=== PATIENT | male | born 1930 | race Caucasian/White ===

== ENCOUNTER 2017-05-13 11:34 | Observation (INO) | payer MEDICARE, OTHER ==
[2017-05-13] VITALS (9 sets, daily range): BP systolic 94–137; BP diastolic 52–83; PULSE 73–113; RESP 17–19; TEMP 97.8–98.3; O2SAT 96–97
[~2017-05-13] VITALS: Ht 182.9 cm; Wt 75.0 kg
[~2017-05-13 11:34] MED LIST: FERR65TA PO; HYDR-3583 PO; HYDR12.56 PO; METO25TA3 PO; NEXI40CA PO; ONETAB4 PO; REST30CA PO; VITA500T PO; XARE15TA PO
[2017-05-13] MEDS ORDERED: FERR200T PO (12:01)
[2017-05-13] MEDS ORDERED: OCUVTAB4 PO (12:01)
[2017-05-13] MEDS ORDERED: CELE1CAP8 PO (12:01)
[2017-05-13] MEDS ORDERED: VITA250C3 CHEW (12:01)
[2017-05-13] MEDS ORDERED: MULT-207 PO (12:01)
[2017-05-13 12:18] LABS: AUTOMATED NEUTROPHIL # 7.3 TH/MM3 (1.8-7.7); BASOPHIL % 0.5 % (0.0-2.0); EOSINOPHIL % 0.3 % (0.0-4.0); HEMATOCRIT 29.8 % (39.0-51.0); HEMO FLAGS DIFF FINAL; LYMPH % 16.2 % (9.0-44.0); LYMPHOCYTE # 1.5 TH/MM3 (1.0-4.8); MEAN CELL VOLUME 98.9 FL (80.0-100.0); MEAN CORPUSCULAR HEMOGLOBIN 32.1 PG (27.0-34.0); MEAN CORPUSCULAR HGB CONC 32.5 % (32.0-36.0); MONO % 4.8 % (0.0-8.0); NEUT % 78.2 % (16.0-70.0); PLATELET COUNT 309 TH/MM3 (150-450); RED BLOOD COUNT 3.01 MIL/MM3 (4.50-5.90); RED CELL DISTRIBUTION WIDTH 16.3 % (11.6-17.2); WHITE BLOOD COUNT 9.3 TH/MM3 (4.0-11.0)
[2017-05-13 12:39] LABS: ALT (GPT) 15 U/L (12-78); ANION GAP 8 MEQ/L (5-15); AST (GOT) 14 U/L (15-37); BICARBONATE 25.4 MEQ/L (21.0-32.0); BLOOD UREA NITROGEN 34 MG/DL (7-18); CHLORIDE 104 MEQ/L (98-107); GLOMERULAR FILTRATION RATE 42 ML/MIN (>89); POTASSIUM 4.4 MEQ/L (3.5-5.1); SODIUM (NA) 137 MEQ/L (136-145)
[2017-05-13 12:41] LABS: ALKALINE PHOSPHATASE 137 U/L (45-117); TOTAL BILIRUBIN ADULT 0.5 MG/DL (0.2-1.0)
--- NOTE | 2017-05-13 13:32 | PD ---
HPI Chief Complaint: Bleeding Time Seen by Provider: 12:04 Travel History International Travel<30 days: No Contact w/Intl Traveler<30days: No Traveled to known affect area: No History of Present Illness HPI The patient is 86 years old. He was being evaluated by Dr. Godinez for peripheral vascular disease however he stepped on aluminum at home on the left foot causing bleeding last night. EMS wrapped the foot, The bleeding was extensive in office, possibly several hundred cc of blood. In the ER he complains of pain in the feet bilaterally. Shortness of breath is reported. Pt take xarelto for afib. PFSH Past Medical History Hx Anticoagulant Therapy: Yes Atrial Fibrillation: Yes Blood Disorders: No Heart Rhythm Problems: Yes (afib) Cancer: No Cardiac Catheterization: Yes Cardiovascular Problems: Yes High Cholesterol: No Chest Pain: Yes Congestive Heart Failure: No Coronary Artery Disease: Yes Diabetes: No Diminished Hearing: Yes Endocrine: Yes Gastrointestinal Disorders: Yes GERD: Yes Genitourinary: Yes (RENAL STENTS) Hiatal Hernia: Yes Hypertension: Yes Immune Disorder: No Musculoskeletal: Yes (SPINE ARTHRITIS) Neurologic: No Psychiatric: No Reproductive: No Respiratory: No Myocardial Infarction: Yes Tetanus Vaccination: Unknown Past Surgical History Coronary Artery Bypass Graft: No Coronary Stent: Yes (X 3-4) Joint Replacement: Yes (LEFT KNEE, LEFT HIP) Other Surgery: Yes (RENAL STENT) Family History Family Myocardial Infarction: Yes Social History Alcohol Use: Yes (OCC BEER) Tobacco Use: No Substance Use: No Allergies-Medications (Allergen,Severity, Reaction): Coded Allergies: diatrizoate meglumine (Unverified Allergy, Severe, 05/13/17) gadobenic acid (Unverified Allergy, Severe, 05/13/17) gadodiamide (Unverified Allergy, Severe, 05/13/17) gadoteridol (Unverified Allergy, Severe, 05/13/17) iodixanol (Unverified Allergy, Severe, 05/13/17) iohexol (Unverified Allergy, Severe, 05/13/17) Reported Meds & Prescriptions Reported Meds & Active Scripts Active Reported Feosol (Ferrous Sulfate) 325 Mg (65 Mg Iron) Tab 200 Mg PO DAILY Vitamin C (Ascorbic Acid) 250 Mg Chew 250 Mg CHEW DAILY Celecoxib 200 Mg Cap 200 Mg PO BID Preservision Areds (Multiple Vitamins W/ Minerals) 1 Tab 1 Tab PO DAILY One Daily (Multiple Vitamin) 1 Tab 1 Tab PO DAILY Hydrochlorothiazide 12.5 Mg Tab 12.5 Mg PO DAILY Restoril (Temazepam) 30 Mg Cap 30 Mg PO HS PRN Hydrocodone-Acetaminophen 10-325 mg Tab 1 Tab PO Q4H PRN Metoprolol Tartrate 25 Mg Tab 25 Mg PO DAILY Xarelto (Rivaroxaban) 15 Mg Tab 15 Mg PO DAILY Nexium (Esomeprazole DR) 40 Mg Capdr 40 Mg PO DAILY Review of Systems Except as stated in HPI: all other systems reviewed are Neg Physical Exam Narrative GENERAL: 86 yo M, wnwd, speaking in sentences SKIN: Warm and dry. HEAD: Atraumatic. Normocephalic. EYES: Pupils equal and round. No scleral icterus. No injection or drainage. ENT: No nasal bleeding or discharge. Mucous membranes pink and moist. NECK: Trachea midline. No JVD. CARDIOVASCULAR: Regular rate and rhythm. RESPIRATORY: No accessory muscle use. Clear to auscultation. Breath sounds equal bilaterally. GASTROINTESTINAL: Abdomen soft, non-tender, nondistended. Hepatic and splenic margins not palpable. MUSCULOSKELETAL: 2+ pitting edema bilateral lower extremities. L great toe dressed w bleeding controlled. NEUROLOGICAL: Awake and alert. No obvious cranial nerve deficits. Motor grossly within normal limits. Five out of 5 muscle strength in the arms and legs. Normal speech. PSYCHIATRIC: Appropriate mood and affect; insight and judgment normal. Data Data Last Documented VS Vital Signs Date Time Temp Pulse Resp B/P (MAP) Pulse Ox O2 Delivery O2 Flow Rate FiO2 05/13/17 11:45 101 19 97 Room Air 05/13/17 11:45 97.8 137/77 (97) VS reviewed Orders Orders Complete Blood Count With Diff (05/13/17 11:44) Comprehensive Metabolic Panel (05/13/17 11:44) B-Type Natriuretic Peptide (05/13/17 11:44) Type And Screen (05/13/17 11:44) Furosemide Inj (Lasix Inj) (05/13/17 13:45) Chest, Single Ap (05/13/17 13:57) Tetanus/Diphtheria Tox Adult (Tetanus/Di (05/13/17 14:00) Admit Order (Ed Use Only) (05/13/17 13:59) Labs Laboratory Tests Test 05/13/17 11:50 White Blood Count 9.3 TH/MM3 Red Blood Count 3.01 MIL/MM3 Hemoglobin 9.7 GM/DL Hematocrit 29.8 % Mean Corpuscular Volume 98.9 FL Mean Corpuscular Hemoglobin 32.1 PG Mean Corpuscular Hemoglobin Concent 32.5 % Red Cell Distribution Width 16.3 % Platelet Count 309 TH/MM3 Mean Platelet Volume 6.6 FL Neutrophils (%) (Auto) 78.2 % Lymphocytes (%) (Auto) 16.2 % Monocytes (%) (Auto) 4.8 % Eosinophils (%) (Auto) 0.3 % Basophils (%) (Auto) 0.5 % Neutrophils # (Auto) 7.3 TH/MM3 Lymphocytes # (Auto) 1.5 TH/MM3 Monocytes # (Auto) 0.4 TH/MM3 Eosinophils # (Auto) 0.0 TH/MM3 Basophils # (Auto) 0.0 TH/MM3 CBC Comment DIFF FINAL Differential Comment Blood Urea Nitrogen 34 MG/DL Creatinine 1.57 MG/DL Random Glucose 154 MG/DL Total Protein 6.6 GM/DL Albumin 2.6 GM/DL Calcium Level 8.5 MG/DL Alkaline Phosphatase 137 U/L Aspartate Amino Transf (AST/SGOT) 14 U/L Alanine Aminotransferase (ALT/SGPT) 15 U/L Total Bilirubin 0.5 MG/DL Sodium Level 137 MEQ/L Potassium Level 4.4 MEQ/L Chloride Level 104 MEQ/L Carbon Dioxide Level 25.4 MEQ/L Anion Gap 8 MEQ/L Estimat Glomerular Filtration Rate 42 ML/MIN Total Creatine Kinase 39 U/L Troponin I LESS THAN 0.02 NG/ML B-Type Natriuretic Peptide 832 PG/ML MDM Medical Decision Making Medical Screen Exam Complete: Yes Emergency Medical Condition: Yes Differential Diagnosis anemia, laceration, chf, electrolyte imbalance Narrative Course CBC & BMP Diagram 05/13/17 11:50 Total Protein 6.6, Albumin 2.6 L, Calcium Level 8.5, Alkaline Phosphatase 137 H , Aspartate Amino Transf (AST/SGOT) 14 L, Alanine Aminotransferase (ALT/SGPT) 15 , Total Bilirubin 0.5 BNP 832 Admission for CHF presumably new in onset d/w Dr Mejia Diagnosis Primary Impression: CHF (congestive heart failure) Qualified Codes: I50.9 - Heart failure, unspecified Admitting Information Admitting Physician Requests: Admit Alvaro Brown MD May 13, 2017 13:32
[2017-05-13] MEDS ORDERED: FUROSEMIDE 40 MG/4 ML VIAL IV PUSH ONE (13:45)
[2017-05-13] MEDS ORDERED: ACETAMINOPHEN/HYDROcodone 325 MG/5 MG TAB PO PRN (14:00)
[2017-05-13] MEDS ORDERED: SODIUM CHLORIDE 0.9% FLUSH 10 ML FLUSH IV FLUSH PRN (14:00)
[2017-05-13] MEDS ORDERED: ACETAMINOPHEN 325 MG TAB PO PRN (14:00)
[2017-05-13] MEDS ORDERED: ONDANSETRON HCL 4 MG/2 ML VIAL IVP PRN (14:00)
[2017-05-13] MEDS ORDERED: TETANUS/DIPHTHERIA TOXOID ADULT 0.5 ML VIAL IM ONE (14:00)
[2017-05-13] MEDS ORDERED: NALOXONE HCL 0.4 MG/ML AMP IV PUSH PRN (14:00)
[2017-05-13] MEDS ORDERED: ACETAMINOPHEN/HYDROcodone 325 MG/10 MG TAB PO ONE (14:15)
[2017-05-13 14:35] LABS: CREATINE KINASE 39 U/L (39-308)
--- NOTE | 2017-05-13 14:37 | RADRPT ---
EXAM DATE/TIME: 05/13/2017 14:20 [facility] COMPARISON: CHEST SINGLE AP, August 04, 2016, 8:28. INDICATIONS : Short of breath. MEDICAL HISTORY : Myocardial infarction. SURGICAL HISTORY : Coronary artery stent. ENCOUNTER: Initial ACUITY: 1 day PAIN SCORE: 0/10 LOCATION: Bilateral chest FINDINGS: The examination demonstrates a basilar infiltrate on the left. This is new compared to previous exam and would be concerning for a pneumonia. There are old, calcified nodes in the mediastinum. The right lung is clear. The osseous structures are intact. CONCLUSION: Parenchymal infiltrate at the left lung base. Alvaro Davis MD on May 13, 2017 at 14:29 Board Certified Radiologist. This report was verified electronically.
--- NOTE | 2017-05-13 15:36 | HHI.HP ---
[facility] Antonio Evangelista MD Admission Diagnosis Bleeding; CHF New Onset Diagnoses: (1) CKD (chronic kidney disease), stage III (2) Edema of both legs (3) Elevated brain natriuretic peptide (BNP) level (4) Bleeding from wound (5) Anemia due to acute blood loss Chief Complaint: Bleeding from wound site Travel History International Travel<30 Days: No Contact w/Intl Traveler <30 Da: No Traveled to Known Affected Are: No History of Present Illness 86-year-old male with history of atrial fibrillation on chronic oral anticoagulation, diabetes type 2, hypertension was brought to the ED for evaluation of extensive bleeding from the wound site. Apparently patient was being evaluated by Dr. Godinez vascular surgeon when he started bleeding from a cute on his left foot. However patient told me a different story. States last night he bumped himself against a divider and as he was removing his socks around 12 AM he could not stop bleeding from a cut. Patient also noted significant bilateral lower extremity edema over the past weeks with significant shortness of breath. Denies any prior history of CHF. Abnormal labs include BNP of 800+ , H&H 9.7/29.8. Patient denies any GI bleed, hemoptysis or hematuria. Review of Systems Except as stated in HPI: all other systems reviewed are Neg Past Family Social History Past Medical History Atrial fibrillation Coronary artery disease Diabetes GERD Hypertension Chronic back pain Asbestosis Past Surgical History Cholecystectomy Cardiac stents Reported Medications Feosol (Ferrous Sulfate) 325 Mg (65 Mg Iron) Tab 200 Mg PO DAILY Vitamin C (Ascorbic Acid) 250 Mg Chew 250 Mg CHEW DAILY Celecoxib 200 Mg Cap 200 Mg PO BID Preservision Areds (Multiple Vitamins W/ Minerals) 1 Tab 1 Tab PO DAILY One Daily (Multiple Vitamin) 1 Tab 1 Tab PO DAILY Hydrochlorothiazide 12.5 Mg Tab 12.5 Mg PO DAILY Restoril (Temazepam) 30 Mg Cap 30 Mg PO HS PRN Hydrocodone-Acetaminophen 10-325 mg Tab 1 Tab PO Q4H PRN Metoprolol Tartrate 25 Mg Tab 25 Mg PO DAILY Xarelto (Rivaroxaban) 15 Mg Tab 15 Mg PO DAILY Nexium (Esomeprazole DR) 40 Mg Capdr 40 Mg PO DAILY Allergies: Coded Allergies: diatrizoate meglumine (Unverified Allergy, Severe, 05/13/17) gadobenic acid (Unverified Allergy, Severe, 05/13/17) gadodiamide (Unverified Allergy, Severe, 05/13/17) gadoteridol (Unverified Allergy, Severe, 05/13/17) iodixanol (Unverified Allergy, Severe, 05/13/17) iohexol (Unverified Allergy, Severe, 05/13/17) Family History Denies any family history of VTE Social History Alcohol Use: Yes (OCC BEER) Tobacco Use: No Substance Use: No Physical Exam Vital Signs Vital Signs Date Time Temp Pulse Resp B/P (MAP) Pulse Ox O2 Delivery O2 Flow Rate FiO2 05/13/17 15:19 72 18 128/81 (97) 95 05/13/17 14:47 73 19 132/83 (99) 96 Room Air 05/13/17 14:46 80 19 132/83 (99) 96 Room Air 05/13/17 11:45 101 19 97 Room Air 05/13/17 11:45 97.8 101 19 137/77 (97) 97 Room Air 05/13/17 11:38 97.8 101 19 137/77 (97) 97 05/13/17 11:36 97.8 93 17 114/62 (79) 97 Physical Exam GENERAL: This is a well-nourished, well-developed patient, in no apparent distress. SKIN: No rashes, ecchymoses or lesions. Cool and dry. Dressing over left foot HEAD: Atraumatic. Normocephalic. No temporal or scalp tenderness. EYES: Pupils equal round and reactive. Extraocular motions intact. No scleral icterus. No injection or drainage. ENT: Nose without bleeding, purulent drainage or septal hematoma. Throat without erythema, tonsillar hypertrophy or exudate. Uvula midline. Airway patent. NECK: Trachea midline. No JVD or lymphadenopathy. Supple, nontender, no meningeal signs. CARDIOVASCULAR: Regular rate and rhythm without murmurs, gallops, or rubs. RESPIRATORY: Clear to auscultation. Breath sounds equal bilaterally. No wheezes , rales, or rhonchi. GASTROINTESTINAL: Abdomen soft, non-tender, nondistended. No hepato-splenomegaly , or palpable masses. No guarding. MUSCULOSKELETAL: Extremities without clubbing, cyanosis. +2 edema BLE. No joint tenderness, effusion, or edema noted. No calf tenderness. Negative Homans sign bilaterally. NEUROLOGICAL: Awake and alert. Cranial nerves II through XII intact. Motor and sensory grossly within normal limits. Five out of 5 muscle strength in all muscle groups. Normal speech. Laboratory Laboratory Tests Test 05/13/17 11:50 White Blood Count 9.3 Red Blood Count 3.01 Hemoglobin 9.7 Hematocrit 29.8 Mean Corpuscular Volume 98.9 Mean Corpuscular Hemoglobin 32.1 Mean Corpuscular Hemoglobin Concent 32.5 Red Cell Distribution Width 16.3 Platelet Count 309 Mean Platelet Volume 6.6 Neutrophils (%) (Auto) 78.2 Lymphocytes (%) (Auto) 16.2 Monocytes (%) (Auto) 4.8 Eosinophils (%) (Auto) 0.3 Basophils (%) (Auto) 0.5 Neutrophils # (Auto) 7.3 Lymphocytes # (Auto) 1.5 Monocytes # (Auto) 0.4 Eosinophils # (Auto) 0.0 Basophils # (Auto) 0.0 CBC Comment DIFF FINAL Differential Comment Blood Urea Nitrogen 34 Creatinine 1.57 Random Glucose 154 Total Protein 6.6 Albumin 2.6 Calcium Level 8.5 Alkaline Phosphatase 137 Aspartate Amino Transf (AST/SGOT) 14 Alanine Aminotransferase (ALT/SGPT) 15 Total Bilirubin 0.5 Sodium Level 137 Potassium Level 4.4 Chloride Level 104 Carbon Dioxide Level 25.4 Anion Gap 8 Estimat Glomerular Filtration Rate 42 Total Creatine Kinase 39 Troponin I LESS THAN 0.02 B-Type Natriuretic Peptide 832 Result Diagram: 05/13/17 1150 05/13/17 1150 Imaging Last Impressions Chest X-Ray 05/13/17 1357 Signed Impressions: Service Date/Time: Saturday, May 13, 2017 14:20 - CONCLUSION: Parenchymal infiltrate at the left lung base. MD Deysi Deei VTE Risk Assessment Deysii VTE Risk Assessment: Mod/High Risk (score >= 2) Caprini Risk Assessment Model Point Value = 1 Point Value = 2 Point Value = 3 Point Value = 5 Age 41-60 Minor surgery BMI > 25 kg/m2 Swollen legs Varicose veins or History of unexplained or recurrent spontaneous Oral contraceptives or hormone replacement Sepsis (< 1 month) Serious lung disease, including pneumonia (< 1 month) Abnormal pulmonary function Acute myocardial infarction Congestive heart failure (< 1 month) History of inflammatory bowel disease Medical patient at bed rest Age 61-74 Arthroscopic surgery Major open surgery (> 45 min) Laparoscopic surgery (> 45 min) Malignancy Confined to bed (> 72 hours) Immobilizing plaster cast Central venous access Age >= 75 History of VTE Family history of VTE Factor V Leiden Prothrombin [id number] Lupus anticoagulant Anticardiolipin antibodies Elevated serum homocysteine Heparin-induced thrombocytopenia Other congenital or acquired thrombophilia Stroke (< 1 month) Elective arthroplasty Hip, pelvis, or leg fracture Acute spinal cord injury (< 1 month) Prophylaxis Regimen Total Risk Factor Score Risk Level Prophylaxis Regimen 0-1 Low Early ambulation 2 Moderate Order ONE of the following: *Sequential Compression Device (SCD) *Heparin 5000 units SQ BID 3-4 Higher Order ONE of the following medications: *Heparin 5000 units SQ TID *Enoxaparin/Lovenox 40 mg SQ daily (WT < 150 kg, CrCl > 30 mL/min) *Enoxaparin/Lovenox 30 mg SQ daily (WT < 150 kg, CrCl > 10-29 mL/min) *Enoxaparin/Lovenox 30 mg SQ BID (WT < 150 kg, CrCl > 30 mL/min) AND/OR *Sequential Compression Device (SCD) 5 or more Highest Order ONE of the following medications: *Heparin 5000 units SQ TID (Preferred with Epidurals) *Enoxaparin/Lovenox 40 mg SQ daily (WT < 150 kg, CrCl > 30 mL/min) *Enoxaparin/Lovenox 30 mg SQ daily (WT < 150 kg, CrCl > 10-29 mL/min) *Enoxaparin/Lovenox 30 mg SQ BID (WT < 150 kg, CrCl > 30 mL/min) AND *Sequential Compression Device (SCD) Assessment and Plan Problem List: (1) Bleeding from wound ICD Code: T14.8 - Other injury of unspecified body region (2) Elevated brain natriuretic peptide (BNP) level ICD Code: R79.89 - Other specified abnormal findings of blood chemistry (3) Edema of both legs ICD Code: R60.0 - Localized edema (4) CKD (chronic kidney disease), stage III ICD Code: N18.3 - Chronic kidney disease, stage 3 (moderate) (5) Anemia due to acute blood loss ICD Code: D62 - Acute posthemorrhagic anemia (6) Atrial fibrillation ICD Code: I48.91 - Atrial fibrillation Status: Acute (7) Hypertension ICD Code: I10 - Hypertension Status: Acute (8) Diabetes mellitus ICD Code: E11.9 - Diabetes mellitus Status: Acute Assessment and Plan -year-old man with Anemia of acute blood loss Status post cut leading to excessive bleeding H&H currently stable and not requiring any blood transfusion Continue to monitor Elevated BNP Questionable history of CHF Chest x-ray noted and review by me without any evidence of pulmonary congestion Check 2-D echo and rule out ACS per protocol Will start patient on Lasix 20 mg IV daily secondary to bilateral lower extremity edema +2 despite no evidence of pulmonary congestions on CHEST X-RAY Bilateral lower extremity edema Will start patient on low-dose Lasix 20 mg IV daily History of atrial fibrillation Resume Lopressor however hold Xarelto Hypertension Resume hydrochlorothiazide and Lopressor History of diabetes type 2 Not currently on any medication despite elevated blood glucose Check hemoglobin A1c Start insulin sliding scale Chronic stage III kidney disease Currently at his baseline and stable Monitor BUN and creatinine Code Status Full code Discussed Condition With Patient, ED physician Manas Mejia MD May 13, 2017 15:35
[2017-05-13] MEDS ORDERED: GLUCAGON 1 MG/ML VIAL OTHER PRN (16:30)
[2017-05-13] MEDS ORDERED: DEXTROSE 50% IN WATER 50 ML VIAL(D50) IV PUSH PRN (16:30)
[2017-05-13] MEDS: INSULIN ASPART SUPPLEMENTAL SCALE SQ SCH ×2 (17:00→20:41)
[2017-05-13] MEDS: FUROSEMIDE 20 MG/2 ML VIAL IV PUSH SCH (19:01)
[2017-05-13] MEDS: ACETAMINOPHEN 325 MG TAB PO PRN (21:24)
[2017-05-13] MEDS: TEMAZEPAM 15 MG CAP PO PRN (21:25)
[2017-05-13] MEDS: SODIUM CHLORIDE 0.9% FLUSH 10 ML FLUSH IV FLUSH SCH (21:25)
[2017-05-13 21:33] LABS: CREATINE KINASE 33 U/L (39-308)
[2017-05-14] VITALS (10 sets, daily range): BP systolic 103–144; BP diastolic 56–93; PULSE 58–102; RESP 17–19; TEMP 96.3–98.3; O2SAT 95–99
--- NOTE | 2017-05-14 02:42 | RADRPT ---
EXAM DATE/TIME: 05/14/2017 02:21 [facility] COMPARISON: No previous studies available for comparison. INDICATIONS : Fall, on xarelto RADIATION DOSE: 56.35 CTDIvol (mGy) MEDICAL HISTORY : Cardiovascular disease. Hypertension. Afib SURGICAL HISTORY : Coronary artery stent. ENCOUNTER: Initial ACUITY: 1 day PAIN SCALE: 3/10 LOCATION: cranial TECHNIQUE: Multiple contiguous axial images were obtained of the head. Using automated exposure control and adj ustment of the mA and/or kV according to patient size, radiation dose was kept as low as reasonably a chievable to obtain optimal diagnostic quality images. DICOM format image data is available electro nically for review and comparison. FINDINGS: There is marked central and cortical atrophy with dilatation of ventricular and sulcal spaces. There is no parenchymal hemorrhage, acute infarction or mass lesion identified. There are no extra-axial fluid collections appreciated. The posterior fossa is unremarkable with midline fourth ventricle. T he portion of the orbits and paranasal sinuses visualized are unremarkable. CONCLUSION: 1. No acute findings. Atrophic changes in the brain. Hector Zhou MD on May 14, 2017 at 2:39 Board Certified Radiologist. This report was verified electronically.
[2017-05-14] MEDS: INSULIN ASPART SUPPLEMENTAL SCALE SQ SCH ×4 (08:00→21:00)
[2017-05-14 08:34] LABS: AUTOMATED NEUTROPHIL # 5.2 TH/MM3 (1.8-7.7); BASOPHIL % 0.4 % (0.0-2.0); EOSINOPHIL # 0.1 TH/MM3 (0-0.4); EOSINOPHIL % 0.8 % (0.0-4.0); HEMATOCRIT 27.3 % (39.0-51.0); HEMO FLAGS DIFF FINAL; LYMPH % 26.9 % (9.0-44.0); LYMPHOCYTE # 2.1 TH/MM3 (1.0-4.8); MEAN CELL VOLUME 99.2 FL (80.0-100.0); MEAN CORPUSCULAR HEMOGLOBIN 33.2 PG (27.0-34.0); MEAN CORPUSCULAR HGB CONC 33.5 % (32.0-36.0); MONO % 6.2 % (0.0-8.0); NEUT % 65.7 % (16.0-70.0); PLATELET COUNT 230 TH/MM3 (150-450); RED BLOOD COUNT 2.75 MIL/MM3 (4.50-5.90); WHITE BLOOD COUNT 7.9 TH/MM3 (4.0-11.0)
[2017-05-14 08:56] LABS: ALKALINE PHOSPHATASE 118 U/L (45-117); ALT (GPT) 11 U/L (12-78); ANION GAP 8 MEQ/L (5-15); AST (GOT) 14 U/L (15-37); BICARBONATE 26.1 MEQ/L (21.0-32.0); BLOOD UREA NITROGEN 33 MG/DL (7-18); CHLORIDE 104 MEQ/L (98-107); GLOMERULAR FILTRATION RATE 46 ML/MIN (>89); HDL CHOLESTEROL 45.8 MG/DL (40.0-60.0); LDL CHOLESTEROL 22 MG/DL (0-99); POTASSIUM 3.6 MEQ/L (3.5-5.1); SODIUM (NA) 138 MEQ/L (136-145); TOTAL BILIRUBIN ADULT 0.6 MG/DL (0.2-1.0)
[2017-05-14] MEDS: METOPROLOL TARTRATE 25 MG TAB PO SCH (09:00)
--- NOTE | 2017-05-14 09:28 | RADRPT ---
EXAM DATE/TIME: 05/14/2017 07:54 [facility] COMPARISON: No previous studies available for comparison. INDICATIONS : Possible syncope. MEDICAL HISTORY : Myocardial infarction. Gastroesophageal reflux disease. Hypertension. CAD. Afib. Hernia. SURGICAL HISTORY : Cardiac catheterization. Cardiac stents. Renal stents. Right shoulder surgery. Left knee srgery. Left hip surgery. ENCOUNTER: Initial ACUITY: 1 day PAIN SCORE: 0/10 LOCATION: Bilateral neck PEAK SYSTOLIC VELOCITIES (cm/sec): ICA/CCA RATIO: Right: 1.5 Left: 1.9 ICA: Right: 73 Left: 108 CCA: Right: 48 Left: 57 ECA: Right: 65 Left: 44 VERTEBRAL: Right: 46 antegrade Left: 53 antegrade Elevated flow velocities and ICA/CCA ratios have been found to correlate with increased degrees of vessel stenosis, calculated as percentage of diameter relative to a normal segment of distal ICA/CCA FINDINGS: Ultrasound of the carotid arteries was performed bilaterally using real-time Doppler and color Dopple r imaging. Examination of the right carotid artery demonstrates mild fibrous plaque within the bifurcation. No w aveform abnormalities are identified and no spectral broadening is seen. Examination of the left nichols tid artery demonstrates mild fibrous plaque within the bulb. No waveform abnormalities are identified and no spectral broadening is seen. There is antegrade flow in both vertebral arteries. CONCLUSION: No evidence of hemodynamically significant lesion.. Vikas Pina MD on May 14, 2017 at 8:52 Board Certified Radiologist. This report was verified electronically.
[2017-05-14] MEDS: FUROSEMIDE 20 MG/2 ML VIAL IV PUSH SCH (10:05)
[2017-05-14] MEDS: SODIUM CHLORIDE 0.9% FLUSH 10 ML FLUSH IV FLUSH SCH ×2 (10:05→22:03)
[2017-05-14] MEDS: HYDROCHLOROTHIAZIDE 12.5 MG CAP PO SCH (10:06)
[2017-05-14] MEDS: FERROUS SULFATE 325 MG (65 MG ELEMENTAL IRON) TAB PO SCH (10:06)
[2017-05-14] MEDS: PANTOPRAZOLE SOD 40 MG DELAYED RELEASE TAB PO SCH (10:06)
[2017-05-14] MEDS: ACETAMINOPHEN 325 MG TAB PO PRN ×3 (10:07→22:04)
[2017-05-14 10:26] LABS: HEMOGLOBIN A1a 1.2 %; HEMOGLOBIN A1b 0.9 %
[2017-05-14 10:28] LABS: HEMOGLOBIN Ao 86.2 %; HEMOGLOBIN P3 3.4 %
--- NOTE | 2017-05-14 12:25 | ECHRPT ---
Indication: SOB CONCLUSIONS Normal left ventricular size. Mild concentric left ventricular hypertrophy. The left ventricular systolic function is low normal with an estimated ejection fraction in the rang e of 50- 55%. The right ventricle is mildly dilated. The left atrial size is moderately dilated. The right atrial size is moderately dilated. Mild thickening of the mitral valve leaflets. Moderate mitral valve regurgitation. Aortic valve sclerosis is present. [id number] aortic valve regurgitation. There is mild tricuspid valve regurgitation. The estimated pulmonary arterial pressure is 38 mmHg. The pulmonary valve is not well visualized. BP: / HR: Rhythm: Other MEASUREMENTS (Male / Female) Normal Values Technical Quality:Good 2D ECHO LV Diastolic Diameter PLAX 4.3 cm 4.2 - 5.9 / 3.9 - 5.3 cm LV Systolic Diameter PLAX 3.5 cm IVS Diastolic Thickness 1.3 cm 0.6 - 1.0 / 0.6 - 0.9 cm LVPW Diastolic Thickness 0.8 cm 0.6 - 1.0 / 0.6 - 0.9 cm LV Relative Wall Thickness 0.5 RV Internal Dim ED PLAX 3.7 cm LA Systolic Diameter LX 5.0 cm 3.0 - 4.0 / 2.7 - 3.8 cm DOPPLER AI Peak Velocity 413.0 cm/s AI Peak Gradient 68.2 mmHg AI Pressure Half Time 683.0 ms TR Peak Velocity 307.0 cm/s TR Peak Gradient 37.7 mmHg FINDINGS LEFT VENTRICLE Normal left ventricular size. Mild concentric left ventricular hypertrophy. The left ventricular systolic function is low normal with an estimated ejection fraction in the rang e of 50- 55%. RIGHT VENTRICLE The right ventricle is mildly dilated. LEFT ATRIUM The left atrial size is moderately dilated. RIGHT ATRIUM The right atrial size is moderately dilated. ATRIAL SEPTUM Normal atrial septal thickness without atrial level shunting by limited color doppler interrogation. AORTA The aortic root and proximal ascending aorta are normal in size on limited imaging. MITRAL VALVE Mild thickening of the mitral valve leaflets. Moderate mitral valve regurgitation. AORTIC VALVE Aortic valve sclerosis is present. [id number] aortic valve regurgitation. TRICUSPID VALVE There is mild tricuspid valve regurgitation. The estimated pulmonary arterial pressure is 38 mmHg. PULMONARY VALVE The pulmonary valve is not well visualized. VESSELS The inferior vena cava is normal in size. PERICARDIUM No pericardial effusion. Ahmet Rose MD, FACC (Electronically Signed) Final Date:14 May 2017 12:24
--- NOTE | 2017-05-14 12:30 | HHI.PR ---
Subjective Remarks Excessive bleed from left foot/bilateral lower extremity edema rule out CHF 05/14/17-patient seen and examined, H&H stable and no more bleeding episode. Bilateral lower extremity edema improving. Episode of confusion overnight Objective Vitals Vital Signs Date Time Temp Pulse Resp B/P (MAP) Pulse Ox O2 Delivery O2 Flow Rate FiO2 05/14/17 11:26 97.7 83 17 112/71 (85) 05/14/17 07:34 98.2 89 18 112/56 (74) 99 05/14/17 04:32 98.3 90 18 103/69 (80) 95 05/14/17 02:59 96.3 76 18 129/67 (87) 98 05/14/17 01:00 101 116/68 (84) 97 05/13/17 23:10 113 114/68 (83) 97 05/13/17 22:25 16 05/13/17 20:43 115/57 (76) 05/13/17 19:51 98.3 82 18 94/52 (66) 96 05/13/17 15:19 72 18 128/81 (97) 95 05/13/17 14:47 73 19 132/83 (99) 96 Room Air 05/13/17 14:46 80 19 132/83 (99) 96 Room Air I/O 05/13/17 05/13/17 05/13/17 05/14/17 05/14/17 05/14/17 07:00 15:00 23:00 07:00 15:00 23:00 Intake Total 240 ml 240 ml Output Total 250 ml 300 ml Balance -10 ml -60 ml Intake Oral 240 ml 240 ml Output Urine Total 250 ml 300 ml # Voids 3 Result Diagram: 05/14/17 0644 05/14/17 0644 Imaging Last Impressions Carotid Artery Ultrasound 05/14/17 0000 Signed Impressions: Service Date/Time: Sunday, May 14, 2017 07:54 - CONCLUSION: No evidence of hemodynamically significant lesion.. Vikas Pina MD Chest X-Ray 05/13/17 1357 Signed Impressions: Service Date/Time: Saturday, May 13, 2017 14:20 - CONCLUSION: Parenchymal infiltrate at the left lung base. Alvaro Davis MD Head CT 05/13/17 0000 Signed Impressions: Service Date/Time: Sunday, May 14, 2017 02:21 - CONCLUSION: 1. No acute findings. Atrophic changes in the brain. Hector Zhou MD Objective Remarks GENERAL: NAD SKIN: Warm and dry. HEAD: Normocephalic. EYES: No scleral icterus. No injection or drainage. NECK: Supple, trachea midline. No JVD or lymphadenopathy. CARDIOVASCULAR: Regular rate and rhythm without murmurs, gallops, or rubs. RESPIRATORY: Breath sounds equal bilaterally. No accessory muscle use. GASTROINTESTINAL: Abdomen soft, non-tender, nondistended. MUSCULOSKELETAL: No cyanosis; +1 edema BLE. Dressing of the left foot BACK: Nontender without obvious deformity. No CVA tenderness. A/P Problem List: (1) Bleeding from wound ICD Code: T14.8 - Other injury of unspecified body region (2) Elevated brain natriuretic peptide (BNP) level ICD Code: R79.89 - Other specified abnormal findings of blood chemistry (3) Edema of both legs ICD Code: R60.0 - Localized edema (4) CKD (chronic kidney disease), stage III ICD Code: N18.3 - Chronic kidney disease, stage 3 (moderate) (5) Anemia due to acute blood loss ICD Code: D62 - Acute posthemorrhagic anemia (6) Atrial fibrillation ICD Code: I48.91 - Atrial fibrillation Status: Acute (7) Hypertension ICD Code: I10 - Hypertension Status: Acute (8) Diabetes mellitus ICD Code: E11.9 - Diabetes mellitus Status: Acute Assessment and Plan 86year-old man with Anemia of acute blood loss Status post cut leading to excessive bleeding H&H currently stable and not requiring any blood transfusion Continue to monitor Elevated BNP Questionable history of CHF Chest x-ray noted and review by me without any evidence of pulmonary congestion 2-D echo pending and ACS ruled out per protocol Continue patient on Lasix 20 mg IV daily secondary to bilateral lower extremity edema +2 despite no evidence of pulmonary congestions on CHEST X-RAY Bilateral lower extremity edema Continue patient on low-dose Lasix 20 mg IV daily 2-D echo pending History of atrial fibrillation Continue Lopressor however hold Xarelto Hypertension Continue hydrochlorothiazide and Lopressor History of diabetes type 2 Not currently on any medication despite elevated blood glucose hemoglobin A1c pending Continue insulin sliding scale Chronic stage III kidney disease Currently at his baseline and stable Monitor BUN and creatinine Fall -Head CT negative and carotid ultrasound unremarkable -Continue with fall precautions Manas Mejia MD May 14, 2017 12:30
--- NOTE | 2017-05-14 15:04 | EKG ---
Date Performed: 05/13/2017 Time Performed: 20:02:33 PTAGE: 86 years EKG: ATRIAL FIBRILLATION RIGHT BUNDLE BRANCH BLOCK POSSIBLE ANTERIOR MYOCARDIAL INFARCTION INFER IOR MYOCARDIAL INFARCTION ABNORMAL ECG PREVIOUS TRACING : 05/13/2017 15.02 Compared to prior tracing no significant change DOCTOR: Janis Tobias Interpretating Date/Time 05/14/2017 15:03:57
--- NOTE | 2017-05-14 15:19 | EKG ---
Date Performed: 05/13/2017 Time Performed: 15:02:46 PTAGE: 86 years EKG: ATRIAL FIBRILLATION WITH ABERRANT CONDUCTION OR VENTRICULAR PREMATURE COMPLEXES MARKED LEFT AXIS DEVIATION RIGHT BUNDLE BRANCH BLOCK POSSIBLE ANTERIOR MYOCARDIAL INFARCTION ABNORMAL ECG PREVIOUS TRACING : 08/04/2016 17.10 Compared to prior tracing no significant change DOCTOR: Janis Tobias Interpretating Date/Time 05/14/2017 15:17:27
[2017-05-14] MEDS: TEMAZEPAM 15 MG CAP PO PRN (22:03)
[2017-05-15 00:15] VITALS: BP 117/59; PULSE 93; RESP 19; TEMP 97.4; O2SAT 93
[2017-05-15 00:27] VITALS: PULSE 96
[2017-05-15 03:17] VITALS: BP 114/74; PULSE 87; RESP 18; TEMP 97.4; O2SAT 98
[2017-05-15 03:59] VITALS: PULSE 90
[2017-05-15] MEDS: INSULIN ASPART SUPPLEMENTAL SCALE SQ SCH (08:00)
[2017-05-15 08:34] VITALS: BP 110/57; PULSE 88; RESP 18; TEMP 98.1; O2SAT 96
[2017-05-15 09:00] VITALS: PULSE 93
[2017-05-15] MEDS ORDERED: POTASSIUM CHLORIDE 20 MEQ CONTROLLED RELEASE TAB PO SCH (09:00)
[2017-05-15] MEDS: METOPROLOL TARTRATE 25 MG TAB PO SCH ×2 (09:00→09:05)
[2017-05-15] MEDS: SODIUM CHLORIDE 0.9% FLUSH 10 ML FLUSH IV FLUSH SCH (09:04)
[2017-05-15] MEDS: FERROUS SULFATE 325 MG (65 MG ELEMENTAL IRON) TAB PO SCH (09:05)
[2017-05-15] MEDS: FUROSEMIDE 20 MG/2 ML VIAL IV PUSH SCH (09:05)
[2017-05-15] MEDS: PANTOPRAZOLE SOD 40 MG DELAYED RELEASE TAB PO SCH (09:05)
[2017-05-15] MEDS: HYDROCHLOROTHIAZIDE 12.5 MG CAP PO SCH (09:05)
[2017-05-15] MEDS: ACETAMINOPHEN 325 MG TAB PO PRN (09:21)
--- NOTE | 2017-05-15 11:35 | HHI.PR ---
Subjective Remarks Excessive bleed from left foot/bilateral lower extremity edema rule out CHF 05/14/17-patient seen and examined, H&H stable and no more bleeding episode. Bilateral lower extremity edema improving. Episode of confusion overnight 05/15/17-patient seen and examined, he had had no bleeding from left foot 48 hours. Stable Objective Vitals Vital Signs Date Time Temp Pulse Resp B/P (MAP) Pulse Ox O2 Delivery O2 Flow Rate FiO2 05/15/17 09:00 93 05/15/17 08:34 98.1 88 18 110/57 (74) 96 05/15/17 03:59 90 05/15/17 03:40 18 05/15/17 03:17 97.4 87 18 114/74 (87) 98 05/15/17 00:27 96 05/15/17 00:15 97.4 93 19 117/59 (78) 93 05/14/17 23:07 16 05/14/17 19:59 89 05/14/17 19:46 97.9 102 18 144/93 (110) 95 05/14/17 19:23 58 05/14/17 15:59 97.7 80 19 117/60 (79) 95 I/O 05/14/17 05/14/17 05/14/17 05/15/17 05/15/17 05/15/17 07:00 15:00 23:00 07:00 15:00 23:00 Intake Total 240 ml 775 ml Output Total 300 ml Balance -60 ml 775 ml Intake Oral 240 ml 775 ml Output Urine Total 300 ml # Voids 3 6 # Bowel Movements 1 Result Diagram: 05/14/17 0644 05/14/17 0644 Imaging Last Impressions Carotid Artery Ultrasound 05/14/17 0000 Signed Impressions: Service Date/Time: Sunday, May 14, 2017 07:54 - CONCLUSION: No evidence of hemodynamically significant lesion.. Vikas Pina MD Chest X-Ray 05/13/17 5617 Signed Impressions: Service Date/Time: Saturday, May 13, 2017 14:20 - CONCLUSION: Parenchymal infiltrate at the left lung base. Alvaro Davis MD Head CT 05/13/17 0000 Signed Impressions: Service Date/Time: Sunday, May 14, 2017 02:21 - CONCLUSION: 1. No acute findings. Atrophic changes in the brain. Hector Zhou MD Objective Remarks GENERAL: NAD SKIN: Warm and dry. HEAD: Normocephalic. EYES: No scleral icterus. No injection or drainage. NECK: Supple, trachea midline. No JVD or lymphadenopathy. CARDIOVASCULAR: Regular rate and rhythm without murmurs, gallops, or rubs. RESPIRATORY: Breath sounds equal bilaterally. No accessory muscle use. GASTROINTESTINAL: Abdomen soft, non-tender, nondistended. MUSCULOSKELETAL: No cyanosis; +trace edema BLE. Dressing of the left foot BACK: Nontender without obvious deformity. No CVA tenderness. Procedures none A/P Problem List: (1) Bleeding from wound ICD Code: T14.8 - Other injury of unspecified body region Status: Resolved (2) Elevated brain natriuretic peptide (BNP) level ICD Code: R79.89 - Other specified abnormal findings of blood chemistry (3) Edema of both legs ICD Code: R60.0 - Localized edema (4) CKD (chronic kidney disease), stage III ICD Code: N18.3 - Chronic kidney disease, stage 3 (moderate) (5) Anemia due to acute blood loss ICD Code: D62 - Acute posthemorrhagic anemia (6) Atrial fibrillation ICD Code: I48.91 - Atrial fibrillation Status: Acute (7) Hypertension ICD Code: I10 - Hypertension Status: Acute (8) Diabetes mellitus ICD Code: E11.9 - Diabetes mellitus Status: Acute Assessment and Plan 86year-old man with Anemia of acute blood loss Status post cut leading to excessive bleeding-has resolved over the past 48 hours. Patient will follow outpatient with Dr. Herbert Hahn currently stable and not requiring any blood transfusion Continue to monitor Elevated BNP Questionable history of CHF Chest x-ray noted and review by me without any evidence of pulmonary congestion 2-D echo 50-55% and ACS ruled out per protocol Switch to by mouth Lasix on discharge Bilateral lower extremity edema Improving Will switch to by mouth Lasix every other day 2-D echo 50-55% History of atrial fibrillation Continue Lopressor however hold Xarelto until patient seen by vascular surgery outpatient regarding wound left lower extremity Hypertension Continue hydrochlorothiazide and Lopressor History of diabetes type 2 Not currently on any medication despite elevated blood glucose hemoglobin A1c pending Continue insulin sliding scale Chronic stage III kidney disease Currently at his baseline and stable Monitor BUN and creatinine Fall -Head CT negative and carotid ultrasound unremarkable -Continue with fall precautions Discharge Planning Discharge patient to home Condition on discharge: Improved Regular Diet as tolerated Ad Karmen activity Rx written: Lasix 20 mg by mouth every other day Follow-up with primary care physician in one week Manas Mejia MD May 15, 2017 11:35
[2017-05-15] MEDS ORDERED: FURO1TAB62 PO (11:39)
[2017-05-15 12:48] LABS: BICARBONATE 29.3 MEQ/L (21.0-32.0)
[2017-05-15 12:54] LABS: POTASSIUM 2.8 MEQ/L (3.5-5.1)
[2017-05-15] MEDS ORDERED: POTA20TA5 PO (13:43)
== END 2017-05-15 13:41 | disposition home or self-care (01) ==
LOC: NEPC 11:34 → NEDA 14:00 → NEPGCP 15:53
PROVIDERS: ADMIT Hospitalist; ATTEND Hospitalist
DX: S91.302A Unspecified open wound, left foot, initial encounter (principal); R79.89 Other specified abnormal findings of blood chemistry; R60.9 Edema, unspecified; N18.3 Chronic kidney disease, stage 3 (moderate); R06.02 Shortness of breath; D62 Acute posthemorrhagic anemia; I48.91 Unspecified atrial fibrillation; I13.0 Hypertensive heart and chronic kidney disease with heart failure and stage 1 through stage 4 chronic kidney disease, or unspecified chronic kidney disease; I25.10 Atherosclerotic heart disease of native coronary artery without angina pectoris; E11.22 Type 2 diabetes mellitus with diabetic chronic kidney disease; K21.9 Gastro-esophageal reflux disease without esophagitis; Z79.01 Long term (current) use of anticoagulants; I73.9 Peripheral vascular disease, unspecified; W22.09XA Striking against other stationary object, initial encounter; Y93.89 Activity, other specified; Y92.019 Unspecified place in single-family (private) house as the place of occurrence of the external cause; I25.2 Old myocardial infarction; R94.31 Abnormal electrocardiogram [ECG] [EKG]; M54.9 Dorsalgia, unspecified; G89.29 Other chronic pain; M79.671 Pain in right foot; Z79.4 Long term (current) use of insulin; R07.9 Chest pain, unspecified; M79.672 Pain in left foot; K44.9 Diaphragmatic hernia without obstruction or gangrene; Z23 Encounter for immunization; Z95.5 Presence of coronary angioplasty implant and graft
CPT/HCPCS: 70450; 71010; 80048; 80053; 80061; 82550; 82948; 83036; 83880; 84484; 85025; 86850; 86900; 86901; 90471; 90714; 93005; 93306; 93880; 96374; 96376; 97162; 99285; G0378; G8987; G8988; J1940; 96372

== ENCOUNTER 2017-05-22 11:20 | Inpatient (IN) | payer MEDICARE, OTHER ==
[~2017-05-22] VITALS: Ht 182.9 cm; Wt 73.5 kg
[~2017-05-22 11:20] MED LIST changes: +CELE1CAP8 PO; +FERR200T PO; -FERR65TA PO; +FURO1TAB62 PO; +MULT-207 PO; +OCUVTAB4 PO; -ONETAB4 PO; +POTA20TA5 PO; +VITA250C3 CHEW; -VITA500T PO
[2017-05-22 11:23] VITALS: BP 114/65; PULSE 126; RESP 16; TEMP 97.5; O2SAT 97
[2017-05-22 11:37] VITALS: BP 111/67; PULSE 83; RESP 15; O2SAT 97
--- NOTE | 2017-05-22 12:09 | PD ---
HPI Chief Complaint: Skin Problem Time Seen by Provider: 11:31 Travel History International Travel<30 days: No Contact w/Intl Traveler<30days: No Traveled to known affect area: No History of Present Illness HPI Mr. Mills is a 86yoWM resenting with a left foot infection. His states that this morning they visited the accounts receivable manager, James Sanchez DPM, who found that he had an infection on his left foot between the fourth and fifth digit. She told him to go straight to the emergency room for to be admitted for IV antibiotics and to get an MRI. She also requested to be consulted on the case. Of note, a week ago the patient was admitted for bleeding of his left great toe. He was sleeping and thought he had pulled off a Band-Aid but it was a scab on his left great toe. His toe started bleeding profusely because he is on blood thinners. This led him to come to the hospital for 3 day stay. PFSH Past Medical History Hx Anticoagulant Therapy: Yes Asthma: No Atrial Fibrillation: Yes Blood Disorders: No Anxiety: No Depression: No Heart Rhythm Problems: Yes (afib) Cancer: No Cardiac Catheterization: Yes Cardiovascular Problems: Yes High Cholesterol: No Chemotherapy: No Chest Pain: Yes Congestive Heart Failure: No COPD: No Coronary Artery Disease: Yes Diabetes: No Diminished Hearing: Yes Endocrine: Yes Gastrointestinal Disorders: Yes GERD: Yes Genitourinary: Yes (RENAL STENTS) Hiatal Hernia: Yes Hypertension: Yes Immune Disorder: No Musculoskeletal: Yes (SPINE ARTHRITIS) Neurologic: No Psychiatric: No Reproductive: No Respiratory: No Myocardial Infarction: Yes Radiation Therapy: No Sleep Apnea: No Past Surgical History Coronary Artery Bypass Graft: No Coronary Stent: Yes (X 3-4) Joint Replacement: Yes (LEFT KNEE, LEFT HIP) Other Surgery: Yes (RENAL STENT) Family History Family Myocardial Infarction: Yes Social History Alcohol Use: Yes (OCC BEER) Tobacco Use: No Substance Use: No Allergies-Medications (Allergen,Severity, Reaction): Coded Allergies: diatrizoate meglumine (Unverified Allergy, Severe, 05/22/17) gadobenic acid (Unverified Allergy, Severe, 05/22/17) gadodiamide (Unverified Allergy, Severe, 05/22/17) gadoteridol (Unverified Allergy, Severe, 05/22/17) iodixanol (Unverified Allergy, Severe, 05/22/17) iohexol (Unverified Allergy, Severe, 05/22/17) Reported Meds & Prescriptions Reported Meds & Active Scripts Active Potassium Chloride Microencaps 20 Meq Tab 20 Meq PO DAILY Lasix (Furosemide) 20 Mg Tab 20 Mg PO DAILY Reported Feosol (Ferrous Sulfate) 325 Mg (65 Mg Iron) Tab 200 Mg PO DAILY Vitamin C (Ascorbic Acid) 250 Mg Chew 250 Mg CHEW DAILY Celecoxib 200 Mg Cap 200 Mg PO BID Preservision Areds (Multiple Vitamins W/ Minerals) 1 Tab 1 Tab PO DAILY One Daily (Multiple Vitamin) 1 Tab 1 Tab PO DAILY Hydrochlorothiazide 12.5 Mg Tab 12.5 Mg PO DAILY Restoril (Temazepam) 30 Mg Cap 30 Mg PO HS PRN Hydrocodone-Acetaminophen 10-325 mg Tab 1 Tab PO Q4H PRN Metoprolol Tartrate 25 Mg Tab 25 Mg PO DAILY Xarelto (Rivaroxaban) 15 Mg Tab 15 Mg PO DAILY Nexium (Esomeprazole DR) 40 Mg Capdr 40 Mg PO DAILY Review of Systems General / Constitutional: No: Fever, Chills Cardiovascular: Positive: Edema Physical Exam Narrative GENERAL: Well-nourished, well-developed patient sitting up in bed, in no acute distress. SKIN: Warm and dry. HEAD: Normocephalic. EYES: No scleral icterus. No injection or drainage. CARDIOVASCULAR: Regular rate and rhythm without murmurs, gallops, or rubs. RESPIRATORY: Breath sounds equal bilaterally. No accessory muscle use. GASTROINTESTINAL: Abdomen soft, non-tender, nondistended. EXTREMITIES: No cyanosis. Left leg and foot:. 2+ pitting edema up to inferior knee. Hairless. Erythema of heel with 5x5mm ulceration. 5x5mm ulcer on medial distal aspect of foot. Large eschar on great toe. Maceration between 4th and 5th digits with erythema and malodorous fluid. NEUROLOGICAL: Awake, alert. Non-focal. Data Data Last Documented VS Vital Signs Date Time Temp Pulse Resp B/P (MAP) Pulse Ox O2 Delivery O2 Flow Rate FiO2 05/22/17 11:37 83 15 111/67 (82) 97 Room Air 05/22/17 11:23 97.5 Orders Orders Complete Blood Count With Diff (05/22/17 11:52) Comprehensive Metabolic Panel (05/22/17 11:52) Blood Culture (05/22/17 11:52) Foot, Complete ([id number]) (05/22/17 ) MDM Medical Decision Making Medical Screen Exam Complete: Yes Emergency Medical Condition: Yes Differential Diagnosis cellulitis vs wet gangrene vs PVD Narrative Course 86yoWM presenting with infection between 4th and 5th digits of left foot. Physical exam shows several ulcers and maceration in the webbing between the 4th and 5th digits. -Wound cx -Bld cx -CBC -left foot XR -Admit Signed out to Dr. Reese Diagnosis Primary Impression: Cellulitis of left foot Admitting Information Admitting Physician Requests: Emelia Muhammad MD R1 May 22, 2017 12:09
[2017-05-22 12:14] LABS: AUTOMATED NEUTROPHIL # 5.6 TH/MM3 (1.8-7.7); BASOPHIL # 0.1 TH/MM3 (0-0.2); EOSINOPHIL # 0.1 TH/MM3 (0-0.4); EOSINOPHIL % 1.1 % (0.0-4.0); HEMATOCRIT 29.8 % (39.0-51.0); HEMO FLAGS DIFF FINAL; LYMPH % 25.3 % (9.0-44.0); LYMPHOCYTE # 2.1 TH/MM3 (1.0-4.8); MEAN CELL VOLUME 98.2 FL (80.0-100.0); MEAN CORPUSCULAR HEMOGLOBIN 32.1 PG (27.0-34.0); MEAN CORPUSCULAR HGB CONC 32.7 % (32.0-36.0); MONO % 6.4 % (0.0-8.0); NEUT % 66.2 % (16.0-70.0); PLATELET COUNT 376 TH/MM3 (150-450); RED BLOOD COUNT 3.04 MIL/MM3 (4.50-5.90); WHITE BLOOD COUNT 8.4 TH/MM3 (4.0-11.0)
--- NOTE | 2017-05-22 12:26 | PD ---
Physical Exam Date Seen by Provider: May 22, 2017 Time Seen by Provider: 11:30 Narrative I'm seeing this patient with Dr. Emelia Knight, family practice resident. The patient presents with a note from Dr. Robert, thoracic medicine physician for admission to the medicine service. The patient presents today with complaints of infection to his left foot. Patient has what appears to be peripheral artery disease affecting his left foot. He has an infection between his left fourth and fifth toes. Diagnoses reportedly worsening. He was recently admitted for bleeding to his right foot. The patient denies any fevers, chills. There is obvious cellulitis and concern for possible underlying osteomyelitis. Data Data Last Documented VS Vital Signs Date Time Temp Pulse Resp B/P (MAP) Pulse Ox O2 Delivery O2 Flow Rate FiO2 05/22/17 11:37 83 15 111/67 (82) 97 Room Air 05/22/17 11:23 97.5 Orders Orders Complete Blood Count With Diff (05/22/17 11:52) Comprehensive Metabolic Panel (05/22/17 11:52) Blood Culture (05/22/17 11:52) Foot, Complete ([id number]) (05/22/17 ) Ondansetron Inj (Zofran Inj) (05/22/17 12:45) Hydromorphone Pf Inj (Dilaudid Pf Inj) (05/22/17 12:45) Vancomycin Inj (Vancomycin Inj) (05/22/17 13:15) Sodium Chlor 0.9% 1000 Ml Inj (Ns 1000 M (05/22/17 13:15) Labs Laboratory Tests Test 05/22/17 11:50 White Blood Count 8.4 TH/MM3 Red Blood Count 3.04 MIL/MM3 Hemoglobin 9.8 GM/DL Hematocrit 29.8 % Mean Corpuscular Volume 98.2 FL Mean Corpuscular Hemoglobin 32.1 PG Mean Corpuscular Hemoglobin Concent 32.7 % Red Cell Distribution Width 16.0 % Platelet Count 376 TH/MM3 Mean Platelet Volume 6.6 FL Neutrophils (%) (Auto) 66.2 % Lymphocytes (%) (Auto) 25.3 % Monocytes (%) (Auto) 6.4 % Eosinophils (%) (Auto) 1.1 % Basophils (%) (Auto) 1.0 % Neutrophils # (Auto) 5.6 TH/MM3 Lymphocytes # (Auto) 2.1 TH/MM3 Monocytes # (Auto) 0.5 TH/MM3 Eosinophils # (Auto) 0.1 TH/MM3 Basophils # (Auto) 0.1 TH/MM3 CBC Comment DIFF FINAL Differential Comment Blood Urea Nitrogen 37 MG/DL Creatinine 1.79 MG/DL Random Glucose 108 MG/DL Total Protein 7.0 GM/DL Albumin 2.6 GM/DL Calcium Level 8.6 MG/DL Alkaline Phosphatase 146 U/L Aspartate Amino Transf (AST/SGOT) 10 U/L Alanine Aminotransferase (ALT/SGPT) 19 U/L Total Bilirubin 0.5 MG/DL Sodium Level 134 MEQ/L Potassium Level 4.5 MEQ/L Chloride Level 100 MEQ/L Carbon Dioxide Level 25.8 MEQ/L Anion Gap 8 MEQ/L Estimat Glomerular Filtration Rate 36 ML/MIN MDM Medical Record Reviewed: Yes Supervised Visit with SABINO: No Narrative Course This is a 86-year-old male with a history of peripheral artery disease, presents with worsening infection to his left foot. The patient was seen by his thoracic medicine physician and sent here for admission and IVD antibiotics. The patient was also sent here to have a consult with the vascular surgeon for second opinion of possible revascularization. There is no reported fevers, chills. The patient has obvious infection and there is multiple lesions to his left foot. There is concern that this could be cellulitis with underlying osteomyelitis. [facility] The patient is a patient of Dr. Antonio Evangelista. Diagnosis Primary Impression: Cellulitis of left foot Additional Impressions: PVD (peripheral vascular disease) CKD (chronic kidney disease), stage III Admitting Information Admitting Physician Requests: Admit Ozzy Reese MD May 22, 2017 12:26
[2017-05-22 12:35] LABS: ALT (GPT) 19 U/L (12-78); ANION GAP 8 MEQ/L (5-15); AST (GOT) 10 U/L (15-37); BICARBONATE 25.8 MEQ/L (21.0-32.0); BLOOD UREA NITROGEN 37 MG/DL (7-18); CHLORIDE 100 MEQ/L (98-107); GLOMERULAR FILTRATION RATE 36 ML/MIN (>89); POTASSIUM 4.5 MEQ/L (3.5-5.1); SODIUM (NA) 134 MEQ/L (136-145)
[2017-05-22 12:37] LABS: ALKALINE PHOSPHATASE 146 U/L (45-117); TOTAL BILIRUBIN ADULT 0.5 MG/DL (0.2-1.0)
[2017-05-22] MEDS ORDERED: HYDROmorphone HCL PF 1 MG/ML VIAL IV PUSH ONE (12:45)
[2017-05-22] MEDS ORDERED: ONDANSETRON HCL 4 MG/2 ML VIAL IV PUSH ONE (12:45)
--- NOTE | 2017-05-22 13:00 | RADRPT ---
EXAM DATE/TIME: 05/22/2017 12:25 [facility] COMPARISON: No previous studies available for comparison. INDICATIONS : Left foot pain, swelling, inflammation, and open sores on heel, first digit, and between fourth and f ifth digit. MEDICAL HISTORY : Myocardial infarction. Gastroesophageal reflux disease. Hypertension. CAD. Afib. Hernia. SURGICAL HISTORY : Cardiac catheterization. Cardiac stents. Renal stents. Right shoulder surgery.Left knee srgery. Left hip surgery. ENCOUNTER: Initial ACUITY: 3 days PAIN SCORE: 10/10 LOCATION: Left foot FINDINGS: The osseous structures are osteopenic. No focal areas of cortical destruction, periosteal reaction, o r bony expansion. No evidence of fracture or dislocation. No radiopaque foreign bodies. There is dors al soft tissue swelling about the midfoot. CONCLUSION: No focal osseous abnormalities seen. Diffuse osteopenia. Karel Bentley MD on May 22, 2017 at 12:58 Board Certified Radiologist. This report was verified electronically.
[2017-05-22] MEDS ORDERED: VANCOMYCIN INJ 1,000 MG in SODIUM CHLOR 0.9% 250 ML INJ 250 ML IV ONE (13:15)
[2017-05-22] MEDS ORDERED: Vancomycin Consult Pharmacy 1 EA OTHER SCH (13:45)
[2017-05-22] MEDS ORDERED: ONDANSETRON HCL 4 MG/2 ML VIAL IV PUSH PRN (13:45)
[2017-05-22] MEDS ORDERED: ACETAMINOPHEN/HYDROcodone 325 MG/5 MG TAB PO PRN (13:45)
[2017-05-22] MEDS ORDERED: ACETAMINOPHEN 325 MG TAB PO PRN (13:45)
--- NOTE | 2017-05-22 13:55 | HHI.HP ---
[facility] Service [facility] ([place], [place])ists Primary Care Physician Antonio Evangelista MD Admission Diagnosis left foot cellulitis, peripheral vascular disease, acute on chronic Diagnoses: (1) Cellulitis of left foot Diagnosis: Principal Chief Complaint: left foot infection Travel History International Travel<30 Days: No Contact w/Intl Traveler <30 Da: No Traveled to Known Affected Are: No History of Present Illness patient is a pleasant 86 y/o male with history of CAD, hypertension, atrial fibrillation, CKD, was advised to come to the hospital by his child psychologist because of his left foot infection. he says that about three weeks ago he did hit his left foot to a divider in his kitchen and since then he's had ' this problem with left foot infection'. he denies any fever but had some chills at home. he's complaining of moderate to severe pain to the left foot. He was seen by and was advised to come to ER for further evaluation and treatment. Review of Systems Constitutional: DENIES: Fever, Weight loss, Chills, Night Sweats Eyes: DENIES: Blurred vision, Diplopia, Vision loss, Double Vision Ears, nose, mouth, throat: DENIES: Tinnitus, Vertigo, Throat pain, Epistaxis Respiratory: DENIES: Apneas, Cough, Snoring, Wheezing, Hemoptysis, Sputum production, Shortness of breath Cardiovascular: DENIES: Chest pain, Palpitations, Syncope, Dyspnea on Exertion , PND, Lower Extremity Edema, Orthopnea, Claudication Gastrointestinal: DENIES: Abdominal pain, Black stools, Bloody stools, Constipation, Diarrhea, Nausea, Vomiting, Difficulty Swallowing, Anorexia Genitourinary: DENIES: Urinary frequency, Urgency, Hematuria, Dysuria Musculoskeletal: COMPLAINS OF: Joint pain (left foot), DENIES: Muscle aches, Stiffness, Joint Swelling Integumentary: DENIES: Rash Neurologic: DENIES: Abnormal gait, Headache, Localized weakness, Paresthesias, Seizures, Speech Problems, Tremor, Poor Balance Psychiatric: DENIES: Anxiety, Confusion, Mood changes, Depression, Hallucinations, Agitation, Suicidal Ideation, Homicidal Ideation, Delusions Past Family Social History Past Medical History CAD a-fib CKD Past Surgical History cardiac stent placement knee and hip placement Reported Medications Potassium Chloride Microencaps 20 Meq Tab 20 Meq PO DAILY Lasix (Furosemide) 20 Mg Tab 20 Mg PO DAILY Feosol (Ferrous Sulfate) 325 Mg (65 Mg Iron) Tab 200 Mg PO DAILY Vitamin C (Ascorbic Acid) 250 Mg Chew 250 Mg CHEW DAILY Celecoxib 200 Mg Cap 200 Mg PO BID Preservision Areds (Multiple Vitamins W/ Minerals) 1 Tab 1 Tab PO DAILY One Daily (Multiple Vitamin) 1 Tab 1 Tab PO DAILY Hydrochlorothiazide 12.5 Mg Tab 12.5 Mg PO DAILY Restoril (Temazepam) 30 Mg Cap 30 Mg PO HS PRN Hydrocodone-Acetaminophen 10-325 mg Tab 1 Tab PO Q4H PRN Metoprolol Tartrate 25 Mg Tab 25 Mg PO DAILY Xarelto (Rivaroxaban) 15 Mg Tab 15 Mg PO DAILY Nexium (Esomeprazole DR) 40 Mg Capdr 40 Mg PO DAILY Allergies: Coded Allergies: diatrizoate meglumine (Unverified Allergy, Severe, 05/22/17) gadobenic acid (Unverified Allergy, Severe, 05/22/17) gadodiamide (Unverified Allergy, Severe, 05/22/17) gadoteridol (Unverified Allergy, Severe, 05/22/17) iodixanol (Unverified Allergy, Severe, 05/22/17) iohexol (Unverified Allergy, Severe, 05/22/17) Active Ordered Medications Current Medications Ondansetron HCl (Zofran Inj) 4 mg ONCE ONCE IV PUSH ; Start 05/22/17 at 12:45; Stop 05/22/17 at 12:46; Status DC Hydromorphone HCl (Dilaudid Pf Inj) 1 mg ONCE ONCE IV PUSH ; Start 05/22/17 at 12:45; Stop 05/22/17 at 12:46; Status DC Vancomycin HCl 1000 mg/Sodium Chloride 250 ml @ 250 mls/hr ONCE ONCE IV ; Start 05/22/17 at 13:15; Stop 05/22/17 at 14:14 Sodium Chloride 1,000 ml @ 125 mls/hr Q8H IV ; Start 05/22/17 at 13:15 Family History not relevant to this admission. Social History quit smoking years ago. Physical Exam Vital Signs Vital Signs Date Time Temp Pulse Resp B/P (MAP) Pulse Ox O2 Delivery O2 Flow Rate FiO2 05/22/17 11:37 83 15 111/67 (82) 97 Room Air 05/22/17 11:33 17 05/22/17 11:23 97.5 126 16 114/65 (81) 97 Physical Exam GENERAL: This is a well-nourished, well-developed patient, in no apparent distress. SKIN: No rashes, ecchymoses or lesions. Cool and dry. HEAD: Atraumatic. Normocephalic. No temporal or scalp tenderness. EYES: Pupils equal round and reactive. Extraocular motions intact. No scleral icterus. No injection or drainage. ENT: Nose without bleeding, purulent drainage or septal hematoma. Throat without erythema, tonsillar hypertrophy or exudate. Uvula midline. Airway patent. NECK: Trachea midline. No JVD or lymphadenopathy. Supple, nontender, no meningeal signs. CARDIOVASCULAR: Regular rate and rhythm without murmurs, gallops, or rubs. RESPIRATORY: Clear to auscultation. Breath sounds equal bilaterally. No wheezes , rales, or rhonchi. GASTROINTESTINAL: Abdomen soft, non-tender, nondistended. No hepato-splenomegaly , or palpable masses. No guarding. MUSCULOSKELETAL:erythema and swelling of the left foot- with some discharge noted between the fourth and fifth toe and some black discoloration of the left great toe. NEUROLOGICAL: Awake and alert. Cranial nerves II through XII intact. Motor and sensory grossly within normal limits. Five out of 5 muscle strength in all muscle groups. Normal speech. Laboratory Laboratory Tests Test 05/22/17 11:50 White Blood Count 8.4 Red Blood Count 3.04 Hemoglobin 9.8 Hematocrit 29.8 Mean Corpuscular Volume 98.2 Mean Corpuscular Hemoglobin 32.1 Mean Corpuscular Hemoglobin Concent 32.7 Red Cell Distribution Width 16.0 Platelet Count 376 Mean Platelet Volume 6.6 Neutrophils (%) (Auto) 66.2 Lymphocytes (%) (Auto) 25.3 Monocytes (%) (Auto) 6.4 Eosinophils (%) (Auto) 1.1 Basophils (%) (Auto) 1.0 Neutrophils # (Auto) 5.6 Lymphocytes # (Auto) 2.1 Monocytes # (Auto) 0.5 Eosinophils # (Auto) 0.1 Basophils # (Auto) 0.1 CBC Comment DIFF FINAL Differential Comment Blood Urea Nitrogen 37 Creatinine 1.79 Random Glucose 108 Total Protein 7.0 Albumin 2.6 Calcium Level 8.6 Alkaline Phosphatase 146 Aspartate Amino Transf (AST/SGOT) 10 Alanine Aminotransferase (ALT/SGPT) 19 Total Bilirubin 0.5 Sodium Level 134 Potassium Level 4.5 Chloride Level 100 Carbon Dioxide Level 25.8 Anion Gap 8 Estimat Glomerular Filtration Rate 36 Date/Time Source Procedure Growth Status 05/22/17 11:55 Blood Peripheral Aerobic Blood Culture Pending Received 05/22/17 11:55 Blood Peripheral Anaerobic Blood Culture Pending Received Result Diagram: 05/22/17 1150 05/22/17 1150 Imaging Last Impressions Foot X-Ray 05/22/17 0000 Signed Impressions: Service Date/Time: May 12:25 - CONCLUSION: No focal osseous abnormalities seen. Diffuse osteopenia. MD Maame Hsieh VTE Risk Assessment Caprini VTE Risk Assessment: Mod/High Risk (score >= 2) VTE Pharm Contraindication: Documented (possible surgical intervention.) Caprini Risk Assessment Model Point Value = 1 Point Value = 2 Point Value = 3 Point Value = 5 Age 41-60 Minor surgery BMI > 25 kg/m2 Swollen legs Varicose veins or History of unexplained or recurrent spontaneous Oral contraceptives or hormone replacement Sepsis (< 1 month) Serious lung disease, including pneumonia (< 1 month) Abnormal pulmonary function Acute myocardial infarction Congestive heart failure (< 1 month) History of inflammatory bowel disease Medical patient at bed rest Age 61-74 Arthroscopic surgery Major open surgery (> 45 min) Laparoscopic surgery (> 45 min) Malignancy Confined to bed (> 72 hours) Immobilizing plaster cast Central venous access Age >= 75 History of VTE Family history of VTE Factor V Leiden Prothrombin [id number] Lupus anticoagulant Anticardiolipin antibodies Elevated serum homocysteine Heparin-induced thrombocytopenia Other congenital or acquired thrombophilia Stroke (< 1 month) Elective arthroplasty Hip, pelvis, or leg fracture Acute spinal cord injury (< 1 month) Prophylaxis Regimen Total Risk Factor Score Risk Level Prophylaxis Regimen 0-1 Low Early ambulation 2 Moderate Order ONE of the following: *Sequential Compression Device (SCD) *Heparin 5000 units SQ BID 3-4 Higher Order ONE of the following medications: *Heparin 5000 units SQ TID *Enoxaparin/Lovenox 40 mg SQ daily (WT < 150 kg, CrCl > 30 mL/min) *Enoxaparin/Lovenox 30 mg SQ daily (WT < 150 kg, CrCl > 10-29 mL/min) *Enoxaparin/Lovenox 30 mg SQ BID (WT < 150 kg, CrCl > 30 mL/min) AND/OR *Sequential Compression Device (SCD) 5 or more Highest Order ONE of the following medications: *Heparin 5000 units SQ TID (Preferred with Epidurals) *Enoxaparin/Lovenox 40 mg SQ daily (WT < 150 kg, CrCl > 30 mL/min) *Enoxaparin/Lovenox 30 mg SQ daily (WT < 150 kg, CrCl > 10-29 mL/min) *Enoxaparin/Lovenox 30 mg SQ BID (WT < 150 kg, CrCl > 30 mL/min) AND *Sequential Compression Device (SCD) Assessment and Plan Assessment and Plan A/P - left foot infection start on broad-spectrum IV antibiotics- check MRI of the left foot- will consult podiatry and vascular surgery- consider ID evaluation. continue with pain control. -CAD- s/p stent placement/atrial fibrillation; resume BB- hold Xarelto for possible surgical intervention -chronic renal insufficiency- at his baseline- will monitor -anemia- due to chronic disease- will monitor -DVT prophylaxis; pending podiatry evaluation. Discussed Condition With ER physician and the patient. RN. Physician Certification 2 Midnight Certification Type: Admission for Inpatient Services Order for Inpatient Services The services are ordered in accordance with Medicare regulations or non- Medicare payer requirements, as applicable. In the case of services not specified as inpatient-only, they are appropriately provided as inpatient services in accordance with the 2-midnight benchmark. Estimated LOS (days): 3 days is the estimated time the patient will need to remain in the hospital, assuming treatment plan goals are met and no additional complications. Post-Hospital Plan: Not yet determined Physician Certification 2 Midnight Certification Type: Admission for Inpatient Services Order for Inpatient Services The services are ordered in accordance with Medicare regulations or non- Medicare payer requirements, as applicable. In the case of services not specified as inpatient-only, they are appropriately provided as inpatient services in accordance with the 2-midnight benchmark. Estimated LOS (days): 3 days is the estimated time the patient will need to remain in the hospital, assuming treatment plan goals are met and no additional complications. Post-Hospital Plan: Not yet determined Glenroy Low MD May 22, 2017 13:55
[2017-05-22] MEDS ORDERED: SODIUM CHLORID 0.9% 500 ML INJ 500 ML IV ONE (14:00)
[2017-05-22] MEDS: SODIUM CHLOR 0.9% 1000 ML INJ 1,000 ML IV SCH (14:10)
[2017-05-22] MEDS: PIPERACIL-TAZO 3.375 GM PREMIX 50 ML IV SCH ×2 (15:00→22:30)
[2017-05-22 15:25] VITALS: BP 106/55; PULSE 66; RESP 18; O2SAT 100
--- NOTE | 2017-05-22 16:13 | PD.VS.CON ---
History of Present Illness Chief Complaint: L LE wounds Consult Requested by: ER History of Present Illness 86 yo male with 4 week history of L LE wounds which have just become worse according to the patient. He has chills but no fevers. He was sent to ED by podiatry. Past/Family/Social History Past Medical History PAD HTN A fib CAD w/ h/o coronary stent CRI Past Surgical History L knee surgery L shoulder surgery [facility] with coronary stent Social History was in x 21 years lives in [facility] Medications Active Scripts Potassium Chloride Microencaps (Potassium Chloride Microencaps) 20 Meq Tab, 20 MEQ PO DAILY for Electrolyte Replacement, #20 TAB Prov:Manas Mejia MD 05/15/17 Furosemide (Lasix) 20 Mg Tab, 20 MG PO DAILY for Prevent Heart Failure, #10 TAB 0 Refills Prov:Manas Mejia MD 05/15/17 Reported Medications Ferrous Sulfate (Feosol) 325 Mg (65 Mg Iron) Tab, 200 MG PO DAILY for Nutritional Supplement, #30 TAB 0 Refills 05/13/17 Ascorbic Acid (Vitamin C) 250 Mg Chew, 250 MG CHEW DAILY for Nutritional Supplement, #30 TAB 0 Refills 05/13/17 Celecoxib (Celecoxib) 200 Mg Cap, 200 MG PO BID for Pain Management, CAP 0 Refills 05/13/17 Multiple Vitamins W/ Minerals (Preservision Areds) 1 Tab, 1 TAB PO DAILY for Nutritional Supplement, TAB 0 Refills 05/13/17 Multiple Vitamin (One Daily) 1 Tab, 1 TAB PO DAILY for Nutritional Supplement, TAB 0 Refills 05/13/17 Hydrochlorothiazide (Hydrochlorothiazide) 12.5 Mg Tab, 12.5 MG PO DAILY, #30 TAB 0 Refills 08/04/16 Temazepam (Restoril) 30 Mg Cap, 30 MG PO HS Y for INSOMNIA, #30 CAP 0 Refills 08/04/16 Hydrocodone-Acetaminophen (Hydrocodone-Acetaminophen) 10-325 mg Tab, 1 TAB PO Q4H Y for PAIN, TAB 0 Refills 08/04/16 Metoprolol Tartrate (Metoprolol Tartrate) 25 Mg Tab, 25 MG PO DAILY, #30 TAB 0 Refills 08/04/16 Rivaroxaban (Xarelto) 15 Mg Tab, 15 MG PO DAILY for Blood Clot Prevention, TAB 0 Refills 08/04/[address] (Nexium) 40 Mg Capdr, 40 MG PO DAILY, CAP 0 Refills 08/04/16 Coded Allergies: diatrizoate meglumine (Unverified Allergy, Severe, 05/22/17) gadobenic acid (Unverified Allergy, Severe, 05/22/17) gadodiamide (Unverified Allergy, Severe, 05/22/17) gadoteridol (Unverified Allergy, Severe, 05/22/17) iodixanol (Unverified Allergy, Severe, 05/22/17) iohexol (Unverified Allergy, Severe, 05/22/17) Review of Systems Constitutional: COMPLAINS OF: Fatigue, Chills Cardiovascular: COMPLAINS OF: Lower Extremity Edema, DENIES: Chest pain, Orthopnea, Claudication Physical Exam Vitals/I&O Date Time Temp Pulse Resp B/P (MAP) Pulse Ox O2 Delivery O2 Flow Rate FiO2 05/22/17 15:25 66 18 106/55 (72) 100 Room Air 05/22/17 11:37 83 15 111/67 (82) 97 Room Air 05/22/17 11:33 17 05/22/17 11:23 97.5 126 16 114/65 (81) 97 05/22/17 05/22/17 05/22/17 07:00 15:00 23:00 Intake Total 300 ml Balance 300 ml Neuro: alert, pleasant HEENT: NC/AT Neck: trachea midline Heart: irreg rate Lungs: nonlabored breathing Abdomen: soft, NT Vascular: palpable femoral pulses Extremities: L mild tissue loss between toes and punctate at heels; hallux tissue loss medially minimal erythema 4+ edema Laboratory Tests Test 05/22/17 11:50 White Blood Count 8.4 Red Blood Count 3.04 Hemoglobin 9.8 Hematocrit 29.8 Mean Corpuscular Volume 98.2 Mean Corpuscular Hemoglobin 32.1 Mean Corpuscular Hemoglobin Concent 32.7 Red Cell Distribution Width 16.0 Platelet Count 376 Mean Platelet Volume 6.6 Neutrophils (%) (Auto) 66.2 Lymphocytes (%) (Auto) 25.3 Monocytes (%) (Auto) 6.4 Eosinophils (%) (Auto) 1.1 Basophils (%) (Auto) 1.0 Neutrophils # (Auto) 5.6 Lymphocytes # (Auto) 2.1 Monocytes # (Auto) 0.5 Eosinophils # (Auto) 0.1 Basophils # (Auto) 0.1 CBC Comment DIFF FINAL Differential Comment Blood Urea Nitrogen 37 Creatinine 1.79 Random Glucose 108 Total Protein 7.0 Albumin 2.6 Calcium Level 8.6 Alkaline Phosphatase 146 Aspartate Amino Transf (AST/SGOT) 10 Alanine Aminotransferase (ALT/SGPT) 19 Total Bilirubin 0.5 Sodium Level 134 Potassium Level 4.5 Chloride Level 100 Carbon Dioxide Level 25.8 Anion Gap 8 Estimat Glomerular Filtration Rate 36 Date/Time Source Procedure Growth Status 05/22/17 11:55 Blood Peripheral Aerobic Blood Culture Pending Received 05/22/17 11:55 Blood Peripheral Anaerobic Blood Culture Pending Received Last 48 hours Impressions Foot X-Ray 05/22/17 0000 Signed Impressions: Service Date/Time: May 12:25 - CONCLUSION: No focal osseous abnormalities seen. Diffuse osteopenia. Karel Bentley MD Assessment and Plan Plan Infrainguinal disease and tissue loss 1. Will plan angiogram LLE on Friday; will need medical optimization over week- end 2. IV antibiotics 3. ABIs - ordered 4. Will need pre-medication with HCO3/mucomyst for renal protection and steroids /benadryl for contrast allergy 5. will follow closely Lj Daley MD [employer] conductor yard [facility] - Heart and Vascular Surgery at [facility] [phone] Lj Daley MD May 22, 2017 16:13
--- NOTE | 2017-05-22 16:25 | RADRPT ---
EXAM DATE/TIME: 05/22/2017 15:56 [facility] COMPARISON: No previous studies available for comparison. INDICATIONS : MRI clearance MEDICAL HISTORY : Myocardial infarction. Gastroesophageal reflux disease. Hypertension CAD. Afib. Hernia. SURGICAL HISTORY : Cardiac catheterization. Cardiac stents. Renal stents. Right shoulder surgery.Left knee srgery. Left hip surgery ENCOUNTER: Initial ACUITY: 3 days PAIN SCORE: 0/10 LOCATION: Right Femur FINDINGS: Two view examination of the right femur demonstrates no evidence of fracture or dislocation. Bony mi neralization is normal. The soft tissue structures are intact. CONCLUSION: No acute fracture. No metallic densities. Manas De Jesus MD on May 22, 2017 at 16:23 Board Certified Radiologist. This report was verified electronically.
--- NOTE | 2017-05-22 16:26 | RADRPT ---
EXAM DATE/TIME: 05/22/2017 16:00 [facility] COMPARISON: No previous studies available for comparison. INDICATIONS : MRI clearance MEDICAL HISTORY : Myocardial infarction. Gastroesophageal reflux disease. HypertensionCAD. Afib. Hernia SURGICAL HISTORY : Cardiac catheterization. Cardiac stents. Renal stents. Right shoulder surgery.Left knee srgery. Left hip surgery. ENCOUNTER: Initial ACUITY: 3 days PAIN SCORE: 0/10 LOCATION: Right Tibia FINDINGS: Two view examination of the right tibia demonstrates no evidence of fracture or dislocation. Bony mi neralization is normal. The soft tissue structures are intact. Vascular calcifications. CONCLUSION: No metallic density. No fracture. Manas De Jesus MD on May 22, 2017 at 16:24 Board Certified Radiologist. This report was verified electronically.
--- NOTE | 2017-05-22 16:28 | RADRPT ---
EXAM DATE/TIME: 05/22/2017 16:05 [facility] COMPARISON: No previous studies available for comparison. INDICATIONS : MRI clearance MEDICAL HISTORY : Myocardial infarction. Gastroesophageal reflux disease. Hypertension, CAD. Afib. Hernia SURGICAL HISTORY : Cardiac catheterization. Cardiac stents. Renal stents. Right shoulder surgery.Left knee srgery. Left hip surgery ENCOUNTER: Initial ACUITY: 3 days PAIN SCORE: 0/10 LOCATION: Left Femur FINDINGS: Two view examination of the left femur demonstrates no evidence of fracture or dislocation. Left hip arthroplasty and left knee arthroplasty. Portions of the hardware along the tibia has been removed. CONCLUSION: Left hip and knee arthroplasty. Manas De Jesus MD on May 22, 2017 at 16:26 Board Certified Radiologist. This report was verified electronically.
--- NOTE | 2017-05-22 16:28 | RADRPT ---
EXAM DATE/TIME: 05/22/2017 16:02 [facility] COMPARISON: No previous studies available for comparison. INDICATIONS : MRI clearance MEDICAL HISTORY : Myocardial infarction. Gastroesophageal reflux disease. Hypertension. CAD. Afib. Hernia. SURGICAL HISTORY : Cardiac catheterization. Cardiac stents. Renal stents. Right shoulder surgery.Left knee srgery. Left hip surgery. ENCOUNTER: Initial ACUITY: 3 days PAIN SCORE: 0/10 LOCATION: Left tibia FINDINGS: Two view examination of the left tibia demonstrates no evidence of fracture or dislocation. Bony min eralization is normal. The soft tissue structures are intact. Partial left knee arthroplasty. Portio ns of the hardware along the tibia has been removed. CONCLUSION: No fracture. Partial left knee arthroplasty. Manas De Jesus MD on May 22, 2017 at 16:25 Board Certified Radiologist. This report was verified electronically.
--- NOTE | 2017-05-22 17:08 | PD.CONS ---
History of Present Illness Service Podiatry Consult Requested By ED Reason for Consult L hallux ulcer, infection between L toes, L heel ulcer Primary Care Physician Antonio Evangelista MD Diagnoses: History of Present Illness Patient presented originally to my clinic at [place] yesterday with continued redness, swelling, and pain to L foot and leg. He has a chronic wound to L medial hallux, but wasnt aware of the new drainage between L 4th/5th toes at that time. He did complain of heel pain and was found to have a small lesion there. He has been evaluated in the past for peripheral vascular issues and is requesting a second opinion. I explained that his infection and healing is dependent on this and can get second opinion when in hospital for L foot infection. Past Family Social History Allergies: Coded Allergies: diatrizoate meglumine (Unverified Allergy, Severe, 05/22/17) gadobenic acid (Unverified Allergy, Severe, 05/22/17) gadodiamide (Unverified Allergy, Severe, 05/22/17) gadoteridol (Unverified Allergy, Severe, 05/22/17) iodixanol (Unverified Allergy, Severe, 05/22/17) iohexol (Unverified Allergy, Severe, 05/22/17) Past Medical History CAD a-fib CKD Past Surgical History cardiac stent placement knee and hip placement Active Ordered Medications Current Medications Medications (Trade) Dose Ordered Sig/Cheikh Route Start Time Stop Time Status Last Admin Sodium Chloride 1,000 ml @ 125 mls/hr Q8H IV 05/22/17 13:15 05/22/17 14:10 (Ferrous Sulfate Liq) 200 mg DAILY PO 05/23/17 09:00 (Lasix) 20 mg DAILY PO 05/23/17 09:00 (Lopressor) 25 mg DAILY PO 05/23/17 09:00 (Theragran) 1 tab DAILY PO 05/23/17 09:00 (KCl) 20 meq DAILY PO 05/23/17 09:00 (Vitamin C) 250 mg DAILY PO 05/23/17 09:00 (Protonix) 40 mg DAILY PO 05/23/17 09:00 (Restoril) 30 mg HS PRN PO 05/22/17 14:15 Pharmacy Profile Note 0 ml @ 0 mls/hr UNSCH OTHER 05/22/17 13:45 Piperacillin Sod/ Tazobactam Sod 50 ml @ 100 mls/hr Q8H IV 05/22/17 15:00 05/22/17 15:00 Sodium Chloride 500 ml @ 50 mls/hr Q10H ONCE IV 05/22/17 14:00 05/22/17 23:59 ([place] 5-325 Mg) 1 tab Q4H PRN PO 05/22/17 13:45 ([place] 5-325 Mg) 2 tab Q4H PRN PO 05/22/17 13:45 (Dilaudid Pf Inj) 0.2 mg Q4H PRN IV PUSH 05/22/17 13:45 (Tylenol) 650 mg Q4H PRN PO 05/22/17 13:45 (Zofran Inj) 4 mg Q8HR PRN IV PUSH 05/22/17 13:45 Vancomycin HCl 1000 mg/Sodium Chloride 250 ml @ 250 mls/hr Q38H IV 05/24/17 02:00 Social History quit smoking years ago. Physical Exam Vital Signs Vital Signs Date Time Temp Pulse Resp B/P (MAP) Pulse Ox O2 Delivery O2 Flow Rate FiO2 05/22/17 15:25 66 18 106/55 (72) 100 Room Air 05/22/17 11:37 83 15 111/67 (82) 97 Room Air 05/22/17 11:33 17 05/22/17 11:23 97.5 126 16 114/65 (81) 97 Physical Exam L foot with dry gangrenous stable ulceration to medial hallux. There is mild drainage with foul odor between L 4th/5th toes with necrotic tissue in webspace. Painful to this area. Mild localized erythema. Edema to L foot/ankle/ lower leg. There is small lesion noted to plantar L heel with mild serous drainage. Laboratory Laboratory Tests Test 05/22/17 11:50 White Blood Count 8.4 Red Blood Count 3.04 Hemoglobin 9.8 Hematocrit 29.8 Mean Corpuscular Volume 98.2 Mean Corpuscular Hemoglobin 32.1 Mean Corpuscular Hemoglobin Concent 32.7 Red Cell Distribution Width 16.0 Platelet Count 376 Mean Platelet Volume 6.6 Neutrophils (%) (Auto) 66.2 Lymphocytes (%) (Auto) 25.3 Monocytes (%) (Auto) 6.4 Eosinophils (%) (Auto) 1.1 Basophils (%) (Auto) 1.0 Neutrophils # (Auto) 5.6 Lymphocytes # (Auto) 2.1 Monocytes # (Auto) 0.5 Eosinophils # (Auto) 0.1 Basophils # (Auto) 0.1 CBC Comment DIFF FINAL Differential Comment Blood Urea Nitrogen 37 Creatinine 1.79 Random Glucose 108 Total Protein 7.0 Albumin 2.6 Calcium Level 8.6 Alkaline Phosphatase 146 Aspartate Amino Transf (AST/SGOT) 10 Alanine Aminotransferase (ALT/SGPT) 19 Total Bilirubin 0.5 Sodium Level 134 Potassium Level 4.5 Chloride Level 100 Carbon Dioxide Level 25.8 Anion Gap 8 Estimat Glomerular Filtration Rate 36 Date/Time Source Procedure Growth Status 05/22/17 11:55 Blood Peripheral Aerobic Blood Culture Pending Received 05/22/17 11:55 Blood Peripheral Anaerobic Blood Culture Pending Received Result Diagram: 05/22/17 1150 05/22/17 1150 Imaging Last 72 hours Impressions Tibia/Fibula X-Ray 05/22/17 0000 Signed Impressions: Service Date/Time: May 16:00 - CONCLUSION: No metallic density. No fracture. Manas De Jesus MD Tibia/Fibula X-Ray 05/22/17 0000 Signed Impressions: Service Date/Time: May 16:02 - CONCLUSION: No fracture. Partial left knee arthroplasty. Manas De eJsus MD Foot X-Ray 05/22/17 0000 Signed Impressions: Service Date/Time: May 12:25 - CONCLUSION: No focal osseous abnormalities seen. Diffuse osteopenia. Karel Bentley MD Femur X-Ray 05/22/17 0000 Signed Impressions: Service Date/Time: May 15:56 - CONCLUSION: No acute fracture. No metallic densities. Manas De Jesus MD Femur X-Ray 05/22/17 0000 Signed Impressions: Service Date/Time: May 16:05 - CONCLUSION: Left hip and knee arthroplasty. Manas De Jesus MD Assessment and Plan Assessment and Plan L foot ulcers/infection Ordering MRI L foot to further evaluate infection Await Dr Daley's opinion regarding treatment options, if possible Continue IV antibiotics James Sanchez DPM May 22, 2017 17:07
[2017-05-22 18:00] VITALS: BP 135/57; PULSE 72; RESP 16; TEMP 97.9; O2SAT 97
--- NOTE | 2017-05-22 19:34 | RADRPT ---
EXAM DATE/TIME: 05/22/2017 18:33 [facility] COMPARISON: FOOT LEFT COMPLETE ([id number]), May 22, 2017, 12:25. INDICATIONS : Abscess. Wound on left medial fifth digit and medial side of first digit and on lateral side of th e fourth digit. MEDICAL HISTORY : Gastroesophageal reflux disease. Hypertension. Myocardial infarction. Renal stents, coronary artery d isease and atrial fibrillation. SURGICAL HISTORY : Total knee replacement, left. Left hip replacement. ENCOUNTER: Initial ACUITY: 1 week PAIN SCORE: 4/10 LOCATION: Left foot. TECHNIQUE: Multiplanar, multisequence MRI examination was performed without contrast. FINDINGS: BONE/CARTILAGE: Bone marrow signal is homogeneous. Articular cartilage signal is within normal limits. TENDONS: All of the visualized tendons are intact. MISCELLANEOUS: There is superficial edema seen throughout the ankle and foot. No focal fluid collection is seen. Lorenzo ntar aponeurosis is intact. Sinus tarsi is within normal limits. CONCLUSION: No abscess is seen. No areas of suspected osteomyelitis are seen. Santy Zamudio MD on May 22, 2017 at 19:29 Board Certified Radiologist. This report was verified electronically.
[2017-05-22 20:00] VITALS: BP 130/64; PULSE 70; RESP 18; TEMP 98.1; O2SAT 98
[2017-05-22] MEDS: ACETAMINOPHEN/HYDROcodone 325 MG/5 MG TAB PO PRN (22:29)
[2017-05-23] VITALS: BP 130/88; PULSE 82; RESP 21; TEMP 97.6; O2SAT 96
[2017-05-23] MEDS: ACETAMINOPHEN/HYDROcodone 325 MG/5 MG TAB PO PRN ×2 (02:36→06:35)
[2017-05-23 04:00] VITALS: BP 116/59; PULSE 92; RESP 18; TEMP 97.9; O2SAT 94
[2017-05-23] MEDS: HYDROmorphone HCL PF 1 MG/ML VIAL IV PUSH PRN ×4 (04:35→20:14)
[2017-05-23 06:03] LABS: BICARBONATE 25.1 MEQ/L (21.0-32.0); POTASSIUM 4.4 MEQ/L (3.5-5.1)
[2017-05-23] MEDS: PIPERACIL-TAZO 3.375 GM PREMIX 50 ML IV SCH ×3 (06:32→22:19)
[2017-05-23] MEDS: SODIUM CHLOR 0.9% 1000 ML INJ 1,000 ML IV SCH (06:32)
[2017-05-23 08:00] VITALS: BP 106/59; PULSE 81; RESP 16; TEMP 98.5; O2SAT 97
[2017-05-23] MEDS: ASCORBIC ACID 500 MG TAB PO SCH (08:11)
[2017-05-23] MEDS: MULTIVITAMIN TAB PO SCH (08:11)
[2017-05-23] MEDS: METOPROLOL TARTRATE 25 MG TAB PO SCH (08:11)
[2017-05-23] MEDS: FERROUS SULFATE 300 MG /5ML UDC PO SCH (08:12)
[2017-05-23] MEDS: POTASSIUM CHLORIDE 20 MEQ CONTROLLED RELEASE TAB PO SCH (08:12)
[2017-05-23] MEDS: PANTOPRAZOLE SOD 40 MG DELAYED RELEASE TAB PO SCH (08:12)
[2017-05-23] MEDS: FUROSEMIDE 20 MG TAB PO SCH (08:12)
[2017-05-23] MEDS: COLLAGENASE OINT 30 GM TUBE TOPICAL SCH (08:13)
--- NOTE | 2017-05-23 08:40 | HHI.PR ---
Subjective Remarks in no acute distress. no fever. but still complaining of severe pain to the left foot. d/w the RN at the bedside. Objective Vitals Vital Signs Date Time Temp Pulse Resp B/P (MAP) Pulse Ox O2 Delivery O2 Flow Rate FiO2 05/23/17 04:00 97.9 92 18 116/59 (78) 94 05/23/17 00:00 97.6 82 21 130/88 (102) 96 05/22/17 20:00 98.1 70 18 130/64 (86) 98 05/22/17 18:00 97.9 72 16 135/57 (83) 97 05/22/17 17:11 05/22/17 15:25 66 18 106/55 (72) 100 Room Air 05/22/17 11:37 83 15 111/67 (82) 97 Room Air 05/22/17 11:33 17 05/22/17 11:23 97.5 126 16 114/65 (81) 97 I/O 05/22/17 05/22/17 05/22/17 05/23/17 05/23/17 05/23/17 07:00 15:00 23:00 07:00 15:00 23:00 Intake Total 350 ml 480 ml Balance 350 ml 480 ml Intake Oral 480 ml IV Total 350 ml # Voids 4 # Bowel Movements 0 Result Diagram: 05/22/17 1150 05/23/17 0509 Imaging Last Impressions Tibia/Fibula X-Ray 05/22/17 0000 Signed Impressions: Service Date/Time: May 16:00 - CONCLUSION: No metallic density. No fracture. Manas De Jesus MD Foot X-Ray 05/22/17 0000 Signed Impressions: Service Date/Time: May 12:25 - CONCLUSION: No focal osseous abnormalities seen. Diffuse osteopenia. Karel Bentley MD Foot MRI 05/22/17 0000 Signed Impressions: Service Date/Time: May 18:33 - CONCLUSION: No abscess is seen. No areas of suspected osteomyelitis are seen. Santy Zamudio MD Femur X-Ray 05/22/17 0000 Signed Impressions: Service Date/Time: May 15:56 - CONCLUSION: No acute fracture. No metallic densities. Manas De Jesus MD Objective Remarks GENERAL: This is a well-nourished, well-developed patient, in no apparent distress. CARDIOVASCULAR: Regular rate and regular rhythm without murmurs, gallops, or rubs. RESPIRATORY: Clear to auscultation. Breath sounds equal bilaterally. No wheezes , rales, or rhonchi. GASTROINTESTINAL: Abdomen soft, non-tender, nondistended. Normal, active bowel sounds MUSCULOSKELETAL: erythema and mild swelling of the left foot. NEURO: Alert & Oriented x4 to person, place, time, situation. Moves all ext x4 Medications and IVs Current Medications Ondansetron HCl (Zofran Inj) 4 mg ONCE ONCE IV PUSH Last administered on 14:10; Start 05/22/17 at 12:45; Stop 05/22/17 at 12:46; Status DC Hydromorphone HCl (Dilaudid Pf Inj) 1 mg ONCE ONCE IV PUSH Last administered on 05/22/17 14:09; Start 05/22/17 at 12:45; Stop 05/22/17 at 12:46; Status DC Vancomycin HCl 1000 mg/Sodium Chloride 250 ml @ 250 mls/hr ONCE ONCE IV Last administered on 05/22/17 14:10; Start 05/22/17 at 13:15; Stop 05/22/17 at 14:15 ; Status DC Sodium Chloride 1,000 ml @ 125 mls/hr Q8H IV Last administered on 05/23/17 06 :32; Start 05/22/17 at 13:15 Ferrous Sulfate (Ferrous Sulfate Liq) 200 mg DAILY PO Last administered on 05/23 08:12; Start 05/23/17 at 09:00 Furosemide (Lasix) 20 mg DAILY PO Last administered on 05/23/17 08:12; Start 05/23/17 at 09:00 Metoprolol Tartrate (Lopressor) 25 mg DAILY PO Last administered on 05/23/17 08:11; Start 05/23/17 at 09:00 Multivitamins (Theragran) 1 tab DAILY PO Last administered on 05/23/17 08:11; Start 05/23/17 at 09:00 Potassium Chloride (KCl) 20 meq DAILY PO Last administered on 05/23/17 08:12; Start 05/23/17 at 09:00 Ascorbic Acid (Vitamin C) 250 mg DAILY PO Last administered on 05/23/17 08:11 ; Start 05/23/17 at 09:00 Pantoprazole Sodium (Protonix) 40 mg DAILY PO Last administered on 05/23/17 08 :12; Start 05/23/17 at 09:00 Temazepam (Restoril) 30 mg HS PRN PO INSOMNIA; Start 05/22/17 at 14:15 Pharmacy Profile Note 0 ml @ 0 mls/hr UNSCH OTHER ; Start 05/22/17 at 13:45 Piperacillin Sod/ Tazobactam Sod 50 ml @ 100 mls/hr Q8H IV Last administered on 05/23/17 06:32; Start 05/22/17 at 15:00 Sodium Chloride 500 ml @ 50 mls/hr Q10H ONCE IV ; Start 05/22/17 at 14:00; Stop 05/22/17 at 23:59; Status DC Acetaminophen/ Hydrocodone Bitart ([place] 5-325 Mg) 1 tab Q4H PRN PO PAIN <5; Start 05/22/17 at 13:45 Acetaminophen/ Hydrocodone Bitart ([place] 5-325 Mg) 2 tab Q4H PRN PO PAIN 6-10 Last administered on 05/23/17 06:35; Start 05/22/17 at 13:45 Hydromorphone HCl (Dilaudid Pf Inj) 0.2 mg Q4H PRN IV PUSH BREAKTHROUGH PAIN Last administered on 05/23/17 08:14; Start 05/22/17 at 13:45 Acetaminophen (Tylenol) 650 mg Q4H PRN PO FEVER/HEADACHE; Start 05/22/17 at 13: 45 Ondansetron HCl (Zofran Inj) 4 mg Q8HR PRN IV PUSH NAUSEA; Start 05/22/17 at 13 :45 Vancomycin HCl 1000 mg/Sodium Chloride 250 ml @ 250 mls/hr Q38H IV ; Start 05/24/17 at 02:00 Collagenase (Santyl Oint) 1 applic DAILY TOPICAL Last administered on 08:13; Start 05/23/17 at 09:00 A/P Assessment and Plan A/P - left foot infection MRI left foot with no osteomyelitis. continue broad-spectrum IV antibiotics- podiatry and vascular surgery consults appreciated; for angiogram on Friday. continue with pain control. -CAD- s/p stent placement/atrial fibrillation; resumed BB- hold Xarelto for now- -chronic renal insufficiency- at his baseline- will monitor -anemia- due to chronic disease- will monitor -DVT prophylaxis; start on Lovenox Glenroy Low MD May 23, 2017 08:40
[2017-05-23] MEDS ORDERED: ACETAMINOPHEN/HYDROcodone 325 MG/7.5 MG TAB PO PRN (10:00)
[2017-05-23] MEDS: ACETAMINOPHEN/HYDROcodone 325 MG/7.5 MG TAB PO PRN ×2 (10:37→17:46)
[2017-05-23 12:00] VITALS: BP 139/64; PULSE 59; RESP 20; TEMP 97.8; O2SAT 99
[2017-05-23] MEDS: ENOXAPARIN SODIUM 40 MG/0.4 ML SYRINGE SQ SCH (12:06)
[2017-05-23] MEDS ORDERED: VANCOMYCIN 1,000 MG/NS 250 ML IV ONE ×2 (14:00)
--- NOTE | 2017-05-23 14:45 | RADRPT ---
EXAM DATE/TIME: 05/22/2017 00:00 [facility] COMPARISON: No previous studies available for comparison. INDICATIONS : Left Foot Cellulitis, Peripheral Vascular Disease TECHNIQUE: Four-cuff ankle and brachial pressures were obtained. Pulse cuff waveform tracings of the ankles were recorded, and ankle-brachial indices were calculated. PRESSURES (mmHg): Brachial (arm): Right 102 Left 105 Ankle: Right 111 Left 44 BRII: Right 1.06 Left 0.42 TBI: Right 0.79 Left 0.00 PULSED CUFF WAVEFORMS: Demonstrate significantly decreased amplitudes on the left. CONCLUSION: 1. Findings consistent with severe left lower extremity ischemia. 2. Mild right lower extremity ischemia with likely falsely elevated BRII due to calcified vessels. Raymond Prince MD on May 23, 2017 at 14:42 Board Certified Radiologist. This report was verified electronically.
[2017-05-23 16:00] VITALS: BP 107/67; PULSE 89; RESP 20; TEMP 97.2; O2SAT 98
[2017-05-23 20:00] VITALS: BP 118/56; PULSE 69; RESP 18; TEMP 98.6; O2SAT 98
[2017-05-23] MEDS: TEMAZEPAM 15 MG CAP PO PRN (20:22)
[2017-05-24] VITALS (7 sets, daily range): BP systolic 92–120; BP diastolic 54–84; PULSE 76–99; RESP 18–20; TEMP 97.2–98.1; O2SAT 91–98
[2017-05-24] MEDS ORDERED: VANCOMYCIN 1,000 MG/NS 250 ML IV SCH ×2 (02:00)
[2017-05-24] MEDS: ACETAMINOPHEN/HYDROcodone 325 MG/7.5 MG TAB PO PRN ×4 (03:09→20:47)
[2017-05-24] MEDS: SODIUM CHLOR 0.9% 1000 ML INJ 1,000 ML IV SCH ×2 (06:13→15:55)
[2017-05-24] MEDS: PIPERACIL-TAZO 3.375 GM PREMIX 50 ML IV SCH ×3 (06:14→23:57)
[2017-05-24] MEDS: HYDROmorphone HCL PF 1 MG/ML VIAL IV PUSH PRN ×2 (06:25→11:52)
[2017-05-24] MEDS: POTASSIUM CHLORIDE 20 MEQ CONTROLLED RELEASE TAB PO SCH (08:27)
[2017-05-24] MEDS: FERROUS SULFATE 300 MG /5ML UDC PO SCH (08:27)
[2017-05-24] MEDS: ENOXAPARIN SODIUM 40 MG/0.4 ML SYRINGE SQ SCH (08:28)
[2017-05-24] MEDS: ASCORBIC ACID 500 MG TAB PO SCH (08:28)
[2017-05-24] MEDS: PANTOPRAZOLE SOD 40 MG DELAYED RELEASE TAB PO SCH (08:28)
[2017-05-24] MEDS: FUROSEMIDE 20 MG TAB PO SCH (08:28)
[2017-05-24] MEDS: METOPROLOL TARTRATE 25 MG TAB PO SCH (08:28)
[2017-05-24] MEDS: MULTIVITAMIN TAB PO SCH (08:28)
[2017-05-24] MEDS: COLLAGENASE OINT 30 GM TUBE TOPICAL SCH (08:29)
--- NOTE | 2017-05-24 10:05 | PD.VS.PN ---
Subjective Subjective/Hospital Course Pt with L foot pain after dressing change this morning. no fevers + chills but has that at baseline Objective Vitals/I&O Date Time Temp Pulse Resp B/P (MAP) Pulse Ox O2 Delivery O2 Flow Rate FiO2 05/24/17 04:00 97.7 77 19 120/62 (81) 98 05/24/17 00:00 97.8 81 20 107/55 (72) 95 05/23/17 20:00 98.6 69 18 118/56 (76) 98 05/23/17 16:00 97.2 89 20 107/67 (80) 98 05/23/17 12:00 97.8 59 20 139/64 (89) 99 05/24/17 05/24/17 05/24/17 07:00 15:00 23:00 Intake Total 1182 ml Balance 1182 ml Physical Exam palpable femoral pulses nothing distally Laboratory Laboratory Tests Test 05/24/17 05:11 Random Vancomycin Level 14.9 Date/Time Source Procedure Growth Status 05/22/17 11:55 Blood Peripheral Aerobic Blood Culture - Preliminary NO GROWTH IN 1 DAY Resulted 05/22/17 11:55 Blood Peripheral Anaerobic Blood Culture - Preliminary NO GROWTH IN 1 DAY Resulted Assessment and Plan Plan Infrainguinal disease and tissue loss 1. Will plan angiogram LLE on Friday; creatinine improving with gentle hydration 2. IV antibiotics 3. ABIs reviewed - severe disease L LE 4. Will need pre-medication with HCO3/mucomyst for renal protection and steroids /benadryl for contrast allergy 5. NPO after MN tomorrow (Friday) Lj Daley MD FASC RPVI rn labor and delivery [facility] - [facility] at [facility] [phone] Lj Daley MD May 24, 2017 10:05
--- NOTE | 2017-05-24 10:33 | HHI.PR ---
Subjective Remarks in no acute distress. at times has some pain to the left leg. no fever. no other complaints. Objective Vitals Vital Signs Date Time Temp Pulse Resp B/P (MAP) Pulse Ox O2 Delivery O2 Flow Rate FiO2 05/24/17 08:00 97.6 99 18 120/84 (96) 91 05/24/17 04:00 97.7 77 19 120/62 (81) 98 05/24/17 00:00 97.8 81 20 107/55 (72) 95 05/23/17 20:00 98.6 69 18 118/56 (76) 98 05/23/17 16:00 97.2 89 20 107/67 (80) 98 05/23/17 12:00 97.8 59 20 139/64 (89) 99 I/O 05/23/17 05/23/17 05/23/17 05/24/17 05/24/17 05/24/17 07:00 15:00 23:00 07:00 15:00 23:00 Intake Total 480 ml 562.5 ml 780 ml 1182 ml Balance 480 ml 562.5 ml 780 ml 1182 ml Intake Oral 480 ml 480 ml 480 ml IV Total 562.5 ml 300 ml 702 ml # Voids 4 3 6 # Bowel Movements 0 0 Result Diagram: 05/22/17 1150 05/23/17 0509 Imaging Last Impressions Tibia/Fibula X-Ray 05/22/17 0000 Signed Impressions: Service Date/Time: May 16:00 - CONCLUSION: No metallic density. No fracture. Manas De Jesus MD Foot X-Ray 05/22/17 Signed Impressions: Service Date/Time: May 12:25 - CONCLUSION: No focal osseous abnormalities seen. Diffuse osteopenia. Karel Bentley MD Foot MRI 05/22/17 Signed Impressions: Service Date/Time: May 18:33 - CONCLUSION: No abscess is seen. No areas of suspected osteomyelitis are seen. Santy Zamudio MD Femur X-Ray 05/22/17 0000 Signed Impressions: Service Date/Time: May 15:56 - CONCLUSION: No acute fracture. No metallic densities. Manas De Jesus MD Objective Remarks GENERAL: This is a well-nourished, well-developed patient, in no apparent distress. CARDIOVASCULAR: Regular rate and regular rhythm without murmurs, gallops, or rubs. RESPIRATORY: Clear to auscultation. Breath sounds equal bilaterally. No wheezes , rales, or rhonchi. GASTROINTESTINAL: Abdomen soft, non-tender, nondistended. Normal, active bowel sounds MUSCULOSKELETAL: erythema and mild swelling of the left foot. NEURO: Alert & Oriented x4 to person, place, time, situation. Moves all ext x4 Medications and IVs Current Medications Ondansetron HCl (Zofran Inj) 4 mg ONCE ONCE IV PUSH Last administered on 14:10; Start 05/22/17 at 12:45; Stop 05/22/17 at 12:46; Status DC Hydromorphone HCl (Dilaudid Pf Inj) 1 mg ONCE ONCE IV PUSH Last administered on 05/22/17 14:09; Start 05/22/17 at 12:45; Stop 05/22/17 at 12:46; Status DC Vancomycin HCl 1000 mg/Sodium Chloride 250 ml @ 250 mls/hr ONCE ONCE IV Last administered on 05/22/17 14:10; Start 05/22/17 at 13:15; Stop 05/22/17 at 14:15 ; Status DC Sodium Chloride 1,000 ml @ 50 mls/hr Q20H IV Last administered on 05/24/17 06 :13; Start 05/22/17 at 13:15 Ferrous Sulfate (Ferrous Sulfate Liq) 200 mg DAILY PO Last administered on 05/24 08:27; Start 05/23/17 at 09:00 Furosemide (Lasix) 20 mg DAILY PO Last administered on 05/24/17 08:28; Start 05/23/17 at 09:00 Metoprolol Tartrate (Lopressor) 25 mg DAILY PO Last administered on 05/24/17 08:28; Start 05/23/17 at 09:00 Multivitamins (Theragran) 1 tab DAILY PO Last administered on 05/24/17 08:28; Start 05/23/17 at 09:00 Potassium Chloride (KCl) 20 meq DAILY PO Last administered on 05/24/17 08:27; Start 05/23/17 at 09:00 Ascorbic Acid (Vitamin C) 250 mg DAILY PO Last administered on 05/24/17 08:28 ; Start 05/23/17 at 09:00 Pantoprazole Sodium (Protonix) 40 mg DAILY PO Last administered on 05/24/17 08 :28; Start 05/23/17 at 09:00 Temazepam (Restoril) 30 mg HS PRN PO INSOMNIA Last administered on 05/23/17 20 :22; Start 05/22/17 at 14:15 Pharmacy Profile Note 0 ml @ 0 mls/hr UNSCH OTHER ; Start 05/22/17 at 13:45 Piperacillin Sod/ Tazobactam Sod 50 ml @ 100 mls/hr Q8H IV Last administered on 05/24/17 06:14; Start 05/22/17 at 15:00 Sodium Chloride 500 ml @ 50 mls/hr Q10H ONCE IV ; Start 05/22/17 at 14:00; Stop 05/22/17 at 23:59; Status DC Acetaminophen/ Hydrocodone Bitart ([place] 5-325 Mg) 1 tab Q4H PRN PO PAIN <5; Start 05/22/17 at 13:45; Stop 05/23/17 at 08:46; Status DC Acetaminophen/ Hydrocodone Bitart ([place] 5-325 Mg) 2 tab Q4H PRN PO PAIN 6-10 Last administered on 05/23/17 06:35; Start 05/22/17 at 13:45; Stop 05/23/17 at 08:46; Status DC Hydromorphone HCl (Dilaudid Pf Inj) 0.2 mg Q4H PRN IV PUSH BREAKTHROUGH PAIN Last administered on 05/23/17 08:14; Start 05/22/17 at 13:45; Stop 05/23/17 at 08:46; Status DC Acetaminophen (Tylenol) 650 mg Q4H PRN PO FEVER/HEADACHE; Start 05/22/17 at 13: 45 Ondansetron HCl (Zofran Inj) 4 mg Q8HR PRN IV PUSH NAUSEA; Start 05/22/17 at 13 :45 Vancomycin HCl 1000 mg/Sodium Chloride 250 ml @ 250 mls/hr Q38H IV ; Start 05/24/17 at 02:00; Stop 05/24/17 at 02:00; Status DC Collagenase (Santyl Oint) 1 applic DAILY TOPICAL Last administered on 08:29; Start 05/23/17 at 09:00 Acetaminophen/ Hydrocodone Bitart ([place] 7.5-325 Mg) 1 tab Q4H PRN PO PAIN < 5 ; Start 05/23/17 at 10:00 Acetaminophen/ Hydrocodone Bitart ([place] 7.5-325 Mg) 2 tab Q4H PRN PO PAIN 6- 10 Last administered on 05/24/17 08:29; Start 05/23/17 at 10:00 Hydromorphone HCl (Dilaudid Pf Inj) 0.5 mg Q4H PRN IV PUSH BREAKTHROUGH PAIN Last administered on 05/24/17 06:25; Start 05/23/17 at 10:00 Enoxaparin Sodium (Lovenox Inj) 40 mg Q24H SQ Last administered on 05/24/17 08 :28; Start 05/23/17 at 09:00 Vancomycin HCl 1000 mg/Sodium Chloride 250 ml @ 250 mls/hr ONCE ONCE IV Last administered on 05/23/17 16:20; Start 05/23/17 at 14:00; Stop 05/23/17 at 14:59 ; Status DC Vancomycin HCl 1000 mg/Sodium Chloride 250 ml @ 250 mls/hr Q24H IV ; Start 05/24/17 at 16:00 Miscellaneous Information SPECIFIC LAB TO BE DRAWN:VANCO TROUGH DATE TO... ONCE ONCE .XX ; Start 05/26/17 at 15:45; Stop 05/26/17 at 15:46 A/P Problem List: (1) Cellulitis of left foot ICD Code: L03.116 - Cellulitis of left lower limb Status: Acute Assessment and Plan A/P -PVD with left foot infection MRI left foot with no osteomyelitis. arterial doppler with severe PVD of the left lower extremity. continue broad-spectrum IV antibiotics- podiatry and vascular surgery consults appreciated; for angiogram on Friday. continue with pain control. -CAD- s/p stent placement/atrial fibrillation; resumed BB- hold Xarelto for now- -chronic renal insufficiency- at his baseline-improved on IV fluid- will monitor -anemia- due to chronic disease- will monitor -DVT prophylaxis; started on Lovenox Glenroy Low MD May 24, 2017 10:33
[2017-05-24] MEDS: VANCOMYCIN 1,000 MG/NS 250 ML IV SCH ×2 (16:30)
[2017-05-24] MEDS: TEMAZEPAM 15 MG CAP PO PRN (21:23)
[2017-05-25] VITALS: BP 105/52; PULSE 79; RESP 18; TEMP 97.8; O2SAT 94
[2017-05-25] MEDS: ACETAMINOPHEN/HYDROcodone 325 MG/7.5 MG TAB PO PRN (03:00)
[2017-05-25 04:00] VITALS: BP 92/58; PULSE 97; RESP 18; TEMP 97.6; O2SAT 97
[2017-05-25] MEDS: HYDROmorphone HCL PF 1 MG/ML VIAL IV PUSH PRN ×3 (05:14→19:58)
[2017-05-25] MEDS: PIPERACIL-TAZO 3.375 GM PREMIX 50 ML IV SCH ×3 (06:10→22:57)
[2017-05-25] MEDS: FERROUS SULFATE 300 MG /5ML UDC PO SCH (07:56)
[2017-05-25] MEDS: ASCORBIC ACID 500 MG TAB PO SCH (07:58)
[2017-05-25] MEDS: FUROSEMIDE 20 MG TAB PO SCH (07:59)
[2017-05-25] MEDS: MULTIVITAMIN TAB PO SCH (07:59)
[2017-05-25] MEDS: POTASSIUM CHLORIDE 20 MEQ CONTROLLED RELEASE TAB PO SCH (07:59)
[2017-05-25 08:00] VITALS: BP 115/59; PULSE 82; RESP 18; TEMP 97.5; O2SAT 92
[2017-05-25] MEDS: PANTOPRAZOLE SOD 40 MG DELAYED RELEASE TAB PO SCH (08:00)
[2017-05-25] MEDS: METOPROLOL TARTRATE 25 MG TAB PO SCH (08:00)
[2017-05-25] MEDS: ENOXAPARIN SODIUM 40 MG/0.4 ML SYRINGE SQ SCH (08:01)
[2017-05-25] MEDS: COLLAGENASE OINT 30 GM TUBE TOPICAL SCH (08:02)
--- NOTE | 2017-05-25 08:17 | HHI.PR ---
Subjective Remarks in no acute distress. but still complaining of moderate to severe pain to the left foot. afebrile. no other complaints. d/w the RN. Objective Vitals Vital Signs Date Time Temp Pulse Resp B/P (MAP) Pulse Ox O2 Delivery O2 Flow Rate FiO2 05/25/17 04:00 97.6 97 18 92/58 (69) 97 05/25/17 00:00 97.8 79 18 105/52 (69) 94 05/24/17 20:53 Room Air 05/24/17 20:00 97.6 78 18 110/54 (72) 98 05/24/17 17:07 113/68 (83) 05/24/17 16:00 98.1 79 18 92/60 (71) 98 05/24/17 12:00 97.2 76 18 98/60 (73) I/O 05/24/17 05/24/17 05/24/17 05/25/17 05/25/17 05/25/17 07:00 15:00 23:00 07:00 15:00 23:00 Intake Total 1182 ml 770 ml 1304 ml Balance 1182 ml 770 ml 1304 ml Intake Oral 480 ml 720 ml 340 ml IV Total 702 ml 50 ml 964 ml # Voids 6 3 5 # Bowel Movements 0 0 Result Diagram: 05/22/17 1150 05/23/17 0509 Imaging Last Impressions Tibia/Fibula X-Ray 05/22/17 0000 Signed Impressions: Service Date/Time: May 16:00 - CONCLUSION: No metallic density. No fracture. Manas De Jesus MD Foot X-Ray 05/22/17 0000 Signed Impressions: Service Date/Time: May 12:25 - CONCLUSION: No focal osseous abnormalities seen. Diffuse osteopenia. Karel Bentley MD Foot MRI 05/22/17 0000 Signed Impressions: Service Date/Time: May 18:33 - CONCLUSION: No abscess is seen. No areas of suspected osteomyelitis are seen. Santy Zamudio MD Femur X-Ray 05/22/17 0000 Signed Impressions: Service Date/Time: May 15:56 - CONCLUSION: No acute fracture. No metallic densities. Manas De Jesus MD Objective Remarks GENERAL: elderly male, in no apparent distress. CARDIOVASCULAR: Regular rate and regular rhythm without murmurs, gallops, or rubs. RESPIRATORY: Clear to auscultation. Breath sounds equal bilaterally. No wheezes , rales, or rhonchi. GASTROINTESTINAL: Abdomen soft, non-tender, nondistended. Normal, active bowel sounds MUSCULOSKELETAL: erythema and mild swelling of the left foot. NEURO: Alert & Oriented x4 to person, place, time, situation. Moves all ext x4 Medications and IVs Current Medications Ondansetron HCl (Zofran Inj) 4 mg ONCE ONCE IV PUSH Last administered on 14:10; Start 05/22/17 at 12:45; Stop 05/22/17 at 12:46; Status DC Hydromorphone HCl (Dilaudid Pf Inj) 1 mg ONCE ONCE IV PUSH Last administered on 05/22/17 14:09; Start 05/22/17 at 12:45; Stop 05/22/17 at 12:46; Status DC Vancomycin HCl 1000 mg/Sodium Chloride 250 ml @ 250 mls/hr ONCE ONCE IV Last administered on 05/22/17 14:10; Start 05/22/17 at 13:15; Stop 05/22/17 at 14:15 ; Status DC Sodium Chloride 1,000 ml @ 50 mls/hr Q20H IV Last administered on 05/24/17 06 :13; Start 05/22/17 at 13:15 Ferrous Sulfate (Ferrous Sulfate Liq) 200 mg DAILY PO Last administered on 05/24 08:27; Start 05/23/17 at 09:00 Furosemide (Lasix) 20 mg DAILY PO Last administered on 05/24/17 08:28; Start 05/23/17 at 09:00 Metoprolol Tartrate (Lopressor) 25 mg DAILY PO Last administered on 05/24/17 08:28; Start 05/23/17 at 09:00 Multivitamins (Theragran) 1 tab DAILY PO Last administered on 05/24/17 08:28; Start 05/23/17 at 09:00 Potassium Chloride (KCl) 20 meq DAILY PO Last administered on 05/24/17 08:27; Start 05/23/17 at 09:00 Ascorbic Acid (Vitamin C) 250 mg DAILY PO Last administered on 05/24/17 08:28 ; Start 05/23/17 at 09:00 Pantoprazole Sodium (Protonix) 40 mg DAILY PO Last administered on 05/24/17 08 :28; Start 05/23/17 at 09:00 Temazepam (Restoril) 30 mg HS PRN PO INSOMNIA Last administered on 05/24/17 21 :23; Start 05/22/17 at 14:15 Pharmacy Profile Note 0 ml @ 0 mls/hr UNSCH OTHER ; Start 05/22/17 at 13:45 Piperacillin Sod/ Tazobactam Sod 50 ml @ 100 mls/hr Q8H IV Last administered on 05/25/17 06:10; Start 05/22/17 at 15:00 Sodium Chloride 500 ml @ 50 mls/hr Q10H ONCE IV ; Start 05/22/17 at 14:00; Stop 05/22/17 at 23:59; Status DC Acetaminophen/ Hydrocodone Bitart ([place] 5-325 Mg) 1 tab Q4H PRN PO PAIN <5; Start 05/22/17 at 13:45; Stop 05/23/17 at 08:46; Status DC Acetaminophen/ Hydrocodone Bitart ([place] 5-325 Mg) 2 tab Q4H PRN PO PAIN 6-10 Last administered on 05/23/17 06:35; Start 05/22/17 at 13:45; Stop 05/23/17 at 08:46; Status DC Hydromorphone HCl (Dilaudid Pf Inj) 0.2 mg Q4H PRN IV PUSH BREAKTHROUGH PAIN Last administered on 05/23/17 08:14; Start 05/22/17 at 13:45; Stop 05/23/17 at 08:46; Status DC Acetaminophen (Tylenol) 650 mg Q4H PRN PO FEVER/HEADACHE; Start 05/22/17 at 13: 45 Ondansetron HCl (Zofran Inj) 4 mg Q8HR PRN IV PUSH NAUSEA; Start 05/22/17 at 13 :45 Vancomycin HCl 1000 mg/Sodium Chloride 250 ml @ 250 mls/hr Q38H IV ; Start 05/24/17 at 02:00; Stop 05/24/17 at 02:00; Status DC Collagenase (Santyl Oint) 1 applic DAILY TOPICAL Last administered on 08:29; Start 05/23/17 at 09:00 Acetaminophen/ Hydrocodone Bitart ([place] 7.5-325 Mg) 1 tab Q4H PRN PO PAIN < 5 ; Start 05/23/17 at 10:00 Acetaminophen/ Hydrocodone Bitart ([place] 7.5-325 Mg) 2 tab Q4H PRN PO PAIN 6- 10 Last administered on 05/25/17 03:00; Start 05/23/17 at 10:00 Hydromorphone HCl (Dilaudid Pf Inj) 0.5 mg Q4H PRN IV PUSH BREAKTHROUGH PAIN Last administered on 05/25/17 05:14; Start 05/23/17 at 10:00 Enoxaparin Sodium (Lovenox Inj) 40 mg Q24H SQ Last administered on 05/24/17 08 :28; Start 05/23/17 at 09:00 Vancomycin HCl 1000 mg/Sodium Chloride 250 ml @ 250 mls/hr ONCE ONCE IV Last administered on 05/23/17 16:20; Start 05/23/17 at 14:00; Stop 05/23/17 at 14:59 ; Status DC Vancomycin HCl 1000 mg/Sodium Chloride 250 ml @ 250 mls/hr Q24H IV Last administered on 05/24/17 16:30; Start 05/24/17 at 16:00 Miscellaneous Information SPECIFIC LAB TO BE DRAWN:VANCO TROUGH DATE TO... ONCE ONCE .XX ; Start 05/26/17 at 15:45; Stop 05/26/17 at 15:46 Prednisone (Deltasone) 50 mg ONCE ONCE PO ; Start 05/25/17 at 23:00; Stop 05/25 at 23:01 Prednisone (Deltasone) 50 mg ONCE ONCE PO ; Start 05/26/17 at 06:00; Stop 05/26 at 06:01 Prednisone (Deltasone) 50 mg ONCE ONCE PO ; Start 05/26/17 at 12:30; Stop 05/26 at 12:31 Diphenhydramine HCl (Benadryl) 50 mg ONCE ONCE PO ; Start 05/26/17 at 12:30; Stop 05/26/17 at 12:31 A/P Assessment and Plan A/P -PVD with left foot infection MRI left foot with no osteomyelitis. arterial doppler with severe PVD of the left lower extremity. continue broad-spectrum IV antibiotics- podiatry and vascular surgery consults appreciated; for angiogram on Friday. continue with pain control; will increase noroc and continue to monitor. -CAD- s/p stent placement/atrial fibrillation; resumed BB- hold Xarelto for now- -chronic renal insufficiency- at his baseline-improved on IV fluid- will monitor -anemia- due to chronic disease- will monitor -DVT prophylaxis; started on Lovenox ( hold for procedure) Glneroy Low MD May 25, 2017 08:12
[2017-05-25 08:43] LABS: BICARBONATE 25.4 MEQ/L (21.0-32.0); POTASSIUM 3.1 MEQ/L (3.5-5.1)
[2017-05-25] MEDS: ACETAMINOPHEN/HYDROcodone 325 MG/10 MG TAB PO PRN ×4 (08:47→21:43)
[2017-05-25] MEDS: SODIUM CHLOR 0.9% 1000 ML INJ 1,000 ML IV SCH (08:48)
[2017-05-25] MEDS ORDERED: POTASSIUM CHLORIDE 10 MEQ CONTROLLED RELEASE TAB PO ONE (11:00)
[2017-05-25 12:00] VITALS: BP 96/53; PULSE 74; RESP 18; TEMP 97.5; O2SAT 100
[2017-05-25 16:00] VITALS: BP 111/65; PULSE 94; RESP 18; TEMP 97.6; O2SAT 100
--- NOTE | 2017-05-25 16:22 | PD.POD ---
Subjective Podiatric Problems L foot nonhealing ulcers, vascular pain Past Med/Surg/Social History Social History Smoking Status: Never Smoker Objective Vital Signs Vital Signs Date Time Temp Pulse Resp B/P (MAP) Pulse Ox O2 Delivery O2 Flow Rate FiO2 05/25/17 12:00 97.5 74 18 96/53 (67) 100 05/25/17 08:00 97.5 82 18 115/59 (77) 92 05/25/17 04:00 97.6 97 18 92/58 (69) 97 05/25/17 00:00 97.8 79 18 105/52 (69) 94 05/24/17 20:53 Room Air 05/24/17 20:00 97.6 78 18 110/54 (72) 98 05/24/17 17:07 113/68 (83) Coded Allergies: diatrizoate meglumine (Unverified Allergy, Severe, 05/22/17) gadobenic acid (Unverified Allergy, Severe, 05/22/17) gadodiamide (Unverified Allergy, Severe, 05/22/17) gadoteridol (Unverified Allergy, Severe, 05/22/17) iodixanol (Unverified Allergy, Severe, 05/22/17) iohexol (Unverified Allergy, Severe, 05/22/17) Exam-Podiatry Remarks unchanged Assessment & Plan A/P L foot ulcers, stable Continue local wound care with daily betadine wet to dry to keep stable. Continue IV antibiotics. Discussed with patient that I cannot help wound heal fast and pain decrease and am dependent on vascular to make anything any better, but may wind up having to amputate at some point if infection sets in or pain becomes too unbearable. Follow up in clinic upon d/c. Podiatry signing off. James Sanchez DPM May 25, 2017 16:22
[2017-05-25] MEDS: VANCOMYCIN 1,000 MG/NS 250 ML IV SCH ×2 (17:41)
[2017-05-25 20:00] VITALS: BP 126/68; PULSE 72; RESP 20; TEMP 97.6; O2SAT 100
[2017-05-25] MEDS: TEMAZEPAM 15 MG CAP PO PRN (22:57)
[2017-05-25] MEDS ORDERED: predniSONE 50 MG TAB PO ONE (23:00)
[2017-05-26] VITALS (7 sets, daily range): BP systolic 101–124; BP diastolic 56–66; PULSE 58–96; RESP 16–20; TEMP 97.1–97.8; O2SAT 95–99
[2017-05-26] MEDS: ACETAMINOPHEN/HYDROcodone 325 MG/10 MG TAB PO PRN ×3 (04:48→10:22)
[2017-05-26] MEDS ORDERED: predniSONE 50 MG TAB PO ONE ×2 (06:00→12:30)
[2017-05-26] MEDS: PIPERACIL-TAZO 3.375 GM PREMIX 50 ML IV SCH ×3 (07:14→22:00)
[2017-05-26] MEDS: SODIUM CHLOR 0.9% 1000 ML INJ 1,000 ML IV SCH (07:55)
--- NOTE | 2017-05-26 08:33 | HHI.PR ---
Subjective Remarks in no distress. afebrile. looks fairly comfortable although still with some pain to the left leg. Objective Vitals Vital Signs Date Time Temp Pulse Resp B/P (MAP) Pulse Ox O2 Delivery O2 Flow Rate FiO2 05/26/17 04:00 97.4 96 20 116/59 (78) 99 05/26/17 00:00 97.2 86 20 122/57 (78) 99 05/25/17 20:03 Room Air 05/25/17 20:00 97.6 72 20 126/68 (87) 100 05/25/17 16:00 97.6 94 18 111/65 (80) 100 05/25/17 12:00 97.5 74 18 96/53 (67) 100 I/O 05/25/17 05/25/17 05/25/17 05/26/17 05/26/17 05/26/17 07:00 15:00 23:00 07:00 15:00 23:00 Intake Total 1304 ml 50 ml 1042 ml 470 ml Balance 1304 ml 50 ml 1042 ml 470 ml Intake Oral 340 ml 480 ml 120 ml IV Total 964 ml 50 ml 562 ml 350 ml # Voids 5 3 3 # Bowel Movements 0 Result Diagram: 05/22/17 1150 05/25/17 0729 Imaging Last Impressions Tibia/Fibula X-Ray 05/22/17 Signed Impressions: Service Date/Time: May 16:00 - CONCLUSION: No metallic density. No fracture. Manas De Jesus MD Foot X-Ray 05/22/17 Signed Impressions: Service Date/Time: May 12:25 - CONCLUSION: No focal osseous abnormalities seen. Diffuse osteopenia. Karel Bentley MD Foot MRI 05/22/17 Signed Impressions: Service Date/Time: May 18:33 - CONCLUSION: No abscess is seen. No areas of suspected osteomyelitis are seen. Santy Zamudio MD Femur X-Ray 05/22/17 Signed Impressions: Service Date/Time: May 15:56 - CONCLUSION: No acute fracture. No metallic densities. Manas De Jesus MD Objective Remarks GENERAL: elderly male, in no apparent distress. CARDIOVASCULAR: Regular rate and regular rhythm without murmurs, gallops, or rubs. RESPIRATORY: Clear to auscultation. Breath sounds equal bilaterally. No wheezes , rales, or rhonchi. GASTROINTESTINAL: Abdomen soft, non-tender, nondistended. Normal, active bowel sounds MUSCULOSKELETAL: erythema and mild swelling of the left foot. NEURO: Alert & Oriented x4 to person, place, time, situation. Moves all ext x4 Medications and IVs Current Medications Ondansetron HCl (Zofran Inj) 4 mg ONCE ONCE IV PUSH Last administered on 14:10; Start 05/22/17 at 12:45; Stop 05/22/17 at 12:46; Status DC Hydromorphone HCl (Dilaudid Pf Inj) 1 mg ONCE ONCE IV PUSH Last administered on 05/22/17 14:09; Start 05/22/17 at 12:45; Stop 05/22/17 at 12:46; Status DC Vancomycin HCl 1000 mg/Sodium Chloride 250 ml @ 250 mls/hr ONCE ONCE IV Last administered on 05/22/17 14:10; Start 05/22/17 at 13:15; Stop 05/22/17 at 14:15 ; Status DC Sodium Chloride 1,000 ml @ 50 mls/hr Q20H IV Last administered on 05/25/17 08 :48; Start 05/22/17 at 13:15 Ferrous Sulfate (Ferrous Sulfate Liq) 200 mg DAILY PO Last administered on 05/25 07:56; Start 05/23/17 at 09:00 Furosemide (Lasix) 20 mg DAILY PO Last administered on 05/25/17 07:59; Start 05/23/17 at 09:00 Metoprolol Tartrate (Lopressor) 25 mg DAILY PO Last administered on 05/25/17 08:00; Start 05/23/17 at 09:00 Multivitamins (Theragran) 1 tab DAILY PO Last administered on 05/25/17 07:59; Start 05/23/17 at 09:00 Potassium Chloride (KCl) 20 meq DAILY PO Last administered on 05/25/17 07:59; Start 05/23/17 at 09:00 Ascorbic Acid (Vitamin C) 250 mg DAILY PO Last administered on 05/25/17 07:58 ; Start 05/23/17 at 09:00 Pantoprazole Sodium (Protonix) 40 mg DAILY PO Last administered on 05/25/17 08 :00; Start 05/23/17 at 09:00 Temazepam (Restoril) 30 mg HS PRN PO INSOMNIA Last administered on 05/25/17 22 :57; Start 05/22/17 at 14:15 Pharmacy Profile Note 0 ml @ 0 mls/hr UNSCH OTHER ; Start 05/22/17 at 13:45 Piperacillin Sod/ Tazobactam Sod 50 ml @ 100 mls/hr Q8H IV Last administered on 05/26/17 07:14; Start 05/22/17 at 15:00 Sodium Chloride 500 ml @ 50 mls/hr Q10H ONCE IV ; Start 05/22/17 at 14:00; Stop 05/22/17 at 23:59; Status DC Acetaminophen/ Hydrocodone Bitart ([place] 5-325 Mg) 1 tab Q4H PRN PO PAIN <5; Start 05/22/17 at 13:45; Stop 05/23/17 at 08:46; Status DC Acetaminophen/ Hydrocodone Bitart ([place] 5-325 Mg) 2 tab Q4H PRN PO PAIN 6-10 Last administered on 05/23/17 06:35; Start 05/22/17 at 13:45; Stop 05/23/17 at 08:46; Status DC Hydromorphone HCl (Dilaudid Pf Inj) 0.2 mg Q4H PRN IV PUSH BREAKTHROUGH PAIN Last administered on 05/23/17 08:14; Start 05/22/17 at 13:45; Stop 05/23/17 at 08:46; Status DC Acetaminophen (Tylenol) 650 mg Q4H PRN PO FEVER/HEADACHE; Start 05/22/17 at 13: 45 Ondansetron HCl (Zofran Inj) 4 mg Q8HR PRN IV PUSH NAUSEA; Start 05/22/17 at 13 :45 Vancomycin HCl 1000 mg/Sodium Chloride 250 ml @ 250 mls/hr Q38H IV ; Start 05/24/17 at 02:00; Stop 05/24/17 at 02:00; Status DC Collagenase (Santyl Oint) 1 applic DAILY TOPICAL Last administered on 08:02; Start 05/23/17 at 09:00 Acetaminophen/ Hydrocodone Bitart ([place] 7.5-325 Mg) 1 tab Q4H PRN PO PAIN < 5 ; Start 05/23/17 at 10:00; Stop 05/25/17 at 08:09; Status DC Acetaminophen/ Hydrocodone Bitart ([place] 7.5-325 Mg) 2 tab Q4H PRN PO PAIN 6- 10 Last administered on 05/25/17 03:00; Start 05/23/17 at 10:00; Stop 05/25/17 at 08:09; Status DC Hydromorphone HCl (Dilaudid Pf Inj) 0.5 mg Q4H PRN IV PUSH BREAKTHROUGH PAIN Last administered on 05/25/17 05:14; Start 05/23/17 at 10:00; Stop 05/25/17 at 08:09; Status DC Enoxaparin Sodium (Lovenox Inj) 40 mg Q24H SQ Last administered on 05/25/17 08 :01; Start 05/23/17 at 09:00; Status Future Hold Vancomycin HCl 1000 mg/Sodium Chloride 250 ml @ 250 mls/hr ONCE ONCE IV Last administered on 05/23/17 16:20; Start 05/23/17 at 14:00; Stop 05/23/17 at 14:59 ; Status DC Vancomycin HCl 1000 mg/Sodium Chloride 250 ml @ 250 mls/hr Q24H IV Last administered on 05/25/17 17:41; Start 05/24/17 at 16:00 Miscellaneous Information SPECIFIC LAB TO BE DRAWN:VANCO TROUGH DATE TO... ONCE ONCE .XX ; Start 05/26/17 at 15:45; Stop 05/26/17 at 15:46 Prednisone (Deltasone) 50 mg ONCE ONCE PO Last administered on 05/25/17 22:58 ; Start 05/25/17 at 23:00; Stop 05/25/17 at 23:01; Status DC Prednisone (Deltasone) 50 mg ONCE ONCE PO Last administered on 05/26/17 07:13 ; Start 05/26/17 at 06:00; Stop 05/26/17 at 06:01; Status DC Prednisone (Deltasone) 50 mg ONCE ONCE PO ; Start 05/26/17 at 12:30; Stop 05/26 at 12:31 Diphenhydramine HCl (Benadryl) 50 mg ONCE ONCE PO ; Start 05/26/17 at 12:30; Stop 05/26/17 at 12:31 Acetaminophen/ Hydrocodone Bitart ([place] 10-325 Mg) 1 tab Q4H PRN PO PAIN 1-5; Start 05/25/17 at 08:15 Acetaminophen/ Hydrocodone Bitart ([place] 10-325 Mg) 2 tab Q4H PRN PO PAIN 6-10 Last administered on 05/26/17 04:48; Start 05/25/17 at 08:15 Hydromorphone HCl (Dilaudid Pf Inj) 0.5 mg Q3H PRN IV PUSH BREAKTHROUGH PAIN Last administered on 05/25/17 19:58; Start 05/25/17 at 08:15 Potassium Chloride (KCl) 30 meq ONCE ONCE PO Last administered on 05/25/17 11 :59; Start 05/25/17 at 11:00; Stop 05/25/17 at 11:01; Status DC A/P Problem List: (1) Cellulitis of left foot ICD Code: L03.116 - Cellulitis of left lower limb Status: Acute Assessment and Plan A/P -PVD with left foot infection MRI left foot with no osteomyelitis. arterial doppler with severe PVD of the left lower extremity. continue broad-spectrum IV antibiotics- podiatry and vascular surgery consults appreciated; for angiogram today. continue with pain control. -CAD- s/p stent placement/atrial fibrillation; resumed BB- hold Xarelto for now- -chronic renal insufficiency- at his baseline-improved on IV fluid- will monitor -anemia- due to chronic disease- will monitor -DVT prophylaxis; started on Lovenox ( hold for procedure) Discharge Planning d/w today; will plan on discharge when work-up completed and cleared by vascular surgery. no need for antibiotics upon discharge at this point. Glenroy Low MD May 26, 2017 08:33
[2017-05-26] MEDS: MULTIVITAMIN TAB PO SCH (08:42)
[2017-05-26] MEDS: FERROUS SULFATE 300 MG /5ML UDC PO SCH (08:42)
[2017-05-26] MEDS: FUROSEMIDE 20 MG TAB PO SCH (08:42)
[2017-05-26] MEDS: POTASSIUM CHLORIDE 20 MEQ CONTROLLED RELEASE TAB PO SCH (08:43)
[2017-05-26] MEDS: METOPROLOL TARTRATE 25 MG TAB PO SCH (08:43)
[2017-05-26] MEDS: PANTOPRAZOLE SOD 40 MG DELAYED RELEASE TAB PO SCH (08:53)
[2017-05-26] MEDS: ASCORBIC ACID 500 MG TAB PO SCH (08:53)
[2017-05-26] MEDS: COLLAGENASE OINT 30 GM TUBE TOPICAL SCH (08:54)
[2017-05-26 09:27] LABS: BICARBONATE 23.6 MEQ/L (21.0-32.0)
[2017-05-26] MEDS ORDERED: IOHEXOL 300 MG/ML 50 ML BTL (for RAD DIAG) IVCONTRAST ONE (12:00)
[2017-05-26] MEDS ORDERED: IOHEXOL 300 MG/ML 100 ML BTL (for Rad CT) IVCONTRAST ONE (12:00)
[2017-05-26] MEDS ORDERED: PROPOFOL 200 MG/20 ML AMP IV ONE (12:00)
[2017-05-26] MEDS ORDERED: MIDAZOLAM HCL 2 MG/2 ML VIAL IV ONE (12:00)
[2017-05-26] MEDS ORDERED: diphenhydrAMINE HCL 50 MG CAP PO ONE (12:30)
--- NOTE | 2017-05-26 12:38 | EKG ---
Date Performed: 05/26/2017 Time Performed: 06:40:18 PTAGE: 86 years EKG: Atrial fibrillation with PVC(s) or aberrant ventricular conduction. 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
[2017-05-26] MEDS ORDERED: VANCOMYCIN HCL 1000 MG VIAL ONE (14:12)
[2017-05-26] MEDS ORDERED: methylPREDNISolone SOD SUCC 125 MG/2 ML VIAL ONE (14:18)
[2017-05-26] MEDS ORDERED: diphenhydrAMINE HCL 50 MG/ML VIAL ONE (14:18)
[2017-05-26] MEDS ORDERED: FAMOTIDINE 20 MG/2 ML VIAL ONE (14:22)
[2017-05-26] MEDS ORDERED: KETAMINE HCL 500 MG/5 ML VIAL ONE (14:26)
[2017-05-26] MEDS ORDERED: BUPIVACAINE HCL PF 0.5% 30 ML VIAL ONE (14:49)
[2017-05-26] MEDS ORDERED: IOHEXOL 300 INJ 50 ML IV ONE (15:05)
[2017-05-26] MEDS ORDERED: PROTAMINE SULFATE 50 MG/5 ML VIAL ONE (15:11)
[2017-05-26] MEDS ORDERED: HEPARIN SODIUM - IV 10,000 UNITS/10 ML VIAL ONE (15:12)
[2017-05-26] MEDS ORDERED: HEPARIN-NS/PF INJ 500 ML ONE (15:12)
[2017-05-26] MEDS ORDERED: PHARMACY ORDERED LAB ONE (15:45)
--- NOTE | 2017-05-26 16:10 | HHI.PR ---
Immediate Post Op Note Procedure Date: May 26, 2017 Pre Op Diagnosis: L LE tissue loss, PAD Post Op Diagnosis: L LE tissue loss, PAD Surgeon: Lj Daley Operations Support Specialist(s): none Procedure: L LE angiogram SFA ADJUNCT PROFESSOR OF ENGLISH/stent (6x150) IVUS guided re-entry R PRESSURE TEST OPERATOR angioseal Findings: SFA occlusion, successful recanalization AT/PT occlusion peroneal occlusion but DP reconstitution Additional Information: If pain not relived, will re-attempt tibial recanalization later in the week, assuming no ATN from 70mL contrast Complications: none Specimen(s) removed: none Estimated blood loss: 10mL Anesthesia: MAC Drains: None Fluids: 900mL IVF Patient to: PACU Patient Condition: Good Implant/Devices: SEE IMPLANT LOG (if applicable) Date/Time of Procedure: SEE SURGICAL CARE RECORD Lj Daley MD May 26, 2017 16:10
[2017-05-26] MEDS ORDERED: CLOPIDOGREL 75 MG TAB PO ONE (16:15)
[2017-05-26] MEDS ORDERED: *MEPERIDINE 25 MG INJ VIAL PERIprocedural Use ONLY ONE (16:26)
[2017-05-26] MEDS: VANCOMYCIN 1,000 MG/NS 250 ML IV SCH ×2 (16:57)
[2017-05-26] MEDS ORDERED: DO NOT ADM ANY ANTICOAGULANT DRUGS PRN (17:00)
[2017-05-26] MEDS ORDERED: IOHEXOL 300 INJ 100 ML IV ONE (17:00)
[2017-05-27] VITALS (7 sets, daily range): BP systolic 105–124; BP diastolic 53–72; PULSE 72–104; RESP 16–18; TEMP 97.4–98.2; O2SAT 96–100
[2017-05-27] MEDS: SODIUM CHLOR 0.9% 1000 ML INJ 1,000 ML IV SCH (03:41)
[2017-05-27] MEDS: PIPERACIL-TAZO 3.375 GM PREMIX 50 ML IV SCH ×3 (06:08→23:31)
--- NOTE | 2017-05-27 07:07 | MP ---
cc: GETACHEW DALEY MD DATE OF SURGERY 05/26/2017 PREOPERATIVE DIAGNOSIS Left foot tissue loss, peripheral arterial occlusive disease. POSTOPERATIVE DIAGNOSIS Left foot tissue loss, peripheral arterial occlusive disease. PROCEDURE 1. Left lower extremity angiogram. 2. Intravascular ultrasound guided reentry 3. SFA angioplasty. 4. SFA stent with a 6 x 150 5. Right common femoral Angio-Seal. ATTENDING SURGEON Getachew Daley MD ANESTHESIA Local with sedation INDICATIONS Mr. Mills is an 86-year-old gentleman with left lower extremity tissue loss and no palpable pulses. He is taken to the operating room for angiographic evaluation and treatment. There is no prior catheter-based imaging of my review. He had a palpable femoral pulse and so no aortogram was obtained. PROCEDURE PERFORMED Informed consent was obtained from the patient. He was taken to the operating room, placed supine on the operating room table and an appropriate time-out was taken to assure the patient's identity, operative site and planned procedure. The administration of antibiotics was not necessary as the patient was on systemic and therapeutic antibiotics for treatment of his osteomyelitis. Everyone in the room agreed with the time out and we proceeded. His bilateral groins were prepped and draped and the right groin was anesthetized with 1% Lidocaine. A 21 gauge micropuncture needle was used to access the right common femoral artery. This was exchanged using Seldinger technique for a micropuncture sheath through which a 0.035 Glidewire was used introduced and the micropuncture sheath was exchanged for a 5-Sudanese sheath and a VCF catheter was placed over the wire into the sheath and the Glidewire and VCF catheter were used to navigate down to the left common femoral artery. The patient was systemically heparinized with 5000 units of IV heparin and approximately 30 minutes later, 3000 additional units were administered. A left lower extremity arteriogram was obtained. A glide was reintroduced and the glide and VCF catheter advanced down to the mid SFA and the glide was exchanged for a Stork wire. The VCF catheter and 5-Sudanese sheath were removed and a 6-Sudanese 55 cm Beka was introduced. A CXI catheter was placed over the wire and through the sheath and the wire was exchanged for a INTERNATIONAL FREIGHT FORWARDER wire. Using a INTERNATIONAL FREIGHT FORWARDER and CXI, we attempted to recanalized his SFA, but this was unsuccessful. As such, the INTERNATIONAL FREIGHT FORWARDER wire was exchanged for a Glidewire and a subintimal plane was then created. The CXI catheter was advanced over this and then the Glidewire was exchanged for a INTERNATIONAL FREIGHT FORWARDER wire. We got the INTERNATIONAL FREIGHT FORWARDER wire in a subintimal plane to the area of reconstitution of the distal SFA and the CXI catheter was removed. A Startex intravascular ultrasound guided reentry catheter was then introduced and images were obtained of the SFA. This was taken to the true lumen and the curvilinear needle was then deployed without difficulty and a second 0.014 wire, which was a Thruway was introduced and passed down to the distal SFA inside the lumen. The INTERNATIONAL FREIGHT FORWARDER wire and Startex catheter were removed and a CXI catheter was advanced over this 0.014 Thruway wire. This indeed was in the true lumen and was confirmed angiographically and the Thruway was exchanged for a Raymundo wire. The entire distal SFA was balloon angioplastied with a 5-mm balloon. The completion angiogram showed a residual dissection and this was treated with a 6 x 150 stent which was postdilated to 5 mm. The completion angiogram was obtained. The wires, catheter and sheath were removed and the groin was closed with Angio-Seal. INTERPRETATION IMAGES The patient has a patient proximal left common femoral artery, profunda, and SFA. The distal SFA occludes at the adductor canal and there is a popliteal island. The SFA was recanalized using IVUS guided reentry catheters and successfully angioplastied and subsequently stented. The below-knee popliteal artery occludes and there is a very diseased peroneal artery which then reconstitutes the dorsalis pedis. MD ATUL Negron/YINA /5:06 PM /6:46 AM
[2017-05-27] MEDS: MULTIVITAMIN TAB PO SCH (08:32)
[2017-05-27] MEDS: FERROUS SULFATE 300 MG /5ML UDC PO SCH (08:32)
[2017-05-27] MEDS: POTASSIUM CHLORIDE 20 MEQ CONTROLLED RELEASE TAB PO SCH (08:32)
[2017-05-27] MEDS: PANTOPRAZOLE SOD 40 MG DELAYED RELEASE TAB PO SCH (08:33)
[2017-05-27] MEDS: ASCORBIC ACID 500 MG TAB PO SCH (08:33)
[2017-05-27] MEDS: FUROSEMIDE 20 MG TAB PO SCH (08:33)
[2017-05-27] MEDS: METOPROLOL TARTRATE 25 MG TAB PO SCH (08:33)
[2017-05-27] MEDS: CLOPIDOGREL 75 MG TAB PO SCH (08:33)
[2017-05-27] MEDS: COLLAGENASE OINT 30 GM TUBE TOPICAL SCH (08:33)
--- NOTE | 2017-05-27 09:44 | HHI.PR ---
Subjective Remarks in no distress. pains seems to be fairly controlled. no fever. Objective Vitals Vital Signs Date Time Temp Pulse Resp B/P (MAP) Pulse Ox O2 Delivery O2 Flow Rate FiO2 05/27/17 08:08 97.4 104 18 119/72 (88) 96 05/27/17 04:00 97.8 78 18 123/62 (82) 100 05/27/17 00:00 97.6 72 18 124/59 (80) 100 05/26/17 20:00 Room Air 05/26/17 20:00 97.8 82 16 124/66 (85) 96 05/26/17 20:00 84 05/26/17 18:22 97.7 80 20 119/61 (80) 95 05/26/17 17:00 97.5 61 16 123/58 (79) 97 Room Air 05/26/17 16:45 69 14 112/55 (74) 98 Room Air 05/26/17 16:30 68 19 116/63 (80) 97 Room Air 05/26/17 16:12 96.6 71 14 128/58 (81) 95 Room Air 05/26/17 16:00 97.3 58 20 101/56 (71) 97 05/26/17 12:00 97.3 58 20 101/56 (71) 97 I/O 05/26/17 05/26/17 05/26/17 05/27/17 05/27/17 05/27/17 07:00 15:00 23:00 07:00 15:00 23:00 Intake Total 470 ml 765 ml Output Total 20 ml 150 ml Balance 470 ml 745 ml -150 ml Intake Oral 120 ml 15 ml IV Total 350 ml Other 750 ml Output Urine Total 150 ml Estimated Blood Loss 20 ml # Voids 3 4 # Bowel Movements 3 Result Diagram: 05/26/17 0729 Imaging Last Impressions Tibia/Fibula X-Ray 05/22/17 0000 Signed Impressions: Service Date/Time: May 16:00 - CONCLUSION: No metallic density. No fracture. Manas De Jesus MD Foot X-Ray 05/22/17 0000 Signed Impressions: Service Date/Time: May 12:25 - CONCLUSION: No focal osseous abnormalities seen. Diffuse osteopenia. Karel Bentley MD Foot MRI 05/22/17 0000 Signed Impressions: Service Date/Time: May 18:33 - CONCLUSION: No abscess is seen. No areas of suspected osteomyelitis are seen. Santy Zamudio MD Femur X-Ray 05/22/17 0000 Signed Impressions: Service Date/Time: May 15:56 - CONCLUSION: No acute fracture. No metallic densities. Manas De Jesus MD Objective Remarks GENERAL: elderly male, in no apparent distress. CARDIOVASCULAR: Regular rate and regular rhythm without murmurs, gallops, or rubs. RESPIRATORY: Clear to auscultation. Breath sounds equal bilaterally. No wheezes , rales, or rhonchi. GASTROINTESTINAL: Abdomen soft, non-tender, nondistended. Normal, active bowel sounds MUSCULOSKELETAL: erythema and mild swelling of the left foot. NEURO: Alert & Oriented x4 to person, place, time, situation. Moves all ext x4 Procedures L LE angiogram SFA VIBRATORY PILE DRIVER/stent (6x150) IVUS guided re-entry R WORKSITE WELLNESS PRACTITIONER angioseal Medications and IVs Current Medications Ondansetron HCl (Zofran Inj) 4 mg ONCE ONCE IV PUSH Last administered on 14:10; Start 05/22/17 at 12:45; Stop 05/22/17 at 12:46; Status DC Hydromorphone HCl (Dilaudid Pf Inj) 1 mg ONCE ONCE IV PUSH Last administered on 05/22/17 14:09; Start 05/22/17 at 12:45; Stop 05/22/17 at 12:46; Status DC Vancomycin HCl 1000 mg/Sodium Chloride 250 ml @ 250 mls/hr ONCE ONCE IV Last administered on 05/22/17 14:10; Start 05/22/17 at 13:15; Stop 05/22/17 at 14:15 ; Status DC Sodium Chloride 1,000 ml @ 50 mls/hr Q20H IV Last administered on 05/27/17 03:41; Start 05/22/17 at 13:15 Ferrous Sulfate (Ferrous Sulfate Liq) 200 mg DAILY PO Last administered on 08:32; Start 05/23/17 at 09:00 Furosemide (Lasix) 20 mg DAILY PO Last administered on 05/27/17 08:33; Start 05/23/17 at 09:00 Metoprolol Tartrate (Lopressor) 25 mg DAILY PO Last administered on 05/27/17 08:33; Start 05/23/17 at 09:00 Multivitamins (Theragran) 1 tab DAILY PO Last administered on 05/27/17 08:32 ; Start 05/23/17 at 09:00 Potassium Chloride (KCl) 20 meq DAILY PO Last administered on 05/27/17 08:32 ; Start 05/23/17 at 09:00 Ascorbic Acid (Vitamin C) 250 mg DAILY PO Last administered on 05/27/17 08:33 ; Start 05/23/17 at 09:00 Pantoprazole Sodium (Protonix) 40 mg DAILY PO Last administered on 05/27/17 08:33; Start 05/23/17 at 09:00 Temazepam (Restoril) 30 mg HS PRN PO INSOMNIA Last administered on 05/25/17 22 :57; Start 05/22/17 at 14:15 Pharmacy Profile Note 0 ml @ 0 mls/hr UNSCH OTHER ; Start 05/22/17 at 13:45 Piperacillin Sod/ Tazobactam Sod 50 ml @ 100 mls/hr Q8H IV Last administered on 05/27/17 06:08; Start 05/22/17 at 15:00 Sodium Chloride 500 ml @ 50 mls/hr Q10H ONCE IV ; Start 05/22/17 at 14:00; Stop 05/22/17 at 23:59; Status DC Acetaminophen/ Hydrocodone Bitart ([place] 5-325 Mg) 1 tab Q4H PRN PO PAIN <5; Start 05/22/17 at 13:45; Stop 05/23/17 at 08:46; Status DC Acetaminophen/ Hydrocodone Bitart ([place] 5-325 Mg) 2 tab Q4H PRN PO PAIN 6-10 Last administered on 05/23/17 06:35; Start 05/22/17 at 13:45; Stop 05/23/17 at 08:46; Status DC Hydromorphone HCl (Dilaudid Pf Inj) 0.2 mg Q4H PRN IV PUSH BREAKTHROUGH PAIN Last administered on 05/23/17 08:14; Start 05/22/17 at 13:45; Stop 05/23/17 at 08:46; Status DC Acetaminophen (Tylenol) 650 mg Q4H PRN PO FEVER/HEADACHE; Start 05/22/17 at 13: 45 Ondansetron HCl (Zofran Inj) 4 mg Q8HR PRN IV PUSH NAUSEA; Start 05/22/17 at 13 :45 Vancomycin HCl 1000 mg/Sodium Chloride 250 ml @ 250 mls/hr Q38H IV ; Start 05/24/17 at 02:00; Stop 05/24/17 at 02:00; Status DC Collagenase (Santyl Oint) 1 applic DAILY TOPICAL Last administered on 08:33; Start 05/23/17 at 09:00 Acetaminophen/ Hydrocodone Bitart ([place] 7.5-325 Mg) 1 tab Q4H PRN PO PAIN < 5 ; Start 05/23/17 at 10:00; Stop 05/25/17 at 08:09; Status DC Acetaminophen/ Hydrocodone Bitart ([place] 7.5-325 Mg) 2 tab Q4H PRN PO PAIN 6- 10 Last administered on 05/25/17 03:00; Start 05/23/17 at 10:00; Stop 05/25/17 at 08:09; Status DC Hydromorphone HCl (Dilaudid Pf Inj) 0.5 mg Q4H PRN IV PUSH BREAKTHROUGH PAIN Last administered on 05/25/17 05:14; Start 05/23/17 at 10:00; Stop 05/25/17 at 08:09; Status DC Enoxaparin Sodium (Lovenox Inj) 40 mg Q24H SQ Last administered on 05/25/17 08 :01; Start 05/23/17 at 09:00; Status Future Hold Vancomycin HCl 1000 mg/Sodium Chloride 250 ml @ 250 mls/hr ONCE ONCE IV Last administered on 05/23/17 16:20; Start 05/23/17 at 14:00; Stop 05/23/17 at 14:59 ; Status DC Vancomycin HCl 1000 mg/Sodium Chloride 250 ml @ 250 mls/hr Q24H IV Last administered on 05/26/17 16:57; Start 05/24/17 at 16:00 Miscellaneous Information SPECIFIC LAB TO BE DRAWN:VANCO TROUGH DATE TO... ONCE ONCE .XX ; Start 05/26/17 at 15:45; Stop 05/26/17 at 15:46; Status DC Prednisone (Deltasone) 50 mg ONCE ONCE PO Last administered on 05/25/17 22:58 ; Start 05/25/17 at 23:00; Stop 05/25/17 at 23:01; Status DC Prednisone (Deltasone) 50 mg ONCE ONCE PO Last administered on 05/26/17 07:13 ; Start 05/26/17 at 06:00; Stop 05/26/17 at 06:01; Status DC Prednisone (Deltasone) 50 mg ONCE ONCE PO ; Start 05/26/17 at 12:30; Stop 05/26 at 12:31; Status DC Diphenhydramine HCl (Benadryl) 50 mg ONCE ONCE PO ; Start 05/26/17 at 12:30; Stop 05/26/17 at 12:31; Status DC Acetaminophen/ Hydrocodone Bitart ([place] 10-325 Mg) 1 tab Q4H PRN PO PAIN 1-5 Last administered on 05/26/17 10:22; Start 05/25/17 at 08:15 Acetaminophen/ Hydrocodone Bitart ([place] 10-325 Mg) 2 tab Q4H PRN PO PAIN 6-10 Last administered on 05/26/17 04:48; Start 05/25/17 at 08:15 Hydromorphone HCl (Dilaudid Pf Inj) 0.5 mg Q3H PRN IV PUSH BREAKTHROUGH PAIN Last administered on 05/25/17 19:58; Start 05/25/17 at 08:15 Potassium Chloride (KCl) 30 meq ONCE ONCE PO Last administered on 05/25/17 11 :59; Start 05/25/17 at 11:00; Stop 05/25/17 at 11:01; Status DC Vancomycin HCl (Vancomycin Inj) 1,000 mg STK-MED ONCE .ROUTE ; Start 05/26/17 at 14:12; Stop 05/26/17 at 14:13; Status DC Methylprednisolone Sodium Succinate (SoluMEDROL INJ) 125 mg STK-MED ONCE .ROUTE ; Start 05/26/17 at 14:18; Stop 05/26/17 at 14:19; Status DC Diphenhydramine HCl (Benadryl Inj) 50 mg STK-MED ONCE .ROUTE ; Start 05/26/17 at 14:18; Stop 05/26/17 at 14:19; Status DC Famotidine (Pepcid Inj) 20 mg STK-MED ONCE .ROUTE ; Start 05/26/17 at 14:22; Stop 05/26/17 at 14:23; Status DC Ketamine HCl (Ketalar Inj) 500 mg STK-MED ONCE .ROUTE ; Start 05/26/17 at 14:26 ; Stop 05/26/17 at 14:27; Status DC Bupivacaine HCl (Marcaine Pf 0.5% Inj) 30 ml STK-MED ONCE .ROUTE Last administered on 05/26/17 14:49; Start 05/26/17 at 14:49; Stop 05/26/17 at 14:50 ; Status DC Iohexol 50 ml @ 0 mls/hr ONCE ONCE IV ; Start 05/26/17 at 15:05; Stop 05/26/17 at 16:23; Status DC Protamine Sulfate (Protamine Sulfate Inj) 50 mg STK-MED ONCE .ROUTE ; Start 05/26/17 at 15:11; Stop 05/26/17 at 15:12; Status DC Heparin Sodium (Porcine) (Heparin Inj) 10,000 units STK-MED ONCE .ROUTE ; Start 05/26/17 at 15:12; Stop 05/26/17 at 15:13; Status DC Heparin Sodium/ Sodium Chloride 500 ml @ As Directed STK-MED ONCE .ROUTE Last administered on 05/26/17 15:12; Start 05/26/17 at 15:12; Stop 05/26/17 at 15:13 ; Status DC Iohexol 100 ml @ 0 mls/hr ONCE ONCE IV ; Start 05/26/17 at 17:00; Stop at 17:01; Status DC Clopidogrel Bisulfate (Plavix) 150 mg ONCE ONCE PO Last administered on 16:57; Start 05/26/17 at 16:15; Stop 05/26/17 at 16:21; Status DC Clopidogrel Bisulfate (Plavix) 75 mg DAILY PO Last administered on 05/27/17 08:33; Start 05/27/17 at 09:00 Meperidine HCl (*DEMEROL INJ PERIprocedural ONLY) 25 mg STK-MED ONCE .ROUTE Last administered on 05/26/17 16:26; Start 05/26/17 at 16:26; Stop 05/26/17 at 16:27; Status DC Miscellaneous Information ALL NURSING DEPARTME... UNSCH PRN .XX SEE LABEL COMMENTS; Start 05/26/17 at 17:00; Stop 05/27/17 at 16:59 Miscellaneous Information SPECIFIC LAB TO BE DULCE MARIA... ONCE ONCE .XX ; Start 06/03 at 15:45; Stop 05/27/17 at 15:46 A/P Problem List: (1) Cellulitis of left foot ICD Code: L03.116 - Cellulitis of left lower limb Status: Acute Assessment and Plan A/P -PVD with left foot infection MRI left foot with no osteomyelitis. arterial doppler with severe PVD of the left lower extremity. 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 podiatry consulted; previously d/w ; cleared the patient for discharge with outpatient f/u and no antibiotics upon discharge. continue with pain control. -CAD- s/p stent placement/atrial fibrillation; resumed BB- resume Xarelto when ok with vascular surgery. -chronic renal insufficiency- at his baseline-improved on IV fluid- will monitor -anemia- due to chronic disease- will monitor -DVT prophylaxis; resume Xarelto when ok with vascular surgery Discharge Planning discharge home when ok cleared by vascular surgery. cleared by podiatry for discharge. rehab offered but the patient wants to go home; consult case management for [facility]. Glenroy Low MD May 27, 2017 09:44
--- NOTE | 2017-05-27 09:45 | HHI.FF ---
Face to Face Verification Diagnosis: (1) Cellulitis of left foot Physical Therapy Order: Evaluate and Treat Home Health Nursing Order: Medical education Signs/symptoms of disease process Medication education-adverse effect Wound care and dressing changes Nursing assessment with vital signs I have seen patient Raulito Mills on 05/27/17. My clinical findings support the need for the requested home health care services because: Ltd mobility - disease progression I certify that my clinical findings support that this patient is homebound because: Unsteady gait/balance Glenroy Low MD May 27, 2017 09:45
[2017-05-27] MEDS: ACETAMINOPHEN/HYDROcodone 325 MG/10 MG TAB PO PRN ×2 (11:21→21:21)
--- NOTE | 2017-05-27 12:11 | PD.VS.PN ---
Subjective Subjective/Hospital Course Denies rest pain over night hasn't ambulated much Objective Vitals/I&O Date Time Temp Pulse Resp B/P (MAP) Pulse Ox O2 Delivery O2 Flow Rate FiO2 05/27/17 08:08 97.4 104 18 119/72 (88) 96 05/27/17 04:00 97.8 78 18 123/62 (82) 100 05/27/17 00:00 97.6 72 18 124/59 (80) 100 05/26/17 20:00 Room Air 05/26/17 20:00 97.8 82 16 124/66 (85) 96 05/26/17 20:00 84 05/26/17 18:22 97.7 80 20 119/61 (80) 95 05/26/17 17:00 97.5 61 16 123/58 (79) 97 Room Air 05/26/17 16:45 69 14 112/55 (74) 98 Room Air 05/26/17 16:30 68 19 116/63 (80) 97 Room Air 05/26/17 16:12 96.6 71 14 128/58 (81) 95 Room Air 05/26/17 16:00 97.3 58 20 101/56 (71) 97 05/27/17 05/27/17 05/27/17 06:59 14:59 22:59 Output Total 150 ml Balance -150 ml Physical Exam palpable L popliteal pulse foot warm edematous Laboratory Date/Time Source Procedure Growth Status 05/22/17 11:55 Blood Peripheral Aerobic Blood Culture - Final NO GROWTH IN 5 DAYS Complete 05/22/17 11:55 Blood Peripheral Anaerobic Blood Culture - Final NO GROWTH IN 5 DAYS Complete Assessment and Plan Plan POD#1 s/p L SFA recanalization and STUNT PERSON/stent palpable popliteal pulse If rest pain is truly gone, then only needs wound care If unable to walk or has more pain or wounds don't heal, will offer repeat angiogram and infrageniculate intervention I think he needs aggressive PT to test foot function Lj Daley MD [employer] professional athletes coach [facility] - [facility] V[facility] Surgery at [facility] [phone] Lj Daley MD May 27, 2017 12:11
[2017-05-27 14:08] LABS: BICARBONATE 26.2 MEQ/L (21.0-32.0); POTASSIUM 3.2 MEQ/L (3.5-5.1)
[2017-05-27] MEDS: VANCOMYCIN 1,000 MG/NS 250 ML IV SCH ×2 (15:23)
[2017-05-27] MEDS ORDERED: PHARMACY ORDERED LAB ONE (15:45)
[2017-05-27] MEDS: TEMAZEPAM 15 MG CAP PO PRN (21:20)
[2017-05-28] VITALS (8 sets, daily range): BP systolic 98–124; BP diastolic 55–61; PULSE 70–103; RESP 16–18; TEMP 97.2–98; O2SAT 94–100
[2017-05-28] MEDS: SODIUM CHLOR 0.9% 1000 ML INJ 1,000 ML IV SCH ×2 (01:33→18:39)
[2017-05-28] MEDS: ACETAMINOPHEN/HYDROcodone 325 MG/10 MG TAB PO PRN ×5 (04:21→21:45)
[2017-05-28] MEDS: PIPERACIL-TAZO 3.375 GM PREMIX 50 ML IV SCH ×2 (06:10→15:01)
[2017-05-28] MEDS: FUROSEMIDE 20 MG TAB PO SCH (08:48)
[2017-05-28] MEDS: ASCORBIC ACID 500 MG TAB PO SCH (08:49)
[2017-05-28] MEDS: METOPROLOL TARTRATE 25 MG TAB PO SCH (08:49)
[2017-05-28] MEDS: POTASSIUM CHLORIDE 20 MEQ CONTROLLED RELEASE TAB PO SCH (08:49)
[2017-05-28] MEDS: FERROUS SULFATE 300 MG /5ML UDC PO SCH (08:49)
[2017-05-28] MEDS: CLOPIDOGREL 75 MG TAB PO SCH (08:49)
[2017-05-28] MEDS: MULTIVITAMIN TAB PO SCH (08:49)
[2017-05-28] MEDS: COLLAGENASE OINT 30 GM TUBE TOPICAL SCH (08:49)
[2017-05-28] MEDS: PANTOPRAZOLE SOD 40 MG DELAYED RELEASE TAB PO SCH (08:49)
--- NOTE | 2017-05-28 09:05 | HHI.PR ---
Subjective Remarks in no acute distress. complaining of pain to the left foot. no fever. d/w the RN and no acute issues over night. Objective Vitals Vital Signs Date Time Temp Pulse Resp B/P (MAP) Pulse Ox O2 Delivery O2 Flow Rate FiO2 05/28/17 08:00 97.9 103 18 113/61 (78) 96 05/28/17 04:00 97.3 70 16 98/55 (69) 95 05/28/17 00:00 97.2 82 18 101/56 (71) 95 05/27/17 20:10 90 05/27/17 20:00 98.2 81 16 107/53 (71) 100 05/27/17 19:30 Room Air 05/27/17 16:08 97.6 90 18 106/66 (79) 97 05/27/17 12:08 97.7 93 18 105/65 (78) 97 05/27/17 09:45 Room Air I/O 05/27/17 05/27/17 05/27/17 05/28/17 05/28/17 05/28/17 06:59 14:59 22:59 06:59 14:59 22:59 Intake Total 0 ml 1250 ml Output Total 150 ml 750 ml 500 ml Balance -150 ml -750 ml 750 ml Intake Oral 0 ml IV Total 1250 ml Output Urine Total 150 ml 750 ml 500 ml # Bowel Movements 3 1 Result Diagram: 05/27/17 1323 Imaging Last Impressions Tibia/Fibula X-Ray 05/22/17 0000 Signed Impressions: Service Date/Time: May 16:00 - CONCLUSION: No metallic density. No fracture. Manas De Jesus MD Foot X-Ray 05/22/17 0000 Signed Impressions: Service Date/Time: May 12:25 - CONCLUSION: No focal osseous abnormalities seen. Diffuse osteopenia. Karel Bentley MD Foot MRI 05/22/17 0000 Signed Impressions: Service Date/Time: May 18:33 - CONCLUSION: No abscess is seen. No areas of suspected osteomyelitis are seen. Santy Zamudio MD Femur X-Ray 05/22/17 0000 Signed Impressions: Service Date/Time: May 15:56 - CONCLUSION: No acute fracture. No metallic densities. Manas De Jesus MD Objective Remarks GENERAL: elderly male, in no apparent distress. CARDIOVASCULAR: Regular rate and regular rhythm without murmurs, gallops, or rubs. RESPIRATORY: Clear to auscultation. Breath sounds equal bilaterally. No wheezes , rales, or rhonchi. GASTROINTESTINAL: Abdomen soft, non-tender, nondistended. Normal, active bowel sounds MUSCULOSKELETAL: erythema and mild swelling of the left foot. NEURO: Alert & Oriented x4 to person, place, time, situation. Moves all ext x4 Procedures L LE angiogram SFA DIABETES MANAGER/stent (6x150) IVUS guided re-entry R CORE LAYER MACHINE OPERATOR angioseal Medications and IVs Current Medications Ondansetron HCl (Zofran Inj) 4 mg ONCE ONCE IV PUSH Last administered on 14:10; Start 05/22/17 at 12:45; Stop 05/22/17 at 12:46; Status DC Hydromorphone HCl (Dilaudid Pf Inj) 1 mg ONCE ONCE IV PUSH Last administered on 05/22/17 14:09; Start 05/22/17 at 12:45; Stop 05/22/17 at 12:46; Status DC Vancomycin HCl 1000 mg/Sodium Chloride 250 ml @ 250 mls/hr ONCE ONCE IV Last administered on 05/22/17 14:10; Start 05/22/17 at 13:15; Stop 05/22/17 at 14:15 ; Status DC Sodium Chloride 1,000 ml @ 50 mls/hr Q20H IV Last administered on 05/28/17 01:33; Start 05/22/17 at 13:15 Ferrous Sulfate (Ferrous Sulfate Liq) 200 mg DAILY PO Last administered on 08:49; Start 05/23/17 at 09:00 Furosemide (Lasix) 20 mg DAILY PO Last administered on 05/28/17 08:48; Start 05/23/17 at 09:00 Metoprolol Tartrate (Lopressor) 25 mg DAILY PO Last administered on 05/28/17 08:49; Start 05/23/17 at 09:00 Multivitamins (Theragran) 1 tab DAILY PO Last administered on 05/28/17 08:49 ; Start 05/23/17 at 09:00 Potassium Chloride (KCl) 20 meq DAILY PO Last administered on 05/28/17 08:49 ; Start 05/23/17 at 09:00 Ascorbic Acid (Vitamin C) 250 mg DAILY PO Last administered on 05/28/17 08:49 ; Start 05/23/17 at 09:00 Pantoprazole Sodium (Protonix) 40 mg DAILY PO Last administered on 05/28/17 08:49; Start 05/23/17 at 09:00 Temazepam (Restoril) 30 mg HS PRN PO INSOMNIA Last administered on 05/27/17 21:20; Start 05/22/17 at 14:15 Pharmacy Profile Note 0 ml @ 0 mls/hr UNSCH OTHER ; Start 05/22/17 at 13:45 Piperacillin Sod/ Tazobactam Sod 50 ml @ 100 mls/hr Q8H IV Last administered on 05/28/17 06:10; Start 05/22/17 at 15:00 Sodium Chloride 500 ml @ 50 mls/hr Q10H ONCE IV ; Start 05/22/17 at 14:00; Stop 05/22/17 at 23:59; Status DC Acetaminophen/ Hydrocodone Bitart ([place] 5-325 Mg) 1 tab Q4H PRN PO PAIN <5; Start 05/22/17 at 13:45; Stop 05/23/17 at 08:46; Status DC Acetaminophen/ Hydrocodone Bitart ([place] 5-325 Mg) 2 tab Q4H PRN PO PAIN 6-10 Last administered on 05/23/17 06:35; Start 05/22/17 at 13:45; Stop 05/23/17 at 08:46; Status DC Hydromorphone HCl (Dilaudid Pf Inj) 0.2 mg Q4H PRN IV PUSH BREAKTHROUGH PAIN Last administered on 05/23/17 08:14; Start 05/22/17 at 13:45; Stop 05/23/17 at 08:46; Status DC Acetaminophen (Tylenol) 650 mg Q4H PRN PO FEVER/HEADACHE; Start 05/22/17 at 13: 45 Ondansetron HCl (Zofran Inj) 4 mg Q8HR PRN IV PUSH NAUSEA; Start 05/22/17 at 13 :45 Vancomycin HCl 1000 mg/Sodium Chloride 250 ml @ 250 mls/hr Q38H IV ; Start 05/24/17 at 02:00; Stop 05/24/17 at 02:00; Status DC Collagenase (Santyl Oint) 1 applic DAILY TOPICAL Last administered on 08:49; Start 05/23/17 at 09:00 Acetaminophen/ Hydrocodone Bitart ([place] 7.5-325 Mg) 1 tab Q4H PRN PO PAIN < 5 ; Start 05/23/17 at 10:00; Stop 05/25/17 at 08:09; Status DC Acetaminophen/ Hydrocodone Bitart ([place] 7.5-325 Mg) 2 tab Q4H PRN PO PAIN 6- 10 Last administered on 05/25/17 03:00; Start 05/23/17 at 10:00; Stop 05/25/17 at 08:09; Status DC Hydromorphone HCl (Dilaudid Pf Inj) 0.5 mg Q4H PRN IV PUSH BREAKTHROUGH PAIN Last administered on 05/25/17 05:14; Start 05/23/17 at 10:00; Stop 05/25/17 at 08:09; Status DC Enoxaparin Sodium (Lovenox Inj) 40 mg Q24H SQ Last administered on 05/25/17 08 :01; Start 05/23/17 at 09:00; Status Future Hold Vancomycin HCl 1000 mg/Sodium Chloride 250 ml @ 250 mls/hr ONCE ONCE IV Last administered on 05/23/17 16:20; Start 05/23/17 at 14:00; Stop 05/23/17 at 14:59 ; Status DC Vancomycin HCl 1000 mg/Sodium Chloride 250 ml @ 250 mls/hr Q24H IV Last administered on 05/27/17 15:23; Start 05/24/17 at 16:00; Stop 05/27/17 at 18: 35; Status DC Miscellaneous Information SPECIFIC LAB TO BE DRAWN:VANCO TROUGH DATE TO... ONCE ONCE .XX ; Start 05/26/17 at 15:45; Stop 05/26/17 at 15:46; Status DC Prednisone (Deltasone) 50 mg ONCE ONCE PO Last administered on 05/25/17 22:58 ; Start 05/25/17 at 23:00; Stop 05/25/17 at 23:01; Status DC Prednisone (Deltasone) 50 mg ONCE ONCE PO Last administered on 05/26/17 07:13 ; Start 05/26/17 at 06:00; Stop 05/26/17 at 06:01; Status DC Prednisone (Deltasone) 50 mg ONCE ONCE PO ; Start 05/26/17 at 12:30; Stop 05/26 at 12:31; Status DC Diphenhydramine HCl (Benadryl) 50 mg ONCE ONCE PO ; Start 05/26/17 at 12:30; Stop 05/26/17 at 12:31; Status DC Acetaminophen/ Hydrocodone Bitart ([place] 10-325 Mg) 1 tab Q4H PRN PO PAIN 1-5 Last administered on 05/27/17 11:21; Start 05/25/17 at 08:15 Acetaminophen/ Hydrocodone Bitart ([place] 10-325 Mg) 2 tab Q4H PRN PO PAIN 6-10 Last administered on 05/28/17 08:50; Start 05/25/17 at 08:15 Hydromorphone HCl (Dilaudid Pf Inj) 0.5 mg Q3H PRN IV PUSH BREAKTHROUGH PAIN Last administered on 05/25/17 19:58; Start 05/25/17 at 08:15 Potassium Chloride (KCl) 30 meq ONCE ONCE PO Last administered on 05/25/17 11 :59; Start 05/25/17 at 11:00; Stop 05/25/17 at 11:01; Status DC Vancomycin HCl (Vancomycin Inj) 1,000 mg STK-MED ONCE .ROUTE ; Start 05/26/17 at 14:12; Stop 05/26/17 at 14:13; Status DC Methylprednisolone Sodium Succinate (SoluMEDROL INJ) 125 mg STK-MED ONCE .ROUTE ; Start 05/26/17 at 14:18; Stop 05/26/17 at 14:19; Status DC Diphenhydramine HCl (Benadryl Inj) 50 mg STK-MED ONCE .ROUTE ; Start 05/26/17 at 14:18; Stop 05/26/17 at 14:19; Status DC Famotidine (Pepcid Inj) 20 mg STK-MED ONCE .ROUTE ; Start 05/26/17 at 14:22; Stop 05/26/17 at 14:23; Status DC Ketamine HCl (Ketalar Inj) 500 mg STK-MED ONCE .ROUTE ; Start 05/26/17 at 14:26 ; Stop 05/26/17 at 14:27; Status DC Bupivacaine HCl (Marcaine Pf 0.5% Inj) 30 ml STK-MED ONCE .ROUTE Last administered on 05/26/17 14:49; Start 05/26/17 at 14:49; Stop 05/26/17 at 14:50 ; Status DC Iohexol 50 ml @ 0 mls/hr ONCE ONCE IV ; Start 05/26/17 at 15:05; Stop 05/26/17 at 16:23; Status DC Protamine Sulfate (Protamine Sulfate Inj) 50 mg STK-MED ONCE .ROUTE ; Start 05/26/17 at 15:11; Stop 05/26/17 at 15:12; Status DC Heparin Sodium (Porcine) (Heparin Inj) 10,000 units STK-MED ONCE .ROUTE ; Start 05/26/17 at 15:12; Stop 05/26/17 at 15:13; Status DC Heparin Sodium/ Sodium Chloride 500 ml @ As Directed STK-MED ONCE .ROUTE Last administered on 05/26/17 15:12; Start 05/26/17 at 15:12; Stop 05/26/17 at 15:13 ; Status DC Iohexol 100 ml @ 0 mls/hr ONCE ONCE IV ; Start 05/26/17 at 17:00; Stop at 17:01; Status DC Clopidogrel Bisulfate (Plavix) 150 mg ONCE ONCE PO Last administered on 16:57; Start 05/26/17 at 16:15; Stop 05/26/17 at 16:21; Status DC Clopidogrel Bisulfate (Plavix) 75 mg DAILY PO Last administered on 05/28/17 08:49; Start 05/27/17 at 09:00 Meperidine HCl (*DEMEROL INJ PERIprocedural ONLY) 25 mg STK-MED ONCE .ROUTE Last administered on 05/26/17 16:26; Start 05/26/17 at 16:26; Stop 05/26/17 at 16:27; Status DC Miscellaneous Information ALL NURSING DEPARTME... UNSCH PRN .XX SEE LABEL COMMENTS; Start 05/26/17 at 17:00; Stop 05/27/17 at 16:59; Status DC Miscellaneous Information SPECIFIC LAB TO BE DULCE MARIA... ONCE ONCE .XX Last administered on 05/27/17t 15:23; Start 05/27/17 at 15:45; Stop 05/27/17 at 15 :46; Status DC Vancomycin HCl 900 mg/Sodium Chloride 259 ml @ 250 mls/hr Q24H IV ; Start 07/04 at 16:00 Miscellaneous Information SPECIFIC LAB TO BE DRAWN:[facility]... ONCE ONCE .XX ; Start 05/29/17 at 15:45; Stop 05/29/17 at 15:46 A/P Assessment and Plan A/P -PVD with left foot infection MRI left foot with no osteomyelitis. arterial doppler with severe PVD of the left lower extremity. s/p L LE angiogram,SFA DIABETES MANAGER/stent; management per vascular surgery. podiatry consulted; previously d/w ; cleared the patient for discharge with outpatient f/u and no antibiotics upon discharge. continue with pain control. -CAD- s/p stent placement/atrial fibrillation; resumed BB- resume Xarelto when ok with vascular surgery. -chronic renal insufficiency- at his baseline-improved on IV fluid- will monitor -anemia- due to chronic disease- will monitor -DVT prophylaxis; resume when ok with vascular surgery PT consulted. Discharge Planning discharge home when cleared by vascular surgery. cleared by podiatry for discharge. rehab offered but the patient wants to go home; consulted case management for [facility]. Glenroy Low MD May 28, 2017 09:05
--- NOTE | 2017-05-28 11:12 | PD.VS.PN ---
Subjective POD #: 2 Procedure(s): L SFA recanalization and MANAGER RISK MANAGEMENT/stent Subjective/Hospital Course Pain controlled Denies rest pain over night Pt ambulated the hallway this am with PT (70 feet) Objective Vitals/I&O Date Time Temp Pulse Resp B/P (MAP) Pulse Ox O2 Delivery O2 Flow Rate FiO2 05/28/17 08:38 Room Air 05/28/17 08:00 97.9 103 18 113/61 (78) 96 05/28/17 04:00 97.3 70 16 98/55 (69) 95 05/28/17 00:00 97.2 82 18 101/56 (71) 95 05/27/17 20:10 90 05/27/17 20:00 98.2 81 16 107/53 (71) 100 05/27/17 19:30 Room Air 05/27/17 16:08 97.6 90 18 106/66 (79) 97 05/27/17 12:08 97.7 93 18 105/65 (78) 97 05/28/17 05/28/17 05/28/17 07:00 15:00 23:00 Intake Total 1250 ml Output Total 500 ml Balance 750 ml Exam: GENERAL: A&OX3,NAD,GCS 15 SKIN: BLE warm w/ motor intact Dry ulcerations present to L great toe/Left medial aspect of great toe/left heel with darkening discoloration to 4th,5th toes Left foot with mild swelling LE warm w/motor intact Palpable L popliteal pulse Monophasic L DP Laboratory Laboratory Tests Test 05/27/17 13:23 05/27/17 15:20 Blood Urea Nitrogen 22 Creatinine 1.31 Random Glucose 110 Calcium Level 8.0 Sodium Level 143 Potassium Level 3.2 Chloride Level 108 Carbon Dioxide Level 26.2 Anion Gap 9 Estimat Glomerular Filtration Rate 52 Vancomycin Level Trough 22.1 Date/Time Source Procedure Growth Status 05/22/17 11:55 Blood Peripheral Aerobic Blood Culture - Final NO GROWTH IN 5 DAYS Complete 05/22/17 11:55 Blood Peripheral Anaerobic Blood Culture - Final NO GROWTH IN 5 DAYS Complete Assessment and Plan Assessment: (1) PVD (peripheral vascular disease) Status: Chronic (2) Cellulitis of left foot Status: Acute (3) Diabetes mellitus Status: Chronic (4) Hypertension Status: Chronic Plan POD# 2 -S/P L SFA recanalization and MANAGER RISK MANAGEMENT/stent Pt w/ a palpable popliteal pulse Pain controlled Pt denies claudication or rest pain Pt ambulated with PT this am (70 feet) Pt requesting to go home Plan Discussed w/ pt - If unable to walk or has more pain or wounds don't heal, would offer repeat angiogram and infrageniculate intervention Pt agrees w/ plan as stated he does not want any more surgical interventions at this time Arranged post op Follow Up in 2W with a repeat BRII Pt OK for d/c from a vascular standpoint with continued wound care per Podiatry and out Patient PT Discussed case w/ Dr. Devante ESQUIVEL [facility] [phone] Discharge Planning Pt cleared for D/C from a vascular standpoint as he does not want any more surgical intervention at this time Arranged out patient f/u in 2W [place] May 28, 2017 11:12
[2017-05-28] MEDS ORDERED: VANCOMYCIN INJ 900 MG in SODIUM CHLOR 0.9% 250 ML INJ 250 ML IV SCH (16:00)
[2017-05-28 16:46] LABS: BICARBONATE 26.2 MEQ/L (21.0-32.0); MAGNESIUM 1.8 MG/DL (1.5-2.5)
--- NOTE | 2017-05-28 16:50 | HHI.PR ---
Addendum To [facility] Progress Not Reason for addendum: Additonal documentation (was notified by the RN earlier that patient had a run of V-tach. patient was asymptomatic- BMP / Mg level were ordered- continue to monitor on telemetry.) Glenroy Low MD May 28, 2017 16:50
[2017-05-28] MEDS ORDERED: POTASSIUM CHLORIDE 10 MEQ CONTROLLED RELEASE TAB PO ONE ×2 (17:00→19:00)
[2017-05-29] MEDS ORDERED: VANCOMYCIN 1,000 MG/NS 250 ML IV SCH ×2
[2017-05-29] MEDS: ACETAMINOPHEN/HYDROcodone 325 MG/10 MG TAB PO PRN ×3 (02:06→13:09)
[2017-05-29] MEDS: TEMAZEPAM 15 MG CAP PO PRN (02:50)
[2017-05-29 04:20] VITALS: BP 96/57; PULSE 72; RESP 18; TEMP 98.1; O2SAT 98
[2017-05-29 08:00] VITALS: BP 124/64; PULSE 94; RESP 16; TEMP 98; O2SAT 98
[2017-05-29 08:05] LABS: BICARBONATE 24.5 MEQ/L (21.0-32.0); POTASSIUM 3.8 MEQ/L (3.5-5.1)
[2017-05-29 08:17] LABS: CALCIUM-PROTEIN CORRECTED 8.7 MG/DL (8.5-10.1)
[2017-05-29] MEDS: ASCORBIC ACID 500 MG TAB PO SCH (08:52)
[2017-05-29] MEDS: POTASSIUM CHLORIDE 20 MEQ CONTROLLED RELEASE TAB PO SCH (08:52)
[2017-05-29] MEDS: MULTIVITAMIN TAB PO SCH (08:52)
[2017-05-29] MEDS: METOPROLOL TARTRATE 25 MG TAB PO SCH (08:52)
[2017-05-29] MEDS: FERROUS SULFATE 300 MG /5ML UDC PO SCH (08:52)
[2017-05-29] MEDS: CLOPIDOGREL 75 MG TAB PO SCH (08:53)
[2017-05-29] MEDS: FUROSEMIDE 20 MG TAB PO SCH (08:53)
[2017-05-29] MEDS: PANTOPRAZOLE SOD 40 MG DELAYED RELEASE TAB PO SCH (08:53)
[2017-05-29] MEDS: COLLAGENASE OINT 30 GM TUBE TOPICAL SCH (08:54)
[2017-05-29 09:08] VITALS: O2SAT 98
[2017-05-29 12:00] VITALS: BP 112/63; PULSE 93; RESP 18; TEMP 97.5; O2SAT 97
--- NOTE | 2017-05-29 13:02 | HHI.PR ---
Objective Vitals Vital Signs Date Time Temp Pulse Resp B/P (MAP) Pulse Ox O2 Delivery O2 Flow Rate FiO2 05/29/17 09:08 98 21 05/29/17 08:56 Room Air 05/29/17 08:00 98.0 94 16 124/64 (84) 98 05/29/17 04:20 98.1 72 18 96/57 (70) 98 05/28/17 23:27 98.0 86 18 113/57 (75) 98 05/28/17 20:20 97.9 91 18 99/58 (72) 97 05/28/17 20:15 Room Air 05/28/17 20:00 82 05/28/17 16:00 97.5 87 18 119/57 (77) 94 I/O 05/28/17 05/28/17 05/28/17 05/29/17 05/29/17 05/29/17 07:00 15:00 23:00 07:00 15:00 23:00 Intake Total 1250 ml 480 ml 480 ml Output Total 500 ml 300 ml Balance 750 ml 480 ml 180 ml Intake Oral 480 ml 480 ml IV Total 1250 ml Output Urine Total 500 ml 300 ml # Voids 3 2 # Bowel Movements 0 1 Result Diagram: 05/29/17 0650 Procedures L LE angiogram SFA AURICULAR THERAPIST/stent (6x150) IVUS guided re-entry R REPRODUCTION TECHNICIAN angioseal A/P Problem List: (1) Cellulitis of left foot ICD Code: L03.116 - Cellulitis of left lower limb Status: Vasile Saleh DO May 29, 2017 13:02
[2017-05-29] MEDS: SODIUM CHLOR 0.9% 1000 ML INJ 1,000 ML IV SCH (13:09)
[2017-05-29] MEDS ORDERED: HYDR-3583 PO (13:10)
[2017-05-29] MEDS ORDERED: PLAV75TA29 PO (13:10)
--- NOTE | 2017-05-29 13:12 | HHI.DCPOC ---
Discharge Care Plan Diagnosis: (1) PVD (peripheral vascular disease) (2) Cellulitis of left foot (3) Atrial fibrillation Goals to Promote Your Health * To prevent worsening of your condition and complications * To maintain your health at the optimal level Directions to Meet Your Goals Take your medications as prescribed Follow your dietary instruction Follow activity as directed Keep your appointments as scheduled Take your immunizations and boosters as scheduled If your symptoms worsen call your PCP, if no PCP go to Urgent Care Center or Emergency Room Smoking is Dangerous to Your Health. Avoid second hand smoke Call the 24-hour hour crisis hotline for domestic abuse at Vasile Eubanks DO May 29, 2017 13:12
[2017-05-29] MEDS ORDERED: POTASSIUM CHLORIDE 25 MEQ EFFERVESCENT TAB PO ONE (13:15)
--- NOTE | 2017-05-29 13:17 | HHI.DS ---
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 he says that about three weeks ago he did hit his left foot to a divider in his kitchen and since then he's had ' this problem with left foot infection'. he denies any fever but had some chills at home. he's complaining of moderate to severe pain to the left foot. He was seen by and was advised to come to ER for further evaluation and treatment. CBC/BMP: 05/29/17 0650 Significant Findings Laboratory Tests Test 05/27/17 13:23 05/27/17 15:20 05/28/17 14:06 05/29/17 06:50 Blood Urea Nitrogen 22 MG/DL (7-18) 19 MG/DL (7-18) Creatinine 1.31 MG/DL (0.60-1.30) Random Glucose 110 MG/DL (74-106) 71 MG/DL (74-106) Calcium Level 8.0 MG/DL (8.5-10.1) 7.8 MG/DL (8.5-10.1) 7.4 MG/DL (8.5-10.1) Potassium Level 3.2 MEQ/L (3.5-5.1) 3.0 MEQ/L (3.5-5.1) Chloride Level 108 MEQ/L (98-107) 108 MEQ/L (98-107) 112 MEQ/L (98-107) Estimat Glomerular Filtration Rate 52 ML/MIN (>89) 56 ML/MIN (>89) 63 ML/MIN (>89) Vancomycin Level Trough 22.1 MCG/ML (5.0-10.0) Total Protein 4.8 GM/DL (6.4-8.2) Imaging Last Impressions Tibia/Fibula X-Ray 05/22/17 Signed Impressions: Service Date/Time: May 16:00 - CONCLUSION: No metallic density. No fracture. Manas De Jesus MD Foot X-Ray 05/22/17 Signed Impressions: Service Date/Time: May 12:25 - CONCLUSION: No focal osseous abnormalities seen. Diffuse osteopenia. Karel Bentley MD Foot MRI 05/22/17 Signed Impressions: Service Date/Time: May 18:33 - CONCLUSION: No abscess is seen. No areas of suspected osteomyelitis are seen. Santy Zamudio MD Femur X-Ray 05/22/17 Signed Impressions: Service Date/Time: May 15:56 - CONCLUSION: No acute fracture. No metallic densities. Manas De Jesus MD PE at Discharge GENERAL: elderly male, in no apparent distress. CARDIOVASCULAR: Regular rate and regular rhythm without murmurs, gallops, or rubs. RESPIRATORY: Clear to auscultation. Breath sounds equal bilaterally. No wheezes , rales, or rhonchi. GASTROINTESTINAL: Abdomen soft, non-tender, nondistended. Normal, active bowel sounds MUSCULOSKELETAL: erythema and mild swelling of the left foot. NEURO: Alert & Oriented x4 to person, place, time, situation. Moves all ext x4 Pt update on day of discharge The pt wanted to go home very badly. He said he felt like a prisoner here. No other acute complaints. Family at the bedside. Hospital Course PVD with left foot infection MRI left foot with no osteomyelitis. Arterial doppler with severe PVD of the left lower extremity. Podiatry was consulted. Vascular surgery was then consulted. S/p L LE angiogram, SFA NEIGHBORHOOD PLANNER/stent. management per vascular surgery. He received pain control as needed. He worked with physical therapy. Home health care arrangements were made. The pt will follow up with vascular surgery and podiatry upon discharge. Plavix was started. CAD/ A fib S/p stent placement. Xarelto was held for surgery as above. Will resume on discharge. He will also be d/c on Plavix. He was continued on Lopressor. Hypokalemia On diuretics. He received repletion. He will continue supplements upon discharge. Pt Condition on Discharge: Stable Discharge Disposition: Disch w/ Home Health Serv Discharge Time: > 30 minutes Discharge Instructions DIET: Follow Instructions for: Heart Healthy Diet Activities you can perform: See Additionl Instruction Follow up Referrals: PCP Follow-up - 1 Week Podiatry - 1 Week with James Sanchez DPM Vascular Surgery @ Vascular Surgery with Lj Daley MD New Medications: Clopidogrel (Plavix) 75 Mg Tab 75 MG PO DAILY for PVD, #30 TAB Continued Medications: Ascorbic Acid (Vitamin C) 250 Mg Chew 250 MG CHEW DAILY for Nutritional Supplement, #30 TAB 0 Refills Celecoxib (Celecoxib) 200 Mg Cap 200 MG PO BID for Pain Management, CAP [address] (Nexium) 40 Mg Capdr 40 MG PO DAILY, CAP 0 Refills Ferrous Sulfate (Feosol) 325 Mg (65 Mg Iron) Tab 200 MG PO DAILY for Nutritional Supplement, #30 TAB 0 Refills Furosemide (Lasix) 20 Mg Tab 20 MG PO DAILY for Prevent Heart Failure, #10 TAB 0 Refills Hydrochlorothiazide (Hydrochlorothiazide) 12.5 Mg Tab 12.5 MG PO DAILY, #30 TAB 0 Refills Hydrocodone-Acetaminophen (Hydrocodone-Acetaminophen) 10-325 mg Tab 1 TAB PO Q4H PRN for PAIN, #20 TAB 0 Refills (This prescription has been renewed ) Metoprolol Tartrate (Metoprolol Tartrate) 25 Mg Tab 25 MG PO DAILY, #30 TAB 0 Refills Multiple Vitamin (One Daily) 1 Tab 1 TAB PO DAILY for Nutritional Supplement, TAB 0 Refills Multiple Vitamins W/ Minerals (Preservision Areds) 1 Tab 1 TAB PO DAILY for Nutritional Supplement, TAB 0 Refills Potassium Chloride Microencaps (Potassium Chloride Microencaps) 20 Meq Tab 20 MEQ PO DAILY for Electrolyte Replacement, #20 TAB Rivaroxaban (Xarelto) 15 Mg Tab 15 MG PO DAILY for Blood Clot Prevention, TAB 0 Refills Temazepam (Restoril) 30 Mg Cap 30 MG PO HS PRN for INSOMNIA, #30 CAP 0 Refills Vasile Eubanks DO May 29, 2017 13:17
[2017-05-29] MEDS ORDERED: PHARMACY ORDERED LAB ONE (15:45)
[2017-05-31] MEDS ORDERED: PHARMACY ORDERED LAB ONE (23:45)
== END 2017-05-29 15:28 | disposition home health service (06) | DRG 253 ==
LOC: NEPE 11:20 → NEDA 13:17 → N04B 17:19
PROVIDERS: ADMIT Hospitalist; ATTEND Hospitalist
PROC: B41G1ZZ Fluoroscopy of Left Lower Extremity Arteries using Low Osmolar Contrast (ICD-10-PCS; 2017-05-26)
PROC: 047L3DZ Dilation of Left Femoral Artery with Intraluminal Device, Percutaneous Approach (ICD-10-PCS; principal; 2017-05-26 14:30)
DX: E11.52 Type 2 diabetes mellitus with diabetic peripheral angiopathy with gangrene (principal); I47.2 Ventricular tachycardia; E11.22 Type 2 diabetes mellitus with diabetic chronic kidney disease; E11.621 Type 2 diabetes mellitus with foot ulcer; L03.116 Cellulitis of left lower limb; L97.429 Non-pressure chronic ulcer of left heel and midfoot with unspecified severity; N18.3 Chronic kidney disease, stage 3 (moderate); I25.10 Atherosclerotic heart disease of native coronary artery without angina pectoris; I12.9 Hypertensive chronic kidney disease with stage 1 through stage 4 chronic kidney disease, or unspecified chronic kidney disease; I48.91 Unspecified atrial fibrillation; D63.8 Anemia in other chronic diseases classified elsewhere; L97.529 Non-pressure chronic ulcer of other part of left foot with unspecified severity; Z96.652 Presence of left artificial knee joint; Z96.642 Presence of left artificial hip joint; E87.6 Hypokalemia; M47.9 Spondylosis, unspecified; H91.90 Unspecified hearing loss, unspecified ear; K21.9 Gastro-esophageal reflux disease without esophagitis; Z79.01 Long term (current) use of anticoagulants; I25.2 Old myocardial infarction; Z87.891 Personal history of nicotine dependence; Z95.5 Presence of coronary angioplasty implant and graft
CPT/HCPCS: 73552; 73590; 73630; 73718; 75710; 80048; 80053; 80202; 83735; 84155; 85025; 87040; 93005; 93922; C1725; C1769; C1876; J1170; J1200; J1644; J1650; J2175; J2250; J2405; J2543; J2720; J2930; J3010; J3370; J7030; J7050; J7512; Q9967

== ENCOUNTER 2017-06-13 16:55 | Inpatient (IN) | payer MEDICARE, OTHER ==
[2017-06-13] VITALS (8 sets, daily range): BP systolic 107–128; BP diastolic 60–76; PULSE 64–90; RESP 16–18; TEMP 97.4–97.9; O2SAT 98–100
[~2017-06-13] VITALS: Ht 182.9 cm; Wt 70.5 kg
[~2017-06-13 16:55] MED LIST changes: +PLAV75TA29 PO
[2017-06-13] MEDS ORDERED: ACETAMINOPHEN 325 MG TAB PO PRN ×2 (18:15)
[2017-06-13] MEDS ORDERED: BISACODYL 10 MG SUPP RECTAL PRN (18:15)
[2017-06-13] MEDS ORDERED: SENNOSIDES 8.6 MG TAB PO PRN (18:15)
[2017-06-13] MEDS ORDERED: MORPHINE SULFATE 4 MG/ML INJ IV PUSH PRN (18:15)
[2017-06-13] MEDS ORDERED: NALOXONE HCL 0.4 MG/ML AMP IV PUSH PRN (18:15)
[2017-06-13] MEDS ORDERED: MAGNESIUM HYDROXIDE SUSP 30 ML CUP PO PRN (18:15)
[2017-06-13] MEDS ORDERED: ONDANSETRON HCL 4 MG/2 ML VIAL IVP PRN (18:15)
[2017-06-13] MEDS ORDERED: LACTULOSE SYRUP 20 GM/30 ML CUP PO PRN (18:15)
[2017-06-13] MEDS ORDERED: GLUCAGON 1 MG/ML VIAL OTHER PRN (18:15)
[2017-06-13] MEDS ORDERED: PROCHLORPERAZINE 25 MG SUPP RECTAL PRN (18:15)
[2017-06-13] MEDS ORDERED: SODIUM CHLORIDE 0.9% FLUSH 10 ML FLUSH IV FLUSH PRN (18:15)
[2017-06-13] MEDS ORDERED: DEXTROSE 50% IN WATER 50 ML SYRINGE IV PUSH PRN (18:15)
[2017-06-13] MEDS ORDERED: oxyCODONE/ACETAMINOPHEN 5 MG/325 MG TAB PO PRN (18:15)
[2017-06-13] MEDS ORDERED: TEMAZEPAM 30 MG PO PRN (18:30)
[2017-06-13] MEDS: oxyCODONE/ACETAMINOPHEN 10 MG/325 MG TAB PO PRN (18:52)
--- NOTE | 2017-06-13 18:56 | HHI.HP ---
[facility] Antonio Evangelista MD Admission Diagnosis Diagnoses: (1) PVD (peripheral vascular disease) Diagnosis: Principal (2) Hypertension Diagnosis: Secondary (3) Diabetes mellitus Diagnosis: Secondary (4) Atrial fibrillation Diagnosis: Principal Chief Complaint: Left foot pain. Travel History International Travel<30 Days: No Contact w/Intl Traveler <30 Da: No Traveled to Known Affected Are: No History of Present Illness Mr. Mills is 86 yo, with history inclusive of atrial fibrillation , CAD, CKD (stage III), DM, GERD, hypertension, Chronic back pain, and asbestosis. He was admitted to [facility] from 05/22/17-05/29/17 for poor perfusion to the left foot. He was seen by Drs. Daley (vascular surgery) and Dr. Sanchez ( podiatry). Mr. Mills was at Dr. Daley's office today for a scheduled appointment. Mr. Mills reported having cold feet (left worse than right), pain, and difficulty walking. he was a direct admit to [facility] for consideration of revascularization of his left foot. At time of interview, Mr. Mills reported pain and discomfort in the left foot and leg, decreased appetite, weight loss (having gone from 190 to 155 pounds since July of last year), constipation (not having had a bowel movement for one week and( "I took Miralax this morning and nothing happened), blood "coming from the tip of my penis when I wipe. He denied fever, cough, shortness of breath, nausea and vomiting, abdominal pain, chest pain. Ambulation is done with a rolling walker. Review of Systems Constitutional: COMPLAINS OF: Weight loss, Chills Endocrine: COMPLAINS OF: Heat/cold intolerance Eyes: DENIES: Blurred vision, Eye pain Respiratory: DENIES: Cough Cardiovascular: DENIES: Chest pain, Palpitations, Syncope Gastrointestinal: COMPLAINS OF: Anorexia Genitourinary: COMPLAINS OF: Hematuria Musculoskeletal: COMPLAINS OF: Joint pain, Muscle aches Neurologic: COMPLAINS OF: Abnormal gait Except as stated in HPI: all other systems reviewed are Neg Past Family Social History Past Medical History atrial fibrillation, CAD, CKD (stage III), DM, GERD, hypertension, Chronic back pain asbestosis Past Surgical History cholecystectomy Cardiac stents Knee/hip replacement Reported Medications Reported Meds & Active Scripts Active Plavix (Clopidogrel Bisulfate) 75 Mg Tab 75 Mg PO DAILY Hydrocodone-Acetaminophen 10-325 mg Tab 1 Tab PO Q4H PRN Potassium Chloride Microencaps 20 Meq Tab 20 Meq PO DAILY Lasix (Furosemide) 20 Mg Tab 20 Mg PO DAILY Reported Feosol (Ferrous Sulfate) 325 Mg (65 Mg Iron) Tab 200 Mg PO DAILY Vitamin C (Ascorbic Acid) 250 Mg Chew 250 Mg CHEW DAILY Celecoxib 200 Mg Cap 200 Mg PO BID Preservision Areds (Multiple Vitamins W/ Minerals) 1 Tab 1 Tab PO DAILY One Daily (Multiple Vitamin) 1 Tab 1 Tab PO DAILY Hydrochlorothiazide 12.5 Mg Tab 12.5 Mg PO DAILY Restoril (Temazepam) 30 Mg Cap 30 Mg PO HS PRN Metoprolol Tartrate 25 Mg Tab 25 Mg PO DAILY Xarelto (Rivaroxaban) 15 Mg Tab 15 Mg PO DAILY Nexium (Esomeprazole DR) 40 Mg Capdr 40 Mg PO DAILY Allergies: Coded Allergies: diatrizoate meglumine (Unverified Allergy, Severe, 05/22/17) gadobenic acid (Unverified Allergy, Severe, 05/22/17) gadodiamide (Unverified Allergy, Severe, 05/22/17) gadoteridol (Unverified Allergy, Severe, 05/22/17) iodixanol (Unverified Allergy, Severe, 05/22/17) iohexol (Unverified Allergy, Severe, 05/22/17) Active Ordered Medications Current Medications Dextrose (D50w (Syr) Inj) 50 ml UNSCH PRN IV PUSH HYPOGLYCEMIA-SEE COMMENTS; Start 06/13/17 at 18:15 Glucagon (Glucagon Inj) 1 mg UNSCH PRN OTHER HYPOGLYCEMIA-SEE COMMENTS; Start 06/13/17 at 18:15 Insulin Aspart (NovoLOG SUPPLEMENTAL SCALE) 1 ACHS SLIDING SCALE SQ ; Start at 21:00 Dronabinol (Marinol) 5 mg BID@11,16 PO ; Start 06/14/17 at 11:00 Sodium Chloride (NS Flush) 2 ml UNSCH PRN IV FLUSH FLUSH AFTER USING IV ACCESS ; Start 06/13/17 at 18:15 Sodium Chloride (NS Flush) 2 ml BID IV FLUSH ; Start 06/13/17 at 21:00 Acetaminophen (Tylenol) 650 mg Q4H PRN PO TEMP > 100.4; Start 06/13/17 at 18: 15 Ondansetron HCl (Zofran Inj) 4 mg Q6H PRN IVP NAUSEA OR VOMITING; Start at 18:15 Prochlorperazine (Compazine Supp) 25 mg Q12H PRN RECTAL NAUSEA OR VOMITING; Start 06/13/17 at 18:15 Acetaminophen (Tylenol) 650 mg Q6H PRN PO PAIN SCALE 1 TO 2; Start 06/13/17 at 18:15 Oxycodone/ Acetaminophen (Percocet 5-325 Mg) 1 tab Q6H PRN PO PAIN SCALE 3 TO 5; Start 06/13/17 at 18:15 Oxycodone/ Acetaminophen (Percocet 10-325 Mg) 1 tab Q6H PRN PO PAIN SCALE 6 TO 10 Last administered on 06/13/17t 18:52; Start 06/13/17 at 18:15 Morphine Sulfate (Morphine Inj) 2 mg Q3H PRN IV PUSH Pain 3-5; if unable to take PO; Start 06/13/17 at 18:15 Morphine Sulfate (Morphine Inj) 4 mg Q3H PRN IV PUSH Pain 6-10;if unable to take PO; Start 06/13/17 at 18:15 Naloxone HCl (Narcan Inj) 0.4 mg UNSCH PRN IV PUSH SEE LABEL COMMENTS; Start 06/13/17 at 18:15 Senna/Docusate Sodium (Tiffany-Colace) 1 tab BID PO ; Start 06/13/17 at 21:00; Status UNV Magnesium Hydroxide (Milk Of Magnesia Liq) 30 ml Q12H PRN PO Mild constipation ; Start 06/13/17 at 18:15; Status UNV Sennosides (Senokot) 17.2 mg Q12H PRN PO Moderate constipation; Start at 18:15; Status UNV Bisacodyl (Dulcolax Supp) 10 mg DAILY PRN RECTAL SEVERE CONSITIPATION; Start 06/13/17 at 18:15; Status UNV Lactulose (Lactulose Liq) 30 ml DAILY PRN PO SEVERE CONSITIPATION; Start 06/13 at 18:15; Status UNV Celecoxib (CeleBREX) 200 mg BID PO ; Start 06/13/17 at 21:00; Status UNV Clopidogrel Bisulfate (Plavix) 75 mg DAILY PO ; Start 06/14/17 at 09:00; Status UNV Ferrous Sulfate (Ferrous Sulfate) 200 mg DAILY PO ; Start 06/14/17 at 09:00; Status UNV Furosemide (Lasix) 20 mg DAILY PO ; Start 06/14/17 at 09:00; Status UNV Hydrochlorothiazide (Microzide) 12.5 mg DAILY PO ; Start 06/14/17 at 09:00; Status UNV Metoprolol Tartrate (Lopressor) 25 mg DAILY PO ; Start 06/14/17 at 09:00; Status UNV Multivitamins (Theragran) 1 tab DAILY PO ; Start 06/14/17 at 09:00; Status UNV Potassium Chloride (KCl) 20 meq DAILY PO ; Start 06/14/17 at 09:00; Status UNV Rivaroxaban (Xarelto) 15 mg DAILY PO ; Start 06/14/17 at 09:00; Status UNV Non-Formulary Medication 250 mg DAILY CHEW ; Start 06/14/17 at 09:00; Status UNV Non-Formulary Medication 40 mg DAILY PO ; Start 06/14/17 at 09:00; Status UNV Non-Formulary Medication 1 tab DAILY PO ; Start 06/14/17 at 09:00; Status UNV Non-Formulary Medication 30 mg HS PRN PO INSOMNIA; Start 06/13/17 at 18:30; Status UNV Polyethylene Glycol (Miralax) 17 gm BID PO ; Start 06/13/17 at 21:00; Status UNV Family History Pt denied family history of cancer, diabetes, VTE, and lung disease. Social History Pt denied alcohol use. Pt endorsed having smoked 2 ppd for 50 years; record reported he stopped in 1984. He denied alcohol use. Physical Exam Physical Exam GENERAL: This is a well-nourished, well-developed patient, in no apparent distress. Female significant other at bedside. SKIN: No rashes or lesions. Ecchymoses noted on both forearms. Cool and dry. LEFT FOOT DRESSED HEAD: Atraumatic. Normocephalic. EYES: Pupils equal round and reactive. Extraocular motions intact. No scleral icterus. No injection or drainage. ENT: Nose without bleeding or purulent drainage. Airway patent.TONGUE MIDLINE NECK: Trachea midline. No lymphadenopathy. Supple and nontender. CARDIOVASCULAR: IRRegular rate and rhythm without murmurs, gallops, or rubs. S1 , S2 NO S3 OR S4 RESPIRATORY: Clear to auscultation. Breath sounds equal bilaterally. No wheezes , rales, or rhonchi. GASTROINTESTINAL: Abdomen soft, non-tender, nondistended. No hepato- splenomegaly or guarding. MUSCULOSKELETAL: Extremities without clubbing, cyanosis. Edema noted in BL lower extremity, cool to the touch. LEFT LEG DRESSED NEUROLOGICAL: Awake and alert. Cranial nerves II through XII intact. Motor and sensory grossly within normal limits. Five out of 5 muscle strength in upper extremities, three out of five for lower extremities. Speech clear and fluent. INSIGHT AND JUDGEMENT ARE LIMITED MOOD AND BEHAVIOR ARE SOMEWHAT APPROPRIATE Laboratory all pending Imaging Chest x-ray ordered. results pending. Caprini VTE Risk Assessment Caprini VTE Risk Assessment: Mod/High Risk (score >= 2) Caprini Risk Assessment Model Point Value = 1 Point Value = 2 Point Value = 3 Point Value = 5 Age 41-60 Minor surgery BMI > 25 kg/m2 Swollen legs Varicose veins or History of unexplained or recurrent spontaneous Oral contraceptives or hormone replacement Sepsis (< 1 month) Serious lung disease, including pneumonia (< 1 month) Abnormal pulmonary function Acute myocardial infarction Congestive heart failure (< 1 month) History of inflammatory bowel disease Medical patient at bed rest Age 61-74 Arthroscopic surgery Major open surgery (> 45 min) Laparoscopic surgery (> 45 min) Malignancy Confined to bed (> 72 hours) Immobilizing plaster cast Central venous access Age >= 75 History of VTE Family history of VTE Factor V Leiden Prothrombin [id number] Lupus anticoagulant Anticardiolipin antibodies Elevated serum homocysteine Heparin-induced thrombocytopenia Other congenital or acquired thrombophilia Stroke (< 1 month) Elective arthroplasty Hip, pelvis, or leg fracture Acute spinal cord injury (< 1 month) Prophylaxis Regimen Total Risk Factor Score Risk Level Prophylaxis Regimen 0-1 Low Early ambulation 2 Moderate Order ONE of the following: *Sequential Compression Device (SCD) *Heparin 5000 units SQ BID 3-4 Higher Order ONE of the following medications: *Heparin 5000 units SQ TID *Enoxaparin/Lovenox 40 mg SQ daily (WT < 150 kg, CrCl > 30 mL/min) *Enoxaparin/Lovenox 30 mg SQ daily (WT < 150 kg, CrCl > 10-29 mL/min) *Enoxaparin/Lovenox 30 mg SQ BID (WT < 150 kg, CrCl > 30 mL/min) AND/OR *Sequential Compression Device (SCD) 5 or more Highest Order ONE of the following medications: *Heparin 5000 units SQ TID (Preferred with Epidurals) *Enoxaparin/Lovenox 40 mg SQ daily (WT < 150 kg, CrCl > 30 mL/min) *Enoxaparin/Lovenox 30 mg SQ daily (WT < 150 kg, CrCl > 10-29 mL/min) *Enoxaparin/Lovenox 30 mg SQ BID (WT < 150 kg, CrCl > 30 mL/min) AND *Sequential Compression Device (SCD) Assessment and Plan Problem List: (1) PVD (peripheral vascular disease) ICD Code: I73.9 - Peripheral vascular disease, unspecified Status: Chronic (2) Atrial fibrillation ICD Code: I48.91 - Atrial fibrillation Status: Acute (3) Hypertension ICD Code: I10 - Hypertension Status: Chronic (4) Diabetes mellitus ICD Code: E11.9 - Diabetes mellitus Status: Chronic (5) GERD (gastroesophageal reflux disease) ICD Code: K21.9 - Gastroesophageal reflux disease Status: Acute (6) Chronic back pain ICD Code: G89.29 - Other chronic pain; M54.9 - Chronic back pain Status: Acute Assessment and Plan Mr. Mills is 86 yo, with history inclusive of atrial fibrillation , CAD, CKD (stage III), DM, GERD, hypertension, Chronic back pain, and asbestosis. He was admitted to [facility] from 05/22/17-05/29/17 for poor perfusion to the left foot. He was seen by Drs. Daley (vascular surgery) and Dr. Sanchez ( podiatry). Mr. Grayson was at Dr. Daley's office today for a scheduled appointment. Mr. Mills reported having cold feet (left worse than right), pain, and difficulty walking. he was a direct admit to [facility] for consideration of revascularization of his left foot. Left leg ischemia; -Consulted vascular surgery (Dr. Daley) and podiatry (Dr. Sanchez) -CPK ordered -labs ordered on date of admission and for am -pain management Decreased appetite -Dronabinol ACCU-CHECKS Constipation -Miralax -Lactulose -Senna PRN MEDS Diabetes -Diet controlled -Fingersticks q ac and hs DM DIET Hypertension -HCTZ HOME MEDS Atrial fibrillation -Xarelto -metoprolol -Plavix DVT -Xarelto PT AND OT TO EVAL AND TREAT' HOPEFULLY TO HAVE SURGERY ON FRIDAY SURGERY TO DECIDE ON WHEN TO STOP ANTICOAGULATION - The exam, history, and the medical decision-making described in the above note were completed with the assistance of the mid-level provider. I reviewed and agree with the findings presented. I attest that I had a [id number] encounter with the patient on the same day, and personally performed and documented my assessment and findings in the medical record. Code Status Full code Discussed Condition With Pt, his significant other, Dr. Moreno. Physician Certification 2 Midnight Certification Type: Admission for Inpatient Services Order for Inpatient Services The services are ordered in accordance with Medicare regulations or non- Medicare payer requirements, as applicable. In the case of services not specified as inpatient-only, they are appropriately provided as inpatient services in accordance with the 2-midnight benchmark. Estimated LOS (days): 5 Five days is the estimated time the patient will need to remain in the hospital , assuming treatment plan goals are met and no additional complications. Post-Hospital Plan: Not yet determined Problem Qualifiers (1) Hypertension: Qualified Codes: I10 - Essential (primary) hypertension (2) Diabetes mellitus: Qualified Codes: E11.59 - Type 2 diabetes mellitus with other circulatory complications (3) Atrial fibrillation: Qualified Codes: I48.2 - Chronic atrial fibrillation (4) GERD (gastroesophageal reflux disease): Qualified Codes: K21.9 - Gastro-esophageal reflux disease without esophagitis (5) Chronic back pain: Qualified Codes: M54.9 - Dorsalgia, unspecified; G89.29 - Other chronic pain Dragan Mares Jr. Jun 13, 2017 18:56 Sp Moreno DO Jun 13, 2017 19:02
--- NOTE | 2017-06-13 19:15 | RADRPT ---
EXAM DATE/TIME: 06/13/2017 18:25 [place] COMPARISON: CHEST SINGLE AP, May 13, 2017, 14:20. INDICATIONS : Cough. MEDICAL HISTORY : Gastroesophageal reflux disease. Hypertension Myocardial infarction. A-fib SURGICAL HISTORY : Total knee replacement, left. ENCOUNTER: Initial ACUITY: 1 day PAIN SCORE: 0/10 LOCATION: Bilateral chest FINDINGS: There is subsegmental basilar air space disease bilaterally similar to May 13. No effusion. No pneumothorax the heart size enlarged. Tortuous aorta. Calcified granuloma left lung base. CONCLUSION: 1. Subsegmental basilar airspace disease similar to May 13. Hector Zhou MD on June 13, 2017 at 19:12 Board Certified Radiologist. This report was verified electronically.
[2017-06-13 20:16] LABS: BASOPHIL # 0.1 TH/MM3 (0-0.2); BASOPHIL % 1.1 % (0.0-2.0); EOSINOPHIL # 0.1 TH/MM3 (0-0.4); EOSINOPHIL % 1.4 % (0.0-4.0); HEMATOCRIT 24.3 % (39.0-51.0); HEMOGLOBIN 8.2 GM/DL (13.0-17.0); LYMPH % 22.9 % (9.0-44.0); LYMPHOCYTE # 1.3 TH/MM3 (1.0-4.8); MEAN CELL VOLUME 97.7 FL (80.0-100.0); MEAN CORPUSCULAR HEMOGLOBIN 32.9 PG (27.0-34.0); MEAN CORPUSCULAR HGB CONC 33.6 % (32.0-36.0); MEAN PLATELET VOLUME 6.8 FL (7.0-11.0); MONO % 6.3 % (0.0-8.0); MONOCYTE # 0.4 TH/MM3 (0-0.9); NEUT % 68.3 % (16.0-70.0); PLATELET COUNT 234 TH/MM3 (150-450); RED BLOOD COUNT 2.49 MIL/MM3 (4.50-5.90); RED CELL DISTRIBUTION WIDTH 17.5 % (11.6-17.2); WHITE BLOOD COUNT 5.8 TH/MM3 (4.0-11.0)
[2017-06-13 20:23] LABS: ALBUMIN 1.9 GM/DL (3.4-5.0); AST (GOT) 11 U/L (15-37); BLOOD UREA NITROGEN 28 MG/DL (7-18); CALCIUM 8.4 MG/DL (8.5-10.1); CHLORIDE 105 MEQ/L (98-107); CREATININE 1.35 MG/DL (0.60-1.30); GLOMERULAR FILTRATION RATE 50 ML/MIN (>89); GLUCOSE,RANDOM 117 MG/DL (74-106); MAGNESIUM 1.9 MG/DL (1.5-2.5); SODIUM (NA) 139 MEQ/L (136-145)
[2017-06-13 20:24] LABS: ALT (GPT) 14 U/L (12-78); PHOSPHORUS 2.4 MG/DL (2.5-4.9)
[2017-06-13 20:28] LABS: ALKALINE PHOSPHATASE 150 U/L (45-117); TOTAL BILIRUBIN ADULT 0.4 MG/DL (0.2-1.0); TOTAL PROTEIN 5.5 GM/DL (6.4-8.2); TROPONIN I 0.02 NG/ML (0.02-0.05)
[2017-06-13] MEDS: INSULIN ASPART SUPPLEMENTAL SCALE SQ SCH (21:00)
[2017-06-13] MEDS: POLYETHYLENE GLYCOL 17 GM PKG PO SCH (21:00)
[2017-06-13] MEDS ORDERED: PILL SPLITTER OTHER PRN (21:00)
[2017-06-13] MEDS: DOCUSATE SODIUM 50 MG/SENNA 8.6 MG TAB PO SCH (21:00)
[2017-06-13] MEDS: CELECOXIB 200 MG CAP PO SCH (21:48)
[2017-06-13] MEDS: SODIUM CHLORIDE 0.9% FLUSH 10 ML FLUSH IV FLUSH SCH (21:48)
[2017-06-13] MEDS: TEMAZEPAM 15 MG CAP PO PRN (21:51)
[2017-06-14] VITALS (29 sets, daily range): BP systolic 100–121; BP diastolic 58–69; PULSE 60–116; RESP 16; TEMP 97.6–98.6; O2SAT 95–99
[2017-06-14 01:58] LABS: ALBUMIN 1.7 GM/DL (3.4-5.0); ALT (GPT) 11 U/L (12-78); AST (GOT) 11 U/L (15-37); BICARBONATE 25.7 MEQ/L (21.0-32.0); BLOOD UREA NITROGEN 27 MG/DL (7-18); CHLORIDE 108 MEQ/L (98-107); CREATININE 1.26 MG/DL (0.60-1.30); GLOMERULAR FILTRATION RATE 54 ML/MIN (>89); GLUCOSE,RANDOM 80 MG/DL (74-106); MAGNESIUM 1.8 MG/DL (1.5-2.5); PHOSPHORUS 2.6 MG/DL (2.5-4.9); SODIUM (NA) 140 MEQ/L (136-145)
[2017-06-14 02:07] LABS: ALKALINE PHOSPHATASE 144 U/L (45-117); FREE T4 0.98 NG/DL (0.76-1.46); TOTAL BILIRUBIN ADULT 0.4 MG/DL (0.2-1.0); TROPONIN I LESS THAN 0.02 NG/ML (0.02-0.05)
[2017-06-14] MEDS: oxyCODONE/ACETAMINOPHEN 10 MG/325 MG TAB PO PRN ×5 (02:18→20:41)
[2017-06-14 03:08] LABS: BACTERIA, URINE MANY /hpf; BILIRUBIN, URINE NEG (NEG); BLOOD, URINE MOD (NEG); GLUCOSE,URINE NEG (NEG); HYALINE CAST, URINE 2 /lpf (RARE); KETONE, URINE NEG (NEG); MUCUS URINE FEW /lpf (OCC); NITRITE,URINE POS (NEG); PH, URINE 5.5 (5.0-8.5); SQUAMOUS EPITHELIAL CELL URINE 1 /hpf (0-5); URINE COLOR YELLOW (YELLW/STRAW); URINE LEUKOCYTE ESTERASE LARGE (NEG); WHITE BLOOD CELL CLUMPS FEW
[2017-06-14 04:56] LABS: AUTOMATED NEUTROPHIL # 3.2 TH/MM3 (1.8-7.7); BASOPHIL % 0.7 % (0.0-2.0); EOSINOPHIL # 0.1 TH/MM3 (0-0.4); HEMATOCRIT 21.7 % (39.0-51.0); HEMOGLOBIN 7.1 GM/DL (13.0-17.0); LYMPH % 33.6 % (9.0-44.0); LYMPHOCYTE # 1.9 TH/MM3 (1.0-4.8); MEAN CELL VOLUME 96.5 FL (80.0-100.0); MEAN CORPUSCULAR HEMOGLOBIN 31.6 PG (27.0-34.0); MEAN CORPUSCULAR HGB CONC 32.7 % (32.0-36.0); MEAN PLATELET VOLUME 6.2 FL (7.0-11.0); MONO % 7.2 % (0.0-8.0); MONOCYTE # 0.4 TH/MM3 (0-0.9); NEUT % 56.5 % (16.0-70.0); PLATELET COUNT 204 TH/MM3 (150-450); RED BLOOD COUNT 2.24 MIL/MM3 (4.50-5.90); RED CELL DISTRIBUTION WIDTH 17.6 % (11.6-17.2); WHITE BLOOD COUNT 5.6 TH/MM3 (4.0-11.0)
[2017-06-14] MEDS: INSULIN ASPART SUPPLEMENTAL SCALE SQ SCH ×4 (08:00→20:42)
[2017-06-14] MEDS: RIVAROXABAN 15 MG TAB PO SCH (08:07)
[2017-06-14] MEDS: FERROUS SULFATE 300 MG /5ML UDC PO SCH (08:07)
[2017-06-14] MEDS: MULTIVITAMIN-OPHTHALMIC 1 TAB PO SCH (08:07)
[2017-06-14] MEDS: HYDROCHLOROTHIAZIDE 12.5 MG CAP PO SCH (08:07)
[2017-06-14] MEDS: CLOPIDOGREL 75 MG TAB PO SCH (08:07)
[2017-06-14] MEDS: ASCORBIC ACID 500 MG TAB PO SCH (08:08)
[2017-06-14] MEDS: PANTOPRAZOLE SOD 40 MG DELAYED RELEASE TAB PO SCH (08:08)
[2017-06-14] MEDS: FUROSEMIDE 20 MG TAB PO SCH (08:08)
[2017-06-14] MEDS: METOPROLOL TARTRATE 25 MG TAB PO SCH (08:08)
[2017-06-14] MEDS: DOCUSATE SODIUM 50 MG/SENNA 8.6 MG TAB PO SCH ×2 (08:08→20:41)
[2017-06-14] MEDS: POTASSIUM CHLORIDE 20 MEQ CONTROLLED RELEASE TAB PO SCH (08:08)
[2017-06-14] MEDS: CELECOXIB 200 MG CAP PO SCH ×2 (08:08→20:41)
[2017-06-14] MEDS: MULTIVITAMIN TAB PO SCH (08:09)
[2017-06-14] MEDS: SODIUM CHLORIDE 0.9% FLUSH 10 ML FLUSH IV FLUSH SCH ×2 (08:09→23:18)
[2017-06-14] MEDS: POLYETHYLENE GLYCOL 17 GM PKG PO SCH ×2 (08:09→20:41)
--- NOTE | 2017-06-14 08:43 | HHI.PR ---
Subjective Remarks Follow up foot pain, peripheral arterial disease, diabetes. Patient states that he is having significant pain in the left foot, about the same as it's been for the last month. Denies chest pain currently. No dyspnea. Objective Vitals Vital Signs Date Time Temp Pulse Resp B/P (MAP) Pulse Ox O2 Delivery O2 Flow Rate FiO2 06/14/17 07:51 95 06/14/17 06:11 100 06/14/17 05:47 99 06/14/17 05:05 96 06/14/17 04:13 94 06/14/17 03:12 88 06/14/17 03:12 98.0 86 16 121/58 (79) 99 06/14/17 02:35 101 06/14/17 01:01 97 06/14/17 00:12 93 06/13/17 23:48 89 06/13/17 23:08 97.9 75 16 107/60 (76) 99 06/13/17 22:00 82 06/13/17 21:00 64 06/13/17 20:00 74 06/13/17 19:58 18 06/13/17 19:51 97.6 84 16 128/76 (93) 100 06/13/17 19:00 90 06/13/17 18:00 97.4 64 18 113/64 (80) 98 I/O 06/13/17 06/13/17 06/13/17 06/14/17 06/14/17 06/14/17 07:00 15:00 23:00 07:00 15:00 23:00 Intake Total 240 ml Output Total 375 ml Balance -135 ml Intake Oral 240 ml Output Urine Total 375 ml Result Diagram: 06/14/17 0446 06/14/17 0102 Imaging Last Impressions Chest X-Ray 06/13/17 0000 Signed Impressions: Service Date/Time: Tuesday, June 13, 2017 18:25 - CONCLUSION: 1. Subsegmental basilar airspace disease similar to May 13. Hector Zhou MD Objective Remarks General: Elderly male in no acute distress. Heart: Irregular rhythm. No murmur. Lungs: Clear to auscultation bilaterally. No wheezes, rales, or rhonchi. Breathing is nonlabored. Abdomen: Soft, nontender, nondistended. Extremities: 2+ bilateral lower extremity edema. Foot wounds bandaged. Psych: Alert and oriented. Answers questions appropriately. Procedures None Urinary Catheter: No Vascular Central Line Catheter: No A/P Problem List: (1) PVD (peripheral vascular disease) ICD Code: I73.9 - Peripheral vascular disease, unspecified Status: Chronic (2) Hypertension ICD Code: I10 - Hypertension Status: Chronic (3) Diabetes mellitus ICD Code: E11.9 - Diabetes mellitus Status: Chronic (4) Atrial fibrillation ICD Code: I48.91 - Atrial fibrillation Status: Acute Assessment and Plan 1. Peripheral arterial disease, left lower extremity: Vascular surgery and podiatry consultations are pending. Patient was sent to the ER from the vascular surgery office. Continue pain control. 2. Poor appetite, weight loss: Continue dronabinol. Add Glucerna shakes. 3. Constipation: Continue bowel regimen. 4. Diabetes mellitus: Diet-controlled. Monitor Accu-Cheks and cover with sliding scale insulin. 5. Hypertension: Continue home medications. 6. Atrial fibrillation: Continue Xarelto, metoprolol. 7. DVT prophylaxis: Xarelto. 8. Generalized weakness, deconditioning: PT/OT. 9. Anemia: H&H decreasing. Monitor closely. Check stool Hemoccult. Problem Qualifiers (1) Hypertension: Qualified Codes: I10 - Essential (primary) hypertension (2) Diabetes mellitus: Qualified Codes: E11.59 - Type 2 diabetes mellitus with other circulatory complications (3) Atrial fibrillation: Qualified Codes: I48.2 - Chronic atrial fibrillation Wilfredo Garcia MD Jun 14, 2017 08:43
[2017-06-14] MEDS ORDERED: NON-FORMULARY DRUG (Esomeprazole DR (Nexium) 40 MG) PO SCH (09:00)
[2017-06-14] MEDS ORDERED: ASCORBIC ACID 250 MG CHEW SCH (09:00)
[2017-06-14] MEDS ORDERED: NON-FORMULARY DRUG (Multiple Vitamins W/ Minerals (Preservision Areds) 1 TAB) PO SCH (09:00)
[2017-06-14] MEDS ORDERED: INFLUENZA VIRUS VACCINE (QUADRIVALENT) 0.5 ML SYR IM ONE (10:00)
[2017-06-14] MEDS: DRONABINOL 5 MG CAP PO SCH ×2 (10:05→16:00)
[2017-06-14] MEDS: cefTRIAXone INJ 1,000 MG in SODIUM CHLORIDE 0.9% INJ 100 ML IV SCH (10:06)
--- NOTE | 2017-06-14 12:14 | PD.VS.PN ---
Subjective Subjective/Hospital Course Pt well known to me and was admitted from my clinic. Has progressive ischemia of L LE and needs urgent attempts at revascularization and amputation of toes for attempt at limb salvage. Also has rest pain and oral pain meds at home not working. Overnight did get rest but still has "shooting" pains. Objective Vitals/I&O Date Time Temp Pulse Resp B/P (MAP) Pulse Ox O2 Delivery O2 Flow Rate FiO2 06/14/17 07:51 95 06/14/17 07:30 98.6 112 16 112/68 (83) 99 06/14/17 06:11 100 06/14/17 05:47 99 06/14/17 05:05 96 06/14/17 04:13 94 06/14/17 03:12 88 06/14/17 03:12 98.0 86 16 121/58 (79) 99 06/14/17 02:35 101 06/14/17 01:01 97 06/14/17 00:12 93 06/13/17 23:48 89 06/13/17 23:08 97.9 75 16 107/60 (76) 99 06/13/17 22:00 82 06/13/17 21:00 64 06/13/17 20:00 74 06/13/17 19:58 18 06/13/17 19:51 97.6 84 16 128/76 (93) 100 06/13/17 19:00 90 06/13/17 18:00 97.4 64 18 113/64 (80) 98 06/14/17 06/14/17 06/14/17 07:00 15:00 23:00 Intake Total 240 ml Output Total 375 ml Balance -135 ml Physical Exam L>R LE profound edema gangrene L 4th/5th toes Laboratory Laboratory Tests Test 06/13/17 19:36 06/14/17 01:02 06/14/17 02:20 06/14/17 04:46 White Blood Count 5.8 5.6 Red Blood Count 2.49 2.24 Hemoglobin 8.2 7.1 Hematocrit 24.3 21.7 Mean Corpuscular Volume 97.7 96.5 Mean Corpuscular Hemoglobin 32.9 31.6 Mean Corpuscular Hemoglobin Concent 33.6 32.7 Red Cell Distribution Width 17.5 17.6 Platelet Count 234 204 Mean Platelet Volume 6.8 6.2 Neutrophils (%) (Auto) 68.3 56.5 Lymphocytes (%) (Auto) 22.9 33.6 Monocytes (%) (Auto) 6.3 7.2 Eosinophils (%) (Auto) 1.4 2.0 Basophils (%) (Auto) 1.1 0.7 Neutrophils # (Auto) 4.0 3.2 Lymphocytes # (Auto) 1.3 1.9 Monocytes # (Auto) 0.4 0.4 Eosinophils # (Auto) 0.1 0.1 Basophils # (Auto) 0.1 0.0 CBC Comment DIFF FINAL DIFF FINAL Differential Comment Blood Urea Nitrogen 28 27 Creatinine 1.35 1.26 Random Glucose 117 80 Total Protein 5.5 5.0 Albumin 1.9 1.7 Calcium Level 8.4 8.0 Phosphorus Level 2.4 2.6 Magnesium Level 1.9 1.8 Alkaline Phosphatase 150 144 Aspartate Amino Transf (AST/SGOT) 11 11 Alanine Aminotransferase (ALT/SGPT) 14 11 Total Bilirubin 0.4 0.4 Sodium Level 139 140 Potassium Level 3.9 4.1 Chloride Level 105 108 Carbon Dioxide Level 25.0 25.7 Anion Gap 9 6 Estimat Glomerular Filtration Rate 50 54 Total Creatine Kinase 26 25 Troponin I 0.02 LESS THAN 0.02 Free Thyroxine 0.98 Thyroid Stimulating Hormone 3rd Gen 2.490 Urine Color YELLOW Urine Turbidity HAZY Urine pH 5.5 Urine Specific [place] 1.027 Urine Protein TRACE Urine Glucose (UA) NEG Urine Ketones NEG Urine Occult Blood MOD Urine Nitrite POS Urine Bilirubin NEG Urine Urobilinogen LESS THAN 2.0 Urine Leukocyte Esterase LARGE Urine RBC 5 Urine WBC 111 Urine WBC Clumps FEW Urine Squamous Epithelial Cells 1 Urine Bacteria MANY Urine Hyaline Casts 2 Urine Mucus FEW Microscopic Urinalysis Comment CULTURE INDICATED Date/Time Source Procedure Growth Status 06/14/17 02:20 Urine Clean Catch Urine Culture Pending Received Imaging Last 48 hours Impressions Chest X-Ray 06/13/17 0000 Signed Impressions: Service Date/Time: Tuesday, June 13, 2017 18:25 - CONCLUSION: 1. Subsegmental basilar airspace disease similar to May 13. Hector Zhou MD Assessment and Plan Plan 1. OR Friday at 0800 for L LE angiogram and aggressive attempts at revascularization. Have held Xarelto Will get steroid prep for contrast allergy Gentle IV hydration tomorrow night for renal protection (cr 1.3 with GFR about 50) 2. Defer to Dr. Sanchez re: toes - happy to perform amputation if revascularization successful 3. Needs nutritional supplements and I talked with him about that today Lj Daley MD FACS RPVI steam brush operator [facility] - Heart and Vascular Surgery at [facility] [phone] Lj Daley MD Jun 14, 2017 12:14
[2017-06-14 13:43] LABS: HEMATOCRIT 24.2 % (39.0-51.0); HEMOGLOBIN 7.9 GM/DL (13.0-17.0)
[2017-06-14] MEDS: TEMAZEPAM 15 MG CAP PO PRN (20:39)
[2017-06-15] VITALS (27 sets, daily range): BP systolic 91–113; BP diastolic 55–69; PULSE 70–137; RESP 16–18; TEMP 97.6–98.2; O2SAT 94–98
[2017-06-15] MEDS: oxyCODONE/ACETAMINOPHEN 10 MG/325 MG TAB PO PRN ×6 (00:51→20:23)
[2017-06-15 04:19] LABS: AUTOMATED NEUTROPHIL # 3.4 TH/MM3 (1.8-7.7); BASOPHIL % 0.6 % (0.0-2.0); EOSINOPHIL # 0.2 TH/MM3 (0-0.4); EOSINOPHIL % 2.2 % (0.0-4.0); HEMATOCRIT 24.8 % (39.0-51.0); LYMPH % 44.4 % (9.0-44.0); LYMPHOCYTE # 3.2 TH/MM3 (1.0-4.8); MEAN CELL VOLUME 98.5 FL (80.0-100.0); MEAN CORPUSCULAR HEMOGLOBIN 31.9 PG (27.0-34.0); MEAN CORPUSCULAR HGB CONC 32.4 % (32.0-36.0); MEAN PLATELET VOLUME 6.7 FL (7.0-11.0); MONO % 5.4 % (0.0-8.0); MONOCYTE # 0.4 TH/MM3 (0-0.9); NEUT % 47.4 % (16.0-70.0); PLATELET COUNT 288 TH/MM3 (150-450); RED BLOOD COUNT 2.52 MIL/MM3 (4.50-5.90); RED CELL DISTRIBUTION WIDTH 17.4 % (11.6-17.2); WHITE BLOOD COUNT 7.2 TH/MM3 (4.0-11.0)
[2017-06-15 04:39] LABS: BICARBONATE 25.9 MEQ/L (21.0-32.0); CREATININE 1.35 MG/DL (0.60-1.30)
[2017-06-15] MEDS: INSULIN ASPART SUPPLEMENTAL SCALE SQ SCH ×4 (08:00→20:31)
[2017-06-15] MEDS: ASCORBIC ACID 500 MG TAB PO SCH (08:46)
[2017-06-15] MEDS: POLYETHYLENE GLYCOL 17 GM PKG PO SCH ×2 (08:46→20:23)
[2017-06-15] MEDS: cefTRIAXone INJ 1,000 MG in SODIUM CHLORIDE 0.9% INJ 100 ML IV SCH (08:46)
[2017-06-15] MEDS: MULTIVITAMIN-OPHTHALMIC 1 TAB PO SCH (08:47)
[2017-06-15] MEDS: DOCUSATE SODIUM 50 MG/SENNA 8.6 MG TAB PO SCH ×2 (08:47→20:22)
[2017-06-15] MEDS: PANTOPRAZOLE SOD 40 MG DELAYED RELEASE TAB PO SCH (08:47)
[2017-06-15] MEDS: POTASSIUM CHLORIDE 20 MEQ CONTROLLED RELEASE TAB PO SCH (08:47)
[2017-06-15] MEDS: HYDROCHLOROTHIAZIDE 12.5 MG CAP PO SCH (08:47)
[2017-06-15] MEDS: FERROUS SULFATE 300 MG /5ML UDC PO SCH (08:47)
[2017-06-15] MEDS: METOPROLOL TARTRATE 25 MG TAB PO SCH (08:47)
[2017-06-15] MEDS: CELECOXIB 200 MG CAP PO SCH ×2 (08:47→20:23)
[2017-06-15] MEDS: CLOPIDOGREL 75 MG TAB PO SCH (08:48)
[2017-06-15] MEDS: FUROSEMIDE 20 MG TAB PO SCH (08:48)
[2017-06-15] MEDS: SODIUM CHLORIDE 0.9% FLUSH 10 ML FLUSH IV FLUSH SCH ×2 (09:00→20:24)
[2017-06-15] MEDS: MULTIVITAMIN TAB PO SCH (09:00)
[2017-06-15 09:27] LABS: HEMOGLOBIN A1C 5.3 % (4.3-6.0)
--- NOTE | 2017-06-15 09:28 | HHI.PR ---
Subjective Remarks Follow up foot pain, peripheral arterial disease, diabetes. The patient reports ongoing pain in the left foot. Denies chest pain, dyspnea, nausea, vomiting. Objective Vitals Vital Signs Date Time Temp Pulse Resp B/P (MAP) Pulse Ox O2 Delivery O2 Flow Rate FiO2 06/15/17 07:00 85 06/15/17 06:00 96 06/15/17 05:00 92 06/15/17 04:25 98.1 137 16 91/58 (69) 95 06/15/17 04:00 136 06/15/17 03:00 71 06/15/17 02:00 74 06/15/17 01:00 87 06/15/17 00:18 97.6 83 16 97/58 (71) 95 06/15/17 00:00 84 06/14/17 23:00 71 06/14/17 22:00 80 06/14/17 21:00 60 06/14/17 20:00 97.6 86 16 113/69 (84) 98 06/14/17 20:00 78 06/14/17 19:00 80 06/14/17 18:33 17 06/14/17 18:00 81 06/14/17 17:14 98 21 06/14/17 17:00 80 06/14/17 16:00 70 06/14/17 15:00 98.1 70 16 112/63 (79) 98 06/14/17 15:00 79 06/14/17 14:00 79 06/14/17 13:01 74 06/14/17 12:00 76 06/14/17 11:30 98.4 79 16 100/58 (72) 97 06/14/17 11:00 87 06/14/17 10:00 92 I/O 06/14/17 06/14/17 06/14/17 06/15/17 06/15/17 06/15/17 07:00 15:00 23:00 07:00 15:00 23:00 Intake Total 240 ml 580 ml 460 ml Output Total 375 ml 275 ml 450 ml Balance -135 ml 305 ml 10 ml Intake Oral 240 ml 580 ml 360 ml IV Total 100 ml Output Urine Total 375 ml 275 ml 450 ml Bladder Scan Volume Amount 160 ml # Bowel Movements 0 Result Diagram: 06/15/17 0346 06/15/17 0346 Imaging Last Impressions Chest X-Ray 06/13/17 0000 Signed Impressions: Service Date/Time: Tuesday, June 13, 2017 18:25 - CONCLUSION: 1. Subsegmental basilar airspace disease similar to May 13. Hector Zhou MD Objective Remarks General: Elderly male in no acute distress. Heart: Irregular rhythm. No murmur. Lungs: Clear to auscultation bilaterally. No wheezes, rales, or rhonchi. Breathing is nonlabored. Abdomen: Soft, nontender, nondistended. Extremities: 2+ bilateral lower extremity edema. Foot wounds bandaged. Psych: Sleeping, but awakens easily and answers questions appropriately. Procedures None Urinary Catheter: No Vascular Central Line Catheter: No A/P Problem List: (1) PVD (peripheral vascular disease) ICD Code: I73.9 - Peripheral vascular disease, unspecified Status: Chronic (2) Hypertension ICD Code: I10 - Hypertension Status: Chronic (3) Diabetes mellitus ICD Code: E11.9 - Diabetes mellitus Status: Chronic (4) Atrial fibrillation ICD Code: I48.91 - Atrial fibrillation Status: Acute Assessment and Plan 1. Peripheral arterial disease, left lower extremity: Appreciate vascular surgery recommendations. Plan for surgery tomorrow. Podiatry consult is pending. Continue pain control. 2. Poor appetite, weight loss: Continue dronabinol, Glucerna shakes. 3. Constipation: Continue bowel regimen. 4. Diabetes mellitus: Diet-controlled. Monitor Accu-Cheks and cover with sliding scale insulin. 5. Hypertension: Continue home medications. 6. Atrial fibrillation: Continue metoprolol. Xarelto on hold. 7. DVT prophylaxis: Xarelto on hold. 8. Generalized weakness, deconditioning: PT/OT. 9. Anemia: H&H low, but stable. Monitor closely. Check stool Hemoccult. Problem Qualifiers (1) Hypertension: Qualified Codes: I10 - Essential (primary) hypertension (2) Diabetes mellitus: Qualified Codes: E11.59 - Type 2 diabetes mellitus with other circulatory complications (3) Atrial fibrillation: Qualified Codes: I48.2 - Chronic atrial fibrillation Wilfredo Garcia MD Jun 15, 2017 09:28
[2017-06-15] MEDS: DRONABINOL 5 MG CAP PO SCH ×2 (11:00→16:00)
[2017-06-15] MEDS ORDERED: predniSONE 50 MG TAB PO ONE (19:00)
--- NOTE | 2017-06-15 21:00 | EKG ---
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
--- NOTE | 2017-06-15 22:08 | PD.CONS ---
History of Present Illness Service Podiatry Consult Requested By Reason for Consult L foot gangrene Primary Care Physician Antonio Evangelista MD Diagnoses: History of Present Illness Patient has had progressive gangrenous changes to L foot with ischemic pain. He is scheduled for angio tomorrow with Dr Daley. Podiatry consulted for L foot opinion Past Family Social History Allergies: Coded Allergies: diatrizoate meglumine (Unverified Allergy, Severe, 05/22/17) gadobenic acid (Unverified Allergy, Severe, 05/22/17) gadodiamide (Unverified Allergy, Severe, 05/22/17) gadoteridol (Unverified Allergy, Severe, 05/22/17) iodixanol (Unverified Allergy, Severe, 05/22/17) iohexol (Unverified Allergy, Severe, 05/22/17) Past Medical History atrial fibrillation, CAD, CKD (stage III), DM, GERD, hypertension, Chronic back pain asbestosis Past Surgical History cholecystectomy Cardiac stents Knee/hip replacement Reported Medications Feosol (Ferrous Sulfate) 325 Mg (65 Mg Iron) Tab 200 Mg PO DAILY Vitamin C (Ascorbic Acid) 250 Mg Chew 250 Mg CHEW DAILY Celecoxib 200 Mg Cap 200 Mg PO BID Preservision Areds (Multiple Vitamins W/ Minerals) 1 Tab 1 Tab PO DAILY One Daily (Multiple Vitamin) 1 Tab 1 Tab PO DAILY Hydrochlorothiazide 12.5 Mg Tab 12.5 Mg PO DAILY Restoril (Temazepam) 30 Mg Cap 30 Mg PO HS PRN Metoprolol Tartrate 25 Mg Tab 25 Mg PO DAILY Xarelto (Rivaroxaban) 15 Mg Tab 15 Mg PO DAILY Nexium (Esomeprazole DR) 40 Mg Capdr 40 Mg PO DAILY Active Ordered Medications Current Medications Medications (Trade) Dose Ordered Sig/Cheikh Route Start Time Stop Time Status Last Admin (D50w (Syr) Inj) 50 ml UNSCH PRN IV PUSH 06/13/17 18:15 (Glucagon Inj) 1 mg UNSCH PRN OTHER 06/13/17 18:15 (NovoLOG SUPPLEMENTAL SCALE) 1 ACHS SLIDING SCALE SQ 06/13/17 21:00 (Marinol) 5 mg BID@11,16 PO 06/14/17 11:00 06/15/17 11:00 (NS Flush) 2 ml UNSCH PRN IV FLUSH 06/13/17 18:15 (NS Flush) 2 ml BID IV FLUSH 06/13/17 21:00 06/15/17 20:24 (Tylenol) 650 mg Q4H PRN PO 06/13/17 18:15 (Zofran Inj) 4 mg Q6H PRN IVP 06/13/17 18:15 (Compazine Supp) 25 mg Q12H PRN RECTAL 06/13/17 18:15 (Tylenol) 650 mg Q6H PRN PO 06/13/17 18:15 06/14/17 04:59 (Morphine Inj) 2 mg Q3H PRN IV PUSH 06/13/17 18:15 (Narcan Inj) 0.4 mg UNSCH PRN IV PUSH 06/13/17 18:15 (Tiffany-Colace) 1 tab BID PO 06/13/17 21:00 06/15/17 20:22 (Milk Of Magnesia Liq) 30 ml Q12H PRN PO 06/13/17 18:15 06/14/17 17:27 (Senokot) 17.2 mg Q12H PRN PO 06/13/17 18:15 (Dulcolax Supp) 10 mg DAILY PRN RECTAL 06/13/17 18:15 (Lactulose Liq) 30 ml DAILY PRN PO 06/13/17 18:15 (CeleBREX) 200 mg BID PO 06/13/17 21:00 06/15/17 20:23 (Plavix) 75 mg DAILY PO 06/14/17 09:00 06/15/17 08:48 (Ferrous Sulfate Liq) 200 mg DAILY PO 06/14/17 09:00 06/15/17 08:47 (Lasix) 20 mg DAILY PO 06/14/17 09:00 06/15/17 08:48 (Microzide) 12.5 mg DAILY PO 06/14/17 09:00 06/15/17 08:47 (Lopressor) 25 mg DAILY PO 06/14/17 09:00 06/15/17 08:47 (Theragran) 1 tab DAILY PO 06/14/17 09:00 06/15/17 09:00 (KCl) 20 meq DAILY PO 06/14/17 09:00 06/15/17 08:47 (Xarelto) 15 mg DAILY PO 06/14/17 09:00 Future Hold 06/14/17 08:07 (Miralax) 17 gm BID PO 06/13/17 21:00 06/15/17 20:23 (Vitamin C) 250 mg DAILY PO 06/14/17 09:00 06/15/17 08:46 (Pill Splitter) 1 ea UNSCH PRN OTHER 06/13/17 21:00 (Protonix) 40 mg DAILY PO 06/14/17 09:00 06/15/17 08:47 (Ocuvite) 1 tab DAILY PO 06/14/17 09:00 06/15/17 08:47 (Restoril) 30 mg HS PRN PO 06/13/17 19:30 06/14/17 20:39 (Percocet 5-325 Mg) 1 tab Q4HR PRN PO 06/14/17 08:45 (Percocet 10-325 Mg) 1 tab Q4H PRN PO 06/14/17 08:45 06/15/17 20:23 Ceftriaxone Sodium 1000 mg/ Sodium Chloride 100 ml @ 200 mls/hr Q24H IV 06/14/17 10:00 06/15/17 08:46 (Deltasone) 50 mg ONCE ONCE PO 06/16/17 01:00 06/16/17 01:01 (Deltasone) 50 mg ONCE ONCE PO 06/16/17 07:00 06/16/17 07:01 (Benadryl) 50 mg ONCE ONCE PO 06/16/17 07:00 06/16/17 07:01 Sodium Bicarbonate 100 meq/Dextrose 1,100 ml @ 42 mls/hr Q24H IV 06/16/17 01:00 Family History Pt denied family history of cancer, diabetes, VTE, and lung disease. Social History Pt denied alcohol use. Pt endorsed having smoked 2 ppd for 50 years; record reported he stopped in 1984. He denied alcohol use. Physical Exam Vital Signs Vital Signs Date Time Temp Pulse Resp B/P (MAP) Pulse Ox O2 Delivery O2 Flow Rate FiO2 06/15/17 21:41 18 06/15/17 21:00 85 06/15/17 20:00 88 06/15/17 19:00 97.7 80 16 113/59 (77) 94 06/15/17 19:00 104 06/15/17 18:00 88 06/15/17 17:00 82 06/15/17 16:00 97.9 84 18 92/55 (67) 96 06/15/17 16:00 84 06/15/17 15:00 78 06/15/17 14:00 88 06/15/17 13:00 84 06/15/17 12:00 86 06/15/17 11:11 98.0 86 16 104/68 (80) 98 06/15/17 11:00 70 06/15/17 09:00 86 06/15/17 08:00 98.2 92 18 106/66 (79) 94 06/15/17 08:00 88 06/15/17 07:00 85 06/15/17 06:00 96 06/15/17 05:00 92 06/15/17 04:25 98.1 137 16 91/58 (69) 95 06/15/17 04:00 136 06/15/17 03:00 71 06/15/17 02:00 74 06/15/17 01:00 87 06/15/17 00:18 97.6 83 16 97/58 (71) 95 06/15/17 00:00 84 06/14/17 23:00 71 Physical Exam L foot with hard necrotic tissue to entire L 4th and 5th, and lateral aspect of 3rd digits. There is also hard necrotic tissue to medial R hallux and 1st MTP joint areas. No erythema/edema/purulence to surrounding tissue. Generalized pain to L foot. 2cm diameter eschar also noted to plantar/posterior L heel area. All necrotic areas stable at this time Laboratory Laboratory Tests Test 06/15/17 03:46 White Blood Count 7.2 Red Blood Count 2.52 Hemoglobin 8.0 Hematocrit 24.8 Mean Corpuscular Volume 98.5 Mean Corpuscular Hemoglobin 31.9 Mean Corpuscular Hemoglobin Concent 32.4 Red Cell Distribution Width 17.4 Platelet Count 288 Mean Platelet Volume 6.7 Neutrophils (%) (Auto) 47.4 Lymphocytes (%) (Auto) 44.4 Monocytes (%) (Auto) 5.4 Eosinophils (%) (Auto) 2.2 Basophils (%) (Auto) 0.6 Neutrophils # (Auto) 3.4 Lymphocytes # (Auto) 3.2 Monocytes # (Auto) 0.4 Eosinophils # (Auto) 0.2 Basophils # (Auto) 0.0 CBC Comment DIFF FINAL Differential Comment Blood Urea Nitrogen 25 Creatinine 1.35 Random Glucose 82 Calcium Level 8.0 Sodium Level 139 Potassium Level 4.5 Chloride Level 105 Carbon Dioxide Level 25.9 Anion Gap 8 Estimat Glomerular Filtration Rate 50 Date/Time Source Procedure Growth Status 06/14/17 02:20 Urine Clean Catch Urine Culture - Preliminary Gram Negative Cm Resulted Result Diagram: 06/15/17 0346 06/15/17 0346 Imaging Last 72 hours Impressions Chest X-Ray 06/13/17 0000 Signed Impressions: Service Date/Time: Tuesday, June 13, 2017 18:25 - CONCLUSION: 1. Subsegmental basilar airspace disease similar to May 13. Hector Zhou MD Assessment and Plan Assessment and Plan Gangrene L foot Recommend benign neglect to L foot at this time due to questionable ability to heal at level of transmetatarsal amputation, unless foot becomes actively infected. Will continue to monitor in clinic at scheduled follow up visits for any deterioration and patient/ know to call me anytime. Patient to follow up in clinic ([facility]) as already scheduled. Recommend to continue upon d/c and am ordering betadine swab to periphery of necrotic tissue and dry sterile dressing in the meantime while in-house. James Sanchez DPM Jun 15, 2017 22:08
[2017-06-16] VITALS (27 sets, daily range): BP systolic 90–116; BP diastolic 51–74; PULSE 55–104; RESP 16–18; TEMP 97.1–98.6; O2SAT 95–100
[2017-06-16] MEDS ORDERED: predniSONE 20 MG TAB PO ONE (01:00)
[2017-06-16] MEDS ORDERED: predniSONE 50 MG TAB PO ONE ×2 (01:00→07:00)
[2017-06-16] MEDS: SODIUM BICARBONATE 8.4% INJ 100 MEQ in DEXTROSE 5% IN WATE 1000ML INJ 1,000 ML IV SCH ×4 (01:10→20:04)
[2017-06-16] MEDS: oxyCODONE/ACETAMINOPHEN 10 MG/325 MG TAB PO PRN ×2 (01:10→12:59)
[2017-06-16 06:06] LABS: AUTOMATED NEUTROPHIL # 9.9 TH/MM3 (1.8-7.7); BASOPHIL % 0.1 % (0.0-2.0); HEMOGLOBIN 7.7 GM/DL (13.0-17.0); LYMPH % 5.9 % (9.0-44.0); LYMPHOCYTE # 0.6 TH/MM3 (1.0-4.8); MEAN CELL VOLUME 97.1 FL (80.0-100.0); MEAN CORPUSCULAR HEMOGLOBIN 32.6 PG (27.0-34.0); MEAN CORPUSCULAR HGB CONC 33.5 % (32.0-36.0); MEAN PLATELET VOLUME 7.1 FL (7.0-11.0); MONO % 1.5 % (0.0-8.0); MONOCYTE # 0.2 TH/MM3 (0-0.9); NEUT % 92.5 % (16.0-70.0); PLATELET COUNT 200 TH/MM3 (150-450); RED BLOOD COUNT 2.37 MIL/MM3 (4.50-5.90); RED CELL DISTRIBUTION WIDTH 17.2 % (11.6-17.2); WHITE BLOOD COUNT 10.6 TH/MM3 (4.0-11.0)
[2017-06-16 06:31] LABS: BICARBONATE 26.5 MEQ/L (21.0-32.0); CALCIUM 7.8 MG/DL (8.5-10.1); CREATININE 1.23 MG/DL (0.60-1.30)
[2017-06-16] MEDS ORDERED: diphenhydrAMINE HCL 50 MG CAP PO ONE (07:00)
--- NOTE | 2017-06-16 07:00 | PD.VS.PN ---
Pre-operative Note Pre-operative diagnosis: PAD, L LE ischemia with tissue loss Planned procedure: Aortogram w/ L LE angiogram, possible endovascular intervention Interval History: Pt admitted Friday from clinic - has had improved pain control with IV medications. Podiatry (Dr. 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 However, wouldn't do this without successful revascularization. Pt is ready for angio and attempts at endovascular therapy today. Labs: Laboratory Results Test 06/16/17 05:09 Anion Gap 7 MEQ/L (5-15) Blood Urea Nitrogen 24 MG/DL (7-18) Creatinine 1.23 MG/DL (0.60-1.30) Random Glucose 129 MG/DL (74-106) Calcium Level 7.8 MG/DL (8.5-10.1) Sodium Level 136 MEQ/L (136-145) Potassium Level 4.9 MEQ/L (3.5-5.1) Chloride Level 103 MEQ/L (98-107) Carbon Dioxide Level 26.5 MEQ/L (21.0-32.0) Hematocrit 23.0 % (39.0-51.0) Hemoglobin 7.7 GM/DL (13.0-17.0) Mean Corpuscular Hemoglobin 32.6 PG (27.0-34.0) Mean Corpuscular Hemoglobin Concent 33.5 % (32.0-36.0) Mean Corpuscular Volume 97.1 FL (80.0-100.0) Mean Platelet Volume 7.1 FL (7.0-11.0) Platelet Count 200 TH/MM3 (150-450) Red Blood Count 2.37 MIL/MM3 (4.50-5.90) Red Cell Distribution Width 17.2 % (11.6-17.2) White Blood Count 10.6 TH/MM3 (4.0-11.0) Blood: none needed Imaging: Last Impressions Chest X-Ray 06/13/17 0000 Signed Impressions: Service Date/Time: Tuesday, June 13, 2017 18:25 - CONCLUSION: 1. Subsegmental basilar airspace disease similar to May 13. Hector Zhou MD Orders: NPO Cefriaxone due at 0900 today - will give pre-op MIVF since MN with HCO3 (renal protection) Prednisone/Benadryl prep for contrast allergy Post-operative destination: PACU then CPCU Operative site marked: No (Angiogram so not indicated) Consent: Informed consent has been obtained from [place]. I have explained the procedure in detail and discussed the risks, benefits, and potential complications. All questions have been answered. Patient contact information: Edi,Lj Godinez MD Jun 16, 2017 07:00
[2017-06-16] MEDS ORDERED: PROTAMINE SULFATE 50 MG/5 ML VIAL ONE ×2 (07:10→09:23)
[2017-06-16] MEDS ORDERED: HEPARIN SODIUM - IV 10,000 UNITS/10 ML VIAL ONE (07:10)
[2017-06-16] MEDS ORDERED: HEPARIN-NS/PF INJ 1,000 ML ONE (07:17)
[2017-06-16] MEDS ORDERED: diphenhydrAMINE HCL 50 MG/ML VIAL ONE (07:33)
[2017-06-16] MEDS: cefTRIAXone INJ 1,000 MG in SODIUM CHLORIDE 0.9% INJ 100 ML IV SCH (08:30)
[2017-06-16] MEDS ORDERED: IOHEXOL 300 MG/ML 100 ML BTL (for Rad CT) IVCONTRAST ONE (09:31)
--- NOTE | 2017-06-16 09:34 | HHI.PR ---
cc: James Sanchez DPM Immediate Post Op Note Procedure Date: Jun 16, 2017 Pre Op Diagnosis: L LE PAD, ischemic tissue loss Post Op Diagnosis: L LE PAD, ischemic tissue loss Surgeon: Lj Daley Correctional Sergeant(s): none Procedure: 1. L LE angiogram 2. L popliteal artery DOT NET DEVELOPER (4mm) 3. L peroneal artery DOT NET DEVELOPER (2mm) 4. R RESIN MIXER Angioseal Findings: 1. Patent SFA DOT NET DEVELOPER/stent 2. Stenosis of BK pop, successful DOT NET DEVELOPER 3. Occlusion of AT/PT 4. Occlusion of peroneal - recanalized and DOT NET DEVELOPER 5. Minimal foot perfusion Complications: none Specimen(s) removed: none Estimated blood loss: 10 mL Anesthesia: LMA Drains: None Fluids: 250mL IVF Patient to: PACU Patient Condition: Good Date/Time of Procedure: SEE SURGICAL CARE RECORD Lj Daley MD Jun 16, 2017 09:34
--- NOTE | 2017-06-16 09:34 | HHI.PR ---
cc: James Sanchez DPM Immediate Post Op Note Procedure Date: Jun 16, 2017 Pre Op Diagnosis: L LE PAD, ischemic tissue loss Post Op Diagnosis: L LE PAD, ischemic tissue loss Surgeon: Lj Daley Wood Heel Flap Trimmer(s): none Procedure: 1. L LE angiogram 2. L popliteal artery PIPE ORGAN MECHANIC (4mm) 3. L peroneal artery PIPE ORGAN MECHANIC (2mm) 4. R HANDSTITCHING MACHINE ARMHOLE FELLER Angioseal Findings: 1. Patent SFA PIPE ORGAN MECHANIC/stent 2. Stenosis of BK pop, successful PIPE ORGAN MECHANIC 3. Occlusion of AT/PT 4. Occlusion of peroneal - recanalized and PIPE ORGAN MECHANIC 5. Minimal foot perfusion Complications: none Specimen(s) removed: none Estimated blood loss: 10 mL Anesthesia: LMA Drains: None Fluids: 250mL IVF Patient to: PACU Patient Condition: Good Date/Time of Procedure: SEE SURGICAL CARE RECORD Lj Daley MD Jun 16, 2017 09:34
--- NOTE | 2017-06-16 09:34 | HHI.PR ---
cc: James Sanchez DPM Immediate Post Op Note Procedure Date: Jun 16, 2017 Pre Op Diagnosis: L LE PAD, ischemic tissue loss Post Op Diagnosis: L LE PAD, ischemic tissue loss Surgeon: Lj Daley Plumbing Mechanic(s): none Procedure: 1. L LE angiogram 2. L popliteal artery TRAFFIC SIGNAL MECHANIC (4mm) 3. L peroneal artery TRAFFIC SIGNAL MECHANIC (2mm) 4. R DATA INTEGRITY CONSULTANT Angioseal Findings: 1. Patent SFA TRAFFIC SIGNAL MECHANIC/stent 2. Stenosis of BK pop, successful TRAFFIC SIGNAL MECHANIC 3. Occlusion of AT/PT 4. Occlusion of peroneal - recanalized and TRAFFIC SIGNAL MECHANIC 5. Minimal foot perfusion Complications: none Specimen(s) removed: none Estimated blood loss: 10 mL Anesthesia: LMA Drains: None Fluids: 250mL IVF Patient to: PACU Patient Condition: Good Date/Time of Procedure: SEE SURGICAL CARE RECORD Lj Daley MD Jun 16, 2017 09:34
[2017-06-16] MEDS ORDERED: DO NOT ADM ANY ANTICOAGULANT DRUGS PRN (09:42)
--- NOTE | 2017-06-16 09:55 | PD.WCN.NOT ---
Wound Consult Additional Information: Patient not seen, Doctor Daniel podiatry was consulted, saw patient and wrote wound care orders.Inpatient wound care is signing off. Angélica Melendez [facility] Jun 16, 2017 09:55
--- NOTE | 2017-06-16 09:55 | PD.WCN.NOT ---
Wound Consult Additional Information: Patient not seen, Doctor Daniel podiatry was consulted, saw patient and wrote wound care orders.Inpatient wound care is signing off. Angélica Melendez [facility] Jun 16, 2017 09:55
--- NOTE | 2017-06-16 09:55 | PD.WCN.NOT ---
Wound Consult Additional Information: Patient not seen, Doctor Daniel podiatry was consulted, saw patient and wrote wound care orders.Inpatient wound care is signing off. Angélica Melendez [facility] Jun 16, 2017 09:55
[2017-06-16] MEDS: INSULIN ASPART SUPPLEMENTAL SCALE SQ SCH ×4 (10:05→20:16)
[2017-06-16] MEDS: FERROUS SULFATE 300 MG /5ML UDC PO SCH (10:55)
[2017-06-16] MEDS: POLYETHYLENE GLYCOL 17 GM PKG PO SCH ×2 (10:55→20:03)
[2017-06-16] MEDS: MULTIVITAMIN-OPHTHALMIC 1 TAB PO SCH (10:56)
[2017-06-16] MEDS: PANTOPRAZOLE SOD 40 MG DELAYED RELEASE TAB PO SCH (10:57)
[2017-06-16] MEDS: CLOPIDOGREL 75 MG TAB PO SCH (10:57)
[2017-06-16] MEDS: SODIUM CHLORIDE 0.9% FLUSH 10 ML FLUSH IV FLUSH SCH ×2 (11:00→20:04)
[2017-06-16] MEDS: CELECOXIB 200 MG CAP PO SCH ×2 (11:01→20:03)
[2017-06-16] MEDS: FUROSEMIDE 20 MG TAB PO SCH (11:02)
[2017-06-16] MEDS: ASCORBIC ACID 500 MG TAB PO SCH (11:02)
[2017-06-16] MEDS: MULTIVITAMIN TAB PO SCH (11:08)
[2017-06-16] MEDS: DOCUSATE SODIUM 50 MG/SENNA 8.6 MG TAB PO SCH ×2 (11:09→20:03)
[2017-06-16] MEDS: METOPROLOL TARTRATE 25 MG TAB PO SCH (11:10)
[2017-06-16] MEDS: POTASSIUM CHLORIDE 20 MEQ CONTROLLED RELEASE TAB PO SCH (11:10)
[2017-06-16] MEDS: DRONABINOL 5 MG CAP PO SCH ×2 (11:12→15:36)
[2017-06-16] MEDS: HYDROCHLOROTHIAZIDE 12.5 MG CAP PO SCH (11:13)
--- NOTE | 2017-06-16 12:31 | MP ---
cc: GETACHEW DALEY MD DATE OF SURGERY: 06/16/2017 PREOPERATIVE DIAGNOSIS Left lower extremity ischemia, peripheral arterial occlusive disease. POSTOPERATIVE DIAGNOSIS Left lower extremity ischemia, peripheral arterial occlusive disease. PROCEDURE 1. Left lower extremity angiogram. 2. Left popliteal angioplasty with 4 mm balloon. 3. Left peroneal artery angioplasty with a 2-mm balloon. ATTENDING SURGEON Getachew Daley MD RESIDENT SURGEON None. ANESTHESIA LMA. INDICATIONS Mr. Mills is a 86-year-old gentleman with profound left lower extremity ischemia. He has undergone left SFA angioplasty and stent several weeks ago and has had progression of his tissue loss. He is taken to the operating room for endovascular treatment. There is no prior cath based imaging available since the progression of his tissue loss. DESCRIPTION OF PROCEDURE Informed consent was obtained. The patient is taken to the operating room and placed supine on the operating table. Appropriate time-out was taken to ensure the patient identity, the operative site and planned procedure. The administration of ceftriaxone was initiated prior to skin incision and will be continued postop with ongoing therapy. This was already instituted preoperatively and so we are just continuing and re-bolusing at appropriate time interval. Everyone in the room agreed with time-out and we proceeded. Bilateral groins were prepped and draped and the right groin was accessed with a 21 gauge micropuncture needle, was exchanged using Seldinger technique with micropuncture sheath through which a 0.35 Glidewire was introduced. The micropuncture sheath was exchanged for a 5-Martiniquais sheath and VCF catheter was placed over the wire and through the sheath. The VCF catheter and Glidewire were then navigated down to the left common femoral artery. The patient was systemically heparinized with 5000 units of IV heparin. A Raymundo wire was introduced down to the popliteal artery and the catheter and sheath were removed and a 6-Martiniquais 90 cm sheath was introduced. A CXI catheter was placed over the wire into the sheath and the COSTUME MAKER wire was placed and exchanged for the Raymundo wire. The COSTUME MAKER wire was used to easily navigate down to the distal peroneal artery and the entire peroneal artery angioplastied with a 2-mm angioplasty balloon. Completion angiogram showed excellent result without any recoil or extravasation. We then reintroduced the CXI catheter and multiple attempts were made to recanalize the anterior tibial artery, these were unsuccessful. The wire was then pulled back into the tibioperoneal trunk and the popliteal artery was angioplastied with a 4 mm balloon. The completion angiogram showed excellent result without any recoil or extravasation. The wire, catheter and sheath were removed and the groin was closed with AngioSeal. There were no complications. I was present and scrubbed for the entire procedure. INTERPRETATION OF IMAGES The patient has a patent left SFA and profunda. The distal SFA stent is widely patent. The distal below-knee popliteal artery has a focal stenosis. The posterior tibial artery is occluded. The anterior tibial artery occludes just after the genu and the peroneal artery has an occlusion of about 8 cm proximally. The peroneal artery was able to the recanalized and angioplastied with excellent result without any recoil, extravasation or embolic complications. Anterior tibial artery could not be recanalized and the popliteal artery was angioplastied without difficulty. I MD ATUL Negron/SHARONDA /11:50 AM /12:02 PM RYLIE
--- NOTE | 2017-06-16 12:31 | MP ---
cc: GETACHEW DALEY MD DATE OF SURGERY: 06/16/2017 PREOPERATIVE DIAGNOSIS Left lower extremity ischemia, peripheral arterial occlusive disease. POSTOPERATIVE DIAGNOSIS Left lower extremity ischemia, peripheral arterial occlusive disease. PROCEDURE 1. Left lower extremity angiogram. 2. Left popliteal angioplasty with 4 mm balloon. 3. Left peroneal artery angioplasty with a 2-mm balloon. ATTENDING SURGEON Getachew Daley MD RESIDENT SURGEON None. ANESTHESIA LMA. INDICATIONS Mr. Mills is a 86-year-old gentleman with profound left lower extremity ischemia. He has undergone left SFA angioplasty and stent several weeks ago and has had progression of his tissue loss. He is taken to the operating room for endovascular treatment. There is no prior cath based imaging available since the progression of his tissue loss. DESCRIPTION OF PROCEDURE Informed consent was obtained. The patient is taken to the operating room and placed supine on the operating table. Appropriate time-out was taken to ensure the patient identity, the operative site and planned procedure. The administration of ceftriaxone was initiated prior to skin incision and will be continued postop with ongoing therapy. This was already instituted preoperatively and so we are just continuing and re-bolusing at appropriate time interval. Everyone in the room agreed with time-out and we proceeded. Bilateral groins were prepped and draped and the right groin was accessed with a 21 gauge micropuncture needle, was exchanged using Seldinger technique with micropuncture sheath through which a 0.35 Glidewire was introduced. The micropuncture sheath was exchanged for a 5-[place] Islander sheath and VCF catheter was placed over the wire and through the sheath. The VCF catheter and Glidewire were then navigated down to the left common femoral artery. The patient was systemically heparinized with 5000 units of IV heparin. A Raymundo wire was introduced down to the popliteal artery and the catheter and sheath were removed and a 6-[place] Islander 90 cm sheath was introduced. A CXI catheter was placed over the wire into the sheath and the PHARMACY TECHNICIAN INFUSION wire was placed and exchanged for the Raymundo wire. The PHARMACY TECHNICIAN INFUSION wire was used to easily navigate down to the distal peroneal artery and the entire peroneal artery angioplastied with a 2-mm angioplasty balloon. Completion angiogram showed excellent result without any recoil or extravasation. We then reintroduced the CXI catheter and multiple attempts were made to recanalize the anterior tibial artery, these were unsuccessful. The wire was then pulled back into the tibioperoneal trunk and the popliteal artery was angioplastied with a 4 mm balloon. The completion angiogram showed excellent result without any recoil or extravasation. The wire, catheter and sheath were removed and the groin was closed with AngioSeal. There were no complications. I was present and scrubbed for the entire procedure. INTERPRETATION OF IMAGES The patient has a patent left SFA and profunda. The distal SFA stent is widely patent. The distal below-knee popliteal artery has a focal stenosis. The posterior tibial artery is occluded. The anterior tibial artery occludes just after the genu and the peroneal artery has an occlusion of about 8 cm proximally. The peroneal artery was able to the recanalized and angioplastied with excellent result without any recoil, extravasation or embolic complications. Anterior tibial artery could not be recanalized and the popliteal artery was angioplastied without difficulty. I MD ATUL Negron/SHARONDA /11:50 AM /12:02 PM RYLIE
--- NOTE | 2017-06-16 12:31 | MP ---
cc: GETACHEW DALEY MD DATE OF SURGERY: 06/16/2017 PREOPERATIVE DIAGNOSIS Left lower extremity ischemia, peripheral arterial occlusive disease. POSTOPERATIVE DIAGNOSIS Left lower extremity ischemia, peripheral arterial occlusive disease. PROCEDURE 1. Left lower extremity angiogram. 2. Left popliteal angioplasty with 4 mm balloon. 3. Left peroneal artery angioplasty with a 2-mm balloon. ATTENDING SURGEON Getachew Daley MD RESIDENT SURGEON None. ANESTHESIA LMA. INDICATIONS Mr. Mills is a 86-year-old gentleman with profound left lower extremity ischemia. He has undergone left SFA angioplasty and stent several weeks ago and has had progression of his tissue loss. He is taken to the operating room for endovascular treatment. There is no prior cath based imaging available since the progression of his tissue loss. DESCRIPTION OF PROCEDURE Informed consent was obtained. The patient is taken to the operating room and placed supine on the operating table. Appropriate time-out was taken to ensure the patient identity, the operative site and planned procedure. The administration of ceftriaxone was initiated prior to skin incision and will be continued postop with ongoing therapy. This was already instituted preoperatively and so we are just continuing and re-bolusing at appropriate time interval. Everyone in the room agreed with time-out and we proceeded. Bilateral groins were prepped and draped and the right groin was accessed with a 21 gauge micropuncture needle, was exchanged using Seldinger technique with micropuncture sheath through which a 0.35 Glidewire was introduced. The micropuncture sheath was exchanged for a 5-Ivorian sheath and VCF catheter was placed over the wire and through the sheath. The VCF catheter and Glidewire were then navigated down to the left common femoral artery. The patient was systemically heparinized with 5000 units of IV heparin. A Raymundo wire was introduced down to the popliteal artery and the catheter and sheath were removed and a 6-Ivorian 90 cm sheath was introduced. A CXI catheter was placed over the wire into the sheath and the ANIMAL DAYCARE PROVIDER wire was placed and exchanged for the Raymundo wire. The ANIMAL DAYCARE PROVIDER wire was used to easily navigate down to the distal peroneal artery and the entire peroneal artery angioplastied with a 2-mm angioplasty balloon. Completion angiogram showed excellent result without any recoil or extravasation. We then reintroduced the CXI catheter and multiple attempts were made to recanalize the anterior tibial artery, these were unsuccessful. The wire was then pulled back into the tibioperoneal trunk and the popliteal artery was angioplastied with a 4 mm balloon. The completion angiogram showed excellent result without any recoil or extravasation. The wire, catheter and sheath were removed and the groin was closed with AngioSeal. There were no complications. I was present and scrubbed for the entire procedure. INTERPRETATION OF IMAGES The patient has a patent left SFA and profunda. The distal SFA stent is widely patent. The distal below-knee popliteal artery has a focal stenosis. The posterior tibial artery is occluded. The anterior tibial artery occludes just after the genu and the peroneal artery has an occlusion of about 8 cm proximally. The peroneal artery was able to the recanalized and angioplastied with excellent result without any recoil, extravasation or embolic complications. Anterior tibial artery could not be recanalized and the popliteal artery was angioplastied without difficulty. I MD ATUL Negron/SHARONDA /11:50 AM /12:02 PM RYLIE
[2017-06-16] MEDS: SULFAMETHOXAZOLE-TRIMETHOPRIM DS 800-160 MG TAB PO SCH ×2 (15:36→20:03)
--- NOTE | 2017-06-16 15:48 | HHI.PR ---
Subjective Remarks Follow up foot pain, PAD, diabetes. Patient had vascular procedure today. Feels a little better now. No chest pain, dyspnea. He has wounds on his buttock. Objective Vitals Vital Signs Date Time Temp Pulse Resp B/P (MAP) Pulse Ox O2 Delivery O2 Flow Rate FiO2 06/16/17 14:30 98.3 84 18 107/74 (85) 96 06/16/17 14:00 80 06/16/17 14:00 17 06/16/17 13:00 104 06/16/17 12:30 98.1 78 18 112/69 (83) 96 06/16/17 12:00 74 06/16/17 11:22 98 21 06/16/17 11:00 92 06/16/17 10:30 98.5 81 17 116/55 (75) 100 06/16/17 10:15 97.9 83 14 112/57 (75) 100 Nasal Cannula 3 06/16/17 10:00 79 13 115/60 (78) 100 Nasal Cannula 3 06/16/17 10:00 92 06/16/17 09:45 89 13 114/65 (81) 99 Nasal Cannula 3 06/16/17 09:44 98.4 111 14 114/58 (76) 100 Nasal Cannula 3 06/16/17 07:30 98.6 90 16 100/54 (69) 95 06/16/17 07:28 79 06/16/17 06:18 92 06/16/17 05:14 89 06/16/17 04:01 86 06/16/17 03:10 97.9 95 16 97/53 (68) 97 06/16/17 03:07 87 06/16/17 02:12 89 06/16/17 01:00 101 06/16/17 00:01 101 06/15/17 23:25 113 06/15/17 23:23 98.1 84 16 104/69 (81) 96 06/15/17 22:12 89 06/15/17 21:00 85 06/15/17 20:00 88 06/15/17 19:00 97.7 80 16 113/59 (77) 94 06/15/17 19:00 104 06/15/17 18:00 88 06/15/17 17:00 82 06/15/17 16:00 97.9 84 18 92/55 (67) 96 06/15/17 16:00 84 I/O 06/15/17 06/15/17 06/15/17 06/16/17 06/16/17 06/16/17 07:00 15:00 23:00 07:00 15:00 23:00 Intake Total 460 ml 100 ml 775 ml 419 ml 250 ml Output Total 450 ml 475 ml 450 ml 10 ml Balance 10 ml 100 ml 300 ml -31 ml 240 ml Intake Oral 360 ml 675 ml 240 ml 0 ml IV Total 100 ml 100 ml 100 ml 179 ml 0 ml Other 250 ml Output Urine Total 450 ml 475 ml 450 ml Estimated Blood Loss 10 ml # Voids 3 0 # Bowel Movements 0 0 Result Diagram: 06/16/17 0509 06/16/17 0509 Imaging Last Impressions Chest X-Ray 06/13/17 0000 Signed Impressions: Service Date/Time: Tuesday, June 13, 2017 18:25 - CONCLUSION: 1. Subsegmental basilar airspace disease similar to May 13. Hector Zhou MD Objective Remarks General: Elderly male in no acute distress. Heart: Irregular rhythm. No murmur. Lungs: Clear to auscultation bilaterally. No wheezes, rales, or rhonchi. Breathing is nonlabored. Abdomen: Soft, nontender, nondistended. Extremities: 2+ bilateral lower extremity edema. Foot wounds bandaged. Psych: Sleeping, but awakens easily and answers questions appropriately. Skin: Small wounds on buttocks with erythema. Procedures None Urinary Catheter: No Vascular Central Line Catheter: No A/P Problem List: (1) PVD (peripheral vascular disease) ICD Code: I73.9 - Peripheral vascular disease, unspecified Status: Chronic (2) Hypertension ICD Code: I10 - Hypertension Status: Chronic (3) Diabetes mellitus ICD Code: E11.9 - Diabetes mellitus Status: Chronic (4) Atrial fibrillation ICD Code: I48.91 - Atrial fibrillation Status: Acute Assessment and Plan 1. Peripheral arterial disease, left lower extremity: Appreciate vascular surgery recommendations. S/P vascular surgery procedure. Pain improving. Appreciate podiatry recommendations. Patient will need amputation if circulation improves to lower leg/foot. 2. Poor appetite, weight loss: Continue dronabinol, Glucerna shakes. 3. Constipation: Continue bowel regimen. 4. Diabetes mellitus: Diet-controlled. Monitor Accu-Cheks and cover with sliding scale insulin. 5. Hypertension: Continue home medications. 6. Atrial fibrillation: Continue metoprolol. Xarelto on hold. 7. DVT prophylaxis: Xarelto on hold. 8. Generalized weakness, deconditioning: PT/OT. 9. Anemia: H&H low, but stable. Monitor closely. Check stool Hemoccult. 10. Decubitus ulcers, buttocks: Present on admission. Patient had not been allowing dressing change. Wound care nurse consult. Problem Qualifiers (1) Hypertension: Qualified Codes: I10 - Essential (primary) hypertension (2) Diabetes mellitus: Qualified Codes: E11.59 - Type 2 diabetes mellitus with other circulatory complications (3) Atrial fibrillation: Qualified Codes: I48.2 - Chronic atrial fibrillation Wilfredo Garcia MD Jun 16, 2017 15:48
--- NOTE | 2017-06-16 19:38 | PD.WCN.NOT ---
Wound Consult Description: Consult for wound management of buttock per Dr Garcia Communicated with: RAMÍREZ [address] Dr Recommendation: Calazime BID and PRN to gluteal cleft and bilateral buttocks Please continue to reposition patient Q2H and PRN for comfort Additional Information: Patient seen on for 3 wounds noted to sacrum, gluteal cleft and right buttock. There is a wound measuring ~1cm x 1cm x <0.1cm of 100% epithelial tissue noted to sacrum. There is a gluteal cleft fissure noted measuring 0.9cm x 0.2cm x ~0.2cm of partial thickness skin loss with 100% red non granulating tissue. There is a left buttock wound measuring 1cm x 1cm x <0.1cm of moist 100 % red non granulating tissue without drainage and without odor. Wound margins are sharp and wound presents as a punched out lesion indicating a Stage II pressure injury. Wounds were gently cleansed with NS and gauze and left open to air. Patient is noted on a Lisa mattress/bed and was positioned to his right side before leaving patient room. Debbie See [facility] Jun 16, 2017 19:38
[2017-06-16] MEDS: oxyCODONE/ACETAMINOPHEN 5 MG/325 MG TAB PO PRN (23:19)
[2017-06-17] VITALS (31 sets, daily range): BP systolic 84–108; BP diastolic 51–68; PULSE 56–134; RESP 16–18; TEMP 97.4–98.4; O2SAT 92–98
[2017-06-17 05:24] LABS: LYMPH % 12.6 % (9.0-44.0); LYMPHOCYTE # 1.1 TH/MM3 (1.0-4.8); MEAN CELL VOLUME 97.1 FL (80.0-100.0); MEAN CORPUSCULAR HEMOGLOBIN 32.3 PG (27.0-34.0); MEAN CORPUSCULAR HGB CONC 33.3 % (32.0-36.0); MONO % 3.6 % (0.0-8.0); MONOCYTE # 0.3 TH/MM3 (0-0.9); NEUT % 83.8 % (16.0-70.0); PLATELET COUNT 204 TH/MM3 (150-450); RED BLOOD COUNT 2.08 MIL/MM3 (4.50-5.90); RED CELL DISTRIBUTION WIDTH 17.4 % (11.6-17.2); WHITE BLOOD COUNT 8.3 TH/MM3 (4.0-11.0)
[2017-06-17 05:49] LABS: HEMATOCRIT 20.2 % (39.0-51.0); HEMOGLOBIN 6.7 GM/DL (13.0-17.0)
[2017-06-17] MEDS ORDERED: SODIUM CHLOR 0.9% 250 ML INJ 250 ML IV ONE (06:00)
[2017-06-17 06:02] LABS: BICARBONATE 27.6 MEQ/L (21.0-32.0); CALCIUM 7.4 MG/DL (8.5-10.1); CREATININE 1.33 MG/DL (0.60-1.30)
[2017-06-17 06:14] LABS: CALCIUM-PROTEIN CORRECTED 8.8 MG/DL (8.5-10.1); TOTAL PROTEIN 4.6 GM/DL (6.4-8.2)
[2017-06-17] MEDS: INSULIN ASPART SUPPLEMENTAL SCALE SQ SCH ×4 (08:00→21:00)
[2017-06-17] MEDS: SULFAMETHOXAZOLE-TRIMETHOPRIM DS 800-160 MG TAB PO SCH ×2 (09:00→20:42)
[2017-06-17] MEDS: METOPROLOL TARTRATE 25 MG TAB PO SCH (09:00)
[2017-06-17] MEDS: FERROUS SULFATE 300 MG /5ML UDC PO SCH (09:00)
[2017-06-17] MEDS: SODIUM CHLORIDE 0.9% FLUSH 10 ML FLUSH IV FLUSH SCH ×2 (09:00→20:43)
[2017-06-17] MEDS: POTASSIUM CHLORIDE 20 MEQ CONTROLLED RELEASE TAB PO SCH (09:00)
[2017-06-17] MEDS: CLOPIDOGREL 75 MG TAB PO SCH (09:23)
[2017-06-17] MEDS: MULTIVITAMIN TAB PO SCH (09:25)
[2017-06-17] MEDS: CELECOXIB 200 MG CAP PO SCH ×2 (09:26→20:43)
[2017-06-17] MEDS: FUROSEMIDE 20 MG TAB PO SCH (09:26)
[2017-06-17] MEDS: MULTIVITAMIN-OPHTHALMIC 1 TAB PO SCH (09:26)
[2017-06-17] MEDS: ASCORBIC ACID 500 MG TAB PO SCH (09:28)
[2017-06-17] MEDS: DOCUSATE SODIUM 50 MG/SENNA 8.6 MG TAB PO SCH ×2 (09:28→20:42)
[2017-06-17] MEDS: PANTOPRAZOLE SOD 40 MG DELAYED RELEASE TAB PO SCH (09:29)
[2017-06-17] MEDS: POLYETHYLENE GLYCOL 17 GM PKG PO SCH ×2 (09:29→20:43)
[2017-06-17] MEDS: RIVAROXABAN 15 MG TAB PO SCH (09:29)
--- NOTE | 2017-06-17 09:29 | PD.VS.PN ---
Subjective POD #: 1 Procedure(s): L LE angiogram L popliteal artery KEEPER HEAD (4mm) L peroneal artery KEEPER HEAD (2mm) R DRYING ROOM ATTENDANT Angioseal Subjective/Hospital Course 86/M with a hx of progressive ischemia of his LLE Pt s/p LLE revascularization POD 1 Pain controlled Pt reported his LLE "feels better" Objective Vitals/I&O Date Time Temp Pulse Resp B/P (MAP) Pulse Ox O2 Delivery O2 Flow Rate FiO2 06/17/17 08:28 92 21 06/17/17 07:45 97.7 74 16 90/54 (66) 94 06/17/17 07:00 63 06/17/17 06:00 101 06/17/17 05:10 98 06/17/17 04:03 65 06/17/17 03:08 97.4 68 16 84/51 (62) 96 06/17/17 03:05 61 06/17/17 00:38 18 06/16/17 23:00 61 06/16/17 23:00 98.1 73 16 93/55 (68) 95 06/16/17 22:04 21 06/16/17 20:30 97.1 55 16 90/55 (67) 97 06/16/17 19:00 59 06/16/17 19:00 97.1 55 16 90/55 (67) 97 06/16/17 18:00 62 06/16/17 17:00 72 06/16/17 16:30 98.0 71 17 101/61 (74) 97 06/16/17 16:00 58 06/16/17 15:00 61 06/16/17 15:00 98.2 84 17 98/51 (67) 96 06/16/17 14:30 98.3 84 18 107/74 (85) 96 06/16/17 14:00 80 06/16/17 14:00 17 06/16/17 13:00 104 06/16/17 12:30 98.1 78 18 112/69 (83) 96 06/16/17 12:00 74 06/16/17 11:22 98 21 06/16/17 11:00 92 06/16/17 10:30 98.5 81 17 116/55 (75) 100 06/16/17 10:15 97.9 83 14 112/57 (75) 100 Nasal Cannula 3 06/16/17 10:00 79 13 115/60 (78) 100 Nasal Cannula 3 06/16/17 10:00 92 06/16/17 09:45 89 13 114/65 (81) 99 Nasal Cannula 3 06/16/17 09:44 98.4 111 14 114/58 (76) 100 Nasal Cannula 3 06/17/17 06/17/17 06/17/17 07:00 15:00 23:00 Intake Total 710 ml Output Total 350 ml Balance 360 ml Exam: GENERAL:Afebrile 86/M A&OX3/GCS15/ NAD SKIN: LE warm w/ motor intact, necrotic LEFT 1st, 3,4,5 th digit toes noted with slight odor Pulses: Biphasic LEFT/RIGHT DP Incisions: Right groin w/o swelling or hematoma Laboratory Laboratory Tests Test 06/17/17 05:00 White Blood Count 8.3 Red Blood Count 2.08 Hemoglobin 6.7 Hematocrit 20.2 Mean Corpuscular Volume 97.1 Mean Corpuscular Hemoglobin 32.3 Mean Corpuscular Hemoglobin Concent 33.3 Red Cell Distribution Width 17.4 Platelet Count 204 Mean Platelet Volume 7.0 Neutrophils (%) (Auto) 83.8 Lymphocytes (%) (Auto) 12.6 Monocytes (%) (Auto) 3.6 Eosinophils (%) (Auto) 0.0 Basophils (%) (Auto) 0.0 Neutrophils # (Auto) 7.0 Lymphocytes # (Auto) 1.1 Monocytes # (Auto) 0.3 Eosinophils # (Auto) 0.0 Basophils # (Auto) 0.0 CBC Comment DIFF FINAL Differential Comment Blood Urea Nitrogen 30 Creatinine 1.33 Random Glucose 124 Total Protein 4.6 Calcium Level 7.4 Sodium Level 134 Potassium Level 5.5 Chloride Level 102 Carbon Dioxide Level 27.6 Anion Gap 4 Estimat Glomerular Filtration Rate 51 Protein Corrected Calcium 8.8 Date/Time Source Procedure Growth Status 06/14/17 02:20 Urine Clean Catch Urine Culture - Final Citrobacter Freundii Complete Assessment and Plan Assessment: (1) PVD (peripheral vascular disease) Status: Chronic Plan S/P L LE angiogram/revascularization BLE warm Biphasic Left DP Plan Discussed w/ pt in detail benefits of Rehab for continued therapy Pt refused and stated he has his daughter/son who will take care of him while at home Pt refusing rehab Arranged out pt f/u Cristy ESQUIVEL [facility] [place] [phone] Discharge Planning Pt clear for D/C from a vascular standpoint Arranged post op f/u Cristy Nj Jun 17, 2017 09:29
--- NOTE | 2017-06-17 09:29 | PD.VS.PN ---
Subjective POD #: 1 Procedure(s): L LE angiogram L popliteal artery INVESTIGATION DIVISION SERGEANT (4mm) L peroneal artery INVESTIGATION DIVISION SERGEANT (2mm) R HOLLOCK MAKER Angioseal Subjective/Hospital Course 86/M with a hx of progressive ischemia of his LLE Pt s/p LLE revascularization POD 1 Pain controlled Pt reported his LLE "feels better" Objective Vitals/I&O Date Time Temp Pulse Resp B/P (MAP) Pulse Ox O2 Delivery O2 Flow Rate FiO2 06/17/17 08:28 92 21 06/17/17 07:45 97.7 74 16 90/54 (66) 94 06/17/17 07:00 63 06/17/17 06:00 101 06/17/17 05:10 98 06/17/17 04:03 65 06/17/17 03:08 97.4 68 16 84/51 (62) 96 06/17/17 03:05 61 06/17/17 00:38 18 06/16/17 23:00 61 06/16/17 23:00 98.1 73 16 93/55 (68) 95 06/16/17 22:04 21 06/16/17 20:30 97.1 55 16 90/55 (67) 97 06/16/17 19:00 59 06/16/17 19:00 97.1 55 16 90/55 (67) 97 06/16/17 18:00 62 06/16/17 17:00 72 06/16/17 16:30 98.0 71 17 101/61 (74) 97 06/16/17 16:00 58 06/16/17 15:00 61 06/16/17 15:00 98.2 84 17 98/51 (67) 96 06/16/17 14:30 98.3 84 18 107/74 (85) 96 06/16/17 14:00 80 06/16/17 14:00 17 06/16/17 13:00 104 06/16/17 12:30 98.1 78 18 112/69 (83) 96 06/16/17 12:00 74 06/16/17 11:22 98 21 06/16/17 11:00 92 06/16/17 10:30 98.5 81 17 116/55 (75) 100 06/16/17 10:15 97.9 83 14 112/57 (75) 100 Nasal Cannula 3 06/16/17 10:00 79 13 115/60 (78) 100 Nasal Cannula 3 06/16/17 10:00 92 06/16/17 09:45 89 13 114/65 (81) 99 Nasal Cannula 3 06/16/17 09:44 98.4 111 14 114/58 (76) 100 Nasal Cannula 3 06/17/17 06/17/17 06/17/17 07:00 15:00 23:00 Intake Total 710 ml Output Total 350 ml Balance 360 ml Exam: GENERAL:[age]febrile 86/M A&OX3/GCS15/ NAD SKIN: LE warm w/ motor intact, necrotic LEFT 1st, 3,4,5 th digit toes noted with slight odor Pulses: Biphasic LEFT/RIGHT DP Incisions: Right groin w/o swelling or hematoma Laboratory Laboratory Tests Test 06/17/17 05:00 White Blood Count 8.3 Red Blood Count 2.08 Hemoglobin 6.7 Hematocrit 20.2 Mean Corpuscular Volume 97.1 Mean Corpuscular Hemoglobin 32.3 Mean Corpuscular Hemoglobin Concent 33.3 Red Cell Distribution Width 17.4 Platelet Count 204 Mean Platelet Volume 7.0 Neutrophils (%) (Auto) 83.8 Lymphocytes (%) (Auto) 12.6 Monocytes (%) (Auto) 3.6 Eosinophils (%) (Auto) 0.0 Basophils (%) (Auto) 0.0 Neutrophils # (Auto) 7.0 Lymphocytes # (Auto) 1.1 Monocytes # (Auto) 0.3 Eosinophils # (Auto) 0.0 Basophils # (Auto) 0.0 CBC Comment DIFF FINAL Differential Comment Blood Urea Nitrogen 30 Creatinine 1.33 Random Glucose 124 Total Protein 4.6 Calcium Level 7.4 Sodium Level 134 Potassium Level 5.5 Chloride Level 102 Carbon Dioxide Level 27.6 Anion Gap 4 Estimat Glomerular Filtration Rate 51 Protein Corrected Calcium 8.8 Date/Time Source Procedure Growth Status 06/14/17 02:20 Urine Clean Catch Urine Culture - Final Citrobacter Freundii Complete Assessment and Plan Assessment: (1) PVD (peripheral vascular disease) Status: Chronic Plan S/P L LE angiogram/revascularization BLE warm Biphasic Left DP Plan Discussed w/ pt in detail benefits of Rehab for continued therapy Pt refused and stated he has his daughter/son who will take care of him while at home Pt refusing rehab Arranged out pt f/u Cristy ESQUIVEL [facility] [phone] Discharge Planning Pt clear for D/C from a vascular standpoint Arranged post op f/u Cristy Nj Jun 17, 2017 09:29
--- NOTE | 2017-06-17 09:29 | PD.VS.PN ---
Subjective POD #: 1 Procedure(s): L LE angiogram L popliteal artery EXHIBITS COORDINATOR (4mm) L peroneal artery EXHIBITS COORDINATOR (2mm) R [facility] Angioseal Subjective/Hospital Course 86/M with a hx of progressive ischemia of his LLE Pt s/p LLE revascularization POD 1 Pain controlled Pt reported his LLE "feels better" Objective Vitals/I&O Date Time Temp Pulse Resp B/P (MAP) Pulse Ox O2 Delivery O2 Flow Rate FiO2 06/17/17 08:28 92 21 06/17/17 07:45 97.7 74 16 90/54 (66) 94 06/17/17 07:00 63 06/17/17 06:00 101 06/17/17 05:10 98 06/17/17 04:03 65 06/17/17 03:08 97.4 68 16 84/51 (62) 96 06/17/17 03:05 61 06/17/17 00:38 18 06/16/17 23:00 61 06/16/17 23:00 98.1 73 16 93/55 (68) 95 06/16/17 22:04 21 06/16/17 20:30 97.1 55 16 90/55 (67) 97 06/16/17 19:00 59 06/16/17 19:00 97.1 55 16 90/55 (67) 97 06/16/17 18:00 62 06/16/17 17:00 72 06/16/17 16:30 98.0 71 17 101/61 (74) 97 06/16/17 16:00 58 06/16/17 15:00 61 06/16/17 15:00 98.2 84 17 98/51 (67) 96 06/16/17 14:30 98.3 84 18 107/74 (85) 96 06/16/17 14:00 80 06/16/17 14:00 17 06/16/17 13:00 104 06/16/17 12:30 98.1 78 18 112/69 (83) 96 06/16/17 12:00 74 06/16/17 11:22 98 21 06/16/17 11:00 92 06/16/17 10:30 98.5 81 17 116/55 (75) 100 06/16/17 10:15 97.9 83 14 112/57 (75) 100 Nasal Cannula 3 06/16/17 10:00 79 13 115/60 (78) 100 Nasal Cannula 3 06/16/17 10:00 92 06/16/17 09:45 89 13 114/65 (81) 99 Nasal Cannula 3 06/16/17 09:44 98.4 111 14 114/58 (76) 100 Nasal Cannula 3 06/17/17 06/17/17 06/17/17 07:00 15:00 23:00 Intake Total 710 ml Output Total 350 ml Balance 360 ml Exam: GENERAL:Afebrile 86/M A&OX3/GCS15/ NAD SKIN: LE warm w/ motor intact, necrotic LEFT 1st, 3,4,5 th digit toes noted with slight odor Pulses: Biphasic LEFT/RIGHT DP Incisions: Right groin w/o swelling or hematoma Laboratory Laboratory Tests Test 06/17/17 05:00 White Blood Count 8.3 Red Blood Count 2.08 Hemoglobin 6.7 Hematocrit 20.2 Mean Corpuscular Volume 97.1 Mean Corpuscular Hemoglobin 32.3 Mean Corpuscular Hemoglobin Concent 33.3 Red Cell Distribution Width 17.4 Platelet Count 204 Mean Platelet Volume 7.0 Neutrophils (%) (Auto) 83.8 Lymphocytes (%) (Auto) 12.6 Monocytes (%) (Auto) 3.6 Eosinophils (%) (Auto) 0.0 Basophils (%) (Auto) 0.0 Neutrophils # (Auto) 7.0 Lymphocytes # (Auto) 1.1 Monocytes # (Auto) 0.3 Eosinophils # (Auto) 0.0 Basophils # (Auto) 0.0 CBC Comment DIFF FINAL Differential Comment Blood Urea Nitrogen 30 Creatinine 1.33 Random Glucose 124 Total Protein 4.6 Calcium Level 7.4 Sodium Level 134 Potassium Level 5.5 Chloride Level 102 Carbon Dioxide Level 27.6 Anion Gap 4 Estimat Glomerular Filtration Rate 51 Protein Corrected Calcium 8.8 Date/Time Source Procedure Growth Status 06/14/17 02:20 Urine Clean Catch Urine Culture - Final Citrobacter Freundii Complete Assessment and Plan Assessment: (1) PVD (peripheral vascular disease) Status: Chronic Plan S/P L LE angiogram/revascularization BLE warm Biphasic Left DP Plan Discussed w/ pt in detail benefits of Rehab for continued therapy Pt refused and stated he has his daughter/son who will take care of him while at home Pt refusing rehab Arranged out pt f/u Cristy ESQUIVEL [facility] [phone] Discharge Planning Pt clear for D/C from a vascular standpoint Arranged post op f/u Cristy Nj Jun 17, 2017 09:29
[2017-06-17] MEDS: HYDROCHLOROTHIAZIDE 12.5 MG CAP PO SCH (09:32)
--- NOTE | 2017-06-17 10:52 | HHI.PR ---
Subjective Remarks Follow up PAD, anemia. The patient states that his left leg pain has improved significantly. He does feel lightheaded, dizzy. Denies chest pain or dyspnea. Objective Vitals Vital Signs Date Time Temp Pulse Resp B/P (MAP) Pulse Ox O2 Delivery O2 Flow Rate FiO2 06/17/17 10:41 98.0 98 18 103/61 97 06/17/17 10:35 98.1 108 18 104/68 97 06/17/17 10:30 98.1 97 18 106/65 96 06/17/17 10:23 98.3 95 18 108/58 97 06/17/17 08:28 92 21 06/17/17 07:45 97.7 74 16 90/54 (66) 94 06/17/17 07:00 63 06/17/17 06:00 101 06/17/17 05:10 98 06/17/17 04:03 65 06/17/17 03:08 97.4 68 16 84/51 (62) 96 06/17/17 03:05 61 06/17/17 00:38 18 06/16/17 23:00 61 06/16/17 23:00 98.1 73 16 93/55 (68) 95 06/16/17 22:04 21 06/16/17 20:30 97.1 55 16 90/55 (67) 97 06/16/17 19:00 59 06/16/17 19:00 97.1 55 16 90/55 (67) 97 06/16/17 18:00 62 06/16/17 17:00 72 06/16/17 16:30 98.0 71 17 101/61 (74) 97 06/16/17 16:00 58 06/16/17 15:00 61 06/16/17 15:00 98.2 84 17 98/51 (67) 96 06/16/17 14:30 98.3 84 18 107/74 (85) 96 06/16/17 14:00 80 06/16/17 14:00 17 06/16/17 13:00 104 06/16/17 12:30 98.1 78 18 112/69 (83) 96 06/16/17 12:00 74 06/16/17 11:22 98 21 06/16/17 11:00 92 I/O 10/30/06/16/17 06/16/17 06/17/17 06/17/17 06/17/17 07:00 15:00 23:00 07:00 15:00 23:00 Intake Total 419 ml 250 ml 300 ml 710 ml 500 ml Output Total 450 ml 10 ml 150 ml 350 ml Balance -31 ml 240 ml 150 ml 360 ml 500 ml Intake Oral 240 ml 0 ml 300 ml 330 ml IV Total 179 ml 0 ml 380 ml Blood Product IV Normal Saline Flush 500 ml Other 250 ml Output Urine Total 450 ml 150 ml 350 ml Estimated Blood Loss 10 ml # Voids 3 0 2 Result Diagram: 06/17/17 0500 06/17/17 0500 Imaging Last Impressions Chest X-Ray 06/13/17 0000 Signed Impressions: Service Date/Time: Tuesday, June 13, 2017 18:25 - CONCLUSION: 1. Subsegmental basilar airspace disease similar to May 13. Hector Zhou MD Objective Remarks General: Elderly male in no acute distress. Heart: Irregular rhythm. No murmur. Lungs: Clear to auscultation bilaterally. No wheezes, rales, or rhonchi. Breathing is nonlabored. Abdomen: Soft, nontender, nondistended. Extremities: 2+ bilateral lower extremity edema. Foot wounds bandaged. Psych: Alert, answers questions appropriately. Procedures None Urinary Catheter: No Vascular Central Line Catheter: No A/P Problem List: (1) PVD (peripheral vascular disease) ICD Code: I73.9 - Peripheral vascular disease, unspecified Status: Chronic (2) Hypertension ICD Code: I10 - Hypertension Status: Chronic (3) Diabetes mellitus ICD Code: E11.9 - Diabetes mellitus Status: Chronic (4) Atrial fibrillation ICD Code: I48.91 - Atrial fibrillation Status: Acute Assessment and Plan 1. Peripheral arterial disease, left lower extremity: Appreciate vascular surgery recommendations. S/P vascular surgery procedure. Pain improving. Appreciate podiatry recommendations. Patient will need amputation if circulation improves to lower leg/foot. 2. Poor appetite, weight loss: Continue dronabinol, Glucerna shakes. 3. Constipation: Continue bowel regimen. 4. Diabetes mellitus: Diet-controlled. Monitor Accu-Cheks and cover with sliding scale insulin. 5. Hypertension: Continue home medications. 6. Atrial fibrillation: Continue metoprolol. Xarelto on hold. 7. DVT prophylaxis: Xarelto on hold. 8. Generalized weakness, deconditioning: PT/OT. 9. Anemia: H&H decreased today. Stool Hemoccult ordered. Transfuse 1 unit PRBCs and recheck hemoglobin this afternoon. 10. Decubitus ulcers, buttocks: Present on admission. Patient had not been allowing dressing change. Wound care nurse consult. Discharge Planning Anticipate discharge to inpatient rehabilitation soon, possibly tomorrow. Problem Qualifiers (1) Hypertension: Qualified Codes: I10 - Essential (primary) hypertension (2) Diabetes mellitus: Qualified Codes: E11.59 - Type 2 diabetes mellitus with other circulatory complications (3) Atrial fibrillation: Qualified Codes: I48.2 - Chronic atrial fibrillation Wilfredo Garcia MD Jun 17, 2017 10:52
[2017-06-17] MEDS: DRONABINOL 5 MG CAP PO SCH ×2 (11:08→15:45)
[2017-06-17 16:54] LABS: HEMATOCRIT 26.7 % (39.0-51.0); HEMOGLOBIN 9.1 GM/DL (13.0-17.0)
[2017-06-17] MEDS: oxyCODONE/ACETAMINOPHEN 5 MG/325 MG TAB PO PRN (20:42)
[2017-06-17] MEDS: SODIUM BICARBONATE 8.4% INJ 100 MEQ in DEXTROSE 5% IN WATE 1000ML INJ 1,000 ML IV SCH ×2 (23:42)
[2017-06-18] VITALS (28 sets, daily range): BP systolic 91–106; BP diastolic 52–64; PULSE 59–110; RESP 16–18; TEMP 97.6–98; O2SAT 92–96
[2017-06-18] MEDS: oxyCODONE/ACETAMINOPHEN 5 MG/325 MG TAB PO PRN ×4 (01:01→20:26)
[2017-06-18 04:44] LABS: AUTOMATED NEUTROPHIL # 5.1 TH/MM3 (1.8-7.7); EOSINOPHIL # 0.1 TH/MM3 (0-0.4); EOSINOPHIL % 1.1 % (0.0-4.0); HEMATOCRIT 24.8 % (39.0-51.0); HEMOGLOBIN 8.2 GM/DL (13.0-17.0); LYMPH % 21.7 % (9.0-44.0); LYMPHOCYTE # 1.6 TH/MM3 (1.0-4.8); MEAN CELL VOLUME 91.7 FL (80.0-100.0); MEAN CORPUSCULAR HEMOGLOBIN 30.4 PG (27.0-34.0); MEAN CORPUSCULAR HGB CONC 33.2 % (32.0-36.0); MEAN PLATELET VOLUME 6.8 FL (7.0-11.0); MONO % 5.8 % (0.0-8.0); MONOCYTE # 0.4 TH/MM3 (0-0.9); NEUT % 71.4 % (16.0-70.0); PLATELET COUNT 199 TH/MM3 (150-450); RED CELL DISTRIBUTION WIDTH 20.5 % (11.6-17.2); WHITE BLOOD COUNT 7.2 TH/MM3 (4.0-11.0)
[2017-06-18 05:06] LABS: BICARBONATE 26.3 MEQ/L (21.0-32.0); CALCIUM 7.6 MG/DL (8.5-10.1); CREATININE 1.41 MG/DL (0.60-1.30)
[2017-06-18] MEDS: INSULIN ASPART SUPPLEMENTAL SCALE SQ SCH ×2 (08:00→11:30)
[2017-06-18] MEDS ORDERED: SODIUM CHLOR 0.9% 1000 ML INJ 1,000 ML IV SCH (08:00)
[2017-06-18] MEDS: HYDROCHLOROTHIAZIDE 12.5 MG CAP PO SCH (09:05)
[2017-06-18] MEDS: DOCUSATE SODIUM 50 MG/SENNA 8.6 MG TAB PO SCH ×2 (09:05→20:23)
[2017-06-18] MEDS: POLYETHYLENE GLYCOL 17 GM PKG PO SCH ×2 (09:05→20:27)
[2017-06-18] MEDS: FUROSEMIDE 20 MG TAB PO SCH (09:05)
[2017-06-18] MEDS: POTASSIUM CHLORIDE 20 MEQ CONTROLLED RELEASE TAB PO SCH (09:06)
[2017-06-18] MEDS: MULTIVITAMIN-OPHTHALMIC 1 TAB PO SCH (09:07)
[2017-06-18] MEDS: CLOPIDOGREL 75 MG TAB PO SCH (09:08)
[2017-06-18] MEDS: CELECOXIB 200 MG CAP PO SCH ×2 (09:08→20:23)
[2017-06-18] MEDS: RIVAROXABAN 15 MG TAB PO SCH (09:08)
[2017-06-18] MEDS: METOPROLOL TARTRATE 25 MG TAB PO SCH (09:08)
[2017-06-18] MEDS: PANTOPRAZOLE SOD 40 MG DELAYED RELEASE TAB PO SCH (09:08)
[2017-06-18] MEDS: FERROUS SULFATE 300 MG /5ML UDC PO SCH (09:08)
[2017-06-18] MEDS: ASCORBIC ACID 500 MG TAB PO SCH (09:09)
[2017-06-18] MEDS: SODIUM CHLORIDE 0.9% FLUSH 10 ML FLUSH IV FLUSH SCH ×2 (09:09→21:00)
[2017-06-18] MEDS: SULFAMETHOXAZOLE-TRIMETHOPRIM DS 800-160 MG TAB PO SCH ×2 (09:09→20:22)
[2017-06-18] MEDS: MULTIVITAMIN TAB PO SCH (09:11)
--- NOTE | 2017-06-18 09:14 | HHI.PR ---
Subjective Remarks Follow up anemia, renal insufficiency. Patient reports pain in the left foot, unchanged from yesterday. No dyspnea, chest pain. Objective Vitals Vital Signs Date Time Temp Pulse Resp B/P (MAP) Pulse Ox O2 Delivery O2 Flow Rate FiO2 06/18/17 08:00 61 06/18/17 08:00 97.6 61 16 103/57 (72) 92 06/18/17 07:01 73 06/18/17 06:07 63 06/18/17 05:41 16 06/18/17 05:07 95 06/18/17 04:01 67 06/18/17 03:34 80 06/18/17 03:30 97.9 73 17 91/52 (65) 96 06/18/17 02:13 65 06/18/17 01:07 62 06/18/17 00:27 59 06/17/17 23:24 98.4 88 18 99/56 (70) 98 06/17/17 23:23 62 06/17/17 22:05 65 06/17/17 21:00 60 06/17/17 20:00 64 06/17/17 19:00 98.2 59 16 102/59 (73) 95 06/17/17 19:00 59 06/17/17 18:00 56 06/17/17 17:59 97 21 06/17/17 17:00 56 06/17/17 16:00 64 06/17/17 15:00 60 06/17/17 15:00 97.7 58 17 104/61 (75) 97 06/17/17 14:00 64 06/17/17 13:00 96 06/17/17 12:00 134 06/17/17 11:20 98.0 98 17 103/64 (77) 97 06/17/17 11:00 74 06/17/17 10:41 98.0 98 18 103/61 97 06/17/17 10:35 98.1 108 18 104/68 97 06/17/17 10:30 98.1 97 18 106/65 96 06/17/17 10:23 98.3 95 18 108/58 97 06/17/17 10:00 106 I/O 06/17/17 06/17/17 06/17/17 06/18/17 06/18/17 06/18/17 07:00 15:00 23:00 07:00 15:00 23:00 Intake Total 710 ml 965 ml 400 ml 210 ml Output Total 350 ml 150 ml 300 ml Balance 360 ml 965 ml 250 ml -90 ml Intake Oral 330 ml 400 ml 210 ml IV Total 380 ml 50 ml Packed Cells 400 ml Blood Product IV Normal Saline Flush 515 ml Output Urine Total 350 ml 150 ml 300 ml # Voids 2 3 2 # Bowel Movements 2 Result Diagram: 06/18/17 0402 06/18/17 0402 Imaging Last Impressions Chest X-Ray 06/13/17 0000 Signed Impressions: Service Date/Time: Tuesday, June 13, 2017 18:25 - CONCLUSION: 1. Subsegmental basilar airspace disease similar to May 13. Hector Zhou MD Objective Remarks General: Elderly male in no acute distress. Heart: Irregular rhythm. No murmur. Lungs: Clear to auscultation bilaterally. No wheezes, rales, or rhonchi. Breathing is nonlabored. Abdomen: Soft, nontender, nondistended. Extremities: 2+ bilateral lower extremity edema. Foot wounds bandaged. Psych: Alert, answers questions appropriately. Procedures 06/16/17 LLE angiogram, left popliteal angioplasty, left peroneal artery angioplasty Urinary Catheter: No Vascular Central Line Catheter: No A/P Problem List: (1) PVD (peripheral vascular disease) ICD Code: I73.9 - Peripheral vascular disease, unspecified Status: Chronic (2) Hypertension ICD Code: I10 - Hypertension Status: Chronic (3) Diabetes mellitus ICD Code: E11.9 - Diabetes mellitus Status: Chronic (4) Atrial fibrillation ICD Code: I48.91 - Atrial fibrillation Status: Acute Assessment and Plan 1. Peripheral arterial disease, left lower extremity: Appreciate vascular surgery recommendations. S/P vascular surgery procedure. Pain improving. Appreciate podiatry recommendations. Patient will need amputation if circulation improves to lower leg/foot. 2. Poor appetite, weight loss: Continue dronabinol, Glucerna shakes. 3. Constipation: Continue bowel regimen. Required manual disimpaction yesterday. 4. Diabetes mellitus: Diet-controlled. Monitor Accu-Cheks and cover with sliding scale insulin. 5. Hypertension: BP borderline low. Hold HCTZ, furosemide. Continue metoprolol. 6. Atrial fibrillation: Continue metoprolol, Xarelto. 7. DVT prophylaxis: Xarelto. 8. Generalized weakness, deconditioning: PT/OT. 9. Anemia: H/H improved after transfusion, but trending down again. Stool Hemoccult negative. No apparent bleeding. 10. Decubitus ulcers, buttocks: Present on admission. Continue wound care. Discharge Planning Anticipate discharge to inpatient rehabilitation soon, possibly tomorrow. Problem Qualifiers (1) Hypertension: Qualified Codes: I10 - Essential (primary) hypertension (2) Diabetes mellitus: Qualified Codes: E11.59 - Type 2 diabetes mellitus with other circulatory complications (3) Atrial fibrillation: Qualified Codes: I48.2 - Chronic atrial fibrillation Wilfredo Garcia MD Jun 18, 2017 09:14
[2017-06-18] MEDS: DRONABINOL 5 MG CAP PO SCH ×2 (11:30→15:43)
[2017-06-18] MEDS: oxyCODONE/ACETAMINOPHEN 10 MG/325 MG TAB PO PRN (12:09)
[2017-06-18 16:47] LABS: HEMATOCRIT 29.3 % (39.0-51.0); HEMOGLOBIN 9.6 GM/DL (13.0-17.0)
[2017-06-19] VITALS (26 sets, daily range): BP systolic 105–120; BP diastolic 51–58; PULSE 57–112; RESP 16–20; TEMP 97.4–98.3; O2SAT 94–98
[2017-06-19] MEDS: oxyCODONE/ACETAMINOPHEN 5 MG/325 MG TAB PO PRN ×5 (00:16→21:49)
[2017-06-19 05:04] LABS: AUTOMATED NEUTROPHIL # 4.1 TH/MM3 (1.8-7.7); BASOPHIL % 0.1 % (0.0-2.0); EOSINOPHIL # 0.2 TH/MM3 (0-0.4); EOSINOPHIL % 3.5 % (0.0-4.0); HEMATOCRIT 26.4 % (39.0-51.0); HEMOGLOBIN 8.7 GM/DL (13.0-17.0); LYMPH % 31.3 % (9.0-44.0); LYMPHOCYTE # 2.2 TH/MM3 (1.0-4.8); MEAN CELL VOLUME 92.3 FL (80.0-100.0); MEAN CORPUSCULAR HEMOGLOBIN 30.4 PG (27.0-34.0); MEAN PLATELET VOLUME 6.5 FL (7.0-11.0); MONO % 6.3 % (0.0-8.0); MONOCYTE # 0.4 TH/MM3 (0-0.9); NEUT % 58.8 % (16.0-70.0); PLATELET COUNT 217 TH/MM3 (150-450); RED BLOOD COUNT 2.86 MIL/MM3 (4.50-5.90); RED CELL DISTRIBUTION WIDTH 19.9 % (11.6-17.2)
[2017-06-19 05:29] LABS: BICARBONATE 27.9 MEQ/L (21.0-32.0); CALCIUM 7.5 MG/DL (8.5-10.1); CREATININE 1.51 MG/DL (0.60-1.30)
[2017-06-19 08:10] LABS: OVALOCYTES 1+ (NORMAL)
[2017-06-19] MEDS: SODIUM CHLORIDE 0.9% FLUSH 10 ML FLUSH IV FLUSH SCH ×2 (08:34→20:54)
[2017-06-19] MEDS: SULFAMETHOXAZOLE-TRIMETHOPRIM DS 800-160 MG TAB PO SCH ×2 (08:34→20:54)
[2017-06-19] MEDS: CELECOXIB 200 MG CAP PO SCH ×2 (08:34→20:54)
[2017-06-19] MEDS: FERROUS SULFATE 300 MG /5ML UDC PO SCH (08:34)
[2017-06-19] MEDS: MULTIVITAMIN-OPHTHALMIC 1 TAB PO SCH (08:34)
[2017-06-19] MEDS: CLOPIDOGREL 75 MG TAB PO SCH (08:34)
[2017-06-19] MEDS: POLYETHYLENE GLYCOL 17 GM PKG PO SCH ×2 (08:34→21:00)
[2017-06-19] MEDS: METOPROLOL TARTRATE 25 MG TAB PO SCH (08:35)
[2017-06-19] MEDS: DOCUSATE SODIUM 50 MG/SENNA 8.6 MG TAB PO SCH ×2 (08:35→20:54)
[2017-06-19] MEDS: MULTIVITAMIN TAB PO SCH (08:35)
[2017-06-19] MEDS: RIVAROXABAN 15 MG TAB PO SCH (08:35)
[2017-06-19] MEDS: ASCORBIC ACID 500 MG TAB PO SCH (08:35)
[2017-06-19] MEDS: PANTOPRAZOLE SOD 40 MG DELAYED RELEASE TAB PO SCH (08:35)
--- NOTE | 2017-06-19 10:20 | PD.VS.PN ---
Subjective POD #: 3 Procedure(s): L LE angiogram L popliteal artery REINFORCING STEEL ERECTOR (4mm) L peroneal artery REINFORCING STEEL ERECTOR (2mm) R GROUNDSMAN Angioseal Subjective/Hospital Course 86/M with a hx of progressive ischemia of his LLE Pt s/p LLE revascularization POD 3 Pt sitting in chair w/o c/o CP/SOB Pt denies rest pain Dressing to L foot I/C/D Objective Vitals/I&O Date Time Temp Pulse Resp B/P (MAP) Pulse Ox O2 Delivery O2 Flow Rate FiO2 06/19/17 10:07 112 06/19/17 09:00 103 06/19/17 08:42 97 06/19/17 08:00 91 06/19/17 08:00 98.1 91 16 109/58 (75) 94 06/19/17 07:04 72 06/19/17 06:00 71 06/19/17 05:06 82 06/19/17 04:00 90 06/19/17 04:00 73 06/19/17 04:00 97.9 73 20 109/56 (73) 96 06/19/17 02:00 87 06/19/17 01:00 68 06/19/17 00:36 98.2 73 20 110/56 (74) 96 06/19/17 00:00 73 06/18/17 23:00 73 06/18/17 22:00 69 06/18/17 21:00 72 06/18/17 20:00 98.0 72 18 106/59 (75) 96 06/18/17 20:00 76 06/18/17 19:00 72 06/18/17 18:00 78 06/18/17 17:26 20 06/18/17 17:00 74 06/18/17 16:00 74 06/18/17 15:04 97.9 71 16 98/64 (75) 94 06/18/17 15:00 71 06/18/17 14:00 74 06/18/17 13:09 20 06/18/17 13:00 68 06/18/17 12:00 61 06/18/17 11:34 98.0 68 16 106/62 (77) 92 06/18/17 11:00 75 06/19/17 06/19/17 06/19/17 07:00 15:00 23:00 Intake Total 590 ml 400 ml Output Total 900 ml Balance -310 ml 400 ml Exam: GENERAL: A&OX3,NAD,GCS15 SKIN: Warm and dry LE warm w/ motor intact Necrotic LEFT 1st, 3,4,5 th digit toes noted with slight odor (no change from last assessment) L LE with slight edema present RESPIRATORY: Breath sounds equal bilaterally. No accessory muscle use. GASTROINTESTINAL: Abdomen soft, non-tender, nondistended. Pulses: Biphasic L/R DP Laboratory Laboratory Tests Test 06/18/17 16:34 06/19/17 04:47 Hemoglobin 9.6 8.7 Hematocrit 29.3 26.4 White Blood Count 7.0 Red Blood Count 2.86 Mean Corpuscular Volume 92.3 Mean Corpuscular Hemoglobin 30.4 Mean Corpuscular Hemoglobin Concent 33.0 Red Cell Distribution Width 19.9 Platelet Count 217 Mean Platelet Volume 6.5 Neutrophils (%) (Auto) 58.8 Lymphocytes (%) (Auto) 31.3 Monocytes (%) (Auto) 6.3 Eosinophils (%) (Auto) 3.5 Basophils (%) (Auto) 0.1 Neutrophils # (Auto) 4.1 Lymphocytes # (Auto) 2.2 Monocytes # (Auto) 0.4 Eosinophils # (Auto) 0.2 Basophils # (Auto) 0.0 CBC Comment AUTO DIFF Differential Comment AUTO DIFF CONFIRMED Platelet Estimate NORMAL Platelet Morphology Comment NORMAL Ovalocytes 1+ Blood Urea Nitrogen 32 Creatinine 1.51 Random Glucose 72 Calcium Level 7.5 Sodium Level 134 Potassium Level 4.8 Chloride Level 99 Carbon Dioxide Level 27.9 Anion Gap 7 Estimat Glomerular Filtration Rate 44 Date/Time Source Procedure Growth Status 06/17/17 12:20 Stool Stool Stool Occult Blood (JACQUES) - Final HEMOCCULT NEGATIVE Complete 06/14/17 02:20 Urine Clean Catch Urine Culture - Final Citrobacter Freundii Complete Assessment and Plan Assessment: (1) PVD (peripheral vascular disease) Status: Chronic Plan S/P L LE angiogram/revascularization BLE warm Biphasic Left DP L LE wounds stable w/o change Plan Discussed w/ pt and girlfriend in detail benefits of Rehab for continued therapy [facility] pt f/u Cristy ESQUIVEL [facility]/[place] [phone] Discharge Planning Pt clear for D/C from a vascular standpoint Arranged post op f/u Cristy Nj CARBURIZER Jun 19, 2017 10:20
--- NOTE | 2017-06-19 10:20 | PD.VS.PN ---
Subjective POD #: 3 Procedure(s): L LE angiogram L popliteal artery CONSERVATION SCIENCE OFFICER (4mm) L peroneal artery CONSERVATION SCIENCE OFFICER (2mm) R PHYSICIST [employer] Angioseal Subjective/Hospital Course 86/M with a hx of progressive ischemia of his LLE Pt s/p LLE revascularization POD 3 Pt sitting in chair w/o c/o CP/SOB Pt denies rest pain Dressing to L foot I/C/D Objective Vitals/I&O Date Time Temp Pulse Resp B/P (MAP) Pulse Ox O2 Delivery O2 Flow Rate FiO2 06/19/17 10:07 112 06/19/17 09:00 103 06/19/17 08:42 97 06/19/17 08:00 91 06/19/17 08:00 98.1 91 16 109/58 (75) 94 06/19/17 07:04 72 06/19/17 06:00 71 06/19/17 05:06 82 06/19/17 04:00 90 06/19/17 04:00 73 06/19/17 04:00 97.9 73 20 109/56 (73) 96 06/19/17 02:00 87 06/19/17 01:00 68 06/19/17 00:36 98.2 73 20 110/56 (74) 96 06/19/17 00:00 73 06/18/17 23:00 73 06/18/17 22:00 69 06/18/17 21:00 72 06/18/17 20:00 98.0 72 18 106/59 (75) 96 06/18/17 20:00 76 06/18/17 19:00 72 06/18/17 18:00 78 06/18/17 17:26 20 06/18/17 17:00 74 06/18/17 16:00 74 06/18/17 15:04 97.9 71 16 98/64 (75) 94 06/18/17 15:00 71 06/18/17 14:00 74 06/18/17 13:09 20 06/18/17 13:00 68 06/18/17 12:00 61 06/18/17 11:34 98.0 68 16 106/62 (77) 92 06/18/17 11:00 75 06/19/17 06/19/17 06/19/17 07:00 15:00 23:00 Intake Total 590 ml 400 ml Output Total 900 ml Balance -310 ml 400 ml Exam: GENERAL: A&OX3,NAD,GCS15 SKIN: Warm and dry LE warm w/ motor intact Necrotic LEFT 1st, 3,4,5 th digit toes noted with slight odor (no change from last assessment) L LE with slight edema present RESPIRATORY: Breath sounds equal bilaterally. No accessory muscle use. GASTROINTESTINAL: Abdomen soft, non-tender, nondistended. Pulses: Biphasic L/R DP Laboratory Laboratory Tests Test 06/18/17 16:34 06/19/17 04:47 Hemoglobin 9.6 8.7 Hematocrit 29.3 26.4 White Blood Count 7.0 Red Blood Count 2.86 Mean Corpuscular Volume 92.3 Mean Corpuscular Hemoglobin 30.4 Mean Corpuscular Hemoglobin Concent 33.0 Red Cell Distribution Width 19.9 Platelet Count 217 Mean Platelet Volume 6.5 Neutrophils (%) (Auto) 58.8 Lymphocytes (%) (Auto) 31.3 Monocytes (%) (Auto) 6.3 Eosinophils (%) (Auto) 3.5 Basophils (%) (Auto) 0.1 Neutrophils # (Auto) 4.1 Lymphocytes # (Auto) 2.2 Monocytes # (Auto) 0.4 Eosinophils # (Auto) 0.2 Basophils # (Auto) 0.0 CBC Comment AUTO DIFF Differential Comment AUTO DIFF CONFIRMED Platelet Estimate NORMAL Platelet Morphology Comment NORMAL Ovalocytes 1+ Blood Urea Nitrogen 32 Creatinine 1.51 Random Glucose 72 Calcium Level 7.5 Sodium Level 134 Potassium Level 4.8 Chloride Level 99 Carbon Dioxide Level 27.9 Anion Gap 7 Estimat Glomerular Filtration Rate 44 Date/Time Source Procedure Growth Status 06/17/17 12:20 Stool Stool Stool Occult Blood (JACQUES) - Final HEMOCCULT NEGATIVE Complete 06/14/17 02:20 Urine Clean Catch Urine Culture - Final Citrobacter Freundii Complete Assessment and Plan Assessment: (1) PVD (peripheral vascular disease) Status: Chronic Plan S/P L LE angiogram/revascularization BLE warm Biphasic Left DP L LE wounds stable w/o change Plan Discussed w/ pt and girlfriend in detail benefits of Rehab for continued therapy [facility] pt f/u Cristy ESQUIVEL [facility]/[place] [phone] Discharge Planning Pt clear for D/C from a vascular standpoint Arranged post op f/u Cristy Nj TELEPHONE INSTALLER Jun 19, 2017 10:20
--- NOTE | 2017-06-19 10:20 | PD.VS.PN ---
Subjective POD #: 3 Procedure(s): L LE angiogram L popliteal artery VOLCANOLOGIST (4mm) L peroneal artery VOLCANOLOGIST (2mm) R BANJO REPAIRER Angioseal Subjective/Hospital Course 86/M with a hx of progressive ischemia of his LLE Pt s/p LLE revascularization POD 3 Pt sitting in chair w/o c/o CP/SOB Pt denies rest pain Dressing to L foot I/C/D Objective Vitals/I&O Date Time Temp Pulse Resp B/P (MAP) Pulse Ox O2 Delivery O2 Flow Rate FiO2 06/19/17 10:07 112 06/19/17 09:00 103 06/19/17 08:42 97 06/19/17 08:00 91 06/19/17 08:00 98.1 91 16 109/58 (75) 94 06/19/17 07:04 72 06/19/17 06:00 71 06/19/17 05:06 82 06/19/17 04:00 90 06/19/17 04:00 73 06/19/17 04:00 97.9 73 20 109/56 (73) 96 06/19/17 02:00 87 06/19/17 01:00 68 06/19/17 00:36 98.2 73 20 110/56 (74) 96 06/19/17 00:00 73 06/18/17 23:00 73 06/18/17 22:00 69 06/18/17 21:00 72 06/18/17 20:00 98.0 72 18 106/59 (75) 96 06/18/17 20:00 76 06/18/17 19:00 72 06/18/17 18:00 78 06/18/17 17:26 20 06/18/17 17:00 74 06/18/17 16:00 74 06/18/17 15:04 97.9 71 16 98/64 (75) 94 06/18/17 15:00 71 06/18/17 14:00 74 06/18/17 13:09 20 06/18/17 13:00 68 06/18/17 12:00 61 06/18/17 11:34 98.0 68 16 106/62 (77) 92 06/18/17 11:00 75 06/19/17 06/19/17 06/19/17 07:00 15:00 23:00 Intake Total 590 ml 400 ml Output Total 900 ml Balance -310 ml 400 ml Exam: GENERAL: A&OX3,NAD,GCS15 SKIN: Warm and dry LE warm w/ motor intact Necrotic LEFT 1st, 3,4,5 th digit toes noted with slight odor (no change from last assessment) L LE with slight edema present RESPIRATORY: Breath sounds equal bilaterally. No accessory muscle use. GASTROINTESTINAL: Abdomen soft, non-tender, nondistended. Pulses: Biphasic L/R DP Laboratory Laboratory Tests Test 06/18/17 16:34 06/19/17 04:47 Hemoglobin 9.6 8.7 Hematocrit 29.3 26.4 White Blood Count 7.0 Red Blood Count 2.86 Mean Corpuscular Volume 92.3 Mean Corpuscular Hemoglobin 30.4 Mean Corpuscular Hemoglobin Concent 33.0 Red Cell Distribution Width 19.9 Platelet Count 217 Mean Platelet Volume 6.5 Neutrophils (%) (Auto) 58.8 Lymphocytes (%) (Auto) 31.3 Monocytes (%) (Auto) 6.3 Eosinophils (%) (Auto) 3.5 Basophils (%) (Auto) 0.1 Neutrophils # (Auto) 4.1 Lymphocytes # (Auto) 2.2 Monocytes # (Auto) 0.4 Eosinophils # (Auto) 0.2 Basophils # (Auto) 0.0 CBC Comment AUTO DIFF Differential Comment AUTO DIFF CONFIRMED Platelet Estimate NORMAL Platelet Morphology Comment NORMAL Ovalocytes 1+ Blood Urea Nitrogen 32 Creatinine 1.51 Random Glucose 72 Calcium Level 7.5 Sodium Level 134 Potassium Level 4.8 Chloride Level 99 Carbon Dioxide Level 27.9 Anion Gap 7 Estimat Glomerular Filtration Rate 44 Date/Time Source Procedure Growth Status 06/17/17 12:20 Stool Stool Stool Occult Blood (JACQUES) - Final HEMOCCULT NEGATIVE Complete 06/14/17 02:20 Urine Clean Catch Urine Culture - Final Citrobacter Freundii Complete Assessment and Plan Assessment: (1) PVD (peripheral vascular disease) Status: Chronic Plan S/P L LE angiogram/revascularization BLE warm Biphasic Left DP L LE wounds stable w/o change Plan Discussed w/ pt and girlfriend in detail benefits of Rehab for continued therapy Pt reported he [facility] Arranged out pt f/u Cristy ESQUIVEL [facility]/[place] [phone] Discharge Planning Pt clear for D/C from a vascular standpoint Arranged post op f/u Cristy Nj TRAVELING CLERK Jun 19, 2017 10:20
[2017-06-19] MEDS: DRONABINOL 5 MG CAP PO SCH ×2 (11:40→16:30)
--- NOTE | 2017-06-19 17:44 | HHI.PR ---
Subjective Remarks Confused. States that he has no chest pain shortness of breath. As when he can go home. Objective Vitals Vital Signs Date Time Temp Pulse Resp B/P (MAP) Pulse Ox O2 Delivery O2 Flow Rate FiO2 06/19/17 17:17 63 06/19/17 16:00 67 06/19/17 15:00 97.4 57 16 105/51 (69) 98 06/19/17 15:00 58 06/19/17 14:03 63 06/19/17 13:12 74 06/19/17 12:04 82 06/19/17 11:04 63 06/19/17 11:00 97.9 90 16 108/58 (75) 96 06/19/17 10:07 112 06/19/17 09:00 103 06/19/17 08:42 97 06/19/17 08:00 91 06/19/17 08:00 98.1 91 16 109/58 (75) 94 06/19/17 07:04 72 06/19/17 06:00 71 06/19/17 05:06 82 06/19/17 04:00 90 06/19/17 04:00 73 06/19/17 04:00 97.9 73 20 109/56 (73) 96 06/19/17 02:00 87 06/19/17 01:00 68 06/19/17 00:36 98.2 73 20 110/56 (74) 96 06/19/17 00:00 73 06/18/17 23:00 73 06/18/17 22:00 69 06/18/17 21:00 72 06/18/17 20:00 98.0 72 18 106/59 (75) 96 06/18/17 20:00 76 06/18/17 19:00 72 06/18/17 18:00 78 I/O 06/18/17 06/18/17 06/18/17 06/19/17 06/19/17 06/19/17 07:00 15:00 23:00 07:00 15:00 23:00 Intake Total 210 ml 1425 ml 590 ml 400 ml 480 ml Output Total 300 ml 650 ml 900 ml 600 ml Balance -90 ml 775 ml -310 ml 400 ml -120 ml Intake Oral 210 ml 625 ml 240 ml 480 ml IV Total 800 ml 350 ml 400 ml Output Urine Total 300 ml 650 ml 900 ml 600 ml # Voids 2 3 # Bowel Movements 0 0 Result Diagram: 06/19/177 06/19/177 Other Results Microbiology Date/Time Source Procedure Growth Status 06/17/17 12:20 Stool Stool Stool Occult Blood (JACQUES) - Final HEMOCCULT NEGATIVE Complete 06/14/17 02:20 Urine Clean Catch Urine Culture - Final Citrobacter Freundii Complete Objective Remarks GENERAL: This is a well-nourished, well-developed patient, in no apparent distress. CARDIOVASCULAR: Regular rate and irregular rhythm RESPIRATORY: Clear to auscultation. Breath sounds equal bilaterally. No wheezes , rales, or rhonchi. GASTROINTESTINAL: Abdomen soft, non-tender, nondistended. Normal, active bowel sounds MUSCULOSKELETAL: Extremities without clubbing, cyanosis, or edema. NEURO: Alert & Oriented x2 to person, place only, not to situation, confused. Moves all ext x4, generalized weakness. Procedures 06/16/17 LLE angiogram, left popliteal angioplasty, left peroneal artery angioplasty A/P Problem List: (1) PVD (peripheral vascular disease) ICD Code: I73.9 - Peripheral vascular disease, unspecified Status: Chronic (2) Hypertension ICD Code: I10 - Hypertension Status: Chronic (3) Diabetes mellitus ICD Code: E11.9 - Diabetes mellitus Status: Chronic (4) Atrial fibrillation ICD Code: I48.91 - Atrial fibrillation Status: Acute Assessment and Plan 1. Peripheral arterial disease, left lower extremity: Appreciate vascular surgery recommendations. S/P postoperative day #3 left lower extremity angiogram with left popliteal angioplasty of left peroneal artery. Pain improving. Appreciate podiatry recommendations. Patient will need amputation if circulation improves to lower leg/foot. Continue with Plavix. 2. Poor appetite, weight loss, severe malnutrition: Continue dronabinol, Glucerna shakes. Pre-albumin level reviewed with decreased functional speech instructor, at this time continue with supplements and encourage oral intake. 3. Constipation: Continue constipation bowel regimen. Required manual disimpaction yesterday. 4. Diabetes mellitus, type II: Diet-controlled. Monitor Accu-Cheks and cover with sliding scale insulin. 5. Hypertension: BP borderline low. Hold HCTZ, furosemide. Continue metoprolol. 6. Atrial fibrillation now with tachycardia bradycardia episodes and: Nursing staff states patient became tachycardic in the 140s 150s when physical therapy got him up to ambulate. When beta guillermo given, patient has pulses in bradycardic episodes. Continue Xarelto. Consult his open hearth stockyard supervisor Dr. Wilder for further evaluation 7. DVT prophylaxis: Xarelto. 8. Generalized weakness, deconditioning: PT/OT. 9. Anemia: H/H improved after transfusion, but trending down again. Stool Hemoccult negative. No apparent bleeding. 10. Decubitus ulcers, buttocks: Present on admission. Continue wound care. Discharge Planning To inpatient rehabilitation when cardiac status stabilizes. Problem Qualifiers (1) Hypertension: Qualified Codes: I10 - Essential (primary) hypertension (2) Diabetes mellitus: Qualified Codes: E11.59 - Type 2 diabetes mellitus with other circulatory complications (3) Atrial fibrillation: Qualified Codes: I48.2 - Chronic atrial fibrillation Sofia Rolon MD Jun 19, 2017 17:44
[2017-06-19] MEDS ORDERED: METOPROLOL TARTRATE 25 MG TAB PO SCH (21:00)
[2017-06-20] VITALS (29 sets, daily range): BP systolic 97–123; BP diastolic 53–59; PULSE 64–148; RESP 16–18; TEMP 97.7–98.1; O2SAT 96–98
[2017-06-20] MEDS: oxyCODONE/ACETAMINOPHEN 5 MG/325 MG TAB PO PRN ×4 (03:25→23:51)
[2017-06-20] MEDS: FERROUS SULFATE 300 MG /5ML UDC PO SCH (08:57)
[2017-06-20] MEDS: SULFAMETHOXAZOLE-TRIMETHOPRIM DS 800-160 MG TAB PO SCH ×2 (08:58→20:17)
[2017-06-20] MEDS: ASCORBIC ACID 500 MG TAB PO SCH (08:58)
[2017-06-20] MEDS: RIVAROXABAN 15 MG TAB PO SCH (08:58)
[2017-06-20] MEDS: CELECOXIB 200 MG CAP PO SCH ×2 (08:59→20:14)
[2017-06-20] MEDS: MULTIVITAMIN TAB PO SCH (08:59)
[2017-06-20] MEDS: CLOPIDOGREL 75 MG TAB PO SCH (08:59)
[2017-06-20] MEDS ORDERED: METOPROLOL TARTRATE 25 MG TAB PO SCH (09:00)
[2017-06-20] MEDS: DOCUSATE SODIUM 50 MG/SENNA 8.6 MG TAB PO SCH ×2 (09:00→20:13)
[2017-06-20] MEDS: MULTIVITAMIN-OPHTHALMIC 1 TAB PO SCH (09:01)
[2017-06-20] MEDS: PANTOPRAZOLE SOD 40 MG DELAYED RELEASE TAB PO SCH (09:01)
[2017-06-20] MEDS: POLYETHYLENE GLYCOL 17 GM PKG PO SCH ×2 (09:02→20:16)
[2017-06-20] MEDS: SODIUM CHLORIDE 0.9% FLUSH 10 ML FLUSH IV FLUSH SCH ×2 (09:02→20:15)
[2017-06-20] MEDS: DRONABINOL 5 MG CAP PO SCH ×2 (11:51→16:52)
[2017-06-20 13:18] LABS: AUTOMATED NEUTROPHIL # 7.7 TH/MM3 (1.8-7.7); BASOPHIL % 0.2 % (0.0-2.0); EOSINOPHIL # 0.1 TH/MM3 (0-0.4); EOSINOPHIL % 1.2 % (0.0-4.0); HEMATOCRIT 27.9 % (39.0-51.0); HEMOGLOBIN 9.5 GM/DL (13.0-17.0); LYMPHOCYTE # 1.1 TH/MM3 (1.0-4.8); MEAN CELL VOLUME 92.7 FL (80.0-100.0); MEAN CORPUSCULAR HEMOGLOBIN 31.4 PG (27.0-34.0); MEAN CORPUSCULAR HGB CONC 33.9 % (32.0-36.0); MONOCYTE # 0.5 TH/MM3 (0-0.9); NEUT % 81.6 % (16.0-70.0); PLATELET COUNT 268 TH/MM3 (150-450); RED BLOOD COUNT 3.01 MIL/MM3 (4.50-5.90); RED CELL DISTRIBUTION WIDTH 19.7 % (11.6-17.2); WHITE BLOOD COUNT 9.4 TH/MM3 (4.0-11.0)
[2017-06-20 13:27] LABS: BICARBONATE 26.6 MEQ/L (21.0-32.0); CALCIUM 7.7 MG/DL (8.5-10.1); CREATININE 1.54 MG/DL (0.60-1.30)
--- NOTE | 2017-06-20 13:34 | HHI.PR ---
Subjective Remarks Wants to try to sit up and urinate. No pain. Objective Vitals Vital Signs Date Time Temp Pulse Resp B/P (MAP) Pulse Ox O2 Delivery O2 Flow Rate FiO2 06/20/17 11:54 97.7 80 18 123/58 (79) 98 06/20/17 10:29 97 06/20/17 10:24 18 06/20/17 07:15 98.0 77 17 110/59 (76) 97 06/20/17 06:00 75 06/20/17 05:00 75 06/20/17 04:00 82 06/20/17 04:00 97.9 67 18 101/56 (71) 96 06/20/17 03:00 84 06/20/17 02:00 74 06/20/17 01:00 67 06/20/17 00:00 98.1 74 18 115/59 (77) 96 06/20/17 00:00 80 06/19/17 23:00 80 06/19/17 22:00 76 06/19/17 21:00 69 06/19/17 20:00 72 06/19/17 20:00 98.3 77 18 120/58 (78) 96 06/19/17 19:00 77 06/19/17 18:00 64 06/19/17 17:17 63 06/19/17 16:00 67 06/19/17 15:00 97.4 57 16 105/51 (69) 98 06/19/17 15:00 58 06/19/17 14:03 63 I/O 06/19/17 06/19/17 06/19/17 06/20/17 06/20/17 06/20/17 07:00 15:00 23:00 07:00 15:00 23:00 Intake Total 590 ml 400 ml 480 ml 240 ml Output Total 900 ml 600 ml 625 ml Balance -310 ml 400 ml -120 ml -385 ml Intake Oral 240 ml 480 ml 240 ml IV Total 350 ml 400 ml Output Urine Total 900 ml 600 ml 625 ml # Voids 3 # Bowel Movements 0 Result Diagram: 06/20/17 1221 06/20/17 1221 Objective Remarks GENERAL: This is a well-nourished, well-developed patient, in no apparent distress. CARDIOVASCULAR: Regular rate and irregular rhythm RESPIRATORY: Clear to auscultation. Breath sounds equal bilaterally. No wheezes , rales, or rhonchi. GASTROINTESTINAL: Abdomen soft, non-tender, nondistended. Normal, active bowel sounds MUSCULOSKELETAL: Extremities without clubbing, left black eschar dry over the fourth and fifth digits of the left lower extremity that's unchanged NEURO: Alert & Oriented x2 to person, place only, not to situation, confused. Moves all ext x4, generalized weakness. Procedures 06/16/17 LLE angiogram, left popliteal angioplasty, left peroneal artery angioplasty A/P Problem List: (1) PVD (peripheral vascular disease) ICD Code: I73.9 - Peripheral vascular disease, unspecified Status: Chronic (2) Hypertension ICD Code: I10 - Hypertension Status: Chronic (3) Diabetes mellitus ICD Code: E11.9 - Diabetes mellitus Status: Chronic (4) Atrial fibrillation ICD Code: I48.91 - Atrial fibrillation Status: Acute Assessment and Plan 1. Peripheral arterial disease, left lower extremity: Appreciate vascular surgery recommendations. S/P postoperative day #4 left lower extremity angiogram with left popliteal angioplasty of left peroneal artery. Pain improving. Appreciate podiatry recommendations. Patient will need amputation if circulation does not improves to lower leg/foot. Continue with Plavix. Currently medically stable to be transferred over to inpatient rehabilitation for continued physical therapy. 2. Poor appetite, weight loss, severe malnutrition: Continue dronabinol, Glucerna shakes. Pre-albumin level reviewed with decreased functional strainer mill operator, at this time continue with supplements and encourage oral intake. 3. Constipation: Continue constipation bowel regimen. Required manual disimpaction 2 days ago 4. Diabetes mellitus, type II: Diet-controlled. Monitor Accu-Cheks and cover with sliding scale insulin. 5. Hypertension: BP borderline low. Hold HCTZ, furosemide. Continue metoprolol. 6. Atrial fibrillation with previous tachycardia bradycardia episodes and: Nursing staff states patient became tachycardic in the 140s 150s when physical therapy got him up to ambulate. Yesterday When beta guillermo given, patient has pulses in bradycardic episodes. Continue Xarelto. Consult his fire extinguisher installer Dr. Wilder for further evaluation, cardiology to continue to monitor at inpatient rehabilitation. Heart rate improved overnight. 7. DVT prophylaxis: Xarelto. 8. Generalized weakness, deconditioning: PT/OT. 9. Anemia: H/H improved after transfusion,Stool Hemoccult negative. No apparent bleeding. Hemoglobin stable today 10. Decubitus ulcers, buttocks: Present on admission. Continue wound care. 11. Chronic kidney disease stage III- creatinine has been stable overnight, furosemide currently on hold and will continue to monitor. Discharge Planning Discharge to inpatient rehabilitation today. Problem Qualifiers (1) Hypertension: Qualified Codes: I10 - Essential (primary) hypertension (2) Diabetes mellitus: Qualified Codes: E11.59 - Type 2 diabetes mellitus with other circulatory complications (3) Atrial fibrillation: Qualified Codes: I48.2 - Chronic atrial fibrillation Sofia Rolon MD Jun 20, 2017 13:34
[2017-06-20] MEDS ORDERED: SULF1TAB23 PO (13:39)
[2017-06-20] MEDS ORDERED: OXYC1TAB36 PO (13:39)
[2017-06-20] MEDS ORDERED: OXYC1TAB63 PO (13:39)
--- NOTE | 2017-06-20 13:48 | HHI.DS ---
Discharge Summary Admission Date Jun 13, 2017 at 18:21 Discharge Date: Jun 20, 2017 Admitting Diagnosis (1) PVD (peripheral vascular disease) ICD Code: I73.9 - Peripheral vascular disease, unspecified Diagnosis: Principal Status: Acute (2) Hypertension ICD Code: I10 - Hypertension Diagnosis: Secondary Status: Chronic (3) Diabetes mellitus ICD Code: E11.9 - Diabetes mellitus Diagnosis: Secondary Status: Chronic (4) Atrial fibrillation ICD Code: I48.91 - Atrial fibrillation Diagnosis: Secondary Status: Chronic Procedures 06/16/17 LLE angiogram, left popliteal angioplasty, left peroneal artery angioplasty Brief History - From Admission Obtained from attending physicians history of present illness records Mr. Mills is 86 yo, with history inclusive of atrial fibrillation , CAD, CKD (stage III), DM, GERD, hypertension, Chronic back pain, and asbestosis. He was admitted to [facility] from 05/22/17-05/29/17 for poor perfusion to the left foot. He was seen by Drs. Daley (vascular surgery) and Dr. Sanchez ( podiatry). Mr. Mills was at Dr. Daley's office today for a scheduled appointment. Mr. Mills reported having cold feet (left worse than right), pain, and difficulty walking. he was a direct admit to [facility] for consideration of revascularization of his left foot. At time of interview, Mr. Mills reported pain and discomfort in the left foot and leg, decreased appetite, weight loss (having gone from 190 to 155 pounds since July of last year), constipation (not having had a bowel movement for one week and( "I took Miralax this morning and nothing happened), blood "coming from the tip of my penis when I wipe. He denied fever, cough, shortness of breath, nausea and vomiting, abdominal pain, chest pain. Ambulation is done with a rolling walker. CBC/BMP: 06/20/17 1221 06/20/17 1221 Significant Findings Laboratory Tests Test 06/17/17 16:13 06/18/17 04:02 06/18/17 16:34 06/19/17 04:47 Hemoglobin 9.1 GM/DL (13.0-17.0) 8.2 GM/DL (13.0-17.0) 9.6 GM/DL (13.0-17.0) 8.7 GM/DL (13.0-17.0) Hematocrit 26.7 % (39.0-51.0) 24.8 % (39.0-51.0) 29.3 % (39.0-51.0) 26.4 % (39.0-51.0) Red Blood Count 2.70 MIL/MM3 (4.50-5.90) 2.86 MIL/MM3 (4.50-5.90) Red Cell Distribution Width 20.5 % (11.6-17.2) 19.9 % (11.6-17.2) Mean Platelet Volume 6.8 FL (7.0-11.0) 6.5 FL (7.0-11.0) Neutrophils (%) (Auto) 71.4 % (16.0-70.0) Blood Urea Nitrogen 34 MG/DL (7-18) 32 MG/DL (7-18) Creatinine 1.41 MG/DL (0.60-1.30) 1.51 MG/DL (0.60-1.30) Calcium Level 7.6 MG/DL (8.5-10.1) 7.5 MG/DL (8.5-10.1) Sodium Level 132 MEQ/L (136-145) 134 MEQ/L (136-145) Estimat Glomerular Filtration Rate 47 ML/MIN (>89) 44 ML/MIN (>89) Ovalocytes 1+ (NORMAL) Random Glucose 72 MG/DL (74-106) Test 06/20/17 12:21 Red Blood Count 3.01 MIL/MM3 (4.50-5.90) Hemoglobin 9.5 GM/DL (13.0-17.0) Hematocrit 27.9 % (39.0-51.0) Red Cell Distribution Width 19.7 % (11.6-17.2) Neutrophils (%) (Auto) 81.6 % (16.0-70.0) Blood Urea Nitrogen 29 MG/DL (7-18) Creatinine 1.54 MG/DL (0.60-1.30) Calcium Level 7.7 MG/DL (8.5-10.1) Sodium Level 132 MEQ/L (136-145) Chloride Level 97 MEQ/L (98-107) Estimat Glomerular Filtration Rate 43 ML/MIN (>89) Imaging Last Impressions Chest X-Ray 06/13/17 0000 Signed Impressions: Service Date/Time: Tuesday, June 13, 2017 18:25 - CONCLUSION: 1. Subsegmental basilar airspace disease similar to May 13. Hector Zhou MD PE at Discharge GENERAL: This is a well-nourished, well-developed patient, in no apparent distress. CARDIOVASCULAR: Regular rate and irregular rhythm RESPIRATORY: Clear to auscultation. Breath sounds equal bilaterally. No wheezes , rales, or rhonchi. GASTROINTESTINAL: Abdomen soft, non-tender, nondistended. Normal, active bowel sounds MUSCULOSKELETAL: Extremities without clubbing, left black eschar dry over the fourth and fifth digits of the left lower extremity that's unchanged NEURO: Alert & Oriented x2 to person, place only, not to situation, confused. Moves all ext x4, generalized weakness. Hospital Course These are the medical issues addressed during this hospitalization: 1. Acute progressive ischemic episode of lower chronic Peripheral arterial disease, left lower extremity: Appreciate vascular surgery recommendations. S/P postoperative day #4 today left lower extremity angiogram with left popliteal angioplasty of left peroneal artery. Pain improving. Appreciate podiatry recommendations. Patient will need amputation if circulation does not improves to lower leg/foot. Continue with Plavix. Currently medically stable to be transferred over to inpatient rehabilitation for continued physical therapy. Patient was admitted by Dr. Daley's office, vascular surgery 2. Poor appetite, weight loss, severe malnutrition: Continue dronabinol, Glucerna shakes. Pre-albumin level reviewed with decreased functional precision filer hand, at this time continue with supplements and encourage oral intake. 3. Constipation: Continue constipation bowel regimen. Required manual disimpaction 2 days ago 4. Diabetes mellitus, type II: Diet-controlled. Monitor Accu-Cheks and cover with sliding scale insulin. 5. Hypertension: BP borderline low. Hold HCTZ, furosemide. Continue metoprolol. 6. Atrial fibrillation with previous tachycardia bradycardia episodes and: Nursing staff states patient became tachycardic in the 140s 150s when physical therapy got him up to ambulate. Yesterday When beta guillermo given, patient has pulses in bradycardic episodes. Continue Xarelto. Consult his manager of loss prevention operations Dr. Wilder for further evaluation, cardiology to continue to monitor at inpatient rehabilitation. Heart rate improved overnight. 7. DVT prophylaxis: Xarelto. 8. Generalized weakness, deconditioning: PT/OT. 9. Anemia: H/H improved after transfusion,Stool Hemoccult negative. No apparent bleeding. Hemoglobin stable today 10. Decubitus ulcers, buttocks: Present on admission. Continue wound care. 11. Chronic kidney disease stage III- creatinine has been stable overnight, furosemide currently on hold and will continue to monitor. 12. Urinary tract infection, Citrobacter -continue Bactrim for 4 more days. At this time we will discharge me to inpatient rehabilitation for further intensive physical therapy to improve functional capacity Pt Condition on Discharge: Good Discharge Disposition: Rehab Inpatient Discharge Time: <= 30 minutes Discharge Instructions DIET: Follow Instructions for: Diabetic Diet Activities you can perform: Weight Bearing as Cat, See Additionl Instruction Other Activity Instructions: Assist with transfers and activity Follow up Referrals: Vascular Surgery @ Vascular Surgery with Lj Daley MD New Medications: Oxycodone-Acetaminophen (Oxycodone-Acetaminophen) 5-325 mg Tab 1 TAB PO Q4HR PRN for PAIN SCALE 3 TO 5, #10 TAB Oxycodone-Acetaminophen (Oxycodone-Acetaminophen) 10-325 mg Tab 1 TAB PO Q4H PRN for PAIN SCALE 6 TO 10, #10 TAB Sulfamethoxazole-Trimethoprim (Sulfamethoxazole-Trimethoprim) 800-160 Mg Tab 1 TAB PO Q12HR for Infection, #6 TAB Continued Medications: Ascorbic Acid (Vitamin C) 250 Mg Chew 250 MG CHEW DAILY for Nutritional Supplement, #30 TAB 0 Refills Celecoxib (Celecoxib) 200 Mg Cap 200 MG PO BID for Pain Management, CAP 0 Refills Clopidogrel (Plavix) 75 Mg Tab 75 MG PO DAILY for PVD, #[address] (Nexium) 40 Mg Capdr 40 MG PO DAILY, CAP 0 Refills Ferrous Sulfate (Feosol) 325 Mg (65 Mg Iron) Tab 200 MG PO DAILY for Nutritional Supplement, #30 TAB 0 Refills Metoprolol Tartrate (Metoprolol Tartrate) 25 Mg Tab 25 MG PO DAILY, #30 TAB 0 Refills Multiple Vitamin (One Daily) 1 Tab 1 TAB PO DAILY for Nutritional Supplement, TAB 0 Refills Multiple Vitamins W/ Minerals (Preservision Areds) 1 Tab 1 TAB PO DAILY for Nutritional Supplement, TAB 0 Refills Rivaroxaban (Xarelto) 15 Mg Tab 15 MG PO DAILY for Blood Clot Prevention, TAB 0 Refills Temazepam (Restoril) 30 Mg Cap 30 MG PO HS PRN for INSOMNIA, #30 CAP 0 Refills Discontinued Medications: Furosemide (Lasix) 20 Mg Tab 20 MG PO DAILY for Prevent Heart Failure, #10 TAB 0 Refills Hydrochlorothiazide (Hydrochlorothiazide) 12.5 Mg Tab 12.5 MG PO DAILY, #30 TAB 0 Refills Hydrocodone-Acetaminophen (Hydrocodone-Acetaminophen) 10-325 mg Tab 1 TAB PO Q4H PRN for PAIN, #20 TAB 0 Refills Potassium Chloride Microencaps (Potassium Chloride Microencaps) 20 Meq Tab 20 MEQ PO DAILY for Electrolyte Replacement, #20 TAB Sofia Rolon MD Jun 20, 2017 13:48
[2017-06-20] MEDS: oxyCODONE/ACETAMINOPHEN 10 MG/325 MG TAB PO PRN ×2 (17:14→20:14)
[2017-06-20] MEDS: MORPHINE SULFATE 4 MG/ML INJ IV PUSH PRN (20:13)
--- NOTE | 2017-06-20 21:42 | MB ---
cc: DINO UPTON M.D., MARK B. M.D. DATE OF CONSULTATION: 06/20/2017. REASON FOR CONSULTATION: Atrial fibrillation with rapid ventricular response earlier this morning and occasional bouts of relatively slow ventricular response. HISTORY OF PRESENT ILLNESS: Mr. Mills is a pleasant 86-year-old gentleman with history of coronary artery disease status post intervention in the past (details are not available to me), history of chronic atrial fibrillation maintained on low-dose beta blockers on anticoagulation with Xarelto, chronic kidney disease. He has peripheral arterial disease and he came with gangrenous left toe and underwent stenting of his left superficial femoral artery by Dr. Daley. Consult was called because of evidence of some degree of tachy-bhumi earlier today. Denies chest pain or shortness of breath. Denies palpitations. He is dizzy however, this dizziness is chronic and it is somewhat positional. Denies prior syncope. Denies orthopnea or PND. He has ankle swellings for some time, more prominent on the left leg. ALLERGIES: IVP DYE. OTHERWISE NO KNOWN DRUG ALLERGIES. MEDICATIONS AT HOME: 1. Ferrous sulfate 325 milligrams once daily. 2. Xarelto 15 milligrams after dinner daily. 3. Clopidogrel 75 milligrams p.o. daily. 4. Metoprolol tartrate 25 milligrams daily. 5. Celebrex 200 milligrams p.o. twice a day. 6. Hydrocodone. 7. Acetaminophen 10/325 milligrams q. 4 hours PRN pain. 8. Temazepam 30 milligrams p.o. at bedtime and PRN with insomnia. 9. Potassium chloride 20 milliequivalents daily. 10. Lasix 20 milligrams daily. 11. Hydrochlorothiazide 12.5 milligrams daily. 12. Nexium 40 milligrams daily. 13. Vitamin C supplements. 14. A multivitamin. FAMILY HISTORY: He is not very clear about his family history. There is a questionable brain tumor in his mother and she while they were operating on it, according to him. He does not recall significant heart disease in his immediate family but I am not sure if he does remember his family history details. According to the notes, there is no family history of cancer, diabetes, lung disease or thromboembolic disease. SOCIAL HISTORY: Used to smoke but stopped in 1984. His used to drink alcohol but stopped about four years ago. He denies recreational drug abuse. He has a lady friend. PAST MEDICAL AND SURGICAL HISTORY As mentioned above. 1. History of coronary artery disease. 2. Chronic atrial fibrillation. 3. Chronic kidney disease. 4. Diabetes mellitus. 5. Gastroesophageal reflux disease (GERD). 6. Hypertension. 7. Chronic back pain. 8. Asbestos exposure. 9. Status post cholecystectomy. 10. Coronary intervention. 11. 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 REVIEW OF SYSTEMS: Unobtainable at this point. PHYSICAL EXAMINATION: GENERAL: An 86-year-old gentleman lying in bed in no apparent distress, awake, alert to place and person. VITAL SIGNS: Blood pressure is 106/60 mmHg. Pulse of 78 beats per minute and regular, respirations of 14 per minute, afebrile. HEAD, EYES, EARS, NOSE, THROAT: Head is normocephalic. Pupils are equal and reactive. Throat is within normal limits. NECK: The neck is supple. No carotid bruits. No thyromegaly. No jugular venous distention noted. LUNGS: A few crepitations at the left base. CARDIOVASCULAR: S1 and S2 are variable in intensity and distant with a faint S4 gallop. ABDOMEN: Lax and nontender. Normoactive bowel sounds. No organomegaly. No masses felt. EXTREMITIES: Gangrenous left toe is noted and wrapped and somewhat foul-smelling. Pedal pulse on the left are not felt. On the right, the pedal pulse is 1+. There is +1 pitting edema of the lower ankles bilaterally more on the left. NEUROLOGIC: Grossly intact. RECTAL: Deferred. EKGS: EKG from June 14 shows atrial fibrillation with right bundle-branch block, possible old inferior infarction, poor R-wave progression. LABORATORY DATA: Sodium 132, potassium 4.3, BUN of 29, creatinine 1.54. His free T4 was 0.98 and TSH 2.49 on the 14 of June. The last magnesium and phosphorus are from the and the magnesium was 1.8 with a phosphorous level of 2.6 and those will be repeated. His CBC shows a white count of 9.4, hemoglobin of 9.5 and a platelet count of 268,000. RECOMMENDATIONS: 1. Atrial fibrillation with rapid ventricular response earlier this morning; however, with slow heart rate and mostly with during his sleep, which is not unusual. His metoprolol will be switched to succinate long-acting form at 50 milligrams daily. We will check a set of his electrolytes and we would advise to treat his pain so this will not aggravate his heart rate / ventricular response to his atrial fibrillation. He had an echocardiogram in April of 2017 that basically showed preserved left ventricular systolic function and no significant valve pathology. He is to be monitored on telemetry to see how his ventricular response rate reacts to the changes in his medications and treat his electrolytes aggressively to maintain them within normal limits. 2. History of coronary artery disease. He denies angina. 3. Coronary artery disease and peripheral artery disease. Check lipid panel fasting in the a.m. and treat as indicated. Coverage is available over the weekend and will be seeing the patient. Thank you for the consultation. MD VITALIY Berry/NANCY /9:11 PM /9:28 PM
[2017-06-20] MEDS: TEMAZEPAM 15 MG CAP PO PRN (23:51)
[2017-06-21] VITALS (28 sets, daily range): BP systolic 92–112; BP diastolic 51–60; PULSE 49–102; RESP 16; TEMP 96.7–98.3; O2SAT 93–99
[2017-06-21 05:56] LABS: MAGNESIUM 2.1 MG/DL (1.5-2.5)
[2017-06-21 05:57] LABS: CHOLESTEROL/ HDL RATIO 1.92 RATIO
[2017-06-21] MEDS: SULFAMETHOXAZOLE-TRIMETHOPRIM DS 800-160 MG TAB PO SCH ×2 (09:32→20:29)
[2017-06-21] MEDS: MULTIVITAMIN TAB PO SCH (09:33)
[2017-06-21] MEDS: CLOPIDOGREL 75 MG TAB PO SCH (09:33)
[2017-06-21] MEDS: FERROUS SULFATE 300 MG /5ML UDC PO SCH (09:33)
[2017-06-21] MEDS: ASCORBIC ACID 500 MG TAB PO SCH (09:34)
[2017-06-21] MEDS: MULTIVITAMIN-OPHTHALMIC 1 TAB PO SCH (09:34)
[2017-06-21] MEDS: POLYETHYLENE GLYCOL 17 GM PKG PO SCH ×2 (09:35→20:30)
[2017-06-21] MEDS: DOCUSATE SODIUM 50 MG/SENNA 8.6 MG TAB PO SCH ×2 (09:35→20:29)
[2017-06-21] MEDS: PANTOPRAZOLE SOD 40 MG DELAYED RELEASE TAB PO SCH (09:35)
[2017-06-21] MEDS: CELECOXIB 200 MG CAP PO SCH ×2 (09:35→20:29)
[2017-06-21] MEDS: RIVAROXABAN 15 MG TAB PO SCH (09:35)
[2017-06-21] MEDS: METOPROLOL SUCCINATE 50 MG EXTENDED RELEASE TAB PO SCH (09:35)
[2017-06-21] MEDS: oxyCODONE/ACETAMINOPHEN 5 MG/325 MG TAB PO PRN ×4 (09:35→23:26)
[2017-06-21] MEDS: SODIUM CHLORIDE 0.9% FLUSH 10 ML FLUSH IV FLUSH SCH ×2 (09:36→23:38)
--- NOTE | 2017-06-21 09:49 | HHI.PR ---
Subjective Remarks Pending placement No acute events overnight. Patient had no complaints. He denies any pain, chest pain, palpitation, or shortness of breathing. Discussed with patient's nurse. Objective Vitals Vital Signs Date Time Temp Pulse Resp B/P (MAP) Pulse Ox O2 Delivery O2 Flow Rate FiO2 06/21/17 06:00 70 06/21/17 05:00 68 06/21/17 04:00 73 06/21/17 03:10 96.7 68 16 112/58 (76) 99 06/21/17 03:00 67 06/21/17 02:00 60 06/21/17 01:37 97.8 96 16 94/53 (67) 94 06/21/17 01:00 62 06/21/17 00:00 74 06/20/17 23:00 70 06/20/17 22:00 73 06/20/17 21:00 80 06/20/17 20:00 80 06/20/17 20:00 97.8 70 16 97/53 (68) 98 06/20/17 19:00 71 06/20/17 18:00 70 06/20/17 17:30 98 21 06/20/17 17:00 72 06/20/17 16:53 97.9 70 16 103/57 (72) 98 06/20/17 16:00 64 06/20/17 15:00 68 06/20/17 14:19 18 06/20/17 14:00 86 06/20/17 13:00 68 06/20/17 12:00 72 06/20/17 11:54 97.7 80 18 123/58 (79) 98 06/20/17 11:00 69 06/20/17 10:29 97 06/20/17 10:00 104 I/O 06/20/17 06/20/17 06/20/17 06/21/17 06/21/17 06/21/17 07:00 15:00 23:00 07:00 15:00 23:00 Intake Total 240 ml 400 ml 480 ml Output Total 625 ml 450 ml 310 ml Balance -385 ml -50 ml 170 ml Intake Oral 240 ml 400 ml 480 ml Output Urine Total 625 ml 450 ml 310 ml Stool Total 0 ml # Bowel Movements 0 Result Diagram: 06/20/17 1221 06/20/17 1221 Objective Remarks GENERAL: This is a well-nourished, well-developed patient, in no apparent distress. CARDIOVASCULAR: Regular rate and irregular rhythm RESPIRATORY: Clear to auscultation. Breath sounds equal bilaterally. No wheezes , rales, or rhonchi. GASTROINTESTINAL: Abdomen soft, non-tender, nondistended. Normal, active bowel sounds MUSCULOSKELETAL: Extremities without clubbing, left black eschar dry over the fourth and fifth digits of the left lower extremity that's unchanged. Lower extremity limbs are warm and sensation is intact. NEURO: Alert & Oriented x2 to person, place only, not to situation, confused. Moves all ext x4, generalized weakness. Procedures 06/16/17 LLE angiogram, left popliteal angioplasty, left peroneal artery angioplasty Medications and IVs Current Medications Dextrose (D50w (Syr) Inj) 50 ml UNSCH PRN IV PUSH HYPOGLYCEMIA-SEE COMMENTS; Start 06/13/17 at 18:15; Stop 06/18/17 at 11:45; Status DC Glucagon (Glucagon Inj) 1 mg UNSCH PRN OTHER HYPOGLYCEMIA-SEE COMMENTS; Start 06/13/17 at 18:15; Stop 06/18/17 at 11:46; Status DC Insulin Aspart (NovoLOG SUPPLEMENTAL SCALE) 1 ACHS SLIDING SCALE SQ Last administered on 06/16/17 20:16; Start 06/13/17 at 21:00; Stop 06/18/17 at 11: 45; Status DC Dronabinol (Marinol) 5 mg BID@11,16 PO Last administered on 06/20/17 16:52; Start 06/14/17 at 11:00 Sodium Chloride (NS Flush) 2 ml UNSCH PRN IV FLUSH FLUSH AFTER USING IV ACCESS ; Start 06/13/17 at 18:15 Sodium Chloride (NS Flush) 2 ml BID IV FLUSH Last administered on 06/21/17 09: 36; Start 06/13/17 at 21:00 Acetaminophen (Tylenol) 650 mg Q4H PRN PO TEMP > 100.4; Start 06/13/17 at 18: 15 Ondansetron HCl (Zofran Inj) 4 mg Q6H PRN IVP NAUSEA OR VOMITING; Start at 18:15 Prochlorperazine (Compazine Supp) 25 mg Q12H PRN RECTAL NAUSEA OR VOMITING; Start 06/13/17 at 18:15 Acetaminophen (Tylenol) 650 mg Q6H PRN PO PAIN SCALE 1 TO 2 Last administered on 06/14/17 04:59; Start 06/13/17 at 18:15 Oxycodone/ Acetaminophen (Percocet 5-325 Mg) 1 tab Q6H PRN PO PAIN SCALE 3 TO 5; Start 06/13/17 at 18:15; Stop 06/14/17 at 08:43; Status DC Oxycodone/ Acetaminophen (Percocet 10-325 Mg) 1 tab Q6H PRN PO PAIN SCALE 6 TO 10 Last administered on 06/14/17 08:10; Start 06/13/17 at 18:15; Stop at 08:43; Status DC Morphine Sulfate (Morphine Inj) 2 mg Q3H PRN IV PUSH BREAKTHROUGH PAIN Last administered on 06/20/17 20:13; Start 06/13/17 at 18:15 Morphine Sulfate (Morphine Inj) 4 mg Q3H PRN IV PUSH Pain 6-10;if unable to take PO; Start 06/13/17 at 18:15; Stop 06/15/17 at 09:26; Status DC Naloxone HCl (Narcan Inj) 0.4 mg UNSCH PRN IV PUSH SEE LABEL COMMENTS; Start 06/13/17 at 18:15 Senna/Docusate Sodium (Tiffany-Colace) 1 tab BID PO Last administered on 09:35; Start 06/13/17 at 21:00 Magnesium Hydroxide (Milk Of Magnesia Liq) 30 ml Q12H PRN PO Mild constipation Last administered on 06/14/17 17:27; Start 06/13/17 at 18:15 Sennosides (Senokot) 17.2 mg Q12H PRN PO Moderate constipation; Start at 18:15 Bisacodyl (Dulcolax Supp) 10 mg DAILY PRN RECTAL SEVERE CONSITIPATION Last administered on 06/17/17 11:00; Start 06/13/17 at 18:15 Lactulose (Lactulose Liq) 30 ml DAILY PRN PO SEVERE CONSITIPATION; Start 06/13 at 18:15 Celecoxib (CeleBREX) 200 mg BID PO Last administered on 06/21/17 09:35; Start 06/13/17 at 21:00 Clopidogrel Bisulfate (Plavix) 75 mg DAILY PO Last administered on 06/21/17 09 :33; Start 06/14/17 at 09:00 Ferrous Sulfate (Ferrous Sulfate Liq) 200 mg DAILY PO Last administered on 06/21 09:33; Start 06/14/17 at 09:00 Furosemide (Lasix) 20 mg DAILY PO Last administered on 06/17/17 09:26; Start 06/14/17 at 09:00; Status Future Hold Hydrochlorothiazide (Microzide) 12.5 mg DAILY PO Last administered on 09:32; Start 06/14/17 at 09:00; Status Future Hold Metoprolol Tartrate (Lopressor) 25 mg DAILY PO Last administered on 06/19/17 08:35; Start 06/14/17 at 09:00; Stop 06/19/17 at 09:42; Status DC Multivitamins (Theragran) 1 tab DAILY PO Last administered on 06/21/17 09:33; Start 06/14/17 at 09:00 Potassium Chloride (KCl) 20 meq DAILY PO Last administered on 06/16/17 11:10 ; Start 06/14/17 at 09:00; Status Future Hold Rivaroxaban (Xarelto) 15 mg DAILY PO Last administered on 06/21/17 09:35; Start 06/14/17 at 09:00; Status Future hold Non-Formulary Medication 250 mg DAILY CHEW ; Start 06/14/17 at 09:00; Stop at 09:00; Status DC Non-Formulary Medication 40 mg DAILY PO ; Start 06/14/17 at 09:00; Stop at 09:00; Status DC Non-Formulary Medication 1 tab DAILY PO ; Start 06/14/17 at 09:00; Stop at 09:00; Status DC Non-Formulary Medication 30 mg HS PRN PO INSOMNIA; Start 06/13/17 at 18:30; Stop 06/13/17 at 19:29; Status DC Polyethylene Glycol (Miralax) 17 gm BID PO Last administered on 06/21/17 09:35 ; Start 06/13/17 at 21:00 Influenza Virus Vaccine (Flu (Quadrivalent) Vaccine Inj) 0.5 ml ONCE ONCE IM Last administered on 06/14/17 10:05; Start 06/14/17 at 10:00; Stop 06/14/17 at 10:01; Status DC Ascorbic Acid (Vitamin C) 250 mg DAILY PO Last administered on 06/21/17 09:34 ; Start 06/14/17 at 09:00 Miscellaneous (Pill Splitter) 1 ea UNSCH PRN OTHER SEE LABEL COMMENTS; Start 06/13/17 at 21:00 Pantoprazole Sodium (Protonix) 40 mg DAILY PO Last administered on 06/21/17 09 :35; Start 06/14/17 at 09:00 Vit C/Vit E/Zinc/ Copper/Lutein (Ocuvite) 1 tab DAILY PO Last administered on 06/21/17 09:34; Start 06/14/17 at 09:00 Temazepam (Restoril) 30 mg HS PRN PO INSOMNIA Last administered on 06/20/17 23 :51; Start 06/13/17 at 19:30 Oxycodone/ Acetaminophen (Percocet 5-325 Mg) 1 tab Q4HR PRN PO PAIN SCALE 3 TO 5 Last administered on 06/21/17 09:35; Start 06/14/17 at 08:45 Oxycodone/ Acetaminophen (Percocet 10-325 Mg) 1 tab Q4H PRN PO PAIN SCALE 6 TO 10 Last administered on 06/20/17 20:14; Start 06/14/17 at 08:45 Ceftriaxone Sodium 1000 mg/ Sodium Chloride 100 ml @ 200 mls/hr Q24H IV Last administered on 06/16/17 08:30; Start 06/14/17 at 10:00; Stop 06/16/17 at 14 :10; Status DC Prednisone (Deltasone) 50 mg ONCE ONCE PO Last administered on 06/15/17 18: 30; Start 06/15/17 at 19:00; Stop 06/15/17 at 19:01; Status DC Prednisone (Deltasone) 50 mg ONCE ONCE PO ; Start 06/16/17 at 01:00; Stop at 01:00; Status DC Prednisone (Deltasone) 50 mg ONCE ONCE PO ; Start 06/16/17 at 07:00; Stop at 07:01; Status DC Diphenhydramine HCl (Benadryl) 50 mg ONCE ONCE PO Last administered on 06:07; Start 06/16/17 at 07:00; Stop 06/16/17 at 07:01; Status DC Sodium Bicarbonate 100 meq/Dextrose 1,100 ml @ 42 mls/hr Q24H IV Last administered on 06/16/17 20:04; Start 06/16/17 at 01:00; Stop 06/18/17 at 07: 32; Status DC Prednisone (Deltasone) 50 mg ONCE ONCE PO Last administered on 06/16/17 01: 11; Start 06/16/17 at 01:00; Stop 06/16/17 at 01:01; Status DC Protamine Sulfate (Protamine Sulfate Inj) 50 mg STK-MED ONCE .ROUTE ; Start at 07:10; Stop 06/16/17 at 07:11; Status DC Heparin Sodium (Porcine) (Heparin Inj) 10,000 units STK-MED ONCE .ROUTE Last administered on 06/16/17 08:40; Start 06/16/17 at 07:10; Stop 06/16/17 at 07 :11; Status DC Heparin Sodium/ Sodium Chloride 1,000 ml @ As Directed STK-MED ONCE .ROUTE Last administered on 06/16/17 07:40; Start 06/16/17 at 07:17; Stop 06/16/17 at 07:18; Status DC Diphenhydramine HCl (Benadryl Inj) 50 mg STK-MED ONCE .ROUTE Last administered on 06/16/17 08:30; Start 06/16/17 at 07:33; Stop 06/16/17 at 07:34; Status DC Protamine Sulfate (Protamine Sulfate Inj) 50 mg STK-MED ONCE .ROUTE ; Start at 09:23; Stop 06/16/17 at 09:24; Status DC Iohexol (OMNIPAQUE 300 INJ (Rad CT)) 60 ml ONCE ONCE IVCONTRAST Last administered on 06/16/17 09:34; Start 06/16/17 at 09:31; Stop 06/16/17 at 09 :34; Status DC Miscellaneous Information ALL NURSING DEPARTME... UNSCH PRN .XX SEE LABEL COMMENTS; Start 06/16/17 at 09:42; Stop 06/17/17 at 09:41; Status DC Trimethoprim/ Sulfamethoxazole (Bactrim Ds 800-160 Mg) 1 tab Q12HR PO Last administered on 06/21/17 09:32; Start 06/16/17 at 14:15 Sodium Chloride 250 ml @ 15 mls/hr ONCE ONCE IV Last administered on 10:25; Start 06/17/17 at 06:00; Stop 06/17/17 at 22:39; Status DC Sodium Chloride 1,000 ml @ 50 mls/hr Q20H IV Last administered on 06/18/17 09 :11; Start 06/18/17 at 08:00; Stop 06/19/17 at 03:59; Status DC Metoprolol Tartrate (Lopressor) 25 mg BID PO ; Start 06/19/17 at 21:00; Stop at 21:00; Status DC Metoprolol Tartrate (Lopressor) 25 mg DAILY PO Last administered on 06/20/17 08:59; Start 06/20/17 at 09:00; Stop 06/20/17 at 22:06; Status DC Metoprolol Succinate (Toprol Xl) 50 mg DAILY PO Last administered on 06/21/17 09:35; Start 06/21/17 at 09:00 A/P Problem List: (1) PVD (peripheral vascular disease) ICD Code: I73.9 - Peripheral vascular disease, unspecified Status: Acute (2) Hypertension ICD Code: I10 - Hypertension Status: Chronic (3) Diabetes mellitus ICD Code: E11.9 - Diabetes mellitus Status: Chronic (4) Atrial fibrillation ICD Code: I48.91 - Atrial fibrillation Status: Chronic Assessment and Plan 1. Peripheral arterial disease, left lower extremity: Appreciate vascular surgery recommendations. S/P postoperative day #5 left lower extremity angiogram with left popliteal angioplasty of left peroneal artery. Pain improving. Appreciate podiatry recommendations. Patient will need amputation if circulation does not improves to lower leg/foot. Continue with Plavix. 2. Poor appetite, weight loss, severe malnutrition: Continue dronabinol, Glucerna shakes. Pre-albumin level reviewed with decreased functional dumpman, at this time continue with supplements and encourage oral intake. 3. Constipation: Continue constipation bowel regimen. Required manual disimpaction 3 days ago 4. Diabetes mellitus, type II: Diet-controlled. Monitor Accu-Cheks and cover with sliding scale insulin. 5. Hypertension/atrial fibrillation: Question will episodes of bradycardia given with beta guillermo. At the moment heart rate has been stable. Continue Xarelto. Consult his cat scanner operator Dr. Wilder for further evaluation, cardiology to continue to monitor at inpatient rehabilitation. Heart rate improved overnight. 6. Generalized weakness, deconditioning: PT/OT. 7. Anemia: H/H improved after transfusion,Stool Hemoccult negative. No apparent bleeding. Hemoglobin stable today 8. Decubitus ulcers, buttocks: Present on admission. Continue wound care. 9. Chronic kidney disease stage III- creatinine has been stable overnight, furosemide currently on hold and will continue to monitor. Discharge Planning Patient was discharged to inpatient rehabilitation yesterday. Pending placement. Problem Qualifiers (1) Hypertension: Qualified Codes: I10 - Essential (primary) hypertension (2) Diabetes mellitus: Qualified Codes: E11.59 - Type 2 diabetes mellitus with other circulatory complications (3) Atrial fibrillation: Qualified Codes: I48.2 - Chronic atrial fibrillation Sandee Miranda MD Jun 21, 2017 09:49
[2017-06-21] MEDS: DRONABINOL 5 MG CAP PO SCH ×2 (12:29→16:45)
--- NOTE | 2017-06-21 14:59 | PD.CARD.PN ---
Subjective Subjective Remarks SLEEPY, AT BEDSIDE NO REPORTED SOB OR CHEST PAIN TELEMETRY SHOWS ATRIAL FIBRILLATION 60S BPM NO SIGNIFICANT BRADYCARDIA OR PAUSES Objective Medications Current Medications Medications (Trade) Dose Ordered Sig/Cheikh Route Start Time Stop Time Status Last Admin (Marinol) 5 mg BID@11,16 PO 06/14/17 11:00 06/21/17 12:29 (NS Flush) 2 ml UNSCH PRN IV FLUSH 06/13/17 18:15 (NS Flush) 2 ml BID IV FLUSH 06/13/17 21:00 06/21/17 09:36 (Tylenol) 650 mg Q4H PRN PO 06/13/17 18:15 (Zofran Inj) 4 mg Q6H PRN IVP 06/13/17 18:15 (Compazine Supp) 25 mg Q12H PRN RECTAL 06/13/17 18:15 (Tylenol) 650 mg Q6H PRN PO 06/13/17 18:15 06/14/17 04:59 (Morphine Inj) 2 mg Q3H PRN IV PUSH 06/13/17 18:15 06/20/17 20:13 (Narcan Inj) 0.4 mg UNSCH PRN IV PUSH 06/13/17 18:15 (Tiffany-Colace) 1 tab BID PO 06/13/17 21:00 06/21/17 09:35 (Milk Of Magnesia Liq) 30 ml Q12H PRN PO 06/13/17 18:15 06/14/17 17:27 (Senokot) 17.2 mg Q12H PRN PO 06/13/17 18:15 (Dulcolax Supp) 10 mg DAILY PRN RECTAL 06/13/17 18:15 06/17/17 11:00 (Lactulose Liq) 30 ml DAILY PRN PO 06/13/17 18:15 (CeleBREX) 200 mg BID PO 06/13/17 21:00 06/21/17 09:35 (Plavix) 75 mg DAILY PO 06/14/17 09:00 06/21/17 09:33 (Ferrous Sulfate Liq) 200 mg DAILY PO 06/14/17 09:00 06/21/17 09:33 (Lasix) 20 mg DAILY PO 06/14/17 09:00 Future Hold 06/17/17 09:26 (Microzide) 12.5 mg DAILY PO 06/14/17 09:00 Future Hold 06/17/17 09:32 (Theragran) 1 tab DAILY PO 06/14/17 09:00 06/21/17 09:33 (KCl) 20 meq DAILY PO 06/14/17 09:00 Future Hold 06/16/17 11:10 (Xarelto) 15 mg DAILY PO 06/14/17 09:00 Future hold 06/21/17 09:35 (Miralax) 17 gm BID PO 06/13/17 21:00 06/21/17 09:35 (Vitamin C) 250 mg DAILY PO 06/14/17 09:00 06/21/17 09:34 (Pill Splitter) 1 ea UNSCH PRN OTHER 06/13/17 21:00 (Protonix) 40 mg DAILY PO 06/14/17 09:00 06/21/17 09:35 (Ocuvite) 1 tab DAILY PO 06/14/17 09:00 06/21/17 09:34 (Restoril) 30 mg HS PRN PO 06/13/17 19:30 06/20/17 23:51 (Percocet 5-325 Mg) 1 tab Q4HR PRN PO 06/14/17 08:45 06/21/17 13:00 (Percocet 10-325 Mg) 1 tab Q4H PRN PO 06/14/17 08:45 06/20/17 20:14 (Bactrim Ds 800-160 Mg) 1 tab Q12HR PO 06/16/17 14:15 06/21/17 09:32 (Toprol Xl) 50 mg DAILY PO 06/21/17 09:00 06/21/17 09:35 Vital Signs / I&O Vital Signs Date Time Temp Pulse Resp B/P (MAP) Pulse Ox O2 Delivery O2 Flow Rate FiO2 06/21/17 11:00 97.1 98 16 103/60 (74) 97 06/21/17 10:00 87 06/21/17 09:00 97.1 102 16 102/57 (72) 97 06/21/17 09:00 102 06/21/17 08:00 72 06/21/17 07:00 74 06/21/17 06:00 70 06/21/17 05:00 68 06/21/17 04:00 73 06/21/17 03:10 96.7 68 16 112/58 (76) 99 06/21/17 03:00 67 06/21/17 02:00 60 06/21/17 01:37 97.8 96 16 94/53 (67) 94 06/21/17 01:00 62 06/21/17 00:00 74 06/20/17 23:00 70 06/20/17 22:00 73 06/20/17 21:00 80 06/20/17 20:00 80 06/20/17 20:00 97.8 70 16 97/53 (68) 98 06/20/17 19:00 71 06/20/17 18:00 70 06/20/17 17:30 98 21 06/20/17 17:00 72 06/20/17 16:53 97.9 70 16 103/57 (72) 98 06/20/17 16:00 64 06/20/17 15:00 68 I/O 06/20/17 06/20/17 06/20/17 06/21/17 06/21/17 06/21/17 07:00 15:00 23:00 07:00 15:00 23:00 Intake Total 240 ml 400 ml 480 ml Output Total 625 ml 450 ml 310 ml Balance -385 ml -50 ml 170 ml Intake Oral 240 ml 400 ml 480 ml Output Urine Total 625 ml 450 ml 310 ml Stool Total 0 ml # Bowel Movements 0 Physical Exam NAD, COMFORTABLE ON ROOM AIR FLAT JVD LUNGS CLEAR IRREGULAR RHYTHM, REGULAR RATE ABD SOFT EXTREMITIES WITH EDEMA 1+ BILAT Laboratory Laboratory Tests Test 06/21/17 05:08 Phosphorus Level 3.0 MG/DL Magnesium Level 2.1 MG/DL Triglycerides Level 135 MG/DL Cholesterol Level 81 MG/DL LDL Cholesterol 12 MG/DL HDL Cholesterol 42.0 MG/DL Cholesterol/HDL Ratio 1.92 RATIO Assessment and Plan Problem List: (1) Atrial fibrillation ICD Codes: I48.91 - Atrial fibrillation Status: Chronic (2) S/P peripheral artery angioplasty ICD Codes: Z98.62 - Peripheral vascular angioplasty status Status: Acute Assessment and Plan MEDICATIONS REVIEWED, CONTINUE SAME. OK TO TRANSFER TO REHAB FLOOR. Discussed Condition With , RN Problem Qualifiers (1) Atrial fibrillation: Qualified Codes: I48.2 - Chronic atrial fibrillation Álvaro Dee MD Jun 21, 2017 14:59
[2017-06-21] MEDS: MORPHINE SULFATE 4 MG/ML INJ IV PUSH PRN (19:59)
[2017-06-21] MEDS: TEMAZEPAM 15 MG CAP PO PRN (20:28)
[2017-06-21] MEDS: oxyCODONE/ACETAMINOPHEN 10 MG/325 MG TAB PO PRN (20:28)
[2017-06-22] VITALS (13 sets, daily range): BP systolic 93–109; BP diastolic 51–57; PULSE 54–77; RESP 16–18; TEMP 97.5–98.7; O2SAT 93–94
[2017-06-22] MEDS: MORPHINE SULFATE 4 MG/ML INJ IV PUSH PRN (00:27)
[2017-06-22] MEDS: oxyCODONE/ACETAMINOPHEN 10 MG/325 MG TAB PO PRN ×2 (02:54→10:02)
[2017-06-22] MEDS: oxyCODONE/ACETAMINOPHEN 5 MG/325 MG TAB PO PRN (06:55)
[2017-06-22] MEDS: METOPROLOL SUCCINATE 50 MG EXTENDED RELEASE TAB PO SCH (09:00)
[2017-06-22] MEDS: SODIUM CHLORIDE 0.9% FLUSH 10 ML FLUSH IV FLUSH SCH (09:00)
[2017-06-22] MEDS: FERROUS SULFATE 300 MG /5ML UDC PO SCH (09:00)
[2017-06-22] MEDS: POLYETHYLENE GLYCOL 17 GM PKG PO SCH (10:00)
[2017-06-22] MEDS: CELECOXIB 200 MG CAP PO SCH (10:01)
[2017-06-22] MEDS: MULTIVITAMIN-OPHTHALMIC 1 TAB PO SCH (10:01)
[2017-06-22] MEDS: RIVAROXABAN 15 MG TAB PO SCH (10:01)
[2017-06-22] MEDS: DOCUSATE SODIUM 50 MG/SENNA 8.6 MG TAB PO SCH (10:02)
[2017-06-22] MEDS: MULTIVITAMIN TAB PO SCH (10:02)
[2017-06-22] MEDS: SULFAMETHOXAZOLE-TRIMETHOPRIM DS 800-160 MG TAB PO SCH (10:02)
[2017-06-22] MEDS: ASCORBIC ACID 500 MG TAB PO SCH (10:03)
[2017-06-22] MEDS: CLOPIDOGREL 75 MG TAB PO SCH (10:03)
[2017-06-22] MEDS: PANTOPRAZOLE SOD 40 MG DELAYED RELEASE TAB PO SCH (10:03)
--- NOTE | 2017-06-22 10:23 | HHI.PR ---
Subjective Remarks Follow-up for placement [facility] declined patient yesterday. Patient has no concerns. He denies any pain. Denied any chest pain, palpitation shortness of breathing or lightheadedness dizziness. Patient stated he is doing well. Discussed with patient's nurse. Objective Vitals Vital Signs Date Time Temp Pulse Resp B/P (MAP) Pulse Ox O2 Delivery O2 Flow Rate FiO2 06/22/17 06:18 98.7 76 16 109/57 (74) 94 06/22/17 06:00 54 06/22/17 05:00 56 06/22/17 04:00 64 06/22/17 03:00 77 06/22/17 02:00 58 06/22/17 01:00 55 06/22/17 00:27 16 06/22/17 00:00 60 06/21/17 23:40 98.3 78 16 99/57 (71) 93 06/21/17 23:00 55 06/21/17 22:00 68 06/21/17 21:00 64 06/21/17 20:15 98.3 88 16 101/55 (70) 95 06/21/17 20:00 64 06/21/17 19:00 80 06/21/17 18:08 58 06/21/17 17:00 75 06/21/17 16:00 97.4 73 16 92/51 (65) 94 06/21/17 15:00 49 06/21/17 14:00 65 06/21/17 13:00 87 06/21/17 12:00 71 06/21/17 11:00 97.1 98 16 103/60 (74) 97 I/O 06/21/17 06/21/17 06/21/17 06/22/17 06/22/17 06/22/17 07:00 15:00 23:00 07:00 15:00 23:00 Intake Total 480 ml 750 ml 240 ml Output Total 310 ml 600 ml 320 ml Balance 170 ml 150 ml -80 ml Intake Oral 480 ml 750 ml 240 ml Output Urine Total 310 ml 600 ml 320 ml Stool Total 0 ml # Bowel Movements 1 0 Result Diagram: 06/20/17 1221 06/20/17 1221 Objective Remarks GENERAL: This is a well-nourished, well-developed patient, in no apparent distress. CARDIOVASCULAR: Regular rate and irregular rhythm RESPIRATORY: Clear to auscultation. Breath sounds equal bilaterally. No wheezes , rales, or rhonchi. GASTROINTESTINAL: Abdomen soft, non-tender, nondistended. Normal, active bowel sounds MUSCULOSKELETAL: Extremities without clubbing, left black eschar dry over the fourth and fifth digits of the left lower extremity that's unchanged. Lower extremity limbs are warm and sensation is intact. NEURO: Alert & Oriented x2 to person, place only, not to situation, confused. Moves all ext x4, generalized weakness. Procedures 06/16/17 LLE angiogram, left popliteal angioplasty, left peroneal artery angioplasty Medications and IVs Current Medications Dextrose (D50w (Syr) Inj) 50 ml UNSCH PRN IV PUSH HYPOGLYCEMIA-SEE COMMENTS; Start 06/13/17 at 18:15; Stop 06/18/17 at 11:45; Status DC Glucagon (Glucagon Inj) 1 mg UNSCH PRN OTHER HYPOGLYCEMIA-SEE COMMENTS; Start 06/13/17 at 18:15; Stop 06/18/17 at 11:46; Status DC Insulin Aspart (NovoLOG SUPPLEMENTAL SCALE) 1 ACHS SLIDING SCALE SQ Last administered on 06/16/17 20:16; Start 06/13/17 at 21:00; Stop 06/18/17 at 11: 45; Status DC Dronabinol (Marinol) 5 mg BID@11,16 PO Last administered on 06/21/17 16:45; Start 06/14/17 at 11:00 Sodium Chloride (NS Flush) 2 ml UNSCH PRN IV FLUSH FLUSH AFTER USING IV ACCESS ; Start 06/13/17 at 18:15 Sodium Chloride (NS Flush) 2 ml BID IV FLUSH Last administered on 06/22/17 09: 00; Start 06/13/17 at 21:00 Acetaminophen (Tylenol) 650 mg Q4H PRN PO TEMP > 100.4; Start 06/13/17 at 18: 15 Ondansetron HCl (Zofran Inj) 4 mg Q6H PRN IVP NAUSEA OR VOMITING; Start at 18:15 Prochlorperazine (Compazine Supp) 25 mg Q12H PRN RECTAL NAUSEA OR VOMITING; Start 06/13/17 at 18:15 Acetaminophen (Tylenol) 650 mg Q6H PRN PO PAIN SCALE 1 TO 2 Last administered on 06/14/17 04:59; Start 06/13/17 at 18:15 Oxycodone/ Acetaminophen (Percocet 5-325 Mg) 1 tab Q6H PRN PO PAIN SCALE 3 TO 5; Start 06/13/17 at 18:15; Stop 06/14/17 at 08:43; Status DC Oxycodone/ Acetaminophen (Percocet 10-325 Mg) 1 tab Q6H PRN PO PAIN SCALE 6 TO 10 Last administered on 06/14/17 08:10; Start 06/13/17 at 18:15; Stop at 08:43; Status DC Morphine Sulfate (Morphine Inj) 2 mg Q3H PRN IV PUSH BREAKTHROUGH PAIN Last administered on 06/22/17 00:27; Start 06/13/17 at 18:15 Morphine Sulfate (Morphine Inj) 4 mg Q3H PRN IV PUSH Pain 6-10;if unable to take PO; Start 06/13/17 at 18:15; Stop 06/15/17 at 09:26; Status DC Naloxone HCl (Narcan Inj) 0.4 mg UNSCH PRN IV PUSH SEE LABEL COMMENTS; Start 06/13/17 at 18:15 Senna/Docusate Sodium (Tiffany-Colace) 1 tab BID PO Last administered on 10:02; Start 06/13/17 at 21:00 Magnesium Hydroxide (Milk Of Magnesia Liq) 30 ml Q12H PRN PO Mild constipation Last administered on 06/14/17 17:27; Start 06/13/17 at 18:15 Sennosides (Senokot) 17.2 mg Q12H PRN PO Moderate constipation; Start at 18:15 Bisacodyl (Dulcolax Supp) 10 mg DAILY PRN RECTAL SEVERE CONSITIPATION Last administered on 06/17/17 11:00; Start 06/13/17 at 18:15 Lactulose (Lactulose Liq) 30 ml DAILY PRN PO SEVERE CONSITIPATION; Start 06/13 at 18:15 Celecoxib (CeleBREX) 200 mg BID PO Last administered on 06/22/17 10:01; Start 06/13/17 at 21:00 Clopidogrel Bisulfate (Plavix) 75 mg DAILY PO Last administered on 06/22/17 10 :03; Start 06/14/17 at 09:00 Ferrous Sulfate (Ferrous Sulfate Liq) 200 mg DAILY PO Last administered on 06/22 09:00; Start 06/14/17 at 09:00 Furosemide (Lasix) 20 mg DAILY PO Last administered on 06/17/17 09:26; Start 06/14/17 at 09:00; Status Future Hold Hydrochlorothiazide (Microzide) 12.5 mg DAILY PO Last administered on 09:32; Start 06/14/17 at 09:00; Status Future Hold Metoprolol Tartrate (Lopressor) 25 mg DAILY PO Last administered on 06/19/17 08:35; Start 06/14/17 at 09:00; Stop 06/19/17 at 09:42; Status DC Multivitamins (Theragran) 1 tab DAILY PO Last administered on 06/22/17 10:02; Start 06/14/17 at 09:00 Potassium Chloride (KCl) 20 meq DAILY PO Last administered on 06/16/17 11:10 ; Start 06/14/17 at 09:00; Status Future Hold Rivaroxaban (Xarelto) 15 mg DAILY PO Last administered on 06/22/17 10:01; Start 06/14/17 at 09:00; Status Future hold Non-Formulary Medication 250 mg DAILY CHEW ; Start 06/14/17 at 09:00; Stop at 09:00; Status DC Non-Formulary Medication 40 mg DAILY PO ; Start 06/14/17 at 09:00; Stop at 09:00; Status DC Non-Formulary Medication 1 tab DAILY PO ; Start 06/14/17 at 09:00; Stop at 09:00; Status DC Non-Formulary Medication 30 mg HS PRN PO INSOMNIA; Start 06/13/17 at 18:30; Stop 06/13/17 at 19:29; Status DC Polyethylene Glycol (Miralax) 17 gm BID PO Last administered on 06/22/17 10:00 ; Start 06/13/17 at 21:00 Influenza Virus Vaccine (Flu (Quadrivalent) Vaccine Inj) 0.5 ml ONCE ONCE IM Last administered on 06/14/17 10:05; Start 06/14/17 at 10:00; Stop 06/14/17 at 10:01; Status DC Ascorbic Acid (Vitamin C) 250 mg DAILY PO Last administered on 06/22/17 10:03 ; Start 06/14/17 at 09:00 Miscellaneous (Pill Splitter) 1 ea UNSCH PRN OTHER SEE LABEL COMMENTS; Start 06/13/17 at 21:00 Pantoprazole Sodium (Protonix) 40 mg DAILY PO Last administered on 06/22/17 10 :03; Start 06/14/17 at 09:00 Vit C/Vit E/Zinc/ Copper/Lutein (Ocuvite) 1 tab DAILY PO Last administered on 06/22/17 10:01; Start 06/14/17 at 09:00 Temazepam (Restoril) 30 mg HS PRN PO INSOMNIA Last administered on 06/21/17 20 :28; Start 06/13/17 at 19:30 Oxycodone/ Acetaminophen (Percocet 5-325 Mg) 1 tab Q4HR PRN PO PAIN SCALE 3 TO 5 Last administered on 06/22/17 06:55; Start 06/14/17 at 08:45 Oxycodone/ Acetaminophen (Percocet 10-325 Mg) 1 tab Q4H PRN PO PAIN SCALE 6 TO 10 Last administered on 06/22/17 10:02; Start 06/14/17 at 08:45 Ceftriaxone Sodium 1000 mg/ Sodium Chloride 100 ml @ 200 mls/hr Q24H IV Last administered on 06/16/17 08:30; Start 06/14/17 at 10:00; Stop 06/16/17 at 14 :10; Status DC Prednisone (Deltasone) 50 mg ONCE ONCE PO Last administered on 06/15/17 18: 30; Start 06/15/17 at 19:00; Stop 06/15/17 at 19:01; Status DC Prednisone (Deltasone) 50 mg ONCE ONCE PO ; Start 06/16/17 at 01:00; Stop at 01:00; Status DC Prednisone (Deltasone) 50 mg ONCE ONCE PO ; Start 06/16/17 at 07:00; Stop at 07:01; Status DC Diphenhydramine HCl (Benadryl) 50 mg ONCE ONCE PO Last administered on 06:07; Start 06/16/17 at 07:00; Stop 06/16/17 at 07:01; Status DC Sodium Bicarbonate 100 meq/Dextrose 1,100 ml @ 42 mls/hr Q24H IV Last administered on 06/16/17 20:04; Start 06/16/17 at 01:00; Stop 06/18/17 at 07: 32; Status DC Prednisone (Deltasone) 50 mg ONCE ONCE PO Last administered on 06/16/17 01: 11; Start 06/16/17 at 01:00; Stop 06/16/17 at 01:01; Status DC Protamine Sulfate (Protamine Sulfate Inj) 50 mg STK-MED ONCE .ROUTE ; Start at 07:10; Stop 06/16/17 at 07:11; Status DC Heparin Sodium (Porcine) (Heparin Inj) 10,000 units STK-MED ONCE .ROUTE Last administered on 06/16/17 08:40; Start 06/16/17 at 07:10; Stop 06/16/17 at 07 :11; Status DC Heparin Sodium/ Sodium Chloride 1,000 ml @ As Directed STK-MED ONCE .ROUTE Last administered on 06/16/17 07:40; Start 06/16/17 at 07:17; Stop 06/16/17 at 07:18; Status DC Diphenhydramine HCl (Benadryl Inj) 50 mg STK-MED ONCE .ROUTE Last administered on 06/16/17 08:30; Start 06/16/17 at 07:33; Stop 06/16/17 at 07:34; Status DC Protamine Sulfate (Protamine Sulfate Inj) 50 mg STK-MED ONCE .ROUTE ; Start at 09:23; Stop 06/16/17 at 09:24; Status DC Iohexol (OMNIPAQUE 300 INJ (Rad CT)) 60 ml ONCE ONCE IVCONTRAST Last administered on 06/16/17 09:34; Start 06/16/17 at 09:31; Stop 06/16/17 at 09 :34; Status DC Miscellaneous Information ALL NURSING DEPARTME... UNSCH PRN .XX SEE LABEL COMMENTS; Start 06/16/17 at 09:42; Stop 06/17/17 at 09:41; Status DC Trimethoprim/ Sulfamethoxazole (Bactrim Ds 800-160 Mg) 1 tab Q12HR PO Last administered on 06/22/17 10:02; Start 06/16/17 at 14:15 Sodium Chloride 250 ml @ 15 mls/hr ONCE ONCE IV Last administered on 10:25; Start 06/17/17 at 06:00; Stop 06/17/17 at 22:39; Status DC Sodium Chloride 1,000 ml @ 50 mls/hr Q20H IV Last administered on 06/18/17 09 :11; Start 06/18/17 at 08:00; Stop 06/19/17 at 03:59; Status DC Metoprolol Tartrate (Lopressor) 25 mg BID PO ; Start 06/19/17 at 21:00; Stop at 21:00; Status DC Metoprolol Tartrate (Lopressor) 25 mg DAILY PO Last administered on 06/20/17 08:59; Start 06/20/17 at 09:00; Stop 06/20/17 at 22:06; Status DC Metoprolol Succinate (Toprol Xl) 50 mg DAILY PO Last administered on 06/21/17 09:35; Start 06/21/17 at 09:00 A/P Problem List: (1) PVD (peripheral vascular disease) ICD Code: I73.9 - Peripheral vascular disease, unspecified Status: Acute (2) Hypertension ICD Code: I10 - Hypertension Status: Chronic (3) Diabetes mellitus ICD Code: E11.9 - Diabetes mellitus Status: Chronic (4) Atrial fibrillation ICD Code: I48.91 - Atrial fibrillation Status: Chronic Assessment and Plan 1. Peripheral arterial disease, left lower extremity: Appreciate vascular surgery recommendations. S/P postoperative day #5 left lower extremity angiogram with left popliteal angioplasty of left peroneal artery. Pain improving. Appreciate podiatry recommendations. Patient will need amputation if circulation does not improves to lower leg/foot. Continue with Plavix. 2. Poor appetite, weight loss, severe malnutrition: Continue dronabinol, Glucerna shakes. 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 3. Constipation: Continue constipation bowel regimen. Required manual disimpaction 3 days ago 4. Diabetes mellitus, type II: Diet-controlled. Monitor Accu-Cheks and cover with sliding scale insulin. 5. Hypertension/atrial fibrillation: Question will episodes of bradycardia given with beta guillermo. At the moment heart rate has been stable. Continue Xarelto. Patient cleared by commercial retoucher stated continue current regimen. 6. Generalized weakness, deconditioning: PT/OT. 7. Anemia: H/H improved after transfusion,Stool Hemoccult negative. No apparent bleeding. Hemoglobin stable today 8. Decubitus ulcers, buttocks: Present on admission. Continue wound care. 9. Chronic kidney disease stage III- creatinine has been stable overnight, furosemide currently on hold and will continue to monitor. Discharge Planning Patient was supposed to be discharged to [facility] 2 days ago but [facility] declined. Order was placed yesterday for patient to be placed in a SNF. Patient's cleared by all specialists and he has already been medically clear for discharge. Problem Qualifiers (1) Hypertension: Qualified Codes: I10 - Essential (primary) hypertension (2) Diabetes mellitus: Qualified Codes: E11.59 - Type 2 diabetes mellitus with other circulatory complications (3) Atrial fibrillation: Qualified Codes: I48.2 - Chronic atrial fibrillation Sandee Miranda MD Jun 22, 2017 10:23
== END 2017-06-22 12:18 | DRG 252 ==
LOC: HCPC 16:55 → OBSVTOIN 18:21
PROVIDERS: ADMIT Family Medicine; ATTEND Family Medicine
PROC: B41G1ZZ Fluoroscopy of Left Lower Extremity Arteries using Low Osmolar Contrast (ICD-10-PCS; 2017-06-16)
PROC: 047N3ZZ Dilation of Left Popliteal Artery, Percutaneous Approach (ICD-10-PCS; principal; 2017-06-16 07:55)
PROC: 047U3ZZ Dilation of Left Peroneal Artery, Percutaneous Approach (ICD-10-PCS; 2017-06-16 07:55)
DX: E11.52 Type 2 diabetes mellitus with diabetic peripheral angiopathy with gangrene (principal); E43 Unspecified severe protein-calorie malnutrition; L89.309 Pressure ulcer of unspecified buttock, unspecified stage; E11.22 Type 2 diabetes mellitus with diabetic chronic kidney disease; I49.5 Sick sinus syndrome; I70.262 Atherosclerosis of native arteries of extremities with gangrene, left leg; I45.2 Bifascicular block; I48.2 Chronic atrial fibrillation; N18.3 Chronic kidney disease, stage 3 (moderate); I12.9 Hypertensive chronic kidney disease with stage 1 through stage 4 chronic kidney disease, or unspecified chronic kidney disease; I25.10 Atherosclerotic heart disease of native coronary artery without angina pectoris; K21.9 Gastro-esophageal reflux disease without esophagitis; J61 Pneumoconiosis due to asbestos and other mineral fibers; G89.29 Other chronic pain; M54.9 Dorsalgia, unspecified; K59.00 Constipation, unspecified; Z87.891 Personal history of nicotine dependence; Z95.5 Presence of coronary angioplasty implant and graft; Z96.649 Presence of unspecified artificial hip joint; Z96.659 Presence of unspecified artificial knee joint; Z79.01 Long term (current) use of anticoagulants; Z90.49 Acquired absence of other specified parts of digestive tract; M79.672 Pain in left foot; D64.9 Anemia, unspecified
CPT/HCPCS: 36430; 71010; 76937; 80048; 80053; 80061; 81001; 82272; 82550; 82948; 83036; 83735; 84100; 84155; 84439; 84443; 84484; 85014; 85018; 85025; 86850; 86900; 86901; 86920; 87077; 87086; 87186; 90686; 93005; J0696; J1200; J1644; J1815; J2270; J2720; J7030; J7050; J7070; J7512; P9016; Q0163; Q2038; Q9967

== ENCOUNTER 2017-07-05 10:28 | Inpatient (IN) | payer MEDICARE, OTHER ==
[2017-07-05] VITALS (10 sets, daily range): BP systolic 72–121; BP diastolic 44–76; PULSE 82–112; RESP 19–25; TEMP 97.1–98; O2SAT 97–100
[~2017-07-05] VITALS: Ht 180.3 cm; Wt 75.5 kg
[~2017-07-05 10:28] MED LIST changes: +ACET325T15 PO; +ASCO500 PO; +COMMODE 3-IN-11 MIS; +FERR325T20 PO; -FURO1TAB62 PO; +FURO20TA PO; +GUAI600T11 PO; +HOSP BED1; -HYDR-3583 PO; -HYDR12.56 PO; +NYST15T TOPICAL; +ONDA4TAB7 PO; +OXYC1TAB36 PO; +OXYC1TAB63 PO; +PANT40TA3 PO; +POLY17S PO; -POTA20TA5 PO; +THERTAB15 PO; +TRANSPORT CHAIR1 MIS; +[UNRECOGNIZED DRUG - OTHER] PO; +guaiFENesin ER PO
[2017-07-05] MEDS ORDERED: SODIUM CHLORIDE 0.9% FLUSH 10 ML FLUSH IVF PRN (10:45)
[2017-07-05 11:09] LABS: AUTOMATED NEUTROPHIL # 14.2 TH/MM3 (1.8-7.7); BASOPHIL % 0.1 % (0.0-2.0); EOSINOPHIL % 0.1 % (0.0-4.0); HEMATOCRIT 26.4 % (39.0-51.0); LYMPH % 4.2 % (9.0-44.0); LYMPHOCYTE # 0.7 TH/MM3 (1.0-4.8); MEAN CELL VOLUME 96.4 FL (80.0-100.0); MEAN CORPUSCULAR HEMOGLOBIN 31.8 PG (27.0-34.0); MEAN CORPUSCULAR HGB CONC 33.1 % (32.0-36.0); MONO % 4.2 % (0.0-8.0); NEUT % 91.4 % (16.0-70.0); PLATELET COUNT 177 TH/MM3 (150-450); RED BLOOD COUNT 2.74 MIL/MM3 (4.50-5.90); RED CELL DISTRIBUTION WIDTH 20.3 % (11.6-17.2); WHITE BLOOD COUNT 15.5 TH/MM3 (4.0-11.0)
[2017-07-05 11:10] LABS: HEMO FLAGS AUTO DIFF
--- NOTE | 2017-07-05 11:11 | PD ---
HPI . Shortness of breath Chief Complaint: Respiratory Symptoms Time Seen by Provider: 10:43 Travel History International Travel<30 days: No Contact w/Intl Traveler<30days: No Traveled to known affect area: No History of Present Illness HPI This patient presents with the chief complaint of shortness of breath. He was seen by his home health nurse earlier today with saturations in the 60s. EMS was called and he was brought to the hospital. Patient admits to cough. He admits to poor appetite and feeling weak. He denies fever. His cough has been productive of white sputum. He states that his shortness of breath is improved with oxygen. EMS reports that the patient was just discharged from the hospital for pneumonia. PFSH Past Medical History Hx Anticoagulant Therapy: Yes (plavix, eliquiz ?? ) Asthma: No Atrial Fibrillation: Yes Blood Disorders: No Anxiety: No Depression: No Heart Rhythm Problems: Yes (afib) Cancer: No Cardiac Catheterization: Yes Cardiovascular Problems: Yes ([place], stent, ) High Cholesterol: No Chemotherapy: No Chest Pain: Yes Congestive Heart Failure: No COPD: No Coronary Artery Disease: Yes Diabetes: No Diminished Hearing: Yes Endocrine: Yes Gastrointestinal Disorders: Yes (GERD) GERD: Yes Genitourinary: Yes (RENAL STENTS) Hiatal Hernia: Yes Hypertension: Yes Immune Disorder: No Musculoskeletal: Yes (SPINE ARTHRITIS) Neurologic: No Psychiatric: No Reproductive: No Respiratory: No Myocardial Infarction: Yes Radiation Therapy: No Sleep Apnea: No Past Surgical History Coronary Artery Bypass Graft: No Coronary Stent: Yes (X 3-4) Joint Replacement: Yes (LEFT KNEE, LEFT HIP) Other Surgery: Yes (RENAL STENT) Family History Family Myocardial Infarction: Yes Social History Alcohol Use: Yes (OCC BEER) Tobacco Use: No Substance Use: No Allergies-Medications (Allergen,Severity, Reaction): Coded Allergies: diatrizoate meglumine (Unverified Allergy, Severe, 07/05/17) gadobenic acid (Unverified Allergy, Severe, 07/05/17) gadodiamide (Unverified Allergy, Severe, 07/05/17) gadoteridol (Unverified Allergy, Severe, 07/05/17) iodixanol (Unverified Allergy, Severe, 07/05/17) iohexol (Unverified Allergy, Severe, 07/05/17) Reported Meds & Prescriptions Reported Meds & Active Scripts Active Mucus Relief ER (Guaifenesin) 600 Mg Tab 600 Mg PO BID PRN Pantoprazole (Pantoprazole Sodium) 40 Mg Tab 40 Mg PO DAILY 30 Days Furosemide 20 Mg Tab 20 Mg PO DAILY 30 Days Eq Acetaminophen (Acetaminophen) 325 Mg Tab 650 Mg PO Q4H PRN 30 Days Oxycodone-Acetaminophen 10-325 mg Tab 1 Tab PO Q4H PRN Plavix (Clopidogrel Bisulfate) 75 Mg Tab 75 Mg PO DAILY Reported Feosol (Ferrous Sulfate) 325 Mg (65 Mg Iron) Tab 200 Mg PO DAILY Vitamin C (Ascorbic Acid) 250 Mg Chew 250 Mg CHEW DAILY Celecoxib 200 Mg Cap 200 Mg PO BID One Daily (Multiple Vitamin) 1 Tab 1 Tab PO DAILY Restoril (Temazepam) 30 Mg Cap 30 Mg PO HS PRN Xarelto (Rivaroxaban) 15 Mg Tab 15 Mg PO DAILY Nexium (Esomeprazole DR) 40 Mg Capdr 40 Mg PO DAILY Review of Systems Except as stated in HPI: all other systems reviewed are Neg General / Constitutional: No: Fever, Chills Respiratory: Positive: Cough, Shortness of Breath Gastrointestinal: Positive: Loss of Appetite Neurologic: Positive: Weakness Physical Exam Narrative GENERAL: He is an elderly man who looks like he is having some difficulty breathing. SKIN: warm/dry. Dressing on his left foot. HEAD: Normocephalic. Atraumatic. EYES: Pupils equal and round. No scleral icterus. No injection or drainage. ENT: No nasal bleeding or discharge. Mucous membranes pink and moist. NECK: Trachea midline. Full range of motion without pain.. CARDIOVASCULAR: Regular rate and rhythm. RESPIRATORY: He is using abdominal muscles to breathe. He has diffuse lower rhonchi. GASTROINTESTINAL: Abdomen soft. Nontender. Bowel sounds present. Nondistended. MUSCULOSKELETAL: No obvious deformities. NEUROLOGICAL: Awake and alert. No obvious cranial nerve deficits. Motor grossly within normal limits. Normal speech. PSYCHIATRIC: Appropriate mood and affect; insight and judgment normal. Data Data Last Documented VS Vital Signs Date Time Temp Pulse Resp B/P (MAP) Pulse Ox O2 Delivery O2 Flow Rate FiO2 07/05/17 12:56 78 71/49 07/05/17 12:53 24 Nasal Cannula 6.00 97 07/05/17 11:46 100 07/05/17 11:01 97.1 Orders Orders Electrocardiogram (07/05/17 10:43) Complete Blood Count With Diff (07/05/17 10:43) Comprehensive Metabolic Panel (07/05/17 10:43) Lactic Acid Sepsis Protocol (07/05/17 10:43) Blood Culture (07/05/17 10:43) Chest, Single Ap (07/05/17 10:43) Sodium Chloride 0.9% Flush (Ns Flush) (07/05/17 10:45) Piperacil-Tazo 4.5 Gm Premix (Zosyn 4.5 (07/05/17 12:00) Azithromycin Inj (Zithromax Inj) (07/05/17 12:00) Tobramycin Inj (Nebcin Inj) (07/05/17 13:00) Sodium Chlor 0.9% 1000 Ml Inj (Ns 1000 M (07/05/17 11:51) Sodium Chlor 0.9% 1000 Ml Inj (Ns 1000 M (07/05/17 11:51) Sodium Chlor 0.9% 1000 Ml Inj (Ns 1000 M (07/05/17 11:51) Dopamine Inj Premix (Dopamine Inj Premix (07/05/17 12:44) Admit Order (Ed Use Only) (07/05/17 ) Labs Laboratory Tests Test 07/05/17 10:50 White Blood Count 15.5 TH/MM3 Red Blood Count 2.74 MIL/MM3 Hemoglobin 8.7 GM/DL Hematocrit 26.4 % Mean Corpuscular Volume 96.4 FL Mean Corpuscular Hemoglobin 31.8 PG Mean Corpuscular Hemoglobin Concent 33.1 % Red Cell Distribution Width 20.3 % Platelet Count 177 TH/MM3 Mean Platelet Volume 7.5 FL Neutrophils (%) (Auto) 91.4 % Lymphocytes (%) (Auto) 4.2 % Monocytes (%) (Auto) 4.2 % Eosinophils (%) (Auto) 0.1 % Basophils (%) (Auto) 0.1 % Neutrophils # (Auto) 14.2 TH/MM3 Lymphocytes # (Auto) 0.7 TH/MM3 Monocytes # (Auto) 0.6 TH/MM3 Eosinophils # (Auto) 0.0 TH/MM3 Basophils # (Auto) 0.0 TH/MM3 CBC Comment AUTO DIFF Differential Total Cells Counted 100 Neutrophils % (Manual) 34 % Band Neutrophils % 47 % Lymphocytes % 3 % Monocytes % 5 % Basophils % 1 % Neutrophils # (Manual) 14.1 TH/MM3 Metamyelocytes 10 % Differential Comment FINAL DIFF MANUAL Toxic Granulation 1+ Dohle Bodies PRESENT Platelet Estimate NORMAL Platelet Morphology Comment NORMAL Blood Urea Nitrogen 50 MG/DL Creatinine 2.87 MG/DL Random Glucose 171 MG/DL Total Protein 5.2 GM/DL Albumin 1.7 GM/DL Calcium Level 8.0 MG/DL Alkaline Phosphatase 94 U/L Aspartate Amino Transf (AST/SGOT) 233 U/L Alanine Aminotransferase (ALT/SGPT) 99 U/L Total Bilirubin 0.8 MG/DL Sodium Level 135 MEQ/L Potassium Level 5.5 MEQ/L Chloride Level 101 MEQ/L Carbon Dioxide Level 21.1 MEQ/L Anion Gap 13 MEQ/L Estimat Glomerular Filtration Rate 21 ML/MIN Lactic Acid Level 6.9 mmol/L MDM Medical Decision Making Medical Screen Exam Complete: Yes Emergency Medical Condition: Yes Medical Record Reviewed: Yes (patient was actually just discharged from rehabilitation because of recent angioplasty to his left foot. He was initially admitted here on 05/22 peripheral vascular disease. There is no mention on his recent record of pneumonia.) Interpretation(s) EKG shows atrial fibrillation with a rate of 91. He has a right bundle branch block. It is unchanged from previous. Differential Diagnosis Differential diagnosis includes but is not limited to viral respiratory illness , bronchitis, pneumonia, allergies, CHF, asthma/COPD. Narrative Course This patient presents for the evaluation of cough and hypoxia. The report was that he was recently treated for pneumonia. However, he was actually recently treated for peripheral vascular disease of his left foot. CBC & BMP Diagram 07/05/17 10:50 Total Protein 5.2 L, Albumin 1.7 L, Calcium Level 8.0 L, Alkaline Phosphatase 94 , Aspartate Amino Transf (AST/SGOT) 233 H, Alanine Aminotransferase (ALT/SGPT) 99 H, Total Bilirubin 0.8 LA 6.9 Last Impressions Chest X-Ray 07/05/17 1043 Signed Impressions: Service Date/Time: Friday, July 05, 2017 11:09 - CONCLUSION: No significant interval change. Left lower lobe pulmonary consolidation and patchy medial right lung base opacity unchanged. Jose Guadalupe Franco MD I will presume acute pneumonia given his clinical presentation and laboratory evaluation. He was just discharged from rehabilitation 2 or 3 days ago. Therefore, I have ordered the antibiotics for hospital-acquired pneumonia. The patient will be admitted to the hospital. Critical Care Narrative Aggregate critical care time was 45 minutes. Time to perform other separately billable procedures was not included in the critical care time. My time did not include minutes spent treating any other patients simultaneously or on activities that did not directly contribute to the patient's treatment. The services I provided to this patient were to treat and/or prevent clinically significant deterioration due to shortness of breath and hypoxia. I provided critical care services requiring my management, as noted below: Chart data review, documentation time, medication orders and management, vital sign assessments/reviewing monitor data, ordering and reviewing lab tests, ordering and interpreting/reviewing x-rays and diagnostic studies, care of the patient and discussion of the patient with the admitting physicians Sepsis Criteria SIRS Criteria (2 or more): Heart rate over 90, WBC > 73735, < 4000 or > 10% bands Sepsis Criteria (SIRS+source): Infect source susp/known Severe Sepsis (+one): Lactate >2 Criteria Outcome: Meets SIRS criteria, Meets sepsis criteria, Meets severe sepsis criteria Physician Communication Physician Communication Dr. Aguilar Diagnosis Primary Impression: Sepsis Qualified Codes: A41.9 - Sepsis, unspecified organism Admitting Information Admitting Physician Requests: Admit Condition: Stable Arlyn Engle MD Jul 05, 2017 11:11
[2017-07-05 11:30] LABS: ALT (GPT) 99 U/L (12-78); ANION GAP 13 MEQ/L (5-15); AST (GOT) 233 U/L (15-37); BICARBONATE 21.1 MEQ/L (21.0-32.0); BLOOD UREA NITROGEN 50 MG/DL (7-18); CHLORIDE 101 MEQ/L (98-107); GLOMERULAR FILTRATION RATE 21 ML/MIN (>89); POTASSIUM 5.5 MEQ/L (3.5-5.1); SODIUM (NA) 135 MEQ/L (136-145)
[2017-07-05 11:33] LABS: ALKALINE PHOSPHATASE 94 U/L (45-117); TOTAL BILIRUBIN ADULT 0.8 MG/DL (0.2-1.0)
--- NOTE | 2017-07-05 11:37 | RADRPT ---
EXAM DATE/TIME: 07/05/2017 11:09 [facility] COMPARISON: CHEST SINGLE AP, June 30, 2017, 15:54. POC ULTRASOUND VASCULAR ACCESS TEAM, June 30, 2017, 1 9:56. INDICATIONS : Cough, difficulty breathing MEDICAL HISTORY : Hypertension. Myocardial infarction. coronary artery disease. SURGICAL HISTORY : renal stents ENCOUNTER: Initial ACUITY: 1 day PAIN SCORE: 0/10 LOCATION: Bilateral chest FINDINGS: Single AP view of the chest. Cardiac silhouette enlargement unchanged. Left lower lobe consolidation and patchy right lung base opacity unchanged. No evidence of pneumothorax. CONCLUSION: No significant interval change. Left lower lobe pulmonary consolidation and patchy medial right lung base opacity unchanged. Jose Guadalupe Franco MD on July 05, 2017 at 11:34 Board Certified Radiologist. This report was verified electronically.
[2017-07-05 11:47] LABS: BANDS 47 % (0-6); BASOPHILS 1 % (0-2); DOHLE BODIES PRESENT (NONE SEEN); METAMYELOCYTES 10 % (0-1); NEUTROPHIL # MANUAL DIFF 14.1 TH/MM3 (1.8-7.7); POLYS (SEG NEUTROPHILS) 34 % (16-70); TOXIC GRANULATION 1+ (NORMAL); WBC DIFF SAMPLE 100
[2017-07-05 11:48] LABS: PLATELET ESTIMATE SMEAR NORMAL (NORMAL); PLATELET MORPHOLOGY NORMAL (NORMAL); SCAN/DIFF FINAL DIFF MANUAL
[2017-07-05] MEDS ORDERED: SODIUM CHLOR 0.9% 1000 ML INJ 400 ML IV ONE (11:51)
[2017-07-05] MEDS ORDERED: SODIUM CHLOR 0.9% 1000 ML INJ 1,000 ML IV ONE ×2 (11:51)
[2017-07-05] MEDS ORDERED: AZITHROMYCIN INJ 500 MG in SODIUM CHLOR 0.9% 250 ML INJ 250 ML IV ONE (12:00)
[2017-07-05] MEDS ORDERED: PIPERACIL-TAZO 4.5 GM PREMIX 100 ML IV ONE (12:00)
[2017-07-05] MEDS ORDERED: DOPamine INJ PREMIX 500 ML ONE (12:44)
[2017-07-05] MEDS ORDERED: TOBRAMYCIN INJ 560 MG in SODIUM CHLORIDE 0.9% INJ 100 ML IV ONE (13:00)
[2017-07-05 13:01] LABS: LACTIC ACID GHOST NOT REPORTABLE
[2017-07-05] MEDS ORDERED: SODIUM CHLOR 0.9% 1000 ML INJ 1,000 ML IV SCH (14:02)
[2017-07-05] MEDS ORDERED: BISACODYL 10 MG SUPP RECTAL PRN (14:15)
[2017-07-05] MEDS ORDERED: CHLORHEXIDINE GLUCONATE 2 % 1 PACK (2 CLOTHS) TOP PRN (14:15)
[2017-07-05] MEDS ORDERED: SENNOSIDES 8.6 MG TAB PO PRN (14:15)
[2017-07-05] MEDS ORDERED: Vancomycin Consult Pharmacy 1 EA OTHER SCH (14:15)
[2017-07-05] MEDS ORDERED: SODIUM CHLORIDE 0.9% FLUSH 10 ML FLUSH IV FLUSH PRN ×2 (14:15→19:45)
[2017-07-05] MEDS ORDERED: LACTULOSE SYRUP 20 GM/30 ML CUP PO PRN (14:15)
[2017-07-05] MEDS ORDERED: MISCELLANEOUS NURSING INFORMATION XX SCH (14:15)
[2017-07-05] MEDS ORDERED: RESP: ALBUTEROL 2.5 MG/3 ML NEB (PRN) INH (14:15)
[2017-07-05] MEDS ORDERED: ONDANSETRON HCL 4 MG/2 ML VIAL IV PUSH PRN (14:15)
[2017-07-05] MEDS ORDERED: TERBUTALINE INJ 1 MG/ML AMP SQ PRN (14:15)
[2017-07-05] MEDS ORDERED: ACETAMINOPHEN 325 MG TAB PO PRN (14:15)
[2017-07-05] MEDS ORDERED: ACETAMINOPHEN/HYDROcodone 325 MG/5 MG TAB PO PRN (14:15)
[2017-07-05] MEDS ORDERED: MAGNESIUM HYDROXIDE SUSP 30 ML CUP PO PRN (14:15)
[2017-07-05] MEDS ORDERED: DEXTROSE 50% IN WATER 50 ML VIAL(D50) IV PUSH ONE (14:30)
[2017-07-05] MEDS ORDERED: CALCIUM GLUCONATE 10% 1 GM/10 ML VIAL SLOW IVP ONE (14:30)
[2017-07-05] MEDS ORDERED: INSULIN HUMAN REGULAR 1,000 UNITS/10 ML VIAL IV PUSH ONE (14:30)
--- NOTE | 2017-07-05 14:31 | HHI.HP ---
[facility] Service Critical Care Medicine Primary Care Physician Antonio Evangelista MD Admission Diagnosis sepsis Diagnosis: (1) Anemia Diagnosis: Secondary (2) Leukocytosis Diagnosis: Principal (3) Chronic anticoagulation Diagnosis: Principal (4) Insomnia Diagnosis: Principal (5) Hyperglycemia Diagnosis: Principal (6) Elevated transaminase level Diagnosis: Principal (7) Chronic low back pain Diagnosis: Secondary (8) Diabetes mellitus Diagnosis: Secondary (9) Gastroesophageal reflux disease Diagnosis: Principal (10) Atrial fibrillation Diagnosis: Principal (11) Peripheral arterial disease Diagnosis: Principal (12) Acute renal injury due to sepsis Diagnosis: Principal (13) Hyperkalemia Diagnosis: Principal (14) Lactic acidosis Diagnosis: Principal (15) Severe sepsis with acute organ dysfunction Diagnosis: Principal (16) Coronary artery disease Diagnosis: Principal (17) Asbestosis Diagnosis: Principal (18) Edema of both legs Diagnosis: Principal (19) GERD (gastroesophageal reflux disease) Diagnosis: Principal (20) CKD (chronic kidney disease), stage III Diagnosis: Principal (21) Decubital ulcer Diagnosis: Secondary (22) Impaired mobility and activities of daily living Diagnosis: Secondary (23) Constipation Diagnosis: Secondary (24) Debility Diagnosis: Principal (25) Gangrene of foot Diagnosis: Principal Chief Complaint: Shortness of breath/generalized weakness Travel History International Travel<30 Days: No Contact w/Intl Traveler <30 Da: No Traveled to Known Affected Are: No Sepsis Criteria SIRS Criteria (2 or more): Heart rate over 90, WBC > 98518, < 4000 or > 10% bands Severe Sepsis (+one): Organ Dysfunction, Lactate >2 Septic Shock Criteria: Unresponsive to 30ml/kg fluid bolus, Lactic acid >=4 Multiple Organ Dysfunction Syn: Evidence -2 organs failing Criteria Outcome: Meets multiple organ dys. criteria History of Present Illness This is an 86-year-old male. He is DNR/DNI status. 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 Daley - underwent left lower extremity angiogram with left poplitea angioplasty with 4mm balloon and left peroneal artery angioplasty with a 2 mm balloon and right DATA TECHNICIAN angioseal. . Patient also had hard necrotic tissue to 4th and 5th metatarsals of left foot, eschar of plantar/posterior left heel and lateral aspect of 3rd digits and necrotic tissue to medial Right hallux and 1st MTP joint areas. -, coronary disease status post stent 2, atrial fibrillation, chronic kidney disease stage III, gastroesophageal reflux disease, diabetes mellitus, hypertension, chronic low back pain,, Rivaroxaban use,, peripheral arterial disease and peripheral vascular disease. Patient was recently discharged from [facility] . He presents to [facility] ED with chief complaint of shortness of breath. He was seen by his home health nurse earlier today with saturations in the 60s. EMS was called and he was brought to the hospital. Chief complaint was quite shortness of breath, cough productive of yellow sputum.. Chest x-ray revealed bilateral lower lobe infiltrates similar to previous x- ray. White blood cell count was elevated. Patient's creatinine is currently 2.9. Baseline around 1.5. Transaminases are elevated. Troponin is elevated. Lactates is greater than 4.. Patient received 2 L normal saline wide open and became more hypoxic currently a nonrebreather mask. Peripheral dopamine was started currently at 3 mcg/kg per minute. Review of Systems ROS Limitations: Altered Mental Status Past Family Social History Allergies: Coded Allergies: diatrizoate meglumine (Unverified Allergy, Severe, 07/05/17) gadobenic acid (Unverified Allergy, Severe, 07/05/17) gadodiamide (Unverified Allergy, Severe, 07/05/17) gadoteridol (Unverified Allergy, Severe, 07/05/17) iodixanol (Unverified Allergy, Severe, 07/05/17) iohexol (Unverified Allergy, Severe, 07/05/17) Past Medical History Peripheral arterial disease Peripheral vascular disease Atrial fibrillation Chronic kidney disease stage III Gastroesophageal reflux disease Diabetes mellitus Hypertension Chronic low back pain Chronic rivaroxaban use Insomnia Chronic narcotic use Gastroesophageal reflux disease Past Surgical History Cholecystectomy Cardiac stents 2 Left knee/left hip Reported Medications Mucus Relief ER (Guaifenesin) 600 Mg Tab 600 Mg PO BID PRN Pantoprazole (Pantoprazole Sodium) 40 Mg Tab 40 Mg PO DAILY 30 Days Furosemide 20 Mg Tab 20 Mg PO DAILY 30 Days Eq Acetaminophen (Acetaminophen) 325 Mg Tab 650 Mg PO Q4H PRN 30 Days Oxycodone-Acetaminophen 10-325 mg Tab 1 Tab PO Q4H PRN Plavix (Clopidogrel Bisulfate) 75 Mg Tab 75 Mg PO DAILY Reported Feosol (Ferrous Sulfate) 325 Mg (65 Mg Iron) Tab 200 Mg PO DAILY Vitamin C (Ascorbic Acid) 250 Mg Chew 250 Mg CHEW DAILY Celecoxib 200 Mg Cap 200 Mg PO BID One Daily (Multiple Vitamin) 1 Tab 1 Tab PO DAILY Restoril (Temazepam) 30 Mg Cap 30 Mg PO HS PRN Xarelto (Rivaroxaban) 15 Mg Tab 15 Mg PO DAILY Nexium (Esomeprazole DR) 40 Mg Capdr 40 Mg PO DAILY Active Ordered Medications Reviewed in EMR Family History Mother from brain tumor operation. No cancer diabetes in family. Social History [id number] tobacco/2 packs per day quit 1994. Quit alcohol 4 years ago - documentation of prior beer. No illicit drug use. Physical Exam Vital Signs Vital Signs Date Time Temp Pulse Resp B/P (MAP) Pulse Ox O2 Delivery O2 Flow Rate FiO2 07/05/17 13:50 107 123/60 07/05/17 13:26 103 91/69 07/05/17 13:26 98 Non-Rebreather 15.00 07/05/17 13:20 90 Nasal Cannula 7.00 07/05/17 13:15 88 25 96/54 (68) 97 Nasal Cannula 7.00 07/05/17 13:12 96 93/55 07/05/17 12:56 78 71/49 07/05/17 12:53 82 24 72/44 (53) Nasal Cannula 6.00 97 07/05/17 11:46 100 Nasal Cannula 6.00 07/05/17 11:01 97.1 89 19 100/76 (84) 100 Non-Rebreather 07/05/17 10:59 94 19 100 Non-Rebreather 15.00 Physical Exam GENERAL: This is an 86-year-old male, critically ill currently resting in bed on nonrebreather mask SKIN: Cool and dry. HEAD: Atraumatic. Normocephalic. EYES: Pupils equal and round. No scleral icterus. No injection or drainage. ENT: No nasal bleeding or discharge. Mucous membranes Antonio pink. Oropharynx without erythema NECK: Trachea midline. No JVD. CARDIOVASCULAR: Tachycardia, IR. S1, S2 no S4. Faint 2/6 systolic murmur RESPIRATORY: Coarse rhonchorous breath sounds throughout GASTROINTESTINAL: Abdomen soft, non-tender, nondistended. Hepatic and splenic margins not palpable. MUSCULOSKELETAL: Extremities with 1+ peripheral edema. Patient hard necrotic tissue to 4th and 5th metatarsals of left foot,eschar of plantar/posterior left heel and lateral aspect of 3rd digits and necrotic tissue to medial Right hallux and 1st MTP joint areas. NEUROLOGICAL: Awake and alert to person only. No obvious cranial nerve deficits. Motor grossly within normal limits. Five out of 5 muscle strength in the arms and legs. One were answered. Speech Laboratory Laboratory Tests Test 07/05/17 10:50 07/05/17 13:30 White Blood Count 15.5 Red Blood Count 2.74 Hemoglobin 8.7 Hematocrit 26.4 Mean Corpuscular Volume 96.4 Mean Corpuscular Hemoglobin 31.8 Mean Corpuscular Hemoglobin Concent 33.1 Red Cell Distribution Width 20.3 Platelet Count 177 Mean Platelet Volume 7.5 Neutrophils (%) (Auto) 91.4 Lymphocytes (%) (Auto) 4.2 Monocytes (%) (Auto) 4.2 Eosinophils (%) (Auto) 0.1 Basophils (%) (Auto) 0.1 Neutrophils # (Auto) 14.2 Lymphocytes # (Auto) 0.7 Monocytes # (Auto) 0.6 Eosinophils # (Auto) 0.0 Basophils # (Auto) 0.0 CBC Comment AUTO DIFF Differential Total Cells Counted 100 Neutrophils % (Manual) 34 Band Neutrophils % 47 Lymphocytes % 3 Monocytes % 5 Basophils % 1 Neutrophils # (Manual) 14.1 Metamyelocytes 10 Differential Comment FINAL DIFF MANUAL Toxic Granulation 1+ Dohle Bodies PRESENT Platelet Estimate NORMAL Platelet Morphology Comment NORMAL Blood Urea Nitrogen 50 Creatinine 2.87 Random Glucose 171 Total Protein 5.2 Albumin 1.7 Calcium Level 8.0 Alkaline Phosphatase 94 Aspartate Amino Transf (AST/SGOT) 233 Alanine Aminotransferase (ALT/SGPT) 99 Total Bilirubin 0.8 Sodium Level 135 Potassium Level 5.5 Chloride Level 101 Carbon Dioxide Level 21.1 Anion Gap 13 Estimat Glomerular Filtration Rate 21 Lactic Acid Level 6.9 5.5 Date/Time Source Procedure Growth Status 07/05/17 10:50 Blood Peripheral Aerobic Blood Culture Pending Received 07/05/17 10:50 Blood Peripheral Anaerobic Blood Culture Pending Received Result Diagram: 07/05/17 1050 07/05/17 1050 Imaging Last Impressions Chest X-Ray 07/05/17 1043 Signed Impressions: Service Date/Time: Friday, July 05, 2017 11:09 - CONCLUSION: No significant interval change. Left lower lobe pulmonary consolidation and patchy medial right lung base opacity unchanged. Jose Guadalupe Franco MD Septic Shock Reassessment Heart: Irregular Lungs: Crackles Skin: Cold Peripheral Pulses: Weak Right Radial Weak Left Radial Weak Right Popliteal Weak Left Popliteal Weak Right Dorsalis Pedis Weak Left Posterior Tibial Bounding Right Posterior Tibial Absent Left Dorsalis Pedis Capillary Refill: <2 seconds Caprini VTE Risk Assessment Caprini VTE Risk Assessment: Mod/High Risk (score >= 2) VTE Pharm Contraindication: Caprini Risk Assessment Model Point Value = 1 Point Value = 2 Point Value = 3 Point Value = 5 Age 41-60 Minor surgery BMI > 25 kg/m2 Swollen legs Varicose veins or History of unexplained or recurrent spontaneous Oral contraceptives or hormone replacement Sepsis (< 1 month) Serious lung disease, including pneumonia (< 1 month) Abnormal pulmonary function Acute myocardial infarction Congestive heart failure (< 1 month) History of inflammatory bowel disease Medical patient at bed rest Age 61-74 Arthroscopic surgery Major open surgery (> 45 min) Laparoscopic surgery (> 45 min) Malignancy Confined to bed (> 72 hours) Immobilizing plaster cast Central venous access Age >= 75 History of VTE Family history of VTE Factor V Leiden Prothrombin [id number] Lupus anticoagulant Anticardiolipin antibodies Elevated serum homocysteine Heparin-induced thrombocytopenia Other congenital or acquired thrombophilia Stroke (< 1 month) Elective arthroplasty Hip, pelvis, or leg fracture Acute spinal cord injury (< 1 month) Prophylaxis Regimen Total Risk Factor Score Risk Level Prophylaxis Regimen 0-1 Low Early ambulation 2 Moderate Order ONE of the following: *Sequential Compression Device (SCD) *Heparin 5000 units SQ BID 3-4 Higher Order ONE of the following medications: *Heparin 5000 units SQ TID *Enoxaparin/Lovenox 40 mg SQ daily (WT < 150 kg, CrCl > 30 mL/min) *Enoxaparin/Lovenox 30 mg SQ daily (WT < 150 kg, CrCl > 10-29 mL/min) *Enoxaparin/Lovenox 30 mg SQ BID (WT < 150 kg, CrCl > 30 mL/min) AND/OR *Sequential Compression Device (SCD) 5 or more Highest Order ONE of the following medications: *Heparin 5000 units SQ TID (Preferred with Epidurals) *Enoxaparin/Lovenox 40 mg SQ daily (WT < 150 kg, CrCl > 30 mL/min) *Enoxaparin/Lovenox 30 mg SQ daily (WT < 150 kg, CrCl > 10-29 mL/min) *Enoxaparin/Lovenox 30 mg SQ BID (WT < 150 kg, CrCl > 30 mL/min) AND *Sequential Compression Device (SCD) Assessment and Plan Assessment and Plan Neuro/Psych: Acute encephalopathy Chronic narcotic use Currently holding oxycodone/acetaminophen 10/325 one tablet every 4 hours when necessary pain. with altered mental status Holding temazepam 30 mg a night for insomnia Holding celecoxib 200 mg by mouth twice a day Currently on acetaminophen 600 mg by mouth every 6 hours when necessary fever Hydrocodone/acetaminophen 5/325 1 tablet every 4 hours when necessary pain 1-5. Morphine sulfate 2 mg IV every 2 hours. 6010 CV: Severe sepsis with multisystem organ failure History of hypertension Coronary disease status post cardiac stent 2 Peripheral arterial disease Recent left lower extremity angiogram with left poplitea angioplasty with 4mm balloon and left peroneal artery angioplasty with a 2 mm balloon and right DATA TECHNICIAN angioseal.Dr Daley Elevated troponin Currently on and off injecting maintain a mean arterial pressure greater than equal to 65 2 L normal saline in ED. Bolused Limited 2-D echocardiogram ordered. Continue clopidogrel 75 mg daily Old Q waves in inferior leads on EKG. Cycle troponins [address] Duncan cardiology last admission. We'll start on heparin drip while off Xarelto acute renal failure Resp: Acute hypoxic respiratory failure Bilateral lower lobe pneumonia History of tobaccoism Patient currently on nonrebreather mask to titrate to maintain saturations greater than or equal to 90% Incentive spirometry while awake Albuterol/ipratropium aerosols every 4 hours with albuterol aerosols every 2 hours. Dyspnea Chest x-ray in a.m. See infectious disease for antibiotic coverage GI: Elevated transaminases Gastroesophageal reflux disease Patient is currently nothing by mouth Pantoprazole for GI prophylaxis Docusate sodium/senna 1 tablet twice a day for bowel regimen Follow-up on abdominal ultrasound for elevated LFTs : Hernandez catheter not place at the present time per 's request Endo: Diabetes mellitus Currently on sliding scale insulin with Novulin R with Accu-Cheks every 4 hours to maintain euglycemia/medium regimen TSH ordered Renal: Acute kidney injury in the setting of chronic kidney disease stage IIIa Abdominal ultrasound/urine electrolytes and eosinophils pending currently refusing Hernandez catheter placement Monitor urine output Accurate I's and O's Follow-up on BMP in a.m. Heme: Leukocytosis Normocytic anemia Chronic rivaroxaban use - holding with creatinine clearance less than 30 We'll start on heparin drip Monitor CBC daily. Follow trends Continue iron sulfate 325 mg by mouth daily. On 2 00mg liquid at home ID: Pneumonia - possibly healthcare acquired Piperacillin/tazobactam, vancomycin and azithromycin day #1 Blood cultures 2, UA, sputum are pending. Influenza pending. Legionella pneumococcal urinary antigens pending. Follow up on cultures FEN: Hyperkalemia Hyponatremia Patient received D50/insulin/calcium gluconate and Kayexalate 1. Recheck potassium at 1700 hrs. Replacing electrolytes as clinically indicated MSK: Left foot gangrene Hard necrotic tissue to 4th and 5th metatarsals of left foot,eschar of plantar/ posterior left heel and lateral aspect of 3rd digits and necrotic tissue to medial Right hallux and 1st MTP joint areas. Patient seen by podiatry last admission. Nonsurgical. Would not heal. Recommended outpatient follow-up. Wound care will evaluate and treat Access - Utilize peripheral IV. Patient's currently refusing central line Prophylaxis - GI - pantoprazole - DVT - SCD/currently on Rivaroxaban -elbow with creatinine clearance less than 30 Critical Care: The total critical care time was 35 minutes. Time to perform other separately billable procedures was not included in the critical care time. Code Status DNR/DNI Discussed Condition With Discussed with Astrid David [phone]. Daughter. at bedside. Care plan discussed and all questions answered. Problem Qualifiers (1) Anemia: (2) Leukocytosis: Qualified Codes: D72.825 - Bandemia (3) Insomnia: Qualified Codes: G47.00 - Insomnia, unspecified (4) Chronic low back pain: (5) Diabetes mellitus: Qualified Codes: E11.52 - Type 2 diabetes mellitus with diabetic peripheral angiopathy with gangrene (6) Atrial fibrillation: Qualified Codes: I48.91 - Unspecified atrial fibrillation (7) Coronary artery disease: (8) GERD (gastroesophageal reflux disease): Qualified Codes: K21.9 - Gastro-esophageal reflux disease without esophagitis (9) Decubital ulcer: Qualified Codes: L89.151 - Pressure ulcer of sacral region, stage 1 Shon Marcelino MD Jul 05, 2017 14:31
[2017-07-05] MEDS: ASCORBIC ACID 500 MG TAB PO SCH (14:45)
[2017-07-05] MEDS ORDERED: SODIUM POLYSTYRENE SULFONATE SUSP 15 GM/60 ML CUP PO ONE (14:45)
[2017-07-05] MEDS ORDERED: SODIUM BICARBONATE 8.4% SOLN 50 MEQ/50 ML VIAL SLOW IVP ONE (14:45)
[2017-07-05] MEDS: PHENYLEPHRINE INJ 160 MG in DEXTROSE 5% IN WATE 500 ML INJ 484 ML IV PRN ×2 (15:22)
[2017-07-05] MEDS: PIPERACIL-TAZO 2.25 GM PREMIX 50 ML IV SCH ×2 (15:28→21:34)
[2017-07-05] MEDS ORDERED: GLUCAGON 1 MG/ML VIAL OTHER PRN (15:30)
--- NOTE | 2017-07-05 15:30 | ECHRPT ---
Indication: EF CHF CONCLUSIONS Normal left ventricular size. Wall thickness is normal. The left ventricular systolic function is severely reduced with an estimated ejection fraction of 20 %. There is diffuse global hypokinesis with distinct regional wall motion abnormalities. The right ventricular systoilc function is moderately decreased. The left atrial size is moderately dilated. The right atrial size is mildly dilated. Mitral annular calcification is present. Mild to mod mitral valve regurgitation. [id number] aortic valve regurgitation. There is mild tricuspid valve regurgitation. BP: / HR: Rhythm: MEASUREMENTS (Male / Female) Normal Values Technical Quality:Good 2D ECHO LV Diastolic Diameter PLAX 4.9 cm 4.2 - 5.9 / 3.9 - 5.3 cm LV Systolic Diameter PLAX 4.5 cm IVS Diastolic Thickness 1.0 cm 0.6 - 1.0 / 0.6 - 0.9 cm LVPW Diastolic Thickness 0.7 cm 0.6 - 1.0 / 0.6 - 0.9 cm LV Relative Wall Thickness 0.4 RV Internal Dim ED PLAX 3.1 cm LA Systolic Diameter LX 4.3 cm 3.0 - 4.0 / 2.7 - 3.8 cm DOPPLER MR Peak Velocity 422.0 cm/s MR Peak Gradient 71.2 mmHg TR Peak Velocity 292.0 cm/s TR Peak Gradient 34.1 mmHg Right Atrial Pressure 5.0 mmHg Pulmonary Artery Systolic Pressu 39.1 mmHg Right Ventricular Systolic Press 39.1 mmHg FINDINGS LEFT VENTRICLE Normal left ventricular size. Wall thickness is normal. The left ventricular systolic function is severely reduced with an estimated ejection fraction of 20 %. There is diffuse global hypokinesis with distinct regional wall motion abnormalities. RIGHT VENTRICLE The right ventricular systoilc function is moderately decreased. LEFT ATRIUM The left atrial size is moderately dilated. RIGHT ATRIUM The right atrial size is mildly dilated. ATRIAL SEPTUM Normal atrial septal thickness without atrial level shunting by limited color doppler interrogation. AORTA The aortic root and proximal ascending aorta are normal in size on limited imaging. MITRAL VALVE Mitral annular calcification is present. Mild mitral valve regurgitation. AORTIC VALVE [id number] aortic valve regurgitation. TRICUSPID VALVE There is mild tricuspid valve regurgitation. PULMONARY VALVE No pulmonary valve regurgitation or stenosis. VESSELS The inferior vena cava is normal in size. PERICARDIUM No pericardial effusion. Aris El MD, FACC, [facility] (Electronically Signed) Final Date:05 July 2017 15:29
[2017-07-05] MEDS ORDERED: HEPARIN-D5W 25,000 U/250 ML 250 ML IV PRN (15:45)
[2017-07-05] MEDS: RESP: ALBUTEROL 2.5 MG/IPRATROPIUM 0.5 MG NEB (SCH) INH ×3 (15:59→23:23)
[2017-07-05] MEDS: INSULIN NovoLIN REGULAR SUPPLEMENTAL SCALE SQ SCH ×3 (16:00→23:52)
[2017-07-05] MEDS ORDERED: RESP: ALBUTEROL 2.5 MG/IPRATROPIUM 0.5 MG NEB (SCH) INH (16:00)
--- NOTE | 2017-07-05 16:04 | EKG ---
Date Performed: 07/05/2017 Time Performed: 10:54:06 PTAGE: 86 years EKG: ATRIAL FIBRILLATION RIGHT BUNDLE BRANCH BLOCK POSSIBLE ANTERIOR MYOCARDIAL INFARCTION INFER IOR MYOCARDIAL INFARCTION Compared to prior tracing no significant change ABNORMAL ECG PREVIOUS TRACING : 06/30/17 @ 2014 DOCTOR: Vikas Loredo Interpretating Date/Time 07/05/2017 16:03:09
--- NOTE | 2017-07-05 16:08 | RADRPT ---
EXAM DATE/TIME: 07/05/2017 15:25 [facility] COMPARISON: No previous studies available for comparison. INDICATIONS : Elevated lab values. MEDICAL HISTORY : Myocardial infarction. Gastroesophageal reflux disease. Hearing loss. Anticoagulant therapy. Atrial fibrillation. Hiatal hernia. SURGICAL HISTORY : Coronary artery stent. Total knee replacement, left. Cardiac catheterization. Renal stents. Right s houlder surgery. Left hip replacement. ENCOUNTER: Initial ACUITY: 1 day PAIN SCORE: 5/10 LOCATION: Abdomen. MEASUREMENTS: LIVER: 14.3 cm length COMMON DUCT: 5 mm RIGHT KIDNEY: 10.3 x 3.8 x 5.6 cm LEFT KIDNEY: 9.4 x 4.7 x 5.5 cm SPLEEN: 8.5 cm length AORTA: 3.4cm maximal FINDINGS: LIVER: Normal echotexture without focal lesion or ductal dilatation. COMMON DUCT: No intraluminal mass or stone visualized. GALLBLADDER: Contains no stones, demonstrates no wall thickening or pericholecystic fluid. PANCREAS: The visualized portions are within normal limits. RIGHT KIDNEY: Increased parenchymal echogenicity. There are several small cysts measuring up to 2 cm. LEFT KIDNEY: Increased parenchymal echogenicity. There are several small cysts measuring up to 1.9 cm. SPLEEN: No focal lesion. AORTA: Aneurysmal dilatation distally approximately 3.4 cm. IVC: Within normal limits. CONCLUSION: 1. Infrarenal abdominal aortic aneurysm estimated at approximately 3.4 cm. 2. Increased echogenicity diffusely of both kidneys typical of chronic parenchymal disease. Also a co uple small cysts on both sides. No hydronephrosis or acute renal abnormality. 3. The rest of the abdomen ultrasound is within normal limits. Santy Brandon MD on July 05, 2017 at 16:03 Board Certified Radiologist. This report was verified electronically.
[2017-07-05 16:18] LABS: AMYLASE 36 U/L (25-115)
[2017-07-05] MEDS ORDERED: VANCOMYCIN 1,500 MG/NS 500 ML IV ONE ×2 (17:00)
[2017-07-05 17:30] LABS: MEAN CELL VOLUME 96.6 FL (80.0-100.0); MEAN CORPUSCULAR HEMOGLOBIN 30.6 PG (27.0-34.0); MEAN CORPUSCULAR HGB CONC 31.7 % (32.0-36.0); PLATELET COUNT 223 TH/MM3 (150-450); RED BLOOD COUNT 3.21 MIL/MM3 (4.50-5.90); RED CELL DISTRIBUTION WIDTH 20.2 % (11.6-17.2); REVIEW FLAG FINAL; WHITE BLOOD COUNT 20.8 TH/MM3 (4.0-11.0)
[2017-07-05 17:46] LABS: APTT (PATIENT) 47.9 SEC (24.3-30.1); INTERNATIONAL NORMALIZED RATIO 1.6 RATIO; PROTHROMBIN TIME - PATIENT 17.6 SEC (9.8-11.6)
[2017-07-05] MEDS ORDERED: ARTIFICIAL TEARS OPTH SOLN 15 ML BTL EACH EYE SCH (18:00)
[2017-07-05] MEDS: DEXT 5%-NACL 0.9% 1000 ML INJ 1,000 ML IV SCH (18:05)
[2017-07-05] MEDS: DEXTROSE 50% IN WATER 50 ML VIAL(D50) IV PUSH PRN (18:15)
--- NOTE | 2017-07-05 19:46 | PD.PROCEDR ---
Central Line Procedure REASON FOR PROCEDURE Central venous access PROCEDURE PERFORMED Central line placement: Right IJ CVL CONSENT Informed consent for procedure was obtained. The risks and benefits of the procedure were discussed to include but limited to bleeding, clot formation, infection, and even . ANESTHESIA Local injection of 1% Lidocaine DESCRIPTION OF THE PROCEDURE The patient was placed in supine, mild Trendelenburg position. The area was exposed and cleansed with ChloraPrep, times two. Large sterile drape was used to cover the patient, with the site exposed, under sterile conditions including cap, face mask, sterile gown, and sterile gloves. On single attempt, the introducer needle was inserted with negative pressure in syringe and venous flash was obtained. The guide wire was then advanced without any restriction and the needle was removed. The dilator was used without any complications. Using Seldinger technique the triple-lumen antibiotic coated catheter was advanced over the guide wire to a depth of 15 centimeters. The guide wire was removed. All ports were aspirated with dark venous blood return and flushed easily with sterile saline. All ports were capped. Antibiotic disc was placed around central line at puncture site. The central line was secured to the skin with two interrupted 2.0 silk sutures. The area was bandaged with sterile see- through central line bandage. RADIOLOGICAL DATA Ultrasound guidance was used to locate right internal jugular vein. Doppler/ color flow was used to confirm venous flow. COMPLICATIONS: No apparent complications ESTIMATED BLOOD LOSS: Less than 1 cc. Shon Marcelino MD Jul 05, 2017 19:46
--- NOTE | 2017-07-05 20:24 | RADRPT ---
EXAM DATE/TIME: 07/05/2017 19:55 [facility] COMPARISON: CHEST SINGLE AP, July 05, 2017, 11:09. INDICATIONS : Confirm central line placement- Coughing, slight shortness of breath and chest pain. MEDICAL HISTORY : Hypertension. Myocardial infarction. Coronary artery disease. SURGICAL HISTORY : Renal stents. ENCOUNTER: Subsequent ACUITY: 1 day PAIN SCORE: 4/10 LOCATION: Bilateral chest FINDINGS: Consolidation of the left midlung and base again noted, not significantly changed. On the right, ther e appears to be a small infiltrate developing in the right midlung. Patient has a new right internal jugular central venous catheter with tip in the right atrium. I don' t see a pneumothorax. CONCLUSION: 1. New right IJ central venous catheter with tip in the right atrium. No pneumothorax or other acute complication demonstrated. 2. Suspected early pneumonia developing in the right midlung. 3. Left base consolidation again seen, not significantly changed. Santy Brandon MD on July 05, 2017 at 20:21 Board Certified Radiologist. This report was verified electronically.
[2017-07-05] MEDS: DOCUSATE SODIUM 50 MG/SENNA 8.6 MG TAB PO SCH (21:00)
[2017-07-05] MEDS: SODIUM CHLORIDE 0.9% FLUSH 10 ML FLUSH IV FLUSH SCH (21:28)
[2017-07-06] VITALS (16 sets, daily range): BP systolic 98–126; BP diastolic 52–85; PULSE 112–148; RESP 19–29; TEMP 97.9–98.7; O2SAT 92–100
[2017-07-06 00:55] LABS: APTT (PATIENT) 50.3 SEC (24.3-30.1)
[2017-07-06] MEDS: CHLORHEXIDINE GLUCONATE 2 % 1 PACK (2 CLOTHS) TOP SCH (04:00)
[2017-07-06] MEDS: INSULIN NovoLIN REGULAR SUPPLEMENTAL SCALE SQ SCH ×5 (04:00→20:00)
[2017-07-06] MEDS: RESP: ALBUTEROL 2.5 MG/IPRATROPIUM 0.5 MG NEB (SCH) INH ×6 (04:00→23:17)
[2017-07-06] MEDS: MORPHINE SULFATE 4 MG/ML INJ IV PUSH PRN ×4 (04:47→16:48)
[2017-07-06] MEDS: PIPERACIL-TAZO 2.25 GM PREMIX 50 ML IV SCH ×4 (04:58→22:17)
[2017-07-06] MEDS: DEXT 5%-NACL 0.9% 1000 ML INJ 1,000 ML IV SCH (05:07)
[2017-07-06 05:35] LABS: BICARBONATE 21.4 MEQ/L (21.0-32.0); CALCIUM-PROTEIN CORRECTED 8.7 MG/DL (8.5-10.1); INTERNATIONAL NORMALIZED RATIO 1.5 RATIO; POTASSIUM 4.7 MEQ/L (3.5-5.1); PROTHROMBIN TIME - PATIENT 16.6 SEC (9.8-11.6); TOTAL BILIRUBIN ADULT 0.7 MG/DL (0.2-1.0)
[2017-07-06 05:40] LABS: AUTOMATED NEUTROPHIL # 21.5 TH/MM3 (1.8-7.7); BASOPHIL % 0.1 % (0.0-2.0); EOSINOPHIL % 0.1 % (0.0-4.0); HEMATOCRIT 27.8 % (39.0-51.0); LYMPH % 3.3 % (9.0-44.0); LYMPHOCYTE # 0.8 TH/MM3 (1.0-4.8); MEAN CELL VOLUME 95.7 FL (80.0-100.0); MEAN CORPUSCULAR HEMOGLOBIN 30.6 PG (27.0-34.0); MONO % 2.5 % (0.0-8.0); PLATELET COUNT 202 TH/MM3 (150-450); RED CELL DISTRIBUTION WIDTH 20.6 % (11.6-17.2); WHITE BLOOD COUNT 22.8 TH/MM3 (4.0-11.0)
[2017-07-06 06:01] LABS: HEMO FLAGS AUTO DIFF
[2017-07-06 07:13] LABS: BANDS 39 % (0-6); METAMYELOCYTES 1 % (0-1); NEUTROPHIL # MANUAL DIFF 22.3 TH/MM3 (1.8-7.7); PLATELET ESTIMATE SMEAR NORMAL (NORMAL); PLATELET MORPHOLOGY NORMAL (NORMAL); POLYS (SEG NEUTROPHILS) 58 % (16-70); SCAN/DIFF FINAL DIFF MANUAL; WBC DIFF SAMPLE 100
[2017-07-06] MEDS ORDERED: PANTOPRAZOLE SODIUM 40 MG VIAL IV PUSH SCH (09:00)
[2017-07-06] MEDS: FERROUS SULFATE 325 MG (65 MG ELEMENTAL IRON) TAB PO SCH (09:00)
[2017-07-06] MEDS: CLOPIDOGREL 75 MG TAB PO SCH (09:00)
[2017-07-06] MEDS: ASCORBIC ACID 500 MG TAB PO SCH (09:00)
[2017-07-06] MEDS: DOCUSATE SODIUM 50 MG/SENNA 8.6 MG TAB PO SCH ×2 (09:00→21:00)
[2017-07-06] MEDS: MULTIVITAMIN TAB PO SCH (09:00)
[2017-07-06] MEDS: SODIUM CHLORIDE 0.9% FLUSH 10 ML FLUSH IV FLUSH SCH ×3 (09:14→22:15)
[2017-07-06] MEDS: AZITHROMYCIN INJ 500 MG in SODIUM CHLOR 0.9% 250 ML INJ 250 ML IV SCH (10:43)
--- NOTE | 2017-07-06 14:27 | HHI.CCPN ---
Subjective Remarks/Hospital Course This is an 86-year-old male. He is DNR/DNI status. 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 Daley - underwent left lower extremity angiogram with left poplitea angioplasty with 4mm balloon and left peroneal artery angioplasty with a 2 mm balloon and right RN IMCU angioseal. . Patient also had hard necrotic tissue to 4th and 5th metatarsals of left foot, eschar of plantar/posterior left heel and lateral aspect of 3rd digits and necrotic tissue to medial Right hallux and 1st MTP joint areas. -, coronary disease status post stent 2, atrial fibrillation, chronic kidney disease stage III, gastroesophageal reflux disease, diabetes mellitus, hypertension, chronic low back pain,, Rivaroxaban use,, peripheral arterial disease and peripheral vascular disease. Patient was recently discharged from [facility] . He presents to [facility] ED with chief complaint of shortness of breath. He was seen by his home health nurse earlier today with saturations in the 60s. EMS was called and he was brought to the hospital. Chief complaint was quite shortness of breath, cough productive of yellow sputum.. Chest x-ray revealed bilateral lower lobe infiltrates similar to previous x- ray. White blood cell count was elevated. Patient's creatinine is currently 2.9. Baseline around 1.5. Transaminases are elevated. Troponin is elevated. Lactates is greater than 4.. Patient received 2 L normal saline wide open and became more hypoxic currently a nonrebreather mask. Peripheral dopamine was started currently at 3 mcg/kg per minute. Subjective 07/06: Afebrile. The patient's oxygen requirements have been decrease currently at 3 L/m nasal cannula, O2 saturation 99%. The patient remains confused, overnight pulled out peripheral IV's. Patient was noted to have urinary retention requiring repeated straight catheters, Hernandez placed for prevention of expansion of sacral wound and urinary retention. Patient currently on phenylephrine to maintain MAP. Objective Vital Signs Date Time Temp Pulse Resp B/P (MAP) Pulse Ox O2 Delivery O2 Flow Rate FiO2 07/06/17 11:10 125 88/54 07/06/17 07:17 98 Nasal Cannula 4.00 07/06/17 04:00 98.2 25 07/05/17 16:02 100 Intake and Output 11/19/17 11/19/17 11/20/17 08:00 16:00 00:00 Intake Total 1050 ml Balance 1050 ml Result Diagram: 07/06/17 0435 07/06/17 0435 Imaging Last Impressions Chest X-Ray 07/05/17 1043 Signed Impressions: Service Date/Time: Friday, July 05, 2017 11:09 - CONCLUSION: No significant interval change. Left lower lobe pulmonary consolidation and patchy medial right lung base opacity unchanged. Jose Guadalupe Franco MD Objective Remarks GENERAL: This is an 86-year-old male, critically ill currently resting in bed on nasal cannula, oriented to name only SKIN: Cool and dry. HEAD: Atraumatic. Normocephalic. EYES: Pupils equal and round. No scleral icterus. No injection or drainage. ENT: No nasal bleeding or discharge. Mucous membranes pink. Oropharynx without erythema NECK: Trachea midline. No JVD. CARDIOVASCULAR: Tachycardia, IR. S1, S2 no S4. Faint 2/6 systolic murmur RESPIRATORY: Coarse rhonchorous breath sounds throughout GASTROINTESTINAL: Abdomen soft, non-tender, nondistended. Hepatic and splenic margins not palpable. MUSCULOSKELETAL: Extremities with 1+ peripheral edema. Patient hard necrotic tissue to 4th and 5th metatarsals of left foot,eschar of plantar/posterior left heel and lateral aspect of 3rd digits and necrotic tissue to medial Right hallux and 1st MTP joint areas. NEUROLOGICAL: Awake and alert to person only. No obvious cranial nerve deficits. Motor grossly within normal limits. Five out of 5 muscle strength in the arms and legs. One were answered. Speech A/P Assessment and Plan Neuro/Psych: Acute encephalopathy Chronic narcotic use ICU delirium?? Currently holding oxycodone/acetaminophen 10/325 one tablet every 4 hours when necessary pain. with altered mental status Holding temazepam 30 mg a night for insomnia Holding celecoxib 200 mg by mouth twice a day Currently on acetaminophen 600 mg by mouth every 6 hours when necessary fever Hydrocodone/acetaminophen 5/325 1 tablet every 4 hours when necessary pain 1-5. Morphine sulfate 2 mg IV every 2 hours. Maintain sleep hygiene-Melatonin 5 mg daily at bedtime when necessary for insomnia CV: Severe sepsis with multisystem organ failure History of hypertension Coronary disease status post cardiac stent 2 Peripheral arterial disease Recent left lower extremity angiogram with left poplitea angioplasty with 4mm balloon and left peroneal artery angioplasty with a 2 mm balloon and right RN IMCU angioseal.Dr Daley Elevated troponin Acute on chronic systolic heart failure Currently on and off injecting maintain a mean arterial pressure greater than equal to 65 2 L normal saline in ED. Bolused 07/05 Limited 2-D echocardiogram-ejection fraction 20% LAD moderately dilated, diffuse global hypokinesis with distinct RWMA Continue clopidogrel 75 mg daily Old Q waves in inferior leads on EKG. Cycle troponins [address] Duncan cardiology last admission. 07/05 BNP 1060 Resp: Acute hypoxic respiratory failure Bilateral lower lobe pneumonia History of tobaccoism Patient currently on nonrebreather mask to titrate to maintain saturations greater than or equal to 90% Incentive spirometry while awake Albuterol/ipratropium aerosols every 4 hours with albuterol aerosols every 2 hours. Dyspnea Chest x-ray in a.m. See infectious disease for antibiotic coverage GI: Elevated transaminases Gastroesophageal reflux disease Patient is currently nothing by mouth Will discontinue Pantoprazole for GI prophylaxis and changed to famotidine in the setting of elevated creatinine Docusate sodium/senna 1 tablet twice a day for bowel regimen Follow-up on abdominal ultrasound for elevated LFTs-possibly shock liver in the setting of low cardiac output state : Insert Hernandez-dairy to gluteal/sacral skin breakdown pre-existing from previous admission, and urinary retention Strict I&O's Endo: Diabetes mellitus Currently on sliding scale insulin with Novulin R with Accu-Cheks every 4 hours to maintain euglycemia/medium regimen TSH ordered Renal: Acute kidney injury in the setting of chronic kidney disease stage IIIa Abdominal ultrasound/urine electrolytes and eosinophils pending currently refusing Hernandez catheter placement Monitor urine output Accurate I's and O's Follow-up on BMP in a.m.-creatinine 2.87->2.81 today Heme: Leukocytosis Normocytic anemia Chronic rivaroxaban use - holding with creatinine clearance less than 30 Monitor CBC daily. Follow trends Continue iron sulfate 325 mg by mouth daily. On 200mg liquid at home ID: Pneumonia - possibly healthcare acquired Piperacillin/tazobactam, vancomycin and azithromycin day #2 Blood cultures 2 and positive cocci UA, sputum are pending. Influenza pending. Legionella pneumococcal urinary antigens pending. Follow up on cultures FEN: Hyperkalemia-resolved Hyponatremia 07/05 Patient received D50/insulin/calcium gluconate and Kayexalate 1. Replacing electrolytes as clinically indicated MSK: Left foot gangrene Pre-existing gluteal/sacral wound from previous hospitalization Hard necrotic tissue to 4th and 5th metatarsals of left foot,eschar of plantar/ posterior left heel and lateral aspect of 3rd digits and necrotic tissue to medial Right hallux and 1st MTP joint areas. Patient seen by podiatry last admission. Nonsurgical. Would not heal. Recommended outpatient follow-up. Wound care will evaluate and treat Specialty care bed Access - Utilize peripheral IV. Patient's currently refusing central line Prophylaxis - GI - pantoprazole - DVT - SCD/currently on Rivaroxaban -on hold with creatinine clearance less than 30 Critical Care: This patient remains critically ill with one or more organ systems which are or may become a threat to life. I have spent in excess of 57 minutes discontinuously in the care and management of this patient. This time is exclusive of procedures, and includes, but is not limited to, evaluation of the patient, review of the medical record, discussions with family, consultants, nursing staff, or respiratory therapy, and documentation in the medical record. 07/06 -Extensive discussion with family, plan for palliative care consult for definition of goals with patient's children. All questions answered Physician Jalyn Geronimo MD Jul 06, 2017 14:27
[2017-07-06] MEDS ORDERED: LORazepam 2 MG/ML VIAL IV PUSH ONE (16:30)
--- NOTE | 2017-07-06 16:43 | PD.CONS ---
History of Present Illness Service Infectious disease Consult Requested By Dr Silvia Keith Reason for Consult Evaluate patient with sepsis and gangrene foot Primary Care Physician Antonio Evangelista MD Diagnoses: History of Present Illness Patient seen and examined. Records reviewed. Patient is an 86-year-old male, or scented to the hospital for evaluation of shortness of breath. 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 He had to revascularization procedure, the first week in May, and the last week of the same month. In one of his hospitalization he received treatment for UTI. After his last hospitalization he was discharged to [facility] and was there from June 22 to July 02. I got some history from the patient's significant other. Apparently when the patient was discharged from [facility] he was able to ambulate using a walker. He was feeding himself. Home health nurses check on him daily, and he has not had any fever. He does not use oxygen at home, and when the nurse checked his oxygen they were okay. On the day of admission and apparently the saturation was quite low, so the patient was brought into the hospital for further evaluation and treatment. To the girlfriend since the patient was discharge from [place] he has been having cough. He was bringing up some yellowish phlegm. More recently on the day of admission he started complaining of some shortness of breath. He denies any chest pain. Patient has not had any trouble swallowing, no choking episodes, and has not had any nausea or vomiting. There is been no diarrhea. And according to the girlfriend he has not had any trouble urinating. On presentation patient is afebrile. His WBC is elevated. Creatinine is elevated as well. Acid is greater than 4. Chest x-ray showing some worsening of his basilar infiltrates compared to his chest x-ray on July 01. Patient also has been having problem with urinary retention, and initially was being straight cathetered, and Hernandez catheter was placed today. 2 blood cultures were done on admission, one blood culture gram-positive cocci, the other blood culture is now reported as growing MRSA. Central line was placed yesterday when he came in. He is currently on nasal O2. He is agitated and moves a lot in the bed. He is DNR/DNI status. Infectious disease consultation has been requested to evaluate the patient. Review of Systems Constitutional: DENIES: Fever, Chills, Change in appetite Eyes: DENIES: Eye pain Ears, nose, mouth, throat: DENIES: Nasal discharge, Oral lesions, Throat pain, Ear Pain Respiratory: COMPLAINS OF: Cough, Sputum production, Shortness of breath Cardiovascular: DENIES: Chest pain, Syncope Gastrointestinal: DENIES: Abdominal pain, Constipation, Diarrhea, Nausea, Vomiting, Difficulty Swallowing Genitourinary: DENIES: Urgency, Dysuria Integumentary: COMPLAINS OF: Rash Neurologic: DENIES: Headache Psychiatric: DENIES: Hallucinations Past Family Social History Allergies: Coded Allergies: diatrizoate meglumine (Unverified Allergy, Severe, 07/05/17) gadobenic acid (Unverified Allergy, Severe, 07/05/17) gadodiamide (Unverified Allergy, Severe, 07/05/17) gadoteridol (Unverified Allergy, Severe, 07/05/17) iodixanol (Unverified Allergy, Severe, 07/05/17) iohexol (Unverified Allergy, Severe, 07/05/17) Past Medical History Peripheral vascular disease Atrial fibrillation Chronic kidney disease stage III Gastroesophageal reflux disease Diabetes mellitus Hypertension Chronic low back pain Insomnia Chronic narcotic use Gastroesophageal reflux disease Past Surgical History Cholecystectomy Cardiac stents 2 Left knee/left hip Several revascularizations for PVD - has stent L SFA and multiple angioplasty Reported Medications I attest that I obtained, updated or reviewed the home and current medications. Reported Meds & Active Scripts Active Mucus Relief ER (Guaifenesin) 600 Mg Tab 600 Mg PO BID PRN Pantoprazole (Pantoprazole Sodium) 40 Mg Tab 40 Mg PO DAILY 30 Days Furosemide 20 Mg Tab 20 Mg PO DAILY 30 Days Eq Acetaminophen (Acetaminophen) 325 Mg Tab 650 Mg PO Q4H PRN 30 Days Oxycodone-Acetaminophen 10-325 mg Tab 1 Tab PO Q4H PRN Plavix (Clopidogrel Bisulfate) 75 Mg Tab 75 Mg PO DAILY Reported Feosol (Ferrous Sulfate) 325 Mg (65 Mg Iron) Tab 200 Mg PO DAILY Vitamin C (Ascorbic Acid) 250 Mg Chew 250 Mg CHEW DAILY Celecoxib 200 Mg Cap 200 Mg PO BID One Daily (Multiple Vitamin) 1 Tab 1 Tab PO DAILY Restoril (Temazepam) 30 Mg Cap 30 Mg PO HS PRN Xarelto (Rivaroxaban) 15 Mg Tab 15 Mg PO DAILY Nexium (Esomeprazole DR) 40 Mg Capdr 40 Mg PO DAILY Active Ordered Medications Current Medications Medications (Trade) Dose Ordered Sig/Cheikh Route Start Time Stop Time Status Last Admin (NS Flush) 2 ml UNSCH PRN IV FLUSH 07/05/17 14:15 (NS Flush) 2 ml BID IV FLUSH 07/05/17 21:00 07/06/17 09:14 (Tylenol) 650 mg Q6H PRN PO 07/05/17 14:15 ([place] 5-325 Mg) 1 tab Q4H PRN PO 07/05/17 14:15 (Morphine Inj) 2 mg Q2H PRN IV PUSH 07/05/17 14:15 07/06/17 11:58 (Tears Naturale Opth Soln) 1 drop TID EACH EYE 07/05/17 18:00 (Zofran Inj) 4 mg Q6H PRN IV PUSH 07/05/17 14:15 (Albuterol Neb) 2.5 mg Q2HR NEB PRN INH 07/05/17 14:15 Miscellaneous Information 1 Q361D XX 07/05/17 14:15 (Chlorhexidine 2% Cloth) 3 pack Taper DAILY@04 TOP 07/06/17 04:00 07/02/18 03:59 07/06/17 04:00 (Chlorhexidine 2% Cloth) 3 pack UNSCH PRN TOP 07/05/17 14:15 (Tiffany-Colace) 1 tab BID PO 07/05/17 21:00 (Milk Of Magnesia Liq) 30 ml Q12H PRN PO 07/05/17 14:15 (Senokot) 17.2 mg Q12H PRN PO 07/05/17 14:15 (Dulcolax Supp) 10 mg DAILY PRN RECTAL 07/05/17 14:15 (Lactulose Liq) 30 ml DAILY PRN PO 07/05/17 14:15 Phenylephrine HCl 160 mg/Dextrose 500 ml @ 7.5 mls/hr TITRATE PRN IV 07/05/17 14:15 07/05/17 15:22 (Brethine Inj) 1 mg UNSCH PRN SQ 07/05/17 14:15 Piperacillin Sod/ Tazobactam Sod 50 ml @ 100 mls/hr Q6H IV 07/05/17 16:00 07/06/17 09:14 Pharmacy Profile Note 0 ml @ 0 mls/hr UNSCH OTHER 07/05/17 14:15 (Plavix) 75 mg DAILY PO 07/06/17 09:00 (Ferrous Sulfate) 325 mg DAILY PO 07/06/17 09:00 (Theragran) 1 tab DAILY PO 07/06/17 09:00 (Vitamin C) 250 mg DAILY PO 07/05/17 14:45 (D50w (Vial) Inj) 50 ml UNSCH PRN IV PUSH 07/05/17 15:30 07/05/17 18:15 (Glucagon Inj) 1 mg UNSCH PRN OTHER 07/05/17 15:30 (NovoLIN R SUPPLEMENTAL SCALE) 1 Q4HR SQ 07/05/17 16:00 Azithromycin 500 mg/Sodium Chloride 250 ml @ 250 mls/hr Q24H IV 07/06/17 11:00 07/06/17 10:43 (Duoneb Neb) 1 ampule Q4HR NEB INH 07/05/17 16:00 07/06/17 10:36 Heparin Sodium/ Dextrose 250 ml @ 13 mls/hr TITRATE PRN IV 07/05/17 15:45 Dextrose/Sodium Chloride 1,000 ml @ 100 mls/hr Q10H IV 07/05/17 18:00 07/06/17 05:07 (NS Flush) DAILY IV FLUSH 07/06/17 09:00 07/06/17 09:14 (NS Flush) UNSCH PRN IV FLUSH 07/05/17 19:45 (Melatonin) 5 mg HS PRN PO 07/06/17 21:00 (Pepcid Inj) 10 mg Q12H IV PUSH 07/06/17 21:00 Family History Noncontributory Social History [id number] tobacco/2 packs per day quit 1994. Quit alcohol 4 years ago - documentation of prior beer. No illicit drug use. 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 Physical Exam Vital Signs Vital Signs Date Time Temp Pulse Resp B/P (MAP) Pulse Ox O2 Delivery O2 Flow Rate FiO2 07/06/17 11:10 125 88/54 07/06/17 07:17 98 Nasal Cannula 4.00 07/06/17 06:00 112 07/06/17 04:00 98.2 148 25 124/85 (98) 92 07/06/17 04:00 148 07/06/17 02:00 112 07/06/17 00:00 98.7 125 24 100/55 (70) 97 07/06/17 00:00 125 07/05/17 22:00 106 07/05/17 20:27 98 Nasal Cannula 4.00 07/05/17 20:17 105 07/05/17 20:00 96 07/05/17 20:00 98.0 96 21 103/55 (71) 97 07/05/17 19:00 98 Nasal Cannula 4.00 07/05/17 17:15 98 Nasal Cannula 4.00 07/05/17 16:30 98 Partial Non-Rebreather 15.00 Physical Exam GENERAL: Patient is a thin, well-developed CM, awake, but restless, moving a lot in bed trying to get out, has wrist restraints, awake and focusing , with sallow color skin, not in respiratory distress. SKIN: Cool and dry, and sallow color and pale. Has a lot of ecchymoses in BUE and BLE. No embolic lesions HEAD: Atraumatic. Normocephalic. No temporal wasting, or tenderness. EYES: Pale conjunctiva. No petechia or hemorrhage. Sunken eyeballs. Pupils equal, round and reactive to light. Extraocular movements full and intact. No scleral icterus. No injection or drainage. EARS, NOSE AND THROAT: Nose without bleeding or purulent nasal discharge. No sinus tenderness. Has very dry oral mucosa. NECK: Trachea midline. Supple and not tender, no meningeal signs CARDIOVASCULAR: Regular rate and rhythm. No murmurs, rubs or gallops heard RESPIRATORY: Scattered coarse rales, decreased at bases. ABDOMEN: Soft, nondistended, has mild diffuse tenderness, but no guarding or rebound. Bowel sounds present and normoactive. EXTREMITIES: LLE: Has dry gangrene on his 4th and 5th toes as well as plantar aspect of his big toe, and there is also a dry gangrene on his L heel, L foot with edema, and very mild pink color though his BLE were dangling at side of the bed when I saw. No odor. RLE: his L foot is mottled and cool. No calf tenderness. NEUROLOGICAL: Awake and alert. He is focusing, NO facial asymmetry. Motor grossly within normal limits. PSYCHIATRIC: Very restless, and moving a lot in his ed, trying to get out of bed LINE: No evidence of infection : Hernandez cath in place, with very dark urine with some sediment Laboratory Laboratory Tests Test 07/05/17 17:14 07/05/17 21:30 07/06/17 00:30 07/06/17 04:35 White Blood Count 20.8 22.8 Red Blood Count 3.21 2.90 Hemoglobin 9.8 8.9 Hematocrit 31.0 27.8 Mean Corpuscular Volume 96.6 95.7 Mean Corpuscular Hemoglobin 30.6 30.6 Mean Corpuscular Hemoglobin Concent 31.7 32.0 Red Cell Distribution Width 20.2 20.6 Platelet Count 223 202 Mean Platelet Volume 7.3 7.2 Prothrombin Time 17.6 16.6 Prothromb Time International Ratio 1.6 1.5 Activated Partial Thromboplast Time 47.9 48.0 Fibrinogen 571 Potassium Level 4.6 4.7 Ammonia LESS THAN 10 Lactic Acid Level 2.9 4.5 Phosphorus Level 4.2 4.1 Magnesium Level 2.0 2.0 Troponin I 0.05 0.04 Thyroid Stimulating Hormone 3rd Gen 7.640 Neutrophils (%) (Auto) 94.0 Lymphocytes (%) (Auto) 3.3 Monocytes (%) (Auto) 2.5 Eosinophils (%) (Auto) 0.1 Basophils (%) (Auto) 0.1 Neutrophils # (Auto) 21.5 Lymphocytes # (Auto) 0.8 Monocytes # (Auto) 0.6 Eosinophils # (Auto) 0.0 Basophils # (Auto) 0.0 CBC Comment AUTO DIFF Differential Total Cells Counted 100 Neutrophils % (Manual) 58 Band Neutrophils % 39 Monocytes % 2 Neutrophils # (Manual) 22.3 Metamyelocytes 1 Differential Comment FINAL DIFF MANUAL Platelet Estimate NORMAL Platelet Morphology Comment NORMAL Blood Urea Nitrogen 56 Creatinine 2.81 Random Glucose 198 Total Protein 4.7 Albumin 1.4 Calcium Level 7.3 Alkaline Phosphatase 99 Aspartate Amino Transf (AST/SGOT) 132 Alanine Aminotransferase (ALT/SGPT) 120 Total Bilirubin 0.7 Sodium Level 140 Chloride Level 108 Carbon Dioxide Level 21.4 Anion Gap 11 Estimat Glomerular Filtration Rate 21 Protein Corrected Calcium 8.7 Test 07/06/17 12:00 07/06/17 14:50 07/06/17 15:00 Ammonia 19 B-Type Natriuretic Peptide 1063 Thyroxine (T4) 3.0 Thyroid Stimulating Hormone 3rd Gen 8.970 Date/Time Source Procedure Growth Status 07/05/17 15:25 Blood Peripheral Aerobic Blood Culture - Preliminary NO GROWTH IN 1 DAY Resulted 07/05/17 15:25 Blood Peripheral Anaerobic Blood Culture - Preliminary NO GROWTH IN 1 DAY Resulted 07/05/17 21:50 Sputum Expectorated Sputum Gram Stain - Final Resulted 07/05/17 21:50 Sputum Expectorated Sputum Sputum Culture - Preliminary IMMATURE GROWTH - REINCUBATE Resulted 07/06/17 15:00 Urine Clean Catch Legionella Antigen Pending Received 07/06/17 15:00 Urine Clean Catch Streptococcus pneumoniae Antigen (M Pending Received Result Diagram: 07/06/17 0435 07/06/17 0435 Imaging RADIOLOGY STUDIES/FILMS REVIEWED Last Impressions Chest X-Ray 07/05/17 194 Signed Impressions: Service Date/Time: Wednesday, July 05, 2017 19:55 - CONCLUSION: 1. New right IJ central venous catheter with tip in the right atrium. No pneumothorax or other acute complication demonstrated. 2. Suspected early pneumonia developing in the right midlung. 3. Left base consolidation again seen, not significantly changed. Santy Brandon MD Abdomen Ultrasound 07/05/17 0000 Signed Impressions: Service Date/Time: Wednesday, July 05, 2017 15:25 - CONCLUSION: 1. Infrarenal abdominal aortic aneurysm estimated at approximately 3.4 cm. 2. Increased echogenicity diffusely of both kidneys typical of chronic parenchymal disease. Also a couple small cysts on both sides. No hydronephrosis or acute renal abnormality. 3. The rest of the abdomen ultrasound is within normal limits. Santy Brandon MD Assessment and Plan Assessment and Plan IMPRESSION MRSA sepsis, source? - has PNA - has retention, UA not done - has dry gangrene on his L foot PVD, S/P revascularization x 2 Renal insufficiency Leukocytosis Dry gangrene L foot RECOMMENDATION Repeat 2 BC today UA and C/S Follow C/S Follow CBC Monitor progress Will determine course of Rx once workup completed I will follow along with you Thank you for this consultation Discussed Condition With D/W Dr Keith D/W RN Spoke with patient SO Cailin Bruno MD Jul 06, 2017 16:43
[2017-07-06 18:00] LABS: BLOOD, URINE LARGE (NEG); GLUCOSE,URINE NEG (NEG); KETONE, URINE NEG (NEG); NITRITE,URINE NEG (NEG); PH, URINE 5.5 (5.0-8.5)
[2017-07-06 18:07] LABS: URINE COLOR DARK-BROWN (YELLW/STRAW)
[2017-07-06 18:23] LABS: BACTERIA, URINE FEW /hpf; CULTURE IF INDICATED CATH CULTURE NOT IND; RBC, URINE 100-200 /hpf (0-3); WBC, URINE 0-2 /hpf (0-5)
[2017-07-06 18:24] LABS: COMMENT (UR) CATH-CULT NOT IND
[2017-07-06] MEDS ORDERED: MELATONIN 5 MG TAB PO PRN (21:00)
--- NOTE | 2017-07-06 21:13 | PD.CONS ---
History of Present Illness Service Podiatry Consult Requested By Reason for Consult Gangrene L foot Primary Care Physician Antonio Evangelista MD Diagnoses: History of Present Illness Patient admitted for shortness of breath. 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 Consulted for recommendations. Past Family Social History Allergies: Coded Allergies: diatrizoate meglumine (Unverified Allergy, Severe, 07/05/17) gadobenic acid (Unverified Allergy, Severe, 07/05/17) gadodiamide (Unverified Allergy, Severe, 07/05/17) gadoteridol (Unverified Allergy, Severe, 07/05/17) iodixanol (Unverified Allergy, Severe, 07/05/17) iohexol (Unverified Allergy, Severe, 07/05/17) Past Medical History Peripheral vascular disease Atrial fibrillation Chronic kidney disease stage III Gastroesophageal reflux disease Diabetes mellitus Hypertension Chronic low back pain Insomnia Chronic narcotic use Gastroesophageal reflux disease Past Surgical History Cholecystectomy Cardiac stents 2 Left knee/left hip Several revascularizations for PVD - has stent L SFA and multiple angioplasty Active Ordered Medications Current Medications Medications (Trade) Dose Ordered Sig/Cheikh Route Start Time Stop Time Status Last Admin (NS Flush) 2 ml UNSCH PRN IV FLUSH 07/05/17 14:15 (NS Flush) 2 ml BID IV FLUSH 07/05/17 21:00 07/06/17 09:14 (Tylenol) 650 mg Q6H PRN PO 07/05/17 14:15 (Clarks 5-325 Mg) 1 tab Q4H PRN PO 07/05/17 14:15 (Morphine Inj) 2 mg Q2H PRN IV PUSH 07/05/17 14:15 07/06/17 16:48 (Tears Naturale Opth Soln) 1 drop TID EACH EYE 07/05/17 18:00 (Zofran Inj) 4 mg Q6H PRN IV PUSH 07/05/17 14:15 (Albuterol Neb) 2.5 mg Q2HR NEB PRN INH 07/05/17 14:15 Miscellaneous Information 1 Q361D XX 07/05/17 14:15 (Chlorhexidine 2% Cloth) 3 pack Taper DAILY@04 TOP 07/06/17 04:00 07/02/18 03:59 07/06/17 04:00 (Chlorhexidine 2% Cloth) 3 pack UNSCH PRN TOP 07/05/17 14:15 (Tiffany-Colace) 1 tab BID PO 07/05/17 21:00 (Milk Of Magnesia Liq) 30 ml Q12H PRN PO 07/05/17 14:15 (Senokot) 17.2 mg Q12H PRN PO 07/05/17 14:15 (Dulcolax Supp) 10 mg DAILY PRN RECTAL 07/05/17 14:15 (Lactulose Liq) 30 ml DAILY PRN PO 07/05/17 14:15 Phenylephrine HCl 160 mg/Dextrose 500 ml @ 7.5 mls/hr TITRATE PRN IV 07/05/17 14:15 07/05/17 15:22 (Brethine Inj) 1 mg UNSCH PRN SQ 07/05/17 14:15 Piperacillin Sod/ Tazobactam Sod 50 ml @ 100 mls/hr Q6H IV 07/05/17 16:00 07/06/17 16:49 Pharmacy Profile Note 0 ml @ 0 mls/hr UNSCH OTHER 07/05/17 14:15 (Plavix) 75 mg DAILY PO 07/06/17 09:00 (Ferrous Sulfate) 325 mg DAILY PO 07/06/17 09:00 (Theragran) 1 tab DAILY PO 07/06/17 09:00 (Vitamin C) 250 mg DAILY PO 07/05/17 14:45 (D50w (Vial) Inj) 50 ml UNSCH PRN IV PUSH 07/05/17 15:30 07/05/17 18:15 (Glucagon Inj) 1 mg UNSCH PRN OTHER 07/05/17 15:30 (NovoLIN R SUPPLEMENTAL SCALE) 1 Q4HR SQ 07/05/17 16:00 Azithromycin 500 mg/Sodium Chloride 250 ml @ 250 mls/hr Q24H IV 07/06/17 11:00 07/06/17 10:43 (Duoneb Neb) 1 ampule Q4HR NEB INH 07/05/17 16:00 07/06/17 19:16 Heparin Sodium/ Dextrose 250 ml @ 13 mls/hr TITRATE PRN IV 07/05/17 15:45 Dextrose/Sodium Chloride 1,000 ml @ 100 mls/hr Q10H IV 07/05/17 18:00 07/06/17 05:07 (NS Flush) DAILY IV FLUSH 07/06/17 09:00 07/06/17 09:14 (NS Flush) UNSCH PRN IV FLUSH 07/05/17 19:45 (Melatonin) 5 mg HS PRN PO 07/06/17 21:00 (Pepcid Inj) 10 mg Q12H IV PUSH 07/06/17 21:00 Social History 24-gajs-urac tobacco/2 packs per day quit 1994. Quit alcohol 4 years ago - documentation of prior beer. No illicit drug use. 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 Physical Exam Vital Signs Vital Signs Date Time Temp Pulse Resp B/P (MAP) Pulse Ox O2 Delivery O2 Flow Rate FiO2 07/06/17 19:16 100 Nasal Cannula 3.00 07/06/17 18:00 124 07/06/17 17:16 115 88/50 07/06/17 16:00 97.9 146 29 98/79 (85) 98 07/06/17 16:00 146 07/06/17 14:00 116 07/06/17 13:00 129 119/70 (86) 07/06/17 12:00 121 07/06/17 12:00 98.0 121 26 99/57 (71) 98 07/06/17 11:10 125 88/54 07/06/17 10:00 123 07/06/17 08:00 114 126/73 (90) 07/06/17 08:00 97 Nasal Cannula 4.00 07/06/17 08:00 114 07/06/17 08:00 98.1 114 22 126/73 (90) 98 07/06/17 07:17 98 Nasal Cannula 4.00 07/06/17 06:00 112 07/06/17 04:00 98.2 148 25 124/85 (98) 92 07/06/17 04:00 148 07/06/17 02:00 112 07/06/17 00:00 98.7 125 24 100/55 (70) 97 07/06/17 00:00 125 07/05/17 22:00 106 Physical Exam Nonpalpable pulses. Dry stable eschar noted to entire L 4th/5th digits and lateral 3rd digit, to medial L hallux, and medial 1st MTP joint areas. There is no fluctuance. No purulence No erythema. No edema. No signs of infection present at this time. Laboratory Laboratory Tests Test 07/05/17 21:30 07/06/17 00:30 07/06/17 04:35 07/06/17 12:00 Lactic Acid Level 2.9 4.5 Phosphorus Level 4.2 4.1 Magnesium Level 2.0 2.0 Troponin I 0.05 0.04 Thyroid Stimulating Hormone 3rd Gen 7.640 8.970 White Blood Count 22.8 Red Blood Count 2.90 Hemoglobin 8.9 Hematocrit 27.8 Mean Corpuscular Volume 95.7 Mean Corpuscular Hemoglobin 30.6 Mean Corpuscular Hemoglobin Concent 32.0 Red Cell Distribution Width 20.6 Platelet Count 202 Mean Platelet Volume 7.2 Neutrophils (%) (Auto) 94.0 Lymphocytes (%) (Auto) 3.3 Monocytes (%) (Auto) 2.5 Eosinophils (%) (Auto) 0.1 Basophils (%) (Auto) 0.1 Neutrophils # (Auto) 21.5 Lymphocytes # (Auto) 0.8 Monocytes # (Auto) 0.6 Eosinophils # (Auto) 0.0 Basophils # (Auto) 0.0 CBC Comment AUTO DIFF Differential Total Cells Counted 100 Neutrophils % (Manual) 58 Band Neutrophils % 39 Monocytes % 2 Neutrophils # (Manual) 22.3 Metamyelocytes 1 Differential Comment FINAL DIFF MANUAL Platelet Estimate NORMAL Platelet Morphology Comment NORMAL Prothrombin Time 16.6 Prothromb Time International Ratio 1.5 Activated Partial Thromboplast Time 48.0 Blood Urea Nitrogen 56 Creatinine 2.81 Random Glucose 198 Total Protein 4.7 Albumin 1.4 Calcium Level 7.3 Alkaline Phosphatase 99 Aspartate Amino Transf (AST/SGOT) 132 Alanine Aminotransferase (ALT/SGPT) 120 Total Bilirubin 0.7 Sodium Level 140 Potassium Level 4.7 Chloride Level 108 Carbon Dioxide Level 21.4 Anion Gap 11 Estimat Glomerular Filtration Rate 21 Protein Corrected Calcium 8.7 Ammonia 19 B-Type Natriuretic Peptide 1063 Thyroxine (T4) 3.0 Test 07/06/17 14:50 07/06/17 15:00 Total Triiodothyronine 15 Urine Color DARK-BROWN Urine Turbidity CLOUDY Urine pH 5.5 Urine Specific [place] 1.027 Urine Protein 100 Urine Glucose (UA) NEG Urine Ketones NEG Urine Occult Blood LARGE Urine Nitrite NEG Urine Bilirubin NEG Urine Urobilinogen LESS THAN 2.0 Urine Leukocyte Esterase NEG Urine RBC 100-200 Urine WBC 0-2 Urine Amorphous Sediment LARGE Urine Bacteria FEW Microscopic Urinalysis Comment CATH-CULT NOT IND Urine Eosinophils NONE SEEN Urine Random Creatinine 108.4 Urine Random Sodium 8 Date/Time Source Procedure Growth Status 07/06/17 18:00 Blood Peripheral Aerobic Blood Culture Pending Received 07/06/17 18:00 Blood Peripheral Anaerobic Blood Culture Pending Received 07/05/17 21:50 Sputum Expectorated Sputum Gram Stain - Final Resulted 07/05/17 21:50 Sputum Expectorated Sputum Sputum Culture - Preliminary IMMATURE GROWTH - REINCUBATE Resulted 07/06/17 15:00 Urine Clean Catch Legionella Antigen Pending Received 07/06/17 15:00 Urine Clean Catch Streptococcus pneumoniae Antigen (M Pending Received Result Diagram: 07/06/17 0435 07/06/17 0435 Imaging Last 72 hours Impressions Chest X-Ray 07/05/17 1944 Signed Impressions: Service Date/Time: Wednesday, July 05, 2017 19:55 - CONCLUSION: 1. New right IJ central venous catheter with tip in the right atrium. No pneumothorax or other acute complication demonstrated. 2. Suspected early pneumonia developing in the right midlung. 3. Left base consolidation again seen, not significantly changed. Santy Brandon MD Chest X-Ray 07/05/17 1043 Signed Impressions: Service Date/Time: Wednesday, July 05, 2017 11:09 - CONCLUSION: No significant interval change. Left lower lobe pulmonary consolidation and patchy medial right lung base opacity unchanged. Jose Guadalupe Franco MD Abdomen Ultrasound 07/05/17 0000 Signed Impressions: Service Date/Time: Wednesday, July 05, 2017 15:25 - CONCLUSION: 1. Infrarenal abdominal aortic aneurysm estimated at approximately 3.4 cm. 2. Increased echogenicity diffusely of both kidneys typical of chronic parenchymal disease. Also a couple small cysts on both sides. No hydronephrosis or acute renal abnormality. 3. The rest of the abdomen ultrasound is within normal limits. Santy Brandon MD Assessment and Plan Assessment and Plan Gangrene L foot, stable Continue betadine swab to periphery of necrotic areas No further treatment planned at this time Podiatry signing off. Reconsult if new issues arise James Sanchez DPM Jul 06, 2017 21:13
[2017-07-06] MEDS: FAMOTIDINE 20 MG/2 ML VIAL IV PUSH SCH (22:16)
[2017-07-07] VITALS (19 sets, daily range): BP systolic 90–112; BP diastolic 52–79; PULSE 94–153; RESP 17–31; TEMP 97.8–98.2; O2SAT 64–100
[2017-07-07] MEDS: DEXT 5%-NACL 0.9% 1000 ML INJ 1,000 ML IV SCH ×3 (01:04→20:00)
[2017-07-07] MEDS: RESP: ALBUTEROL 2.5 MG/IPRATROPIUM 0.5 MG NEB (SCH) INH ×6 (03:19→23:27)
[2017-07-07] MEDS: INSULIN NovoLIN REGULAR SUPPLEMENTAL SCALE SQ SCH ×6 (04:00→20:00)
[2017-07-07] MEDS: CHLORHEXIDINE GLUCONATE 2 % 1 PACK (2 CLOTHS) TOP SCH (04:00)
[2017-07-07] MEDS: PIPERACIL-TAZO 2.25 GM PREMIX 50 ML IV SCH ×4 (04:25→22:12)
[2017-07-07 04:45] LABS: BICARBONATE 23.8 MEQ/L (21.0-32.0); POTASSIUM 3.9 MEQ/L (3.5-5.1)
[2017-07-07] MEDS: MORPHINE SULFATE 4 MG/ML INJ IV PUSH PRN ×2 (07:09→12:32)
[2017-07-07] MEDS ORDERED: LORazepam 2 MG/ML VIAL ONE (07:29)
[2017-07-07] MEDS ORDERED: LORazepam 2 MG/ML VIAL IV ONE (08:00)
[2017-07-07] MEDS: DIGOXIN 0.5 MG/2 ML VIAL ONE ×2 (08:47→08:57)
[2017-07-07] MEDS: FAMOTIDINE 20 MG/2 ML VIAL IV PUSH SCH ×2 (08:59→22:13)
[2017-07-07] MEDS: SODIUM CHLORIDE 0.9% FLUSH 10 ML FLUSH IV FLUSH SCH ×3 (09:00→22:13)
[2017-07-07] MEDS: DOCUSATE SODIUM 50 MG/SENNA 8.6 MG TAB PO SCH ×2 (09:00→21:00)
[2017-07-07] MEDS: ASCORBIC ACID 500 MG TAB PO SCH (09:00)
[2017-07-07] MEDS: CLOPIDOGREL 75 MG TAB PO SCH (09:00)
[2017-07-07] MEDS: MULTIVITAMIN TAB PO SCH (09:00)
[2017-07-07] MEDS: FERROUS SULFATE 325 MG (65 MG ELEMENTAL IRON) TAB PO SCH (09:00)
--- NOTE | 2017-07-07 09:04 | PD.WCN.NOT ---
Wound Consult Description: Consult for left foot per Dr Marcelino Recommendation: Defer to Podiatry Additional Information: Patient not seen for stable dry gangrene. Podiatry consulted. Defer to Dr Sanchez. Please follow her orders for betadine swab to stable dry gangrene. Debbie See [facility] Jul 07, 2017 09:04
[2017-07-07] MEDS ORDERED: DIGOXIN 0.5 MG/2 ML VIAL IV PUSH ONE ×2 (09:15→21:15)
--- NOTE | 2017-07-07 09:56 | PD.CONS ---
Consult Service Palliative Care Consult Requested By Dr. Keith . Primary Care Physician Antonio Evangelista MD . Reason for Consultation a. To assist with evaluation and management of symptoms including: dyspnea and debility b. To assist medical decision maker(s) with: better understanding of current medical conditions; weighing benefits/burdens of medical treatment options; making medical treatment decisions. (Zelda,Adri ESQUIVEL) HPI History of Present Illness Patient is a 86 year old male with a past medical history significant for atrial fibrillation, CAD, FL, HTN, CKD (stage III), DM, and asbestosis who presented to the ED via EMS on 07/05/17 for evaluation of shortness of breath, during his home health nurse's visit the patient was found to have an oxygen saturation in the 60s, EMS was subsequently called and he was transferred to the hospital. On arrival the patient reported weakness, a productive cough with white sputum, and a poor appetite. The patient denied any fever. Of note the patient was just recently hospitalized for progressive gangrenous changes to left foot with ischemic pain from 06/13/17 to 06/22/17, he was then discharged to [facility], and then was subsequently discharged home with home health on 07/02/17. * ED workup included the following: Vital signs: T:97.1, HR:89, RR:19, BP:100/76 , SPO2:100% on 15L non-rebreather mask. WBC:15.5, Hb.7, Hct:26.4, Na:135, K: 5.5, BUN:50, Creatinine:2.87, eGFR:21, Glucose:171, Calcium:8.0, AST:233, ALT:99 , Total Protein:5.2, Albumin:1.7, Lactic Acid:6.9. Abdominal U/S: Infrarenal abdominal aortic aneurysm at approximately 3.4cm, increased echogenicity diffusely of both kidneys typical of chronic parenchymal disease. Chest CXR: Left lobe pulmonary consolidation and patchy medial right lung base opacity unchanged. ECG: Atrial fibrillation with right bundle branch block. Echocardiogram: EF 20%, Mild to moderate mitral valve regurgitation, mild to moderate aortic valve regurgitation. Patient admitted to the ICU for sepsis and pneumonia. * Patient became hypotensive in the afternoon of 07/05, received 2L normal saline bolus, subsequently became hypoxic, and was placed back on non- rebreather mask. Patient placed on dopamine for hypotension and heparin drip secondary to positive troponins and ARF. BNP:1060 * 07/06/17: Patient's oxygenation slightly improved, weaned down to 3L nasal cannula, however acute confusion overnight, pulling out peripheral IVs, gudino catheter placed for urinary retention, patient's significant other previously declined placement. Patient on phenylephrine to maintain MAP. Worsening leukocytosis, WBC:22.8, Hb.9, BUN:56, Creatinine:2.81, AST:132, ALT:120, Total Protein:4.7, Albumin:1.4. ID consulted for antimicrobial management. Podiatry consulted for evaluation of chronic left gangrenous foot, provided recommendations for Betadine swab, and signed off. Patient seen and examined today, significant other Mollie at bedside. Patient is drowsy, confused, verbalizes nonsensical words and moans, unable to follow commands. Patient appears to be breathing comfortably on 2L NC, however audible course crackles/congestion noted upon entering the room. Palliative Care was consulted to assist with symptom management and to discuss with the patient/family the benefits and burdens of his current illnesses and the options regarding future care. Function/Cognitive Trajectory During hospitalization in May patient reported decreased appetite, weight loss (having gone from 190 to 155 pounds since July of last year). Patient was independent of his ADLs and ambulated with a rolling walker and used a wheel chair for long distances. Patient also also had pressure areas to sacrum and buttocks due to inability to bear weight and ambulate for a long time. Patient has also had multiple recent falls. (Adri Ndiaye) Review of Systems ROS Limitations: Clinical Condition (ROS obtained via EMR and patient's family) , Altered Mental Status Constitutional: COMPLAINS OF: Fatigue, Weight loss, Change in appetite, Generalized weakness Respiratory: COMPLAINS OF: Cough, Sputum production, Shortness of breath Cardiovascular: COMPLAINS OF: Dyspnea on Exertion, DENIES: Chest pain, Palpitations Genitourinary: COMPLAINS OF: Hesitancy Musculoskeletal: COMPLAINS OF: Joint pain Neurologic: COMPLAINS OF: Poor Balance Psychiatric: COMPLAINS OF: Confusion (Adri Ndiaye) Past Family Social History Coded Allergies: diatrizoate meglumine (Unverified Allergy, Severe, 07/05/17) gadobenic acid (Unverified Allergy, Severe, 07/05/17) gadodiamide (Unverified Allergy, Severe, 07/05/17) gadoteridol (Unverified Allergy, Severe, 07/05/17) iodixanol (Unverified Allergy, Severe, 07/05/17) iohexol (Unverified Allergy, Severe, 07/05/17) Past Medical History Atrial fibrillation CAD PVD FL in 1984-has for cardiac stents Hypertension CKD stage III Diabetes mellitus GERD Chronic back pain Asbestosis . Past Surgical History Renal stent placement 4 cardiac stents placement Right shoulder surgery Left lower extremity revascularization with angioplasty to 2X of the left leg Left knee and left hip replacement Cholecystectomy . Reported Medications Reported Meds & Active Scripts Active Mucus Relief ER (Guaifenesin) 600 Mg Tab 600 Mg PO BID PRN Pantoprazole (Pantoprazole Sodium) 40 Mg Tab 40 Mg PO DAILY 30 Days Furosemide 20 Mg Tab 20 Mg PO DAILY 30 Days Eq Acetaminophen (Acetaminophen) 325 Mg Tab 650 Mg PO Q4H PRN 30 Days Oxycodone-Acetaminophen 10-325 mg Tab 1 Tab PO Q4H PRN Plavix (Clopidogrel Bisulfate) 75 Mg Tab 75 Mg PO DAILY Reported Feosol (Ferrous Sulfate) 325 Mg (65 Mg Iron) Tab 200 Mg PO DAILY Vitamin C (Ascorbic Acid) 250 Mg Chew 250 Mg CHEW DAILY Celecoxib 200 Mg Cap 200 Mg PO BID One Daily (Multiple Vitamin) 1 Tab 1 Tab PO DAILY Restoril (Temazepam) 30 Mg Cap 30 Mg PO HS PRN Xarelto (Rivaroxaban) 15 Mg Tab 15 Mg PO DAILY Nexium (Esomeprazole DR) 40 Mg Capdr 40 Mg PO DAILY . Current Medications Medications (Trade) Dose Ordered Sig/Cheikh Route Start Time Stop Time Status Last Admin (NS Flush) 2 ml UNSCH PRN IV FLUSH 07/05/17 14:15 (NS Flush) 2 ml BID IV FLUSH 07/05/17 21:00 07/07/17 09:00 (Tylenol) 650 mg Q6H PRN PO 07/05/17 14:15 ([place] 5-325 Mg) 1 tab Q4H PRN PO 07/05/17 14:15 (Morphine Inj) 2 mg Q2H PRN IV PUSH 07/05/17 14:15 07/07/17 07:09 (Tears Naturale Opth Soln) 1 drop TID EACH EYE 07/05/17 18:00 (Zofran Inj) 4 mg Q6H PRN IV PUSH 07/05/17 14:15 (Albuterol Neb) 2.5 mg Q2HR NEB PRN INH 07/05/17 14:15 Miscellaneous Information 1 Q361D XX 07/05/17 14:15 (Chlorhexidine 2% Cloth) 3 pack Taper DAILY@04 TOP 07/06/17 04:00 07/02/18 03:59 07/07/17 04:00 (Chlorhexidine 2% Cloth) 3 pack UNSCH PRN TOP 07/05/17 14:15 (Tiffany-Colace) 1 tab BID PO 07/05/17 21:00 (Milk Of Magnesia Liq) 30 ml Q12H PRN PO 07/05/17 14:15 (Senokot) 17.2 mg Q12H PRN PO 07/05/17 14:15 (Dulcolax Supp) 10 mg DAILY PRN RECTAL 07/05/17 14:15 (Lactulose Liq) 30 ml DAILY PRN PO 07/05/17 14:15 Phenylephrine HCl 160 mg/Dextrose 500 ml @ 7.5 mls/hr TITRATE PRN IV 07/05/17 14:15 07/05/17 15:22 (Brethine Inj) 1 mg UNSCH PRN SQ 07/05/17 14:15 Piperacillin Sod/ Tazobactam Sod 50 ml @ 100 mls/hr Q6H IV 07/05/17 16:00 07/07/17 04:25 Pharmacy Profile Note 0 ml @ 0 mls/hr UNSCH OTHER 07/05/17 14:15 (Plavix) 75 mg DAILY PO 07/06/17 09:00 (Ferrous Sulfate) 325 mg DAILY PO 07/06/17 09:00 (Theragran) 1 tab DAILY PO 07/06/17 09:00 (Vitamin C) 250 mg DAILY PO 07/05/17 14:45 (D50w (Vial) Inj) 50 ml UNSCH PRN IV PUSH 07/05/17 15:30 07/05/17 18:15 (Glucagon Inj) 1 mg UNSCH PRN OTHER 07/05/17 15:30 (NovoLIN R SUPPLEMENTAL SCALE) 1 Q4HR SQ 07/05/17 16:00 07/07/17 00:00 Azithromycin 500 mg/Sodium Chloride 250 ml @ 250 mls/hr Q24H IV 07/06/17 11:00 07/06/17 10:43 (Duoneb Neb) 1 ampule Q4HR NEB INH 07/05/17 16:00 07/07/17 07:42 Heparin Sodium/ Dextrose 250 ml @ 13 mls/hr TITRATE PRN IV 07/05/17 15:45 Dextrose/Sodium Chloride 1,000 ml @ 100 mls/hr Q10H IV 07/05/17 18:00 07/07/17 01:04 (NS Flush) DAILY IV FLUSH 07/06/17 09:00 07/06/17 09:14 (NS Flush) UNSCH PRN IV FLUSH 07/05/17 19:45 (Melatonin) 5 mg HS PRN PO 07/06/17 21:00 (Pepcid Inj) 10 mg Q12H IV PUSH 07/06/17 21:00 07/07/17 08:59 Family History Mother- had a brain tumor and during surgery. . Substance Use Tobacco: Hx of smoking . Quit in 1984 Alcohol: Hx of alcohol consumption -quit 4 years ago Prescription med abuse: None reported Illicits: None reported . Psychosocial History Patient was born in [place]. Patient moved to [place] approximately 74 years ago. Patient served in the [email or web address] for 21 years which he spent in [employer]. 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 Patient was once and his approximately 8-10 years ago per his daughter. Patient has 3 adult children, 2 twin daughters and a son. His 2 daughters live in [place] and son lives in [place]. . Spiritual/Cultural Factors Jainism. . (Adri Ndiaye) Living Will: Never completed Health Care Surrogate: Never completed Durable Power of Spring Assembler Supervisor: Copy in medical record Family/friends goals: Family stated today that their goals of care are comfort oriented, they would like to transition to comfort focused goals/Hospice tomorrow once the remainder of the patient's children arrive from out of state. . Ethical and Legal Issues None known. . (Lower,Adri Amy REPRODUCTIVE ENDOCRINOLOGIST) Physical Exam Vital Signs Date Time Temp Pulse Resp B/P (MAP) Pulse Ox O2 Delivery O2 Flow Rate FiO2 07/07/17 07:43 94 Nasal Cannula 2.00 07/07/17 06:00 108 07/07/17 04:00 98.0 97 20 91/52 (65) 100 07/07/17 04:00 97 07/07/17 02:00 94 07/07/17 01:00 106 102/52 (69) 07/07/17 00:00 97.8 111 18 108/55 (72) 100 07/07/17 00:00 111 07/06/17 22:00 116 07/06/17 20:00 125 07/06/17 20:00 98.0 125 19 102/52 (69) 98 07/06/17 19:16 100 Nasal Cannula 3.00 07/06/17 19:00 123 102/52 (69) 07/06/17 19:00 100 Nasal Cannula 4.00 07/06/17 18:00 124 07/06/17 17:16 115 88/50 07/06/17 16:00 97.9 146 29 98/79 (85) 98 07/06/17 16:00 146 07/06/17 14:00 116 07/06/17 13:00 129 119/70 (86) 07/06/17 12:00 121 07/06/17 12:00 98.0 121 26 99/57 (71) 98 07/06/17 11:10 125 88/54 07/06/17 10:00 123 Exam CONSTITUTIONAL/GENERAL: This is a frail elderly male patient, confused, in no apparent distress. TUBES/LINES/DRAINS: RIJ CVL, PIV x 2, soft wrist restraints, gudino catheter SKIN: No jaundice, rashes, or lesions. Ecchymoses on upper extremities. No wounds seen anteriorly. Skin temperature appropriate. Not diaphoretic. HEAD: Atraumatic. Normocephalic. EYES: Pupils equal and round and reactive. No scleral icterus. No injection or drainage. Fundi not examined. ENT: Nose without bleeding or purulent drainage. Throat without visible erythema , exudates, masses, or lesions. NECK: Trachea midline. Supple, nontender. CARDIOVASCULAR: Irregular rhythm without murmurs, gallops, or rubs. No JVD. Peripheral pulses symmetric. RESPIRATORY/CHEST: Symmetric, unlabored respirations. Course crackles and rhonchi throughout. Breath sounds equal bilaterally. GASTROINTESTINAL: Abdomen soft, non-tender, nondistended. No guarding. Bowel sounds present. GENITOURINARY: Without palpable bladder distension. Gudino catheter in place draining concentrated brown urine. MUSCULOSKELETAL: Extremities without clubbing, cyanosis. No mottling or clubbing. Trace 1+ edema. Peripheral pulses decreased bilaterally. LYMPHATICS: No palpable cervical or supraclavicular adenopathy. NEUROLOGICAL: Drowsy, confused, mumbles a few nonsensical words. Unable to follow commands. PSYCHIATRIC:Unable to assess secondary to clinical condition. . (Adri Ndiaye) Diagnostic Tests Laboratory Laboratory Tests Test 07/05/17 00:30 07/05/17 10:50 07/05/17 13:30 07/05/17 14:50 Activated Partial Thromboplast Time 50.3 SEC (24.3-30.1) White Blood Count 15.5 TH/MM3 (4.0-11.0) Red Blood Count 2.74 MIL/MM3 (4.50-5.90) Hemoglobin 8.7 GM/DL (13.0-17.0) Hematocrit 26.4 % (39.0-51.0) Mean Corpuscular Volume 96.4 FL (80.0-100.0) Mean Corpuscular Hemoglobin 31.8 PG (27.0-34.0) Mean Corpuscular Hemoglobin Concent 33.1 % (32.0-36.0) Red Cell Distribution Width 20.3 % (11.6-17.2) Platelet Count 177 TH/MM3 (150-450) Mean Platelet Volume 7.5 FL (7.0-11.0) Neutrophils (%) (Auto) 91.4 % (16.0-70.0) Lymphocytes (%) (Auto) 4.2 % (9.0-44.0) Monocytes (%) (Auto) 4.2 % (0.0-8.0) Eosinophils (%) (Auto) 0.1 % (0.0-4.0) Basophils (%) (Auto) 0.1 % (0.0-2.0) Neutrophils # (Auto) 14.2 TH/MM3 (1.8-7.7) Lymphocytes # (Auto) 0.7 TH/MM3 (1.0-4.8) Monocytes # (Auto) 0.6 TH/MM3 (0-0.9) Eosinophils # (Auto) 0.0 TH/MM3 (0-0.4) Basophils # (Auto) 0.0 TH/MM3 (0-0.2) CBC Comment AUTO DIFF Differential Total Cells Counted 100 Neutrophils % (Manual) 34 % (16-70) Band Neutrophils % 47 % (0-6) Lymphocytes % 3 % (9-44) Monocytes % 5 % (0-8) Basophils % 1 % (0-2) Neutrophils # (Manual) 14.1 TH/MM3 (1.8-7.7) Metamyelocytes 10 % (0-1) Differential Comment FINAL DIFF MANUAL Toxic Granulation 1+ (NORMAL) Dohle Bodies PRESENT (NONE SEEN) Platelet Estimate NORMAL (NORMAL) Platelet Morphology Comment NORMAL (NORMAL) Blood Urea Nitrogen 50 MG/DL (7-18) Creatinine 2.87 MG/DL (0.60-1.30) Random Glucose 171 MG/DL (74-106) Total Protein 5.2 GM/DL (6.4-8.2) Albumin 1.7 GM/DL (3.4-5.0) Calcium Level 8.0 MG/DL (8.5-10.1) Alkaline Phosphatase 94 U/L (45-117) Aspartate Amino Transf (AST/SGOT) 233 U/L (15-37) Alanine Aminotransferase (ALT/SGPT) 99 U/L (12-78) Total Bilirubin 0.8 MG/DL (0.2-1.0) Sodium Level 135 MEQ/L (136-145) Potassium Level 5.5 MEQ/L (3.5-5.1) Chloride Level 101 MEQ/L (98-107) Carbon Dioxide Level 21.1 MEQ/L (21.0-32.0) Anion Gap 13 MEQ/L (5-15) Estimat Glomerular Filtration Rate 21 ML/MIN (>89) Lactic Acid Level 6.9 mmol/L (0.4-2.0) 5.5 mmol/L (0.4-2.0) Amylase Level 36 U/L (25-115) Lipase 77 U/L (73-393) Nasal Screen MRSA (PCR) MRSA DETECTED (NOT DETECT) Test 07/05/17 17:14 07/05/17 21:30 07/06/17 00:30 07/06/17 04:35 White Blood Count 20.8 TH/MM3 (4.0-11.0) 22.8 TH/MM3 (4.0-11.0) Red Blood Count 3.21 MIL/MM3 (4.50-5.90) 2.90 MIL/MM3 (4.50-5.90) Hemoglobin 9.8 GM/DL (13.0-17.0) 8.9 GM/DL (13.0-17.0) Hematocrit 31.0 % (39.0-51.0) 27.8 % (39.0-51.0) Mean Corpuscular Volume 96.6 FL (80.0-100.0) 95.7 FL (80.0-100.0) Mean Corpuscular Hemoglobin 30.6 PG (27.0-34.0) 30.6 PG (27.0-34.0) Mean Corpuscular Hemoglobin Concent 31.7 % (32.0-36.0) 32.0 % (32.0-36.0) Red Cell Distribution Width 20.2 % (11.6-17.2) 20.6 % (11.6-17.2) Platelet Count 223 TH/MM3 (150-450) 202 TH/MM3 (150-450) Mean Platelet Volume 7.3 FL (7.0-11.0) 7.2 FL (7.0-11.0) Prothrombin Time 17.6 SEC (9.8-11.6) 16.6 SEC (9.8-11.6) Prothromb Time International Ratio 1.6 RATIO 1.5 RATIO Activated Partial Thromboplast Time 47.9 SEC (24.3-30.1) 48.0 SEC (24.3-30.1) Fibrinogen 571 mg/dL (227-377) Potassium Level 4.6 MEQ/L (3.5-5.1) 4.7 MEQ/L (3.5-5.1) Ammonia LESS THAN 10 MCMOL/L Lactic Acid Level 2.9 mmol/L (0.4-2.0) 4.5 mmol/L (0.4-2.0) Phosphorus Level 4.2 MG/DL (2.5-4.9) 4.1 MG/DL (2.5-4.9) Magnesium Level 2.0 MG/DL (1.5-2.5) 2.0 MG/DL (1.5-2.5) Troponin I 0.05 NG/ML (0.02-0.05) 0.04 NG/ML (0.02-0.05) Thyroid Stimulating Hormone 3rd Gen 7.640 uIU/ML (0.358-3.740) Neutrophils (%) (Auto) 94.0 % (16.0-70.0) Lymphocytes (%) (Auto) 3.3 % (9.0-44.0) Monocytes (%) (Auto) 2.5 % (0.0-8.0) Eosinophils (%) (Auto) 0.1 % (0.0-4.0) Basophils (%) (Auto) 0.1 % (0.0-2.0) Neutrophils # (Auto) 21.5 TH/MM3 (1.8-7.7) Lymphocytes # (Auto) 0.8 TH/MM3 (1.0-4.8) Monocytes # (Auto) 0.6 TH/MM3 (0-0.9) Eosinophils # (Auto) 0.0 TH/MM3 (0-0.4) Basophils # (Auto) 0.0 TH/MM3 (0-0.2) CBC Comment AUTO DIFF Differential Total Cells Counted 100 Neutrophils % (Manual) 58 % (16-70) Band Neutrophils % 39 % (0-6) Monocytes % 2 % (0-8) Neutrophils # (Manual) 22.3 TH/MM3 (1.8-7.7) Metamyelocytes 1 % (0-1) Differential Comment FINAL DIFF MANUAL Platelet Estimate NORMAL (NORMAL) Platelet Morphology Comment NORMAL (NORMAL) Blood Urea Nitrogen 56 MG/DL (7-18) Creatinine 2.81 MG/DL (0.60-1.30) Random Glucose 198 MG/DL (74-106) Total Protein 4.7 GM/DL (6.4-8.2) Albumin 1.4 GM/DL (3.4-5.0) Calcium Level 7.3 MG/DL (8.5-10.1) Alkaline Phosphatase 99 U/L (45-117) Aspartate Amino Transf (AST/SGOT) 132 U/L (15-37) Alanine Aminotransferase (ALT/SGPT) 120 U/L (12-78) Total Bilirubin 0.7 MG/DL (0.2-1.0) Sodium Level 140 MEQ/L (136-145) Chloride Level 108 MEQ/L (98-107) Carbon Dioxide Level 21.4 MEQ/L (21.0-32.0) Anion Gap 11 MEQ/L (5-15) Estimat Glomerular Filtration Rate 21 ML/MIN (>89) Protein Corrected Calcium 8.7 MG/DL (8.5-10.1) Test 07/06/17 12:00 07/06/17 14:50 07/06/17 15:00 07/07/17 04:00 Ammonia 19 MCMOL/L (11-32) B-Type Natriuretic Peptide 1063 PG/ML (0-100) Thyroxine (T4) 3.0 MCG/DL (4.5-12.1) Thyroid Stimulating Hormone 3rd Gen 8.970 uIU/ML (0.358-3.740) Total Triiodothyronine 15 NG/DL (60-181) Urine Color DARK-BROWN (YELLW/STRAW) Urine Turbidity CLOUDY (CLEAR) Urine pH 5.5 (5.0-8.5) Urine Specific Dwight 1.027 (1.002-1.035) Urine Protein 100 mg/dL (NEG-TRACE) Urine Glucose (UA) NEG mg/dL (NEG) Urine Ketones NEG mg/dL (NEG) Urine Occult Blood LARGE (NEG) Urine Nitrite NEG (NEG) Urine Bilirubin NEG (NEG) Urine Urobilinogen LESS THAN 2.0 MG/DL (LESS Urine Leukocyte Esterase NEG (NEG) Urine RBC 100-200 /hpf (0-3) Urine WBC 0-2 /hpf (0-5) Urine Amorphous Sediment LARGE Urine Bacteria FEW /hpf (NONE) Microscopic Urinalysis Comment CATH-CULT NOT IND Urine Eosinophils NONE SEEN /HPF (NONE SEEN) Urine Random Creatinine 108.4 MG/DL Urine Random Sodium 8 MEQ/L Blood Urea Nitrogen 60 MG/DL (7-18) Creatinine 2.60 MG/DL (0.60-1.30) Random Glucose 178 MG/DL (74-106) Calcium Level 7.7 MG/DL (8.5-10.1) Sodium Level 143 MEQ/L (136-145) Potassium Level 3.9 MEQ/L (3.5-5.1) Chloride Level 110 MEQ/L (98-107) Carbon Dioxide Level 23.8 MEQ/L (21.0-32.0) Anion Gap 9 MEQ/L (5-15) Estimat Glomerular Filtration Rate 23 ML/MIN (>89) Random Vancomycin Level 14.2 COMMENT . (Zelda,Adri Reyes SIERRA) Result Diagram: 07/06/17 0435 07/07/17 0400 Microbiology Microbiology Date/Time Source Procedure Growth Status 07/06/17 18:00 Blood Peripheral Aerobic Blood Culture Pending Received 07/06/17 18:00 Blood Peripheral Anaerobic Blood Culture Pending Received 07/06/17 17:45 Blood Peripheral Aerobic Blood Culture Pending Received 07/06/17 17:45 Blood Peripheral Anaerobic Blood Culture Pending Received 07/05/17 15:25 Blood Peripheral Aerobic Blood Culture - Preliminary NO GROWTH IN 1 DAY Resulted 07/05/17 15:25 Blood Peripheral Anaerobic Blood Culture - Preliminary NO GROWTH IN 1 DAY Resulted 07/05/17 10:50 Blood Peripheral Aerobic Blood Culture - Preliminary S. Aureus Mrsa Resulted 07/05/17 10:50 Anaerobic Blood Culture - Preliminary Gram Positive Cocci Resulted 07/05/17 10:45 Blood Peripheral Aerobic Blood Culture - Preliminary Gram Positive Cocci Resulted 07/05/17 10:45 Anaerobic Blood Culture - Preliminary Gram Positive Cocci Resulted 07/05/17 21:50 Sputum Expectorated Sputum Gram Stain - Final Resulted 07/05/17 21:50 Sputum Expectorated Sputum Sputum Culture - Preliminary IMMATURE GROWTH - REINCUBATE Resulted 07/06/17 15:00 Urine Clean Catch Legionella Antigen - Final PRESUMPTIVE NEGATIVE FOR LEGIONELLA P... Complete 07/06/17 15:00 Urine Clean Catch Streptococcus pneumoniae Antigen (M - Final PRESUMPTIVE NEGATIVE FOR STREPTOCOCCU... Complete 07/06/17 15:00 Urine Clean Catch Urine Culture Pending Received Imaging Last 72 hours Impressions Chest X-Ray 07/05/171943 Signed Impressions: Service Date/Time: Wednesday, July 05, 2017 19:55 - CONCLUSION: 1. New right IJ central venous catheter with tip in the right atrium. No pneumothorax or other acute complication demonstrated. 2. Suspected early pneumonia developing in the right midlung. 3. Left base consolidation again seen, not significantly changed. Santy Brandon MD Chest X-Ray 07/05/17 1043 Signed Impressions: Service Date/Time: Wednesday, July 05, 2017 11:09 - CONCLUSION: No significant interval change. Left lower lobe pulmonary consolidation and patchy medial right lung base opacity unchanged. Jose Guadalupe Franco MD Abdomen Ultrasound 07/05/17 0000 Signed Impressions: Service Date/Time: Wednesday, July 05, 2017 15:25 - CONCLUSION: 1. Infrarenal abdominal aortic aneurysm estimated at approximately 3.4 cm. 2. Increased echogenicity diffusely of both kidneys typical of chronic parenchymal disease. Also a couple small cysts on both sides. No hydronephrosis or acute renal abnormality. 3. The rest of the abdomen ultrasound is within normal limits. Santy Brandon MD . (Adri Ndiaye) Patient/Family Conference Family Conference Location: Consult Room Issues Discussed: * Palliative care role, purpose, approach * Additional medical, psychosocial, and spiritual history * Patients general health, functional status, and cognitive changes in the months leading up to the current hospitalization * Family understanding of the current medical problems * Family understanding of prognosis * Patients goals of care as best understood from conversations and/or values * Current medical treatment options and benefits/burdens of those options * Likely scenarios comparing ongoing aggressive care with a transition to comfort measures only * Hospice philosophy and benefits introduced * Questions answered to the best of my ability * Palliative care contact information provided (Adri Ndiaye) Assessment and Plan Disease Oriented Problem List: (1) Congestive heart failure (CHF) (2) Severe sepsis with acute organ dysfunction (3) CKD (chronic kidney disease), stage III Symptom Scale: (1) Dyspnea (2) Debility Pertinent Non-Medical Issues Psychosocial: Patient was born in [place]. Patient moved to [place] approximately 74 years ago. Patient served in the [employer] for 21 years which he spent in [employer]. 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 Patient was once and his approximately 8-10 years ago per his daughter. Patient has 3 adult children, 2 twin daughters and a son. His 2 daughters live in [place] and son lives in [place]. Spiritual: Jainism. Legal: None known. Ethical issues impacting care: None known. . Important Contacts Astrid Hernandez (daughter) [phone] Monica Vega (Significant other) [phone], Jasmin Shields (daughter) [phone] Leroy Mills (son) [phone] . Prognosis Patient is an 86 years old male with a past medical history significant for atrial fibrillation, CAD, myocardial infarction, hypertension, CKD (stage III), diabetes mellitus type 2, GERD, chronic back pain, and asbestosis. Patient was recently admitted to [facility] for progressive gangrenous changes to left foot with ischemic pain from 06/13/17 to 06/22/17, discharged to [facility] and subsequently discharged home with home health on 07/02. Patient returned to the hospital on 07/05 for shortness of breath, admitted for sepsis, and pneumonia. Given ongoing multiple comorbidities and current condition, patient remains at high risk for further complications, deterioration and decline. Code Status: No Code Plan * Legal decision maker: Patient is unable to participate in medical decision making at this time. It is unclear whether he will regain the capacity to do so independently. The patient does not have a completed written HCS or advanced directives pertaining to medical decision making. Per [place] statutes in the absence of written advanced directives health care decision making would fall to the patient's next of kin, his three adult children, all of whom are willing to serve as collaborative HCPs. * Goals: Comfort oriented. Awaiting arrival of patient's son Leroy Mills from out of state. Planned family meeting tomorrow at 1100 to further discuss transition to comfort focused goals/transition to Hospice. Family has verbalized they plan to transition to Hospice following the arrival of all of the patient's children. * Discussed with bedside RN as well as case sealer. * CODE STATUS: DNR * SYMPTOMS: * Dyspnea: Multifactorial, patient has a history of asbestosis, CHF, now with pneumonia. Currently on 2L NC, scheduled DuoNeb q 4 hours and albuterol 2.5mg q 2 hours PRN ordered. No recommendations at this time. * Debility: Progressive. Patient has been gradually declining physically over the past 2 years and for the past years patient`s life has been, with current hospitalization and ongoing commodities patient is at risk for further decline. Patient`s activity and mobility will be impaired secondary to chronic LLE wound with pain. (Adri Ndiaye) Thank you for the opportunity to participate in the care of Mr. Mills. (Adri Ndiaye) Attestation To help prompt me to consider important information that might be impacting today's encounter and assessment, information from prior notes written by myself or my colleagues may have been "brought forward" into today's note. My signature on this note, however, is an attestation that I personally performed the exam, history, and/or decision-making noted today, and, unless otherwise indicated, the interactions with patient, family, and staff as well as the review of records all occurred today. I also attest that the listed assessment and stated plan reflect my best clinical judgment today based on the combination of historical information, prior notes, and today's exam/ interactions. When time spent is documented, it refers only to time spent today by the signer, or if indicated, combined time spent today by collaborating physician/nurse practitioner. (Adri Ndiaye) Collaborating MD Comments Discussed with SIERRA, agree with assessment and plan (Robi Granda MD) Adri Ndiaye Jul 07, 2017 09:56 Robi Granda MD Jul 08, 2017 09:51
[2017-07-07] MEDS: AZITHROMYCIN INJ 500 MG in SODIUM CHLOR 0.9% 250 ML INJ 250 ML IV SCH (11:00)
--- NOTE | 2017-07-07 11:47 | HHI.IDPN ---
Subjective Subjective Remarks Patient is an 86-year-old male, or scented to the hospital for evaluation of shortness of breath. 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 He had to revascularization procedure, the first week in May, and the last week of the same month. In one of his hospitalization he received treatment for UTI. After his last hospitalization he was discharged to [facility] and was there from June 22 to July 02. I got some history from the patient's significant other. Apparently when the patient was discharged from [facility] he was able to ambulate using a walker. He was feeding himself. Home health nurses check on him daily, and he has not had any fever. He does not use oxygen at home, and when the nurse checked his oxygen they were okay. On the day of admission and apparently the saturation was quite low, so the patient was brought into the hospital for further evaluation and treatment. To the girlfriend since the patient was discharge from [facility] he has been having cough. He was bringing up some yellowish phlegm. More recently on the day of admission he started complaining of some shortness of breath. He denies any chest pain. Patient has not had any trouble swallowing, no choking episodes, and has not had any nausea or vomiting. There is been no diarrhea. And according to the girlfriend he has not had any trouble urinating. On presentation patient is afebrile. His WBC is elevated. Creatinine is elevated as well. Acid is greater than 4. Chest x-ray showing some worsening of his basilar infiltrates compared to his chest x-ray on July 01. Patient also has been having problem with urinary retention, and initially was being straight cathetered, and Hernandez catheter was placed today. 2 blood cultures were done on admission, one blood culture gram-positive cocci, the other blood culture is now reported as growing MRSA. Central line was placed yesterday when he came in. He is currently on nasal O2. He is agitated and moves a lot in the bed. He is DNR/DNI status. Infectious disease consultation has been requested to evaluate the patient. Notes reviewed D/W RN Temps low grade NO interaction Family meeting with palliative medicine On pressors BC with MRSA Sputum pending UA ok Repeat BC negative Echo with global hypokinesis, and multiple valvular disease Antibiotics Current Medications Vanco Zithromax Zosyn Medications (Trade) Dose Ordered Sig/Cheikh Route Start Time Stop Time Status Last Admin (NS Flush) 2 ml UNSCH PRN IV FLUSH 07/05/17 14:15 (NS Flush) 2 ml BID IV FLUSH 07/05/17 21:00 07/07/17 09:00 (Tylenol) 650 mg Q6H PRN PO 07/05/17 14:15 ([place] 5-325 Mg) 1 tab Q4H PRN PO 07/05/17 14:15 (Morphine Inj) 2 mg Q2H PRN IV PUSH 07/05/17 14:15 07/07/17 07:09 (Tears Naturale Opth Soln) 1 drop TID EACH EYE 07/05/17 18:00 (Zofran Inj) 4 mg Q6H PRN IV PUSH 07/05/17 14:15 (Albuterol Neb) 2.5 mg Q2HR NEB PRN INH 07/05/17 14:15 Miscellaneous Information 1 Q361D XX 07/05/17 14:15 (Chlorhexidine 2% Cloth) 3 pack Taper DAILY@04 TOP 07/06/17 04:00 07/02/18 03:59 07/07/17 04:00 (Chlorhexidine 2% Cloth) 3 pack UNSCH PRN TOP 07/05/17 14:15 (Tiffany-Colace) 1 tab BID PO 07/05/17 21:00 (Milk Of Magnesia Liq) 30 ml Q12H PRN PO 07/05/17 14:15 (Senokot) 17.2 mg Q12H PRN PO 07/05/17 14:15 (Dulcolax Supp) 10 mg DAILY PRN RECTAL 07/05/17 14:15 (Lactulose Liq) 30 ml DAILY PRN PO 07/05/17 14:15 Phenylephrine HCl 160 mg/Dextrose 500 ml @ 7.5 mls/hr TITRATE PRN IV 07/05/17 14:15 07/05/17 15:22 (Brethine Inj) 1 mg UNSCH PRN SQ 07/05/17 14:15 Piperacillin Sod/ Tazobactam Sod 50 ml @ 100 mls/hr Q6H IV 07/05/17 16:00 07/07/17 10:39 Pharmacy Profile Note 0 ml @ 0 mls/hr UNSCH OTHER 07/05/17 14:15 (Plavix) 75 mg DAILY PO 07/06/17 09:00 (Ferrous Sulfate) 325 mg DAILY PO 07/06/17 09:00 (Theragran) 1 tab DAILY PO 07/06/17 09:00 (Vitamin C) 250 mg DAILY PO 07/05/17 14:45 (D50w (Vial) Inj) 50 ml UNSCH PRN IV PUSH 07/05/17 15:30 07/05/17 18:15 (Glucagon Inj) 1 mg UNSCH PRN OTHER 07/05/17 15:30 (NovoLIN R SUPPLEMENTAL SCALE) 1 Q4HR SQ 07/05/17 16:00 07/07/17 00:00 Azithromycin 500 mg/Sodium Chloride 250 ml @ 250 mls/hr Q24H IV 07/06/17 11:00 07/07/17 11:00 (Duoneb Neb) 1 ampule Q4HR NEB INH 07/05/17 16:00 07/07/17 07:42 Heparin Sodium/ Dextrose 250 ml @ 13 mls/hr TITRATE PRN IV 07/05/17 15:45 Dextrose/Sodium Chloride 1,000 ml @ 100 mls/hr Q10H IV 07/05/17 18:00 07/07/17 01:04 (NS Flush) DAILY IV FLUSH 07/06/17 09:00 07/06/17 09:14 (NS Flush) UNSCH PRN IV FLUSH 07/05/17 19:45 (Melatonin) 5 mg HS PRN PO 07/06/17 21:00 (Pepcid Inj) 10 mg Q12H IV PUSH 07/06/17 21:00 07/07/17 08:59 Vancomycin HCl 1500 mg/Sodium Chloride 515 ml @ 257.5 mls/ hr ONCE ONCE IV 07/07/17 12:00 07/07/17 13:59 Past Medical History Peripheral vascular disease Atrial fibrillation Chronic kidney disease stage III Gastroesophageal reflux disease Diabetes mellitus Hypertension Chronic low back pain Insomnia Chronic narcotic use Gastroesophageal reflux disease Past Surgical History Cholecystectomy Cardiac stents 2 Left knee/left hip Several revascularizations for PVD - has stent L SFA and multiple angioplasty Allergies: Coded Allergies: diatrizoate meglumine (Unverified Allergy, Severe, 07/05/17) gadobenic acid (Unverified Allergy, Severe, 07/05/17) gadodiamide (Unverified Allergy, Severe, 07/05/17) gadoteridol (Unverified Allergy, Severe, 07/05/17) iodixanol (Unverified Allergy, Severe, 07/05/17) iohexol (Unverified Allergy, Severe, 07/05/17) Objective . Vital Signs Date Time Temp Pulse Resp B/P (MAP) Pulse Ox O2 Delivery O2 Flow Rate FiO2 07/07/17 07:43 94 Nasal Cannula 2.00 07/07/17 06:00 108 07/07/17 04:00 98.0 97 20 91/52 (65) 100 07/07/17 04:00 97 07/07/17 02:00 94 07/07/17 01:00 106 102/52 (69) 07/07/17 00:00 97.8 111 18 108/55 (72) 100 07/07/17 00:00 111 07/06/17 22:00 116 07/06/17 20:00 125 07/06/17 20:00 98.0 125 19 102/52 (69) 98 07/06/17 19:16 100 Nasal Cannula 3.00 07/06/17 19:00 123 102/52 (69) 07/06/17 19:00 100 Nasal Cannula 4.00 07/06/17 18:00 124 07/06/17 17:16 115 88/50 07/06/17 16:00 97.9 146 29 98/79 (85) 98 07/06/17 16:00 146 07/06/17 14:00 116 07/06/17 13:00 129 119/70 (86) 07/06/17 12:00 121 07/06/17 12:00 98.0 121 26 99/57 (71) 98 . Laboratory Tests Test 07/05/17 17:14 07/06/17 04:35 White Blood Count 20.8 TH/MM3 22.8 TH/MM3 Red Blood Count 3.21 MIL/MM3 2.90 MIL/MM3 Hemoglobin 9.8 GM/DL 8.9 GM/DL Hematocrit 31.0 % 27.8 % Mean Corpuscular Volume 96.6 FL 95.7 FL Mean Corpuscular Hemoglobin 30.6 PG 30.6 PG Mean Corpuscular Hemoglobin Concent 31.7 % 32.0 % Red Cell Distribution Width 20.2 % 20.6 % Platelet Count 223 TH/MM3 202 TH/MM3 Mean Platelet Volume 7.3 FL 7.2 FL Neutrophils (%) (Auto) 94.0 % Lymphocytes (%) (Auto) 3.3 % Monocytes (%) (Auto) 2.5 % Eosinophils (%) (Auto) 0.1 % Basophils (%) (Auto) 0.1 % Neutrophils # (Auto) 21.5 TH/MM3 Lymphocytes # (Auto) 0.8 TH/MM3 Monocytes # (Auto) 0.6 TH/MM3 Eosinophils # (Auto) 0.0 TH/MM3 Basophils # (Auto) 0.0 TH/MM3 CBC Comment AUTO DIFF Differential Total Cells Counted 100 Neutrophils % (Manual) 58 % Band Neutrophils % 39 % Monocytes % 2 % Neutrophils # (Manual) 22.3 TH/MM3 Metamyelocytes 1 % Differential Comment FINAL DIFF MANUAL Platelet Estimate NORMAL Platelet Morphology Comment NORMAL Laboratory Tests Test 07/05/17 13:30 07/05/17 17:14 07/05/17 21:30 07/06/17 00:30 Lactic Acid Level 5.5 mmol/L 2.9 mmol/L Potassium Level 4.6 MEQ/L Ammonia LESS THAN 10 MCMOL/L Phosphorus Level 4.2 MG/DL Magnesium Level 2.0 MG/DL Troponin I 0.05 NG/ML 0.04 NG/ML Thyroid Stimulating Hormone 3rd Gen 7.640 uIU/ML Test 07/06/17 04:35 07/06/17 12:00 07/06/17 14:50 07/07/17 04:00 Blood Urea Nitrogen 56 MG/DL 60 MG/DL Creatinine 2.81 MG/DL 2.60 MG/DL Random Glucose 198 MG/DL 178 MG/DL Total Protein 4.7 GM/DL Albumin 1.4 GM/DL Calcium Level 7.3 MG/DL 7.7 MG/DL Phosphorus Level 4.1 MG/DL Magnesium Level 2.0 MG/DL Alkaline Phosphatase 99 U/L Aspartate Amino Transf (AST/SGOT) 132 U/L Alanine Aminotransferase (ALT/SGPT) 120 U/L Total Bilirubin 0.7 MG/DL Sodium Level 140 MEQ/L 143 MEQ/L Potassium Level 4.7 MEQ/L 3.9 MEQ/L Chloride Level 108 MEQ/L 110 MEQ/L Carbon Dioxide Level 21.4 MEQ/L 23.8 MEQ/L Anion Gap 11 MEQ/L 9 MEQ/L Estimat Glomerular Filtration Rate 21 ML/MIN 23 ML/MIN Lactic Acid Level 4.5 mmol/L Protein Corrected Calcium 8.7 MG/DL Ammonia 19 MCMOL/L B-Type Natriuretic Peptide 1063 PG/ML Thyroxine (T4) 3.0 MCG/DL Thyroid Stimulating Hormone 3rd Gen 8.970 uIU/ML Total Triiodothyronine 15 NG/DL Microbiology Date/Time Source Procedure Growth Status 07/06/17 18:00 Blood Peripheral Aerobic Blood Culture - Preliminary NO GROWTH IN 1 DAY Resulted 07/06/17 18:00 Blood Peripheral Anaerobic Blood Culture - Preliminary NO GROWTH IN 1 DAY Resulted 07/06/17 17:45 Blood Peripheral Aerobic Blood Culture - Preliminary NO GROWTH IN 1 DAY Resulted 07/06/17 17:45 Blood Peripheral Anaerobic Blood Culture - Preliminary NO GROWTH IN 1 DAY Resulted 07/05/17 15:25 Blood Peripheral Aerobic Blood Culture - Preliminary Gram Positive Cocci Resulted 07/05/17 15:25 Anaerobic Blood Culture - Preliminary Gram Positive Cocci Resulted 07/05/17 10:50 Blood Peripheral Aerobic Blood Culture - Preliminary S. Aureus Mrsa Resulted 07/05/17 10:50 Anaerobic Blood Culture - Final S. Aureus Mrsa Resulted 07/05/17 10:45 Blood Peripheral Aerobic Blood Culture - Final S. Aureus Mrsa Complete 07/05/17 10:45 Anaerobic Blood Culture - Final S. Aureus Mrsa Complete 07/05/17 21:50 Sputum Expectorated Sputum Gram Stain - Final Resulted 07/05/17 21:50 Sputum Expectorated Sputum Sputum Culture - Preliminary IMMATURE GROWTH - REINCUBATE Resulted 07/06/17 15:00 Urine Clean Catch Legionella Antigen - Final PRESUMPTIVE NEGATIVE FOR LEGIONELLA P... Complete 07/06/17 15:00 Urine Clean Catch Streptococcus pneumoniae Antigen (M - Final PRESUMPTIVE NEGATIVE FOR STREPTOCOCCU... Complete 07/06/17 15:00 Urine Clean Catch Urine Culture Pending Received Imaging No evidence of infection Physical Exam GENERAL: restless, not following commands, with sallow color skin, not in respiratory distress. SKIN: Cool and dry, and sallow color and pale. Has a lot of ecchymoses in BUE and BLE. No embolic lesions HEAD: Atraumatic. Normocephalic. No temporal wasting, or tenderness. EYES: Pale conjunctiva. No petechia or hemorrhage. Sunken eyeballs. Pupils equal, round and reactive to light. Extraocular movements full and intact. No scleral icterus. No injection or drainage. EARS, NOSE AND THROAT: Nose without bleeding or purulent nasal discharge. No sinus tenderness. Has very dry oral mucosa. NECK: Trachea midline. Supple and not tender, no meningeal signs CARDIOVASCULAR: Regular rate and rhythm. No murmurs, rubs or gallops heard RESPIRATORY: Scattered coarse rales, decreased at bases. ABDOMEN: Soft, nondistended, has mild diffuse tenderness, but no guarding or rebound. Bowel sounds present and normoactive. EXTREMITIES: LLE: Has dry gangrene on his 4th and 5th toes as well as plantar aspect of his big toe, and there is also a dry gangrene on his L heel, L foot with edema, and very mild pink color though his BLE were dangling at side of the bed when I saw. No odor. RLE: his L foot is mottled and cool. No calf tenderness. NEUROLOGICAL: Awake and alert. He is focusing, NO facial asymmetry. Motor grossly within normal limits. PSYCHIATRIC: Very restless, and moving a lot in his ed, trying to get out of bed LINE: No evidence of infection : Hernandez cath in place, with very dark urine with some sediment Assessment & Plan Remarks IMPRESSION MRSA sepsis, source? - has PNA - has retention, UA not done - has dry gangrene on his L foot PVD, S/P revascularization x 2 Renal insufficiency Leukocytosis Dry gangrene L foot RECOMMENDATION Follow repeat BC to document clearing Follow C/S Continue Vanco, pharm dosing Continue Zosyn ALSo on Zithromax Follow CBC Monitor progress D/W Cailin Roman MD Jul 07, 2017 11:47
[2017-07-07] MEDS ORDERED: VANCOMYCIN 1,500 MG/NS 500 ML IV ONE ×2 (12:00)
[2017-07-07] MEDS: LORazepam 2 MG/ML VIAL IV PRN ×2 (14:01→22:15)
--- NOTE | 2017-07-07 14:33 | HHI.CCPN ---
Subjective Remarks/Hospital Course This is an 86-year-old male. He is DNR/DNI status. 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 Daley - underwent left lower extremity angiogram with left poplitea angioplasty with 4mm balloon and left peroneal artery angioplasty with a 2 mm balloon and right VEHICLE TRIMMER angioseal. . Patient also had hard necrotic tissue to 4th and 5th metatarsals of left foot, eschar of plantar/posterior left heel and lateral aspect of 3rd digits and necrotic tissue to medial Right hallux and 1st MTP joint areas. -, coronary disease status post stent 2, atrial fibrillation, chronic kidney disease stage III, gastroesophageal reflux disease, diabetes mellitus, hypertension, chronic low back pain,, Rivaroxaban use,, peripheral arterial disease and peripheral vascular disease. Patient was recently discharged from [facility] . He presents to [facility] ED with chief complaint of shortness of breath. He was seen by his home health nurse earlier today with saturations in the 60s. EMS was called and he was brought to the hospital. Chief complaint was quite shortness of breath, cough productive of yellow sputum.. Chest x-ray revealed bilateral lower lobe infiltrates similar to previous x- ray. White blood cell count was elevated. Patient's creatinine is currently 2.9. Baseline around 1.5. Transaminases are elevated. Troponin is elevated. Lactates is greater than 4.. Patient received 2 L normal saline wide open and became more hypoxic currently a nonrebreather mask. Peripheral dopamine was started currently at 3 mcg/kg per minute. Subjective 07/06: Afebrile. The patient's oxygen requirements have been decrease currently at 3 L/m nasal cannula, O2 saturation 99%. The patient remains confused, overnight pulled out peripheral IV's. Patient was noted to have urinary retention requiring repeated straight catheters, Hernandez placed for prevention of expansion of sacral wound and urinary retention. Patient currently on phenylephrine to maintain MAP. 07/07: No change in mental status the patient remains confused and agitated. Patient requiring Ativan 0.5 mg . Patient was noted to have A. fib RVR and required digoxin 0.125 mg IV 1 dose. Discussion with family after palliative care team meeting. The patient failed formal swallow exam .Plan for no escalation in care, no insertion of NG tube and plan for transfer to hospice possibly tomorrow. Objective Vital Signs Date Time Temp Pulse Resp B/P (MAP) Pulse Ox O2 Delivery O2 Flow Rate FiO2 07/07/17 14:00 145 07/07/17 12:47 22 07/07/17 12:00 97.9 101/75 (84) 64 07/07/17 07:43 Nasal Cannula 2.00 07/05/17 16:02 100 Intake and Output 07/07/17 07/07/17 07/08/17 08:00 16:00 00:00 Intake Total 50 ml Output Total 50 ml Balance 0 ml Result Diagram: 07/06/17 0435 07/07/17 0400 Other Results Microbiology Date/Time Source Procedure Growth Status 07/05/17 10:45 Blood Peripheral Aerobic Blood Culture - Final S. Aureus Mrsa Complete 07/05/17 10:45 Anaerobic Blood Culture - Final S. Aureus Mrsa Complete 07/06/17 15:00 Urine Clean Catch Legionella Antigen - Final PRESUMPTIVE NEGATIVE FOR LEGIONELLA P... Complete 07/06/17 15:00 Urine Clean Catch Streptococcus pneumoniae Antigen (M - Final PRESUMPTIVE NEGATIVE FOR STREPTOCOCCU... Complete Imaging Last Impressions Chest X-Ray 07/05/17 1043 Signed Impressions: Service Date/Time: Friday, July 05, 2017 11:09 - CONCLUSION: No significant interval change. Left lower lobe pulmonary consolidation and patchy medial right lung base opacity unchanged. Jose Guadalupe Franco MD Objective Remarks GENERAL: This is an 86-year-old male, critically ill currently resting in bed on nasal cannula, resting comfortably this a.m. SKIN: Cool and dry. HEAD: Atraumatic. Normocephalic. EYES: Pupils equal and round. No scleral icterus. No injection or drainage. ENT: No nasal bleeding or discharge. Mucous membranes pink. Oropharynx without erythema NECK: Trachea midline. No JVD. CARDIOVASCULAR: Tachycardia, IR. S1, S2 no S4. Faint 2/6 systolic murmur RESPIRATORY: Coarse rhonchorous breath sounds throughout GASTROINTESTINAL: Abdomen soft, non-tender, nondistended. Hepatic and splenic margins not palpable. MUSCULOSKELETAL: Extremities with 1+ peripheral edema. Patient hard necrotic tissue to 4th and 5th metatarsals of left foot,eschar of plantar/posterior left heel and lateral aspect of 3rd digits and necrotic tissue to medial Right hallux and 1st MTP joint areas. NEUROLOGICAL: Awake and alert to person only. No obvious cranial nerve deficits. Motor grossly within normal limits. Five out of 5 muscle strength in the arms and legs. One were answered. Speech A/P Assessment and Plan Neuro/Psych: Acute encephalopathy Chronic narcotic use ICU delirium?? Currently holding oxycodone/acetaminophen 10/325 one tablet every 4 hours when necessary pain. with altered mental status Holding temazepam 30 mg a night for insomnia Holding celecoxib 200 mg by mouth twice a day Currently on acetaminophen 600 mg by mouth every 6 hours when necessary fever Hydrocodone/acetaminophen 5/325 1 tablet every 4 hours when necessary pain 1-5. Morphine sulfate 2 mg IV every 2 hours. Maintain sleep hygiene-Melatonin 5 mg daily at bedtime when necessary for insomnia CV: Severe sepsis with multisystem organ failure History of hypertension Coronary disease status post cardiac stent 2 Peripheral arterial disease Recent left lower extremity angiogram with left poplitea angioplasty with 4mm balloon and left peroneal artery angioplasty with a 2 mm balloon and right VEHICLE TRIMMER angioseal.Dr Daley Elevated troponin Acute on chronic systolic heart failure Currently on and off injecting maintain a mean arterial pressure greater than equal to 65 2 L normal saline in ED. Bolused 07/05 Limited 2-D echocardiogram-ejection fraction 20% LAD moderately dilated, diffuse global hypokinesis with distinct RWMA Continue clopidogrel 75 mg daily Old Q waves in inferior leads on EKG. Cycle troponins [address] Duncan cardiology last admission. 07/05 BNP 1060 Resp: Acute hypoxic respiratory failure Bilateral lower lobe pneumonia History of tobaccoism Patient currently on nonrebreather mask to titrate to maintain saturations greater than or equal to 90% Incentive spirometry while awake Albuterol/ipratropium aerosols every 4 hours with albuterol aerosols every 2 hours. Dyspnea Chest x-ray in a.m. See infectious disease for antibiotic coverage GI: Elevated transaminases Gastroesophageal reflux disease Patient is currently nothing by mouth-cusp plan for NG tube insertion for initiation of tube feeds. Family declined insertion of NG tube GI prophylaxis - Famotidine Docusate sodium/senna 1 tablet twice a day for bowel regimen : Insert Hernandez-dairy to gluteal/sacral skin breakdown pre-existing from previous admission, and urinary retention Strict I&O's Endo: Diabetes mellitus Currently on sliding scale insulin with Novulin R with Accu-Cheks every 4 hours to maintain euglycemia/medium regimen TSH ordered Renal: Acute kidney injury in the setting of chronic kidney disease stage IIIa Abdominal ultrasound/urine electrolytes and eosinophils pending currently refusing Hernandez catheter placement Monitor urine output Accurate I's and O's Follow-up on BMP in a.m.-improving creatinine 2.81->2.60 today Heme: Leukocytosis Normocytic anemia Chronic rivaroxaban use - holding with creatinine clearance less than 30 Monitor CBC daily. Follow trends Continue iron sulfate 325 mg by mouth daily. On 200mg liquid at home ID: Pneumonia - possibly healthcare acquired Piperacillin/tazobactam, vancomycin and azithromycin day #2 Blood cultures 2 and positive cocci UA, sputum are pending. Influenza pending. Legionella pneumococcal urinary antigens pending. Follow up on cultures FEN: Hyperkalemia-resolved Hyponatremia 07/05 Patient received D50/insulin/calcium gluconate and Kayexalate 1. Replacing electrolytes as clinically indicated Insertion of Hernandez secondary to urinary retention MSK: Left foot gangrene Pre-existing gluteal/sacral wound from previous hospitalization Hard necrotic tissue to 4th and 5th metatarsals of left foot,eschar of plantar/ posterior left heel and lateral aspect of 3rd digits and necrotic tissue to medial Right hallux and 1st MTP joint areas. Podiatry signed off 07/06 Patient seen by podiatry last admission. Nonsurgical. Would not heal. Recommended outpatient follow-up. Wound care will evaluate and treat Specialty care bed Access - Utilize peripheral IV. Patient's currently refusing central line Prophylaxis - GI - pantoprazole - DVT - SCD/currently on Rivaroxaban -on hold with creatinine clearance less than 30 Critical Care: This patient remains critically ill with one or more organ systems which are or may become a threat to life. I have spent in excess of 39 minutes discontinuously in the care and management of this patient. This time is exclusive of procedures, and includes, but is not limited to, evaluation of the patient, review of the medical record, discussions with family, consultants, nursing staff, or respiratory therapy, and documentation in the medical record. 07/07 -Extensive discussion with family (patient's daughter), and palliative care, Ms. Ndiaye. Plan for transfer possibly to hospice tomorrow per family's request Physician Jalyn Geronimo MD Jul 07, 2017 14:33
[2017-07-07] MEDS: PHENYLEPHRINE INJ 160 MG in DEXTROSE 5% IN WATE 500 ML INJ 484 ML IV PRN ×2 (16:03)
[2017-07-08] VITALS (13 sets, daily range): BP systolic 102–179; BP diastolic 57–82; PULSE 90–166; RESP 16–34; TEMP 97.1–98.3; O2SAT 89–100
[2017-07-08] MEDS: RESP: ALBUTEROL 2.5 MG/IPRATROPIUM 0.5 MG NEB (SCH) INH ×4 (03:40→16:22)
[2017-07-08] MEDS: INSULIN NovoLIN REGULAR SUPPLEMENTAL SCALE SQ SCH ×4 (04:00→12:00)
[2017-07-08] MEDS: CHLORHEXIDINE GLUCONATE 2 % 1 PACK (2 CLOTHS) TOP SCH (04:00)
[2017-07-08] MEDS: PIPERACIL-TAZO 2.25 GM PREMIX 50 ML IV SCH ×2 (04:52→10:11)
[2017-07-08] MEDS: DEXT 5%-NACL 0.9% 1000 ML INJ 1,000 ML IV SCH (04:52)
[2017-07-08] MEDS: LORazepam 2 MG/ML VIAL IV PRN ×3 (04:53→16:11)
[2017-07-08 05:22] LABS: HEMATOCRIT 23.2 % (39.0-51.0); MEAN CELL VOLUME 94.7 FL (80.0-100.0); MEAN CORPUSCULAR HEMOGLOBIN 31.4 PG (27.0-34.0); MEAN CORPUSCULAR HGB CONC 33.2 % (32.0-36.0); PLATELET COUNT 63 TH/MM3 (150-450); RED BLOOD COUNT 2.45 MIL/MM3 (4.50-5.90); RED CELL DISTRIBUTION WIDTH 20.3 % (11.6-17.2); WHITE BLOOD COUNT 11.5 TH/MM3 (4.0-11.0)
[2017-07-08 05:26] LABS: REVIEW FLAG FINAL
[2017-07-08] MEDS: MORPHINE SULFATE 4 MG/ML INJ IV PUSH PRN ×2 (08:10→14:06)
--- NOTE | 2017-07-08 08:46 | HHI.CCPN ---
Subjective Remarks/Hospital Course This is an 86-year-old male. He is DNR/DNI status. 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 Daley - underwent left lower extremity angiogram with left poplitea angioplasty with 4mm balloon and left peroneal artery angioplasty with a 2 mm balloon and right MVA OPERATOR angioseal. . Patient also had hard necrotic tissue to 4th and 5th metatarsals of left foot, eschar of plantar/posterior left heel and lateral aspect of 3rd digits and necrotic tissue to medial Right hallux and 1st MTP joint areas. -, coronary disease status post stent 2, atrial fibrillation, chronic kidney disease stage III, gastroesophageal reflux disease, diabetes mellitus, hypertension, chronic low back pain,, Rivaroxaban use,, peripheral arterial disease and peripheral vascular disease. Patient was recently discharged from [facility] . He presents to [facility] ED with chief complaint of shortness of breath. He was seen by his home health nurse earlier today with saturations in the 60s. EMS was called and he was brought to the hospital. Chief complaint was quite shortness of breath, cough productive of yellow sputum.. Chest x-ray revealed bilateral lower lobe infiltrates similar to previous x- ray. White blood cell count was elevated. Patient's creatinine is currently 2.9. Baseline around 1.5. Transaminases are elevated. Troponin is elevated. Lactates is greater than 4.. Patient received 2 L normal saline wide open and became more hypoxic currently a nonrebreather mask. Peripheral dopamine was started currently at 3 mcg/kg per minute. Subjective 07/06: Afebrile. The patient's oxygen requirements have been decrease currently at 3 L/m nasal cannula, O2 saturation 99%. The patient remains confused, overnight pulled out peripheral IV's. Patient was noted to have urinary retention requiring repeated straight catheters, Hernandez placed for prevention of expansion of sacral wound and urinary retention. Patient currently on phenylephrine to maintain MAP. 07/07: No change in mental status the patient remains confused and agitated. Patient requiring Ativan 0.5 mg . Patient was noted to have A. fib RVR and required digoxin 0.125 mg IV 1 dose. Discussion with family after palliative care team meeting. The patient failed formal swallow exam .Plan for no escalation in care, no insertion of NG tube and plan for transfer to hospice possibly tomorrow. 07/08: Afebrile. Patient had bouts of agitation last night requiring dosing of Ativan 1. Leukocytosis resolving however patient noted to be significantly thrombocytopenic today place count of 63. He had elevation in heart rate last night and received digoxin 0.1251 dose. Objective Vital Signs Date Time Temp Pulse Resp B/P (MAP) Pulse Ox O2 Delivery O2 Flow Rate FiO2 07/08/17 07:50 100 Nasal Cannula 2.00 07/08/17 07:00 112 07/08/17 07:00 102/71 (81) 07/08/17 04:00 97.7 29 07/05/17 16:02 100 Intake and Output 07/08/17 07/08/17 07/09/17 08:00 16:00 00:00 Intake Total 1100 ml Output Total 275 ml Balance 825 ml Result Diagram: 07/08/17 0500 07/07/17 0400 Other Results Microbiology Date/Time Source Procedure Growth Status 07/05/17 10:45 Blood Peripheral Aerobic Blood Culture - Final S. Aureus Mrsa Complete 07/05/17 10:45 Anaerobic Blood Culture - Final S. Aureus Mrsa Complete 07/05/17 21:50 Sputum Expectorated Sputum Gram Stain - Final Complete 07/05/17 21:50 Sputum Culture - Final S. Aureus Mrsa Complete 07/06/17 15:00 Urine Clean Catch Legionella Antigen - Final PRESUMPTIVE NEGATIVE FOR LEGIONELLA P... Complete 07/06/17 15:00 Urine Clean Catch Streptococcus pneumoniae Antigen (M - Final PRESUMPTIVE NEGATIVE FOR STREPTOCOCCU... Complete Imaging Last Impressions Chest X-Ray 07/05/17 1043 Signed Impressions: Service Date/Time: Wednesday, July 05, 2017 11:09 - CONCLUSION: No significant interval change. Left lower lobe pulmonary consolidation and patchy medial right lung base opacity unchanged. Jose Guadalupe Franco MD Objective Remarks GENERAL: This is an 86-year-old male, critically ill currently resting in bed on nasal cannula, resting comfortably this a.m. SKIN: Cool and dry. HEAD: Atraumatic. Normocephalic. EYES: Pupils equal and round. No scleral icterus. No injection or drainage. ENT: No nasal bleeding or discharge. Mucous membranes pink. Oropharynx without erythema NECK: Trachea midline. No JVD. CARDIOVASCULAR: Tachycardia, irregular rhythm. S1, S2 no S4. Faint 2/6 systolic murmur RESPIRATORY: Coarse rhonchorous breath sounds throughout lung cross GASTROINTESTINAL: Abdomen soft, non-tender, nondistended. Hepatic and splenic margins not palpable. MUSCULOSKELETAL: Extremities with 1+ peripheral edema. Patient hard necrotic tissue to 4th and 5th metatarsals of left foot,eschar of plantar/posterior left heel and lateral aspect of 3rd digits and necrotic tissue to medial Right hallux and 1st MTP joint areas. NEUROLOGICAL: Episodes of agitation today, confusion. No obvious cranial nerve deficits. Motor grossly within normal limits. 5/5 muscle strength in the arms and legs. Sppech One word answers with family A/P Assessment and Plan Neuro/Psych: Acute encephalopathy Chronic narcotic use ICU delirium?? Agitation Currently holding oxycodone/acetaminophen 10/325 one tablet every 4 hours when necessary pain. with altered mental status Holding temazepam 30 mg a night for insomnia Holding celecoxib 200 mg by mouth twice a day Currently on acetaminophen 600 mg by mouth every 6 hours when necessary fever Hydrocodone/acetaminophen 5/325 1 tablet every 4 hours when necessary pain 1-5. Morphine sulfate 2 mg IV every 2 hours. Maintain sleep hygiene-Melatonin 5 mg daily at bedtime when necessary for insomnia CV: Severe sepsis with multisystem organ failure History of hypertension Coronary disease status post cardiac stent 2 Peripheral arterial disease Recent left lower extremity angiogram with left poplitea angioplasty with 4mm balloon and left peroneal artery angioplasty with a 2 mm balloon and right MVA OPERATOR angioseal.Dr Daley Elevated troponin Acute on chronic systolic heart failure A. fib RVR Currently on and off injecting maintain a mean arterial pressure greater than equal to 65 2 L normal saline in ED. Bolused 07/05 Limited 2-D echocardiogram-ejection fraction 20% LAD moderately dilated, diffuse global hypokinesis with distinct RWMA Continue clopidogrel 75 mg daily Old Q waves in inferior leads on EKG. Cycle troponins [address] Duncan cardiology last admission. 07/05 BNP 1060 07/07 Received digoxin 0.125 x 1 dose with resolution of rapid HR Resp: Acute hypoxic respiratory failure Bilateral lower lobe pneumonia History of tobaccoism Patient currently on nonrebreather mask to titrate to maintain saturations greater than or equal to 90% Incentive spirometry while awake Albuterol/ipratropium aerosols every 4 hours with albuterol aerosols every 2 hours. Dyspnea See infectious disease for antibiotic coverage GI: Elevated transaminases Gastroesophageal reflux disease Patient is currently nothing by mouth. Family requests no insertion of NG tube no feeds no escalation of care Will discontinue Pantoprazole for GI prophylaxis and changed to famotidine in the setting of elevated creatinine Docusate sodium/senna 1 tablet twice a day for bowel regimen Follow-up on abdominal ultrasound for elevated LFTs-possibly shock liver in the setting of low cardiac output state : Insert Hernandez-2/2 gluteal/sacral skin breakdown pre-existing from previous admission, and urinary retention Strict I&O's Endo: Diabetes mellitus Currently on sliding scale insulin with Novulin R with Accu-Cheks every 4 hours to maintain euglycemia/medium regimen TSH elevated Renal: Acute kidney injury in the setting of chronic kidney disease stage IIIa Abdominal ultrasound/urine electrolytes and eosinophils pending currently refusing Hernandez catheter placement Monitor urine output Accurate I's and O's Monitor BMP Heme: Leukocytosis Normocytic anemia Chronic rivaroxaban use - holding with creatinine clearance less than 30 Monitor CBC daily. Follow trends Continue iron sulfate 325 mg by mouth daily. On 200mg liquid at home ID: Pneumonia - possibly healthcare acquired Piperacillin/tazobactam, vancomycin and azithromycin day #3 Blood cultures 2 and positive MRSA UA, sputum are pending. Influenza pending. Legionella pneumococcal urinary antigens pending. Follow up on cultures FEN: Hyperkalemia-resolved Hyponatremia 07/05 Patient received D50/insulin/calcium gluconate and Kayexalate 1. Replacing electrolytes as clinically indicated MSK: Left foot gangrene Pre-existing gluteal/sacral wound from previous hospitalization Hard necrotic tissue to 4th and 5th metatarsals of left foot,eschar of plantar/ posterior left heel and lateral aspect of 3rd digits and necrotic tissue to medial Right hallux and 1st MTP joint areas. Patient seen by podiatry last admission. Nonsurgical. Would not heal. Recommended outpatient follow-up. Wound care will evaluate and treat Specialty care bed Access - Utilize peripheral IV. Patient's currently refusing central line Prophylaxis - GI - pantoprazole - DVT - SCD/currently on Rivaroxaban -on hold with creatinine clearance less than 30 Critical Care: This patient remains critically ill with one or more organ systems which are or may become a threat to life. I have spent in excess of 31 minutes discontinuously in the care and management of this patient. This time is exclusive of procedures, and includes, but is not limited to, evaluation of the patient, review of the medical record, discussions with family, consultants, nursing staff, or respiratory therapy, and documentation in the medical record. 07/06 -Extensive discussion with family, plan for palliative care consult for definition of goals with patient's children. All questions answered 07/08- Planned Palliative Care team meeting at 11 AM with family upon arrival of patient's son ,this morning for tentative transfer to hospice. Family reinforced no escalation of care. Physician Jalyn Geronimo MD Jul 08, 2017 08:46
[2017-07-08] MEDS: MULTIVITAMIN TAB PO SCH (09:00)
[2017-07-08] MEDS: DOCUSATE SODIUM 50 MG/SENNA 8.6 MG TAB PO SCH (09:00)
[2017-07-08] MEDS: ASCORBIC ACID 500 MG TAB PO SCH (09:00)
[2017-07-08] MEDS: CLOPIDOGREL 75 MG TAB PO SCH (09:00)
[2017-07-08] MEDS: FERROUS SULFATE 325 MG (65 MG ELEMENTAL IRON) TAB PO SCH (09:00)
[2017-07-08] MEDS: SODIUM CHLORIDE 0.9% FLUSH 10 ML FLUSH IV FLUSH SCH ×2 (10:10)
[2017-07-08] MEDS: FAMOTIDINE 20 MG/2 ML VIAL IV PUSH SCH (10:10)
[2017-07-08] MEDS: AZITHROMYCIN INJ 500 MG in SODIUM CHLOR 0.9% 250 ML INJ 250 ML IV SCH (10:12)
--- NOTE | 2017-07-08 11:38 | HHI.HCPN ---
Reason for visit a. To assist with evaluation and management of symptoms including: dyspnea and debility b. To assist medical decision maker(s) with: better understanding of current medical conditions; weighing benefits/burdens of medical treatment options; making medical treatment decisions. Subjective/Interval History Patient seen today for follow regarding goals of care and transition to comfort focused goals, transition to Hospice. Patient examined in room 514 with patient' s daughter Astrid and her Fred at bedside. Patient remains drowsy, confused, moans intermittently, unable to follow commands. Patient appears to be breathing comfortably on 2L NC, still with audible course crackles/ congestion noted upon entering the room. Meeting with patient's three adult children Leroy, Jasmin, Astrid and her , patient's significant other Monica in conference room. Updated on patient's current clinical condition, aggressive versus comfort focused goals, as well as Hospice philosophy/benefits and transition to Hospice care. Family has collectively decided to move forward with comfort focused goals and elect Hospice. Consult placed, family is going to visit [facility] this morning to decide whether or not to transfer to the care center versus remaining in the hospital with Hospice care. Family/friend interactions Conference with patient's family in consultation room. Advance Directives Living Will: Never completed Health Care Surrogate: Never completed Durable Power of Motion Designer: Copy in medical record Objective Vital Signs Date Time Temp Pulse Resp B/P (MAP) Pulse Ox O2 Delivery O2 Flow Rate FiO2 07/08/17 10:27 24 07/08/17 10:00 128 07/08/17 08:00 123 07/08/17 08:00 97.9 123 23 154/79 (104) 100 07/08/17 07:50 100 Nasal Cannula 2.00 07/08/17 07:00 112 07/08/17 07:00 109 102/71 (81) 07/08/17 07:00 100 Nasal Cannula 2.00 07/08/17 06:00 104 07/08/17 04:00 97.7 127 29 125/57 (79) 98 07/08/17 04:00 127 07/08/17 02:00 90 07/08/17 01:00 112 118/70 (86) 07/08/17 00:00 107 07/08/17 00:00 98.3 107 16 117/58 (77) 100 07/07/17 22:00 142 07/07/17 20:00 125 07/07/17 20:00 98.2 125 26 112/61 (78) 99 07/07/17 19:35 99 Nasal Cannula 2.00 07/07/17 19:00 137 111/79 (90) 07/07/17 19:00 100 Nasal Cannula 2.00 07/07/17 18:44 137 119/68 07/07/17 18:00 134 07/07/17 17:35 102 07/07/17 16:03 125 118/59 07/07/17 16:00 97.9 102 19 105/68 (80) 99 07/07/17 14:00 145 07/07/17 13:00 128 112/67 (82) 07/07/17 12:00 132 07/07/17 12:00 97.9 132 31 101/75 (84) 64 Intake & Output 07/08/17 07/08/17 07:00 19:00 Intake Total 2200 ml Output Total 275 ml Balance 1925 ml Intake Oral 0 ml IV Total 2200 ml Output Urine Total 275 ml Stool Total 0 ml . Physical Exam CONSTITUTIONAL/GENERAL: This is a frail elderly male patient, confused, in no apparent distress. TUBES/LINES/DRAINS: RIJ CVL, PIV x 2, soft wrist restraints, gudino catheter SKIN: No jaundice, rashes, or lesions. Ecchymoses on upper extremities. Skin temperature appropriate. Not diaphoretic. ENT: Nose without bleeding or purulent drainage. Throat without visible erythema , exudates, masses, or lesions. CARDIOVASCULAR: Irregular rhythm without murmurs, gallops, or rubs. No JVD. Peripheral pulses symmetric. RESPIRATORY/CHEST: Symmetric, unlabored respirations. Course crackles and rhonchi throughout. Breath sounds equal bilaterally. GASTROINTESTINAL: Abdomen soft, non-tender, nondistended. No guarding. Bowel sounds present. GENITOURINARY: Without palpable bladder distension. Gudino catheter in place draining concentrated brown urine. MUSCULOSKELETAL:Trace 1+ edema. Peripheral pulses decreased bilaterally.. NEUROLOGICAL: Drowsy, confused. Unable to follow commands. PSYCHIATRIC:Unable to assess secondary to clinical condition. . Diagnostic Tests Laboratory Laboratory Tests Test 07/05/17 13:30 07/05/17 14:50 07/05/17 17:14 07/05/17 21:30 Lactic Acid Level 5.5 mmol/L (0.4-2.0) 2.9 mmol/L (0.4-2.0) Nasal Screen MRSA (PCR) MRSA DETECTED (NOT DETECT) White Blood Count 20.8 TH/MM3 (4.0-11.0) Red Blood Count 3.21 MIL/MM3 (4.50-5.90) Hemoglobin 9.8 GM/DL (13.0-17.0) Hematocrit 31.0 % (39.0-51.0) Mean Corpuscular Volume 96.6 FL (80.0-100.0) Mean Corpuscular Hemoglobin 30.6 PG (27.0-34.0) Mean Corpuscular Hemoglobin Concent 31.7 % (32.0-36.0) Red Cell Distribution Width 20.2 % (11.6-17.2) Platelet Count 223 TH/MM3 (150-450) Mean Platelet Volume 7.3 FL (7.0-11.0) Prothrombin Time 17.6 SEC (9.8-11.6) Prothromb Time International Ratio 1.6 RATIO Activated Partial Thromboplast Time 47.9 SEC (24.3-30.1) Fibrinogen 571 mg/dL (227-377) Potassium Level 4.6 MEQ/L (3.5-5.1) Ammonia LESS THAN 10 MCMOL/L Phosphorus Level 4.2 MG/DL (2.5-4.9) Magnesium Level 2.0 MG/DL (1.5-2.5) Troponin I 0.05 NG/ML (0.02-0.05) Thyroid Stimulating Hormone 3rd Gen 7.640 uIU/ML (0.358-3.740) Test 07/06/17 00:30 07/06/17 04:35 07/06/17 12:00 07/06/17 14:50 Troponin I 0.04 NG/ML (0.02-0.05) White Blood Count 22.8 TH/MM3 (4.0-11.0) Red Blood Count 2.90 MIL/MM3 (4.50-5.90) Hemoglobin 8.9 GM/DL (13.0-17.0) Hematocrit 27.8 % (39.0-51.0) Mean Corpuscular Volume 95.7 FL (80.0-100.0) Mean Corpuscular Hemoglobin 30.6 PG (27.0-34.0) Mean Corpuscular Hemoglobin Concent 32.0 % (32.0-36.0) Red Cell Distribution Width 20.6 % (11.6-17.2) Platelet Count 202 TH/MM3 (150-450) Mean Platelet Volume 7.2 FL (7.0-11.0) Neutrophils (%) (Auto) 94.0 % (16.0-70.0) Lymphocytes (%) (Auto) 3.3 % (9.0-44.0) Monocytes (%) (Auto) 2.5 % (0.0-8.0) Eosinophils (%) (Auto) 0.1 % (0.0-4.0) Basophils (%) (Auto) 0.1 % (0.0-2.0) Neutrophils # (Auto) 21.5 TH/MM3 (1.8-7.7) Lymphocytes # (Auto) 0.8 TH/MM3 (1.0-4.8) Monocytes # (Auto) 0.6 TH/MM3 (0-0.9) Eosinophils # (Auto) 0.0 TH/MM3 (0-0.4) Basophils # (Auto) 0.0 TH/MM3 (0-0.2) CBC Comment AUTO DIFF Differential Total Cells Counted 100 Neutrophils % (Manual) 58 % (16-70) Band Neutrophils % 39 % (0-6) Monocytes % 2 % (0-8) Neutrophils # (Manual) 22.3 TH/MM3 (1.8-7.7) Metamyelocytes 1 % (0-1) Differential Comment FINAL DIFF MANUAL Platelet Estimate NORMAL (NORMAL) Platelet Morphology Comment NORMAL (NORMAL) Prothrombin Time 16.6 SEC (9.8-11.6) Prothromb Time International Ratio 1.5 RATIO Activated Partial Thromboplast Time 48.0 SEC (24.3-30.1) Blood Urea Nitrogen 56 MG/DL (7-18) Creatinine 2.81 MG/DL (0.60-1.30) Random Glucose 198 MG/DL (74-106) Total Protein 4.7 GM/DL (6.4-8.2) Albumin 1.4 GM/DL (3.4-5.0) Calcium Level 7.3 MG/DL (8.5-10.1) Phosphorus Level 4.1 MG/DL (2.5-4.9) Magnesium Level 2.0 MG/DL (1.5-2.5) Alkaline Phosphatase 99 U/L (45-117) Aspartate Amino Transf (AST/SGOT) 132 U/L (15-37) Alanine Aminotransferase (ALT/SGPT) 120 U/L (12-78) Total Bilirubin 0.7 MG/DL (0.2-1.0) Sodium Level 140 MEQ/L (136-145) Potassium Level 4.7 MEQ/L (3.5-5.1) Chloride Level 108 MEQ/L (98-107) Carbon Dioxide Level 21.4 MEQ/L (21.0-32.0) Anion Gap 11 MEQ/L (5-15) Estimat Glomerular Filtration Rate 21 ML/MIN (>89) Lactic Acid Level 4.5 mmol/L (0.4-2.0) Protein Corrected Calcium 8.7 MG/DL (8.5-10.1) Ammonia 19 MCMOL/L (11-32) B-Type Natriuretic Peptide 1063 PG/ML (0-100) Thyroxine (T4) 3.0 MCG/DL (4.5-12.1) Thyroid Stimulating Hormone 3rd Gen 8.970 uIU/ML (0.358-3.740) Total Triiodothyronine 15 NG/DL (60-181) Test 07/06/17 15:00 07/07/17 04:00 07/08/17 05:00 Urine Color DARK-BROWN (YELLW/STRAW) Urine Turbidity CLOUDY (CLEAR) Urine pH 5.5 (5.0-8.5) Urine Specific [place] 1.027 (1.002-1.035) Urine Protein 100 mg/dL (NEG-TRACE) Urine Glucose (UA) NEG mg/dL (NEG) Urine Ketones NEG mg/dL (NEG) Urine Occult Blood LARGE (NEG) Urine Nitrite NEG (NEG) Urine Bilirubin NEG (NEG) Urine Urobilinogen LESS THAN 2.0 MG/DL (LESS Urine Leukocyte Esterase NEG (NEG) Urine RBC 100-200 /hpf (0-3) Urine WBC 0-2 /hpf (0-5) Urine Amorphous Sediment LARGE Urine Bacteria FEW /hpf (NONE) Microscopic Urinalysis Comment CATH-CULT NOT IND Urine Eosinophils NONE SEEN /HPF (NONE SEEN) Urine Random Creatinine 108.4 MG/DL Urine Random Sodium 8 MEQ/L Blood Urea Nitrogen 60 MG/DL (7-18) Creatinine 2.60 MG/DL (0.60-1.30) Random Glucose 178 MG/DL (74-106) Calcium Level 7.7 MG/DL (8.5-10.1) Sodium Level 143 MEQ/L (136-145) Potassium Level 3.9 MEQ/L (3.5-5.1) Chloride Level 110 MEQ/L (98-107) Carbon Dioxide Level 23.8 MEQ/L (21.0-32.0) Anion Gap 9 MEQ/L (5-15) Estimat Glomerular Filtration Rate 23 ML/MIN (>89) Random Vancomycin Level 14.2 COMMENT White Blood Count 11.5 TH/MM3 (4.0-11.0) Red Blood Count 2.45 MIL/MM3 (4.50-5.90) Hemoglobin 7.7 GM/DL (13.0-17.0) Hematocrit 23.2 % (39.0-51.0) Mean Corpuscular Volume 94.7 FL (80.0-100.0) Mean Corpuscular Hemoglobin 31.4 PG (27.0-34.0) Mean Corpuscular Hemoglobin Concent 33.2 % (32.0-36.0) Red Cell Distribution Width 20.3 % (11.6-17.2) Platelet Count 63 TH/MM3 (150-450) Mean Platelet Volume 7.8 FL (7.0-11.0) Result Diagram: 07/08/17 0500 07/07/17 0400 Microbiology Microbiology Date/Time Source Procedure Growth Status 07/06/17 18:00 Blood Peripheral Aerobic Blood Culture - Preliminary Gram Positive Cocci Resulted 07/06/17 18:00 Blood Peripheral Anaerobic Blood Culture - Preliminary NO GROWTH IN 2 DAYS Resulted 07/06/17 17:45 Blood Peripheral Aerobic Blood Culture - Preliminary Gram Positive Cocci Resulted 07/06/17 17:45 Blood Peripheral Anaerobic Blood Culture - Preliminary NO GROWTH IN 2 DAYS Resulted 07/05/17 15:25 Blood Peripheral Aerobic Blood Culture - Preliminary Gram Positive Cocci Resulted 07/05/17 15:25 Anaerobic Blood Culture - Preliminary Gram Positive Cocci Resulted 07/05/17 21:50 Sputum Expectorated Sputum Gram Stain - Final Complete 07/05/17 21:50 Sputum Culture - Final S. Aureus Mrsa Complete 07/06/17 15:00 Urine Clean Catch Legionella Antigen - Final PRESUMPTIVE NEGATIVE FOR LEGIONELLA P... Complete 07/06/17 15:00 Urine Clean Catch Streptococcus pneumoniae Antigen (M - Final PRESUMPTIVE NEGATIVE FOR STREPTOCOCCU... Complete 07/06/17 15:00 Urine Clean Catch Urine Culture - Final NO GROWTH IN 48 HOURS. Complete Imaging Last 72 hours Impressions Chest X-Ray 07/05/171943 Signed Impressions: Service Date/Time: Friday, July 05, 2017 19:55 - CONCLUSION: 1. New right IJ central venous catheter with tip in the right atrium. No pneumothorax or other acute complication demonstrated. 2. Suspected early pneumonia developing in the right midlung. 3. Left base consolidation again seen, not significantly changed. Santy Brandon MD Assessment and Plan Disease Oriented Problem List: (1) Congestive heart failure (CHF) (2) Severe sepsis with acute organ dysfunction (3) CKD (chronic kidney disease), stage III Symptom Scale: (1) Dyspnea (2) Debility Pertinent Non-Medical Issues Psychosocial: Patient was born in [place]. Patient moved to [place] approximately 74 years ago. Patient served in the [employer] for 21 years which he spent in [place]. 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 Patient was once and his approximately 8-10 years ago per his daughter. Patient has 3 adult children, 2 twin daughters and a son. His 2 daughters live in [place] and son lives in [place]. Spiritual: [employer]. Legal: None known. Ethical issues impacting care: None known. . Important Contacts Astrid Hernandez (daughter) [phone] Monica Vega (Significant other) [phone], Jasmin Alyson (daughter) [phone] Leroy Mills (son) [phone] . Prognosis Patient is an 86 years old male with a past medical history significant for atrial fibrillation, CAD, myocardial infarction, hypertension, CKD (stage III), diabetes mellitus type 2, GERD, chronic back pain, and asbestosis. Patient was recently admitted to [facility] for progressive gangrenous changes to left foot with ischemic pain from 06/13/17 to 06/22/17, discharged to [facility] and subsequently discharged home with home health on 07/02. Patient returned to the hospital on 07/05 for shortness of breath, admitted for sepsis, and pneumonia. Given ongoing multiple comorbidities and current condition, patient remains at high risk for further complications, deterioration and decline. Patient is Hospice appropriate. Code Status: No Code Plan * Legal decision maker: Patient is unable to participate in medical decision making at this time. It is unclear whether he will regain the capacity to do so independently. The patient does not have a completed written HCS or advanced directives pertaining to medical decision making. Per [place] statutes in the absence of written advanced directives health care decision making would fall to the patient's next of kin, his three adult children, all of whom are willing to serve as collaborative HCPs. * Goals: Comfort focused, transition to Hospice today, consult placed. * Meeting with patient's three adult children Jasmin Harper Sheila and her , patient's significant other Monica in conference room. Updated on patient's current clinical condition, aggressive versus comfort focused goals, as well as Hospice philosophy/benefits and transition to Hospice care. Family has collectively decided to move forward with comfort focused goals and elect Hospice. Consult placed, family is going to visit [facility] this morning to decide whether or not to transfer to the care center versus remaining in the hospital with Hospice care. * Discussed with bedside RN. * CODE STATUS: DNR * SYMPTOMS: * Dyspnea: Multifactorial, patient has a history of asbestosis, CHF, now with pneumonia. Currently on 2L NC, scheduled DuoNeb q 4 hours and albuterol 2.5mg q 2 hours PRN ordered. No recommendations at this time. * Debility: Progressive. Patient has been gradually declining physically over the past 2 years and for the past years patient`s life has been, with current hospitalization and ongoing commodities patient is at risk for further decline. Patient`s activity and mobility will be impaired secondary to chronic LLE wound with pain. Attestation To help prompt me to consider important information that might be impacting today's encounter and assessment, information from prior notes written by myself or my colleagues may have been "brought forward" into today's note. My signature on this note, however, is an attestation that I personally performed the exam, history, and/or decision-making noted today, and, unless otherwise indicated, the interactions with patient, family, and staff as well as the review of records all occurred today. I also attest that the listed assessment and stated plan reflect my best clinical judgment today based on the combination of historical information, prior notes, and today's exam/ interactions. When time spent is documented, it refers only to time spent today by the signer, or if indicated, combined time spent today by collaborating physician/nurse practitioner. Adri Ndiaye Jul 08, 2017 11:38
[2017-07-08] MEDS: DEXTROSE 50% IN WATER 50 ML VIAL(D50) IV PUSH PRN ×2 (12:19→12:34)
--- NOTE | 2017-07-08 12:21 | PD.WCN.NOT ---
Wound Consult Description: Received consult from Doctor Marcelino for wound management of wound to coccyx and Necrotic L foot. Communicated with: RAMÍREZ Josehp and Doctor Jalyn Keith Recommendation: 1.Please cleanse buttock, coccyx and sacral areas with soap and water gently and pat dry. Apply thick layer of calazime barrier cream and leave open to air.OK to not remove all of barrier cream when cleaning patient, OK to layer barrier cream. 2.Continue to turn patient every 2 hours to offload pressure from richa prominences. 3. 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 Additional Information: Patient seen around 1115 for evaluation of wound management to Coccyx and L foot wounds. Patient was turned with maximum assist from film writer and RAMÍREZ Joseph 5th floor [facility] to R side to reveal deep tissue injury that is opening to an unstageable wound on sacrum. Wound presents with ~40% coverage of intact purple non blanchable skin, ~30% yellow slough, ~10% red tissue, and ~20% black eschar.Wound measures ~7cm x ~6cm .Patient's heart rate began to drop while patient was turned. patient was immediately positioned to back, heart rate improved before repositioning patient to L side to offload pressure from sacral area. Aaliyah Joseph to apply the Calazime barrier cream as recommended above. Doctor Daniel podiatry has seen patient for stable gangrene to L foot and wrote orders for betadine swabs. Neg Pressure Wound Therapy Wound Location Wound Location: Consult for left foot per Angélica Wilson [facility] Jul 08, 2017 12:21
--- NOTE | 2017-07-08 13:11 | HHI.DS ---
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 Diagnosis: Principal (4) Insomnia ICD Code: G47.00 - Insomnia, unspecified Diagnosis: Principal (5) Hyperglycemia ICD Code: R73.9 - Hyperglycemia, unspecified Diagnosis: Principal (6) Elevated transaminase level ICD Code: R74.0 - Nonspecific elevation of levels of transaminase and lactic acid dehydrogenase [LDH] Diagnosis: Principal (7) Chronic low back pain ICD Code: M54.5 - Low back pain; G89.29 - Other chronic pain Diagnosis: Secondary (8) Diabetes mellitus ICD Code: E11.9 - Type 2 diabetes mellitus without complications Diagnosis: Secondary (9) Gastroesophageal reflux disease ICD Code: K21.9 - Gastro-esophageal reflux disease without esophagitis Diagnosis: Principal (10) Atrial fibrillation ICD Code: I48.91 - Unspecified atrial fibrillation Diagnosis: Principal (11) Peripheral arterial disease ICD Code: I73.9 - Peripheral vascular disease, unspecified Diagnosis: Principal (12) Acute renal injury due to sepsis ICD Code: A41.9 - Sepsis, unspecified organism; R65.20 - Severe sepsis without septic shock; N17.9 - Acute kidney failure, unspecified Diagnosis: Principal (13) Hyperkalemia ICD Code: E87.5 - Hyperkalemia Diagnosis: Principal (14) Lactic acidosis ICD Code: E87.2 - Acidosis Diagnosis: Principal (15) Severe sepsis with acute organ dysfunction ICD Code: A41.9 - Sepsis, unspecified organism; R65.20 - Severe sepsis without septic shock Diagnosis: Principal (16) Coronary artery disease ICD Code: I25.10 - Atherosclerosis of coronary artery Diagnosis: Principal Status: Acute (17) Asbestosis ICD Code: J61 - Asbestosis Diagnosis: Principal Status: Acute (18) Edema of both legs ICD Code: R60.0 - Localized edema Diagnosis: Principal (19) GERD (gastroesophageal reflux disease) ICD Code: K21.9 - Gastroesophageal reflux disease Diagnosis: Principal Status: Chronic (20) CKD (chronic kidney disease), stage III ICD Code: N18.3 - Chronic kidney disease, stage 3 (moderate) Diagnosis: Principal Status: Chronic (21) Decubital ulcer ICD Code: L89.90 - Pressure ulcer of unspecified site, unspecified stage Diagnosis: Secondary Status: Acute (22) Impaired mobility and activities of daily living ICD Code: Z74.09 - Other reduced mobility Diagnosis: Secondary Status: Acute (23) Constipation ICD Code: K59.00 - Constipation, unspecified Diagnosis: Secondary (24) Debility ICD Code: R53.81 - Other malaise Diagnosis: Principal (25) Gangrene of foot ICD Code: I96 - Gangrene, not elsewhere classified Diagnosis: Principal Brief History This is an 86-year-old male. He is DNR/DNI status. 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 Daley - underwent left lower extremity angiogram with left poplitea angioplasty with 4mm balloon and left peroneal artery angioplasty with a 2 mm balloon and right [employer] angioseal. . Patient also had hard necrotic tissue to 4th and 5th metatarsals of left foot, eschar of plantar/posterior left heel and lateral aspect of 3rd digits and necrotic tissue to medial Right hallux and 1st MTP joint areas. -, coronary disease status post stent 2, atrial fibrillation, chronic kidney disease stage III, gastroesophageal reflux disease, diabetes mellitus, hypertension, chronic low back pain,, Rivaroxaban use,, peripheral arterial disease and peripheral vascular disease. Patient was recently discharged from [facility] . He presents to [facility] ED with chief complaint of shortness of breath. He was seen by his home health nurse earlier today with saturations in the 60s. EMS was called and he was brought to the hospital. Chief complaint was quite shortness of breath, cough productive of yellow sputum.. Chest x-ray revealed bilateral lower lobe infiltrates similar to previous x- ray. White blood cell count was elevated. Patient's creatinine is currently 2.9. Baseline around 1.5. Transaminases are elevated. Troponin is elevated. Lactates is greater than 4.. Patient received 2 L normal saline wide open and became more hypoxic currently a nonrebreather mask. Peripheral dopamine was started currently at 3 mcg/kg per minute. CBC/BMP: 07/08/17 0500 07/07/17 0400 Significant Findings Laboratory Tests Test 07/05/17 13:30 07/05/17 14:50 07/05/17 17:14 07/05/17 21:30 Lactic Acid Level 5.5 mmol/L (0.4-2.0) 2.9 mmol/L (0.4-2.0) White Blood Count 20.8 TH/MM3 (4.0-11.0) Red Blood Count 3.21 MIL/MM3 (4.50-5.90) Hemoglobin 9.8 GM/DL (13.0-17.0) Hematocrit 31.0 % (39.0-51.0) Mean Corpuscular Hemoglobin Concent 31.7 % (32.0-36.0) Red Cell Distribution Width 20.2 % (11.6-17.2) Prothrombin Time 17.6 SEC (9.8-11.6) Activated Partial Thromboplast Time 47.9 SEC (24.3-30.1) Fibrinogen 571 mg/dL (227-377) Ammonia LESS THAN 10 MCMOL/L Thyroid Stimulating Hormone 3rd Gen 7.640 uIU/ML (0.358-3.740) Test 07/06/17 00:30 07/06/17 04:35 07/06/17 12:00 07/06/17 14:50 White Blood Count 22.8 TH/MM3 (4.0-11.0) Red Blood Count 2.90 MIL/MM3 (4.50-5.90) Hemoglobin 8.9 GM/DL (13.0-17.0) Hematocrit 27.8 % (39.0-51.0) Red Cell Distribution Width 20.6 % (11.6-17.2) Neutrophils (%) (Auto) 94.0 % (16.0-70.0) Lymphocytes (%) (Auto) 3.3 % (9.0-44.0) Neutrophils # (Auto) 21.5 TH/MM3 (1.8-7.7) Lymphocytes # (Auto) 0.8 TH/MM3 (1.0-4.8) Band Neutrophils % 39 % (0-6) Neutrophils # (Manual) 22.3 TH/MM3 (1.8-7.7) Prothrombin Time 16.6 SEC (9.8-11.6) Activated Partial Thromboplast Time 48.0 SEC (24.3-30.1) Blood Urea Nitrogen 56 MG/DL (7-18) Creatinine 2.81 MG/DL (0.60-1.30) Random Glucose 198 MG/DL (74-106) Total Protein 4.7 GM/DL (6.4-8.2) Albumin 1.4 GM/DL (3.4-5.0) Calcium Level 7.3 MG/DL (8.5-10.1) Aspartate Amino Transf (AST/SGOT) 132 U/L (15-37) Alanine Aminotransferase (ALT/SGPT) 120 U/L (12-78) Chloride Level 108 MEQ/L (98-107) Estimat Glomerular Filtration Rate 21 ML/MIN (>89) Lactic Acid Level 4.5 mmol/L (0.4-2.0) B-Type Natriuretic Peptide 1063 PG/ML (0-100) Thyroxine (T4) 3.0 MCG/DL (4.5-12.1) Thyroid Stimulating Hormone 3rd Gen 8.970 uIU/ML (0.358-3.740) Total Triiodothyronine 15 NG/DL (60-181) Test 07/06/17 15:00 07/07/17 04:00 07/08/17 05:00 Urine Color DARK-BROWN (YELLW/STRAW) Urine Turbidity CLOUDY (CLEAR) Urine Protein 100 mg/dL (NEG-TRACE) Urine Occult Blood LARGE (NEG) Urine RBC 100-200 /hpf (0-3) Urine Bacteria FEW /hpf (NONE) Blood Urea Nitrogen 60 MG/DL (7-18) Creatinine 2.60 MG/DL (0.60-1.30) Random Glucose 178 MG/DL (74-106) Calcium Level 7.7 MG/DL (8.5-10.1) Chloride Level 110 MEQ/L (98-107) Estimat Glomerular Filtration Rate 23 ML/MIN (>89) White Blood Count 11.5 TH/MM3 (4.0-11.0) Red Blood Count 2.45 MIL/MM3 (4.50-5.90) Hemoglobin 7.7 GM/DL (13.0-17.0) Hematocrit 23.2 % (39.0-51.0) Red Cell Distribution Width 20.3 % (11.6-17.2) Platelet Count 63 TH/MM3 (150-450) Hospital Course This is an 86-year-old male. He is DNR/DNI status. 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 Daley - underwent left lower extremity angiogram with left poplitea angioplasty with 4mm balloon and left peroneal artery angioplasty with a 2 mm balloon and right [employer] angioseal. . Patient also had hard necrotic tissue to 4th and 5th metatarsals of left foot, eschar of plantar/posterior left heel and lateral aspect of 3rd digits and necrotic tissue to medial Right hallux and 1st MTP joint areas. -, coronary disease status post stent 2, atrial fibrillation, chronic kidney disease stage III, gastroesophageal reflux disease, diabetes mellitus, hypertension, chronic low back pain,, Rivaroxaban use,, peripheral arterial disease and peripheral vascular disease. Patient was recently discharged from [facility] . He presents to [facility] ED with chief complaint of shortness of breath. He was seen by his home health nurse earlier today with saturations in the 60s. EMS was called and he was brought to the hospital. Chief complaint was quite shortness of breath, cough productive of yellow sputum.. Chest x-ray revealed bilateral lower lobe infiltrates similar to previous x- ray. White blood cell count was elevated. Patient's creatinine is currently 2.9. Baseline around 1.5. Transaminases are elevated. Troponin is elevated. Lactates is greater than 4.. Patient received 2 L normal saline wide open and became more hypoxic currently a nonrebreather mask. Peripheral dopamine was started currently at 3 mcg/kg per minute. Subjective 07/06: Afebrile. The patient's oxygen requirements have been decrease currently at 3 L/m nasal cannula, O2 saturation 99%. The patient remains confused, overnight pulled out peripheral IV's. Patient was noted to have urinary retention requiring repeated straight catheters, Hernandez placed for prevention of expansion of sacral wound and urinary retention. Patient currently on phenylephrine to maintain MAP. 07/07: No change in mental status the patient remains confused and agitated. Patient requiring Ativan 0.5 mg . Patient was noted to have A. fib RVR and required digoxin 0.125 mg IV 1 dose. Discussion with family after palliative care team meeting. The patient failed formal swallow exam .Plan for no escalation in care, no insertion of NG tube and plan for transfer to hospice possibly tomorrow. 07/08: Afebrile. Patient had bouts of agitation last night requiring dosing of Ativan 1. Leukocytosis resolving however patient noted to be significantly thrombocytopenic today place count of 63. He had elevation in heart rate last night and received digoxin 0.1251 dose. 07/08: Palliative care team meeting with family. Decision made for hospice care. The [facility] Pt Condition on Discharge: Deteriorating Discharge Disposition: Hospice/Med Facility Discharge Instructions DIET: Follow Instructions for: Nothing By Mouth Activities you can perform: Continue Bedrest Jalyn Keith MD Jul 08, 2017 13:11
[2017-07-08] MEDS ORDERED: DEXTROSE 10% INJ 500 ML IV SCH (13:15)
[2017-07-08] MEDS ORDERED: LORazepam 2 MG/ML VIAL IV ONE (16:11)
== END 2017-07-08 13:25 | disposition hospice, inpatient (51) | DRG 871 ==
LOC: NEPC 10:28 → NEDA 13:10 → HIME 14:40
PROVIDERS: ADMIT Internal Medicine Critical Care Medicine; ATTEND Internal Medicine Critical Care Medicine
PROC: 02HV33Z Insertion of Infusion Device into Superior Vena Cava, Percutaneous Approach (ICD-10-PCS; principal; 2017-07-05)
PROC: B543ZZA Ultrasonography of Right Jugular Veins, Guidance (ICD-10-PCS; 2017-07-05)
PROC: 0T9B70Z Drainage of Bladder with Drainage Device, Via Natural or Artificial Opening (ICD-10-PCS; 2017-07-06)
DX: A41.02 Sepsis due to Methicillin resistant Staphylococcus aureus (principal); G93.40 Encephalopathy, unspecified; J96.01 Acute respiratory failure with hypoxia; K72.00 Acute and subacute hepatic failure without coma; N17.9 Acute kidney failure, unspecified; I50.23 Acute on chronic systolic (congestive) heart failure; J18.9 Pneumonia, unspecified organism; L89.151 Pressure ulcer of sacral region, stage 1; I13.0 Hypertensive heart and chronic kidney disease with heart failure and stage 1 through stage 4 chronic kidney disease, or unspecified chronic kidney disease; E87.2 Acidosis; E11.52 Type 2 diabetes mellitus with diabetic peripheral angiopathy with gangrene; E87.1 Hypo-osmolality and hyponatremia; E11.22 Type 2 diabetes mellitus with diabetic chronic kidney disease; N18.3 Chronic kidney disease, stage 3 (moderate); E87.5 Hyperkalemia; R65.20 Severe sepsis without septic shock; I25.10 Atherosclerotic heart disease of native coronary artery without angina pectoris; J61 Pneumoconiosis due to asbestos and other mineral fibers; K21.9 Gastro-esophageal reflux disease without esophagitis; K59.00 Constipation, unspecified; D64.9 Anemia, unspecified; I48.91 Unspecified atrial fibrillation; Y95 Nosocomial condition; Z87.891 Personal history of nicotine dependence; I25.2 Old myocardial infarction; H91.90 Unspecified hearing loss, unspecified ear; M47.9 Spondylosis, unspecified; Z96.652 Presence of left artificial knee joint; I45.10 Unspecified right bundle-branch block; G47.00 Insomnia, unspecified; E11.65 Type 2 diabetes mellitus with hyperglycemia; R33.9 Retention of urine, unspecified; I71.4 Abdominal aortic aneurysm, without rupture; I08.0 Rheumatic disorders of both mitral and aortic valves; R29.6 Repeated falls; G89.29 Other chronic pain; M54.5 Low back pain; D69.6 Thrombocytopenia, unspecified; R94.6 Abnormal results of thyroid function studies; R26.9 Unspecified abnormalities of gait and mobility; Z51.5 Encounter for palliative care; Z66 Do not resuscitate; Z79.01 Long term (current) use of anticoagulants; Z95.5 Presence of coronary angioplasty implant and graft; Z96.642 Presence of left artificial hip joint; Z79.891 Long term (current) use of opiate analgesic
CPT/HCPCS: 36556; 71010; 76700; 76937; 80048; 80053; 80202; 81001; 82140; 82150; 82570; 82948; 83605; 83690; 83735; 83880; 84100; 84132; 84300; 84436; 84443; 84480; 84484; 85007; 85027; 85384; 85610; 85730; 86403; 87040; 87070; 87086; 87147; 87186; 87205; 87449; 87641; 93005; 93308; 94640; 94664; 96365; 96375; C9113; J0456; J0610; J1160; J1265; J1815; J2060; J2270; J2370; J2543; J3370; J7030; J7040; J7042; J7050; J7060